=== PATIENT | female | born 1970 | race Caucasian/White ===

== ENCOUNTER → 2016-11-10 | Day surgery (SDC) | payer BC ==
[2016-10-22 11:10] VITALS: BMI 58.0
[~2016-11-10] VITALS: Ht 147.3 cm; Wt 127.0 kg
[~2016-11-10] MED LIST: ACET-1256 PO; ALBU18002 INH; ATEN100T PO; CALC500C50 PO; HYDR-5688 PO; LIDOCAINE HCL 2% 2 ML VIAL (20MG/ML) ONE; LISI20TA3 PO; MELO15TA3 PO; MIDAZOLAM HCL 1 MG/ML 2ML VIAL ONE; MRPSR15 PO; ONDA8TAB6 PO; ONDANSETRON INJ 2 MG/ML 2 ML VIAL ONE; POTA1080 PO; PROPOFOL IV EMULSION 10 MG/ML 20 ML VIAL IV ONE; SODIUM CHLORIDE 0.9% 500ML 500 ML IV ONE; TRAM-10 PO; XRL10 PO
--- NOTE | 2016-11-10 08:38 | Endo History and Physical ---
History & Physical Date of Service: Nov 10, 2016. Chief Complaint: Diarrhea and abdominal pain Referring Physician: Dr. Villasenor History of Present Illness 45 yo CF who presents for colonoscopy secondary to diarrhea and abdominal pain. Past Medical History Arthritis, Asthma, Reflux, Hypertension Past Surgical History Hx Cardiac Surgery: No Hx Internal Defibrillator: No Hx Pacemaker: No Hx Abdominal Surgery: Yes ( X2, TUBAL LIGATION,PARTIAL HYSTERECTOMY, UMBILICAL HERNIA REPAIR) Hx Post-Op Nausea and Vomiting: No Hx Cancer Surgery: No Hx Thoracic Surgery: No Hx Orthopedic: Yes (L KNEE SCOPE,R KNEE SCOPE,LT TKA) Hx Urinary Tract Surgery: Yes (CYSTO STENT) Family History Colon CA Social History Smoking Status: Never Smoker Hx Substance Use: No Hx Alcohol Use: No Allergies Coded Allergies: Oxycodone (Unverified Allergy, Unknown, ANXIETY, INSOMNIA, NAUSEA, ) Current Medications Reported Home Medications Medications Dose Route/Sig Max Daily Dose Days Date Category Potassium Citrate ER (Potassium Citrate (Alkalinizer) 1,080 Mg Tab 1 Tab PO HS 90 11/02/16 Reported Proair Respiclick (Albuterol Sulfate) 108 Mcg/Act Aer 2 Puffs INH Q4-6H PRN 11/02/16 Reported Ultram (Tramadol HCl) 50 Mg Tab 50 Mg PO PRN 11/02/16 Reported Tylenol (Acetaminophen) 500 Mg Tab 1,000 Mg PO BID PRN 11/02/16 Reported Tums (Calcium Carbonate (Antacid)) 500 Mg Chw 1 Tab PO DIRECTED PRN 10/22/16 Reported Tenormin (Atenolol) 100 Mg Tab 100 Mg PO HS 12/31/15 Reported Prinivil (Lisinopril) 20 Mg Tab 20 Mg PO HS 12/18/15 Reported Mobic (Meloxicam) 15 Mg Tab 15 Mg PO HS 11/03/13 Reported Vital Signs Weight (Kilograms): 127 Height (Feet): 4 Height (Inches): 10 Physical Exam General Appearance: WD/WN, no apparent distress Respiratory/Chest: Auscultation: breath sounds normal Cardiovascular: Heart Auscultation: RRR Abdomen: Bowel Sounds: normal Inspection & Palpation: soft, non-distended, no tenderness, guarding & rebound Assessment and Plan Assessment: 45 yo CF who presents for colonoscopy secondary to diarrhea and abdominal pain. Plan: Proceed with colonoscopy.
[2016-11-10 08:42] VITALS: Ht 147.3 cm; Wt 127.0 kg
--- NOTE | 2016-11-10 09:24 | GI REPORT ---
Procedure Date: 11/10/2016 8:57 AM Procedure: Colonoscopy Indications: Generalized abdominal pain, Chronic diarrhea Medicines: Monitored Anesthesia Care Complications: No immediate complications. Estimated Blood Loss: Estimated blood loss: none. Procedure: Pre-Anesthesia Assessment: - Prior to the procedure, a History and Physical was performed, and patient medications and allergies were reviewed. The patient's tolerance of previous anesthesia was also reviewed. The risks and benefits of the procedure and the sedation options and risks were discussed with the patient. All questions were answered, and informed consent was obtained. Prior Anticoagulants: The patient has taken no previous anticoagulant or antiplatelet agents. ASA Grade Assessment: III - A patient with severe systemic disease. After reviewing the risks and benefits, the patient was deemed in satisfactory condition to undergo the procedure. After I obtained informed consent, the scope was passed under direct vision. Throughout the procedure, the patient's blood pressure, pulse, and oxygen saturations were monitored continuously. The Scope was introduced through the anus and advanced to the terminal ileum. The colonoscopy was performed without difficulty. The patient tolerated the procedure well. The quality of the bowel preparation was good. The terminal ileum, ileocecal valve, appendiceal orifice, and rectum were photographed. Findings: Multiple small-mouthed diverticula were found in the sigmoid colon. Several random biopsies were obtained with cold forceps for histology in the entire colon. Fluid aspiration for cytology was performed in the entire colon. Impression: - Diverticulosis in the sigmoid colon. - Several random biopsies were obtained in the entire colon. - Fluid aspiration was performed. Recommendation: - Resume previous diet. - Continue present medications. - Repeat colonoscopy for surveillance based on pathology results. - Return to GI office as previously scheduled. Aman Sorensen, 11/10/2016 9:23:47 AM This report has been signed electronically. Note Initiated On: 11/10/2016 8:57 AM
--- NOTE | 2016-11-10 09:25 | Discharge Instructions ---
Endoscopy Patient Instructions Date / Procedure(s) Performed Nov 10, 2016. Colonoscopy Allergy Information Coded Allergies: Oxycodone (Unverified Allergy, Unknown, ANXIETY, INSOMNIA, NAUSEA, 11/10/16) Discharge Date / Findings Nov 10, 2016. Diverticulosis Random colon biopsies Stool studies collected Medication Instructions OK to resume all medications today as prescribed Reported Home Medications Medications Dose Route/Sig Max Daily Dose Days Date Category Potassium Citrate ER (Potassium Citrate (Alkalinizer) 1,080 Mg Tab 1 Tab PO HS 90 11/02/16 Reported Proair Respiclick (Albuterol Sulfate) 108 Mcg/Act Aer 2 Puffs INH Q4-6H PRN 11/02/16 Reported Ultram (Tramadol HCl) 50 Mg Tab 50 Mg PO PRN 11/02/16 Reported Tylenol (Acetaminophen) 500 Mg Tab 1,000 Mg PO BID PRN 11/02/16 Reported Tums (Calcium Carbonate (Antacid)) 500 Mg Chw 1 Tab PO DIRECTED PRN 10/22/16 Reported Tenormin (Atenolol) 100 Mg Tab 100 Mg PO HS 12/31/15 Reported Prinivil (Lisinopril) 20 Mg Tab 20 Mg PO HS 12/18/15 Reported Mobic (Meloxicam) 15 Mg Tab 15 Mg PO HS 11/03/13 Reported Provider Instructions Activity Restrictions - No exercising or heavy lifting for 24 hours. - Do not drink alcohol the day of the procedure. - Do not drive a car or operate machinery until the day after the procedure. - Do not make any important decisions or sign important papers in 24 hours after the procedure. Following Day: - Return to full activity which may include returning to work/school. Diet Start your diet with liquids and light foods (jello, soup, juice, toast). Then eat your usual diet if not nauseated. Treatment For Common After Affects For mild abdominal pain, bloating, or excessive gas: - Rest - Eat lightly - Lie on right side Follow-Up Information Follow-up with Dr. Villasenor as scheduled Anesthesia Information What You Should Know You have had a procedure that required some medicine to reduce anxiety and discomfort. This treatment is called moderate sedation. After receiving the treatment, you may be sleepy, but you will be able to breathe on your own. The effects of the treatment may last for several hours. Follow these instructions along with Activity/Diet recommendations noted above: * Do NOT do anything where dizziness or clumsiness would be dangerous. * Rest quietly at home today, then you can be up and about tomorrow. * Have a responsible person stay with you the rest of today. * You may have had an I.V. today. If so, you may take the dressing off later today. Recommendations Call your doctor if: * Trouble breathing * Continuous vomiting for more than 24 hours * Temperature above 101 degrees * Severe abdominal pain or bloating * Pain not relieved by pain medicine ordered * There is increased drainage or redness from any incision * A large amount of rectal bleeding greater than 2-3 tablespoons. (If you had a polyp/s removed or have hemorrhoids, a small amount of blood - from the rectum is to be expected.) * You have any unanswered questions or concerns. IN THE EVENT OF A SERIOUS EMERGENCY, GO TO THE NEAREST EMERGENCY ROOM Your discharge instructions were prepared by provider Aman Sorensen. Patient Instructions Signature Page Carol Wharton Patient (or Guardian) Signature/Date: I have read and understand the instructions given to me by my caregivers. Caregiver/RN/Doctor Signature/Date: The above-named patient and/or guardian has received patient instructions on this date. + Original Patient Signature Page (only) stays with chart. Please make copy for patient.
[2016-11-10 10:00] VITALS: BP 121/87; PULSE 50; O2SAT 100
--- NOTE | 2016-11-10 10:59 | Anesthesiology Progress Note ---
Anesthesia Post Op Note Date & Time Nov 10, 2016 at 10:59 Vital Signs Pain Intensity: 0 Vital Signs Past 12 Hours Date Time Temp Pulse Resp B/P Pulse Ox O2 Delivery O2 Flow Rate FiO2 11/10/16 10:00 50 20 121/87 100 Room Air 11/10/16 09:51 53 20 125/60 100 Room Air 11/10/16 09:36 62 20 140/72 100 Room Air 11/10/16 09:21 62 20 127/64 100 Room Air 11/10/16 08:48 36.6 54 20 142/65 96 Room Air Notes Mental Status: alert / awake / arousable Nausea / Vomiting: adequately controlled Pain: adequately controlled Airway Patency, RR, SpO2: stable & adequate BP & HR: stable & adequate Hydration State: stable & adequate Anesthetic Complications: no major complications apparent
== END | disposition home or self-care (01) ==
LOC: C.GI 08:15
PROVIDERS: ATTEND Internal Medicine
DX: R19.7 Diarrhea, unspecified (principal); K57.30 Diverticulosis of large intestine without perforation or abscess without bleeding; Z80.0 Family history of malignant neoplasm of digestive organs; K21.9 Gastro-esophageal reflux disease without esophagitis; M19.90 Unspecified osteoarthritis, unspecified site; J45.909 Unspecified asthma, uncomplicated; I10 Essential (primary) hypertension; Z90.710 Acquired absence of both cervix and uterus; Z98.51 Tubal ligation status; Z96.652 Presence of left artificial knee joint; Z98.890 Other specified postprocedural states; Z88.8 Allergy status to other drugs, medicaments and biological substances

== ENCOUNTER → 2016-11-15 | Outpatient (CLI) | payer BC ==
[~2016-11-15] MED LIST changes: -LIDOCAINE HCL 2% 2 ML VIAL (20MG/ML) ONE; -MIDAZOLAM HCL 1 MG/ML 2ML VIAL ONE; -ONDANSETRON INJ 2 MG/ML 2 ML VIAL ONE; +OPTIRAY 320 IV PRN; -PROPOFOL IV EMULSION 10 MG/ML 20 ML VIAL IV ONE; -SODIUM CHLORIDE 0.9% 500ML 500 ML IV ONE
--- NOTE | 2016-11-15 10:12 | DIAGNOSTIC IMAGING REPORT ---
CT SCAN OF THE NECK WITH IV CONTRAST CLINICAL HISTORY: Lymphadenopathy. COMPARISON STUDY: CT scan of the neck dated 06/06/2014. TECHNIQUE: Following the IV administration of 93 cc of Optiray 320, CT scan of the soft tissues of the neck was performed from the skull base to the upper chest. Images are reviewed in the axial, sagittal, and coronal planes. IV contrast was administered without complication. CT DOSE: 430.10 mGycm FINDINGS: Pharynx: The nasopharynx, oropharynx, and laryngeal pharynx are normal in appearance. The pharyngeal airway is widely patent. There is no evidence of mass lesion. The vocal cords are symmetric. The parapharyngeal fat is well maintained. The prevertebral/retropharyngeal soft tissues are within normal limits. Lymphadenopathy: No cervical lymphadenopathy is seen Thyroid: Normal in size and attenuation. Salivary glands: The parotid and submandibular glands are within normal limits. Brain parenchyma: The visualized brain parenchyma at the skull base is normal in appearance. Vascular structures: The carotid arteries and jugular veins are widely patent. Skeletal structures: Imaged portions of the calvarium at the skull base are within normal limits. The cervical spine appears intact. Benign-appearing low-density lucencies are identified at the petrous apex bilaterally, left larger than right. These are unchanged from 2014 and may represent small cholesterol granulomas. Sinuses and mastoids: The visualized paranasal sinuses are clear. The mastoid air cells are well pneumatized. Lung apices: Visualized apical lung parenchyma is clear. IMPRESSION: There is no acute abnormality identified in the neck. No cervical lymphadenopathy is seen as clinically queried. Electronically signed by: Jean Barboza M.D. 11/15/2016 10:10 AM Dictated Date/Time: 11/15/2016 9:47 AM
== END | disposition home or self-care (01) ==
LOC: C.CTS 09:16
PROVIDERS: ATTEND Internal Medicine
DX: R59.1 Generalized enlarged lymph nodes (principal)

== ENCOUNTER 2016-11-17 07:11 | Inpatient (IN) | payer BC ==
[2016-11-02 11:35] VITALS: BMI 59.0
--- NOTE | 2016-11-02 12:34 | PAT Medication Instructions ---
Service Date Nov 02, 2016. Current Home Medication List Acetaminophen (Tylenol), 1,000 MG PO BID PRN for prn Albuterol Sulfate (Proair Respiclick), 2 PUFFS INH Q4-6H PRN for prn Atenolol (Tenormin), 100 MG PO HS Calcium Carbonate (Antacid) (Tums), 1 TAB PO DIRECTED PRN for Indigestion Lisinopril (Prinivil), 20 MG PO HS Meloxicam (Mobic), 15 MG PO HS Potassium Citrate (Alkalinizer (Potassium Citrate ER), 1 TAB PO HS Tramadol (Ultram), 50 MG PO PRN Medication Instructions For Your Scheduled Surgery - Hold the following medications 7 days prior to surgery per surgeon instructions: Meloxicam (Mobic), 15 MG PO HS - Hold the following medications evening prior to surgery: Lisinopril (Prinivil), 20 MG PO HS - Hold the following medications the morning of surgery: Calcium Carbonate (Antacid) (Tums), 1 TAB PO DIRECTED PRN for Indigestion - Take the following medications the morning of surgery with a sip of water: Tramadol (Ultram), 50 MG PO PRN (can take up to hours prior to surgery if needed) Acetaminophen (Tylenol), 1,000 MG PO BID PRN for prn (if needed) Albuterol Sulfate (Proair Respiclick), 2 PUFFS INH Q4-6H PRN (bring with you to hospital on day of surgery) - Take the following medications as scheduled the night before surgery: Tramadol (Ultram), 50 MG PO PRN Potassium Citrate (Alkalinizer (Potassium Citrate ER), 1 TAB PO HS Calcium Carbonate (Antacid) (Tums), 1 TAB PO DIRECTED PRN for Indigestion Atenolol (Tenormin), 100 MG PO HS Acetaminophen (Tylenol), 1,000 MG PO BID PRN for prn Albuterol Sulfate (Proair Respiclick), 2 PUFFS INH Q4-6H PRN for prn If you have any questions please call us at [phone] or [phone] ( [place]) or [phone]
[2016-11-02 13:24] LABS: BASO % 0.5 %; BASO ABS # 0.04 K/uL (0-0.2); COMPLETE YES; EOS % 3.5 %; HEMATOCRIT 36.1 % (37-47); IG% 0.4 %; LYMPH % 28.2 %; LYMPH ABS # 2.15 K/uL (1.2-3.4); MEAN CELL VOLUME 88.7 fL (80-100); MEAN CORPUSCULAR HGB CONC 32.7 g/dl (32-36); MONO % 7.7 %; NEUT % 59.7 %; PLATELET COUNT 263 K/uL (130-400); RED BLOOD COUNT 4.07 M/uL (4.2-5.4); WHITE BLOOD COUNT 7.62 K/uL (4.8-10.8)
[2016-11-02 13:26] LABS: URINE APPEARANCE CLEAR (CLEAR); URINE BILIRUBIN NEG (NEG); URINE COLOR YELLOW; URINE NITRITE NEG (NEG); URINE SPECIFIC GRAVITY 1.015 (1.000-1.030); UROBILINOGEN NEG (NEG); ZZUR CULT IF INDIC CLEAN CATCH NO
--- NOTE | 2016-11-02 13:26 | DIAGNOSTIC IMAGING REPORT ---
CHEST 2 VIEWS ROUTINE CLINICAL HISTORY: Preoperative evaluation. COMPARISON STUDY: Chest radiograph March 21, 2016. FINDINGS: Lung volumes are at the lower limits of normal. There is no pneumothorax or pleural effusion. There is no evidence of pulmonary edema. Mild to moderate cardiomegaly is unchanged. IMPRESSION: 1. No acute cardiopulmonary findings. 2. Mild to moderate cardiomegaly. Electronically signed by: Eriberto Romano M.D. 11/02/2016 1:25 PM
[2016-11-02 13:29] LABS: MANUAL MICROSCOPIC REQUIRED? NO; REVIEW REQ? NO
[2016-11-02 13:30] LABS: PROTHROMBIN TIME (PATIENT) 10.6 SECONDS (9.0-12.0)
[2016-11-02 13:56] LABS: BUN/CREATININE RATIO 30.8 (10-20); CALCIUM 9.2 mg/dl (8.5-10.1); CREATININE 0.59 mg/dl (0.60-1.20)
[2016-11-02 14:11] LABS: ESTIMATED AVERAGE GLUCOSE 117 mg/dl; HA1C FLAG Normal (Normal)
--- NOTE | 2016-11-16 18:40 | HISTORY & PHYSICAL EXAMINATION ---
DATE OF ADMISSION: 11/17/2016 CHIEF COMPLAINT: Chronic right knee pain. HISTORY OF PRESENT ILLNESS: This is a 45-year-old female patient of Dr. Prince'robinson complaining of chronic right knee pain, longstanding, now progressively getting worse. The patient has failed conservative treatment including Tylenol, anti-inflammatories, intra-articular injections. The patient has been diagnosed with end-stage osteoarthritis per clinical and radiographic exams. The patient has increased pain with weightbearing activities and her activities of daily living. PAST MEDICAL HISTORY: Mitral valve prolapse, asthma, postop anemia, osteoarthritis, acid reflux, obesity. SOCIAL HISTORY: Nonsmoker, nondrinker. PAST SURGICAL HISTORY: Tonsillectomy, section, deviated septum, hernia repair, left knee replacement and hysterectomy. FAMILY HISTORY: Noncontributory. REVIEW OF SYSTEMS: The patient complains of chronic right knee pain, otherwise denies any shortness of breath, chest pain, nausea, vomiting or any other joint complaints. MEDICATIONS: 1. Meloxicam 15 mg daily. 2. lisinopril 20 mg daily. 3. atenolol 100 mg daily. 4. ProAir inhalation as needed. 5. Tylenol 500 mg as needed. 6. tramadol 50 mg as needed. 7. potassium as needed. ALLERGIES: No known drug allergies. PHYSICAL EXAMINATION: GENERAL: Well-developed, well-nourished 45-year-old female in no acute distress. She is alert and oriented x3 and pleasant. HEENT: Normocephalic, atraumatic. Extraocular motions are intact. Pupils are equal and reactive to light. HEART: Regular rate and rhythm, no murmurs appreciated. LUNGS: Clear. ABDOMEN: Soft and nontender, bowel sounds are present. EXTREMITIES: Right knee reveals crepitation with passive range of motion. She has a mild effusion with limited range of motion of 0-95 degrees. She is morbidly obese. Her ligaments are stable. She has 4/5 strength. Neurologically and neurovascularly, she is intact in her right lower extremity. DIAGNOSES: Right knee end-stage osteoarthritis. She has a history of mitral valve prolapse, asthma, postop anemia, osteoarthritis, acid reflux, obesity. PLAN: The patient was advised of her diagnosis. Indications, risks, benefits, and postop course have all been reviewed. The patient wishes to proceed with a right total knee arthroplasty. Necessary consent forms, preoperative testing and clearances will be obtained.
[2016-11-17] VITALS (11 sets, daily range): BP systolic 94–130; BP diastolic 56–74; PULSE 53–69; TEMP 36.4–36.8; O2SAT 94–98; Ht 147.3 cm; Wt 127.4 kg
[~2016-11-17] VITALS: Ht 147.3 cm; Wt 127.4 kg
[2016-11-17] MEDS: TRANEXAMIC ACID INJ 1,000 MG in SODIUM CHLORIDE 0.9% 100ML 100 ML IV SCH ×2 (06:30→09:26)
[~2016-11-17 07:11] MED LIST changes: +ACETAMINOPHEN 500 MG TAB PO SCH; +BUPIVACAINE 0.25% 30 ML VIAL ONE; +BUPIVACAINE 0.5 % 5 MG/1 ML PF 10ML VIAL ONE; +CEFAZOLIN 3000 MG/65 ML D5W 65 ML IV SCH; +CeleBREX 200 MG CAP PO SCH; +DEXAMETHASONE 4 MG TAB PO SCH; +FAMOTIDINE 20 MG TAB PO SCH; +GABAPENTIN 300 MG CAP PO SCH; -HYDR-5688 PO; +LACTATED RINGER'S 1000ML IV SCH; +LACTATED RINGER'S 500 ML IV SCH; +METOCLOPRAMIDE HCL 10 MG TAB PO SCH; -MRPSR15 PO; -ONDA8TAB6 PO; -OPTIRAY 320 IV PRN; +ORTHO JOINT ANESTHETIC ONE; +ROPIVACAINE 5MG/ML 30 ML 150 MG, BUPIVACAINE/EPINEPHR 0.5% MPF 30 ML, KETOROLAC TROMETH... INFIL SCH; -XRL10 PO
[2016-11-17] MEDS ORDERED: FENTANYL CITRATE INJ 50 MCG/1 ML 2 ML VIAL ONE ×2 (07:19→11:56)
[2016-11-17] MEDS ORDERED: MIDAZOLAM HCL 1 MG/ML 2ML VIAL ONE ×3 (07:19→14:48)
--- NOTE | 2016-11-17 07:30 | History & Physical Bridge Note ---
H&P Re-Evaluation Bridge Note: I have examined the patient, reviewed the History & Physical and in the interval since the performance of the History & Physical I have noted the following changes of clinical significance: No changes noted
[2016-11-17] MEDS ORDERED: PHENYLEPHRINE 100MCG/ML 5ML SYR IV PRN (09:00)
[2016-11-17] MEDS ORDERED: ONDANSETRON INJ 2 MG/ML 2 ML VIAL IV PRN ×2 (09:00→12:45)
[2016-11-17] MEDS ORDERED: ATROPINE SULFATE 0.1 MG/ML 5ML SYR IV PRN (09:00)
[2016-11-17] MEDS ORDERED: HYDROmorphone INJ 2 MG/ML SYR/VIAL IV PRN (09:00)
[2016-11-17] MEDS ORDERED: EpHEDrine SULFATE INJ 50 MG/ML AMP IV PRN (09:00)
[2016-11-17] MEDS ORDERED: PROPOFOL IV EMULSION 10 MG/ML 20 ML VIAL IV ONE ×2 (10:07→11:57)
[2016-11-17] MEDS ORDERED: POVIDONE-IODINE OP SOLN 30 ML BTL TOP ONE ×2 (10:50→10:51)
[2016-11-17] MEDS ORDERED: BACITRACIN 50000 UNIT VIAL IR ONE (10:50)
--- NOTE | 2016-11-17 12:06 | [facility] Operative Report ---
Operative Report Operative Date Nov 17, 2016. Pre-Operative Diagnosis Right Knee Degnerative Joint Disease,morbid obesity bmi 58.7 Post-Operative Diagnosis same Procedure(s) Performed right total knee replacement,increased difficulty bmi 58.[address] Mikie Prince Hand Deicer Element Winder Surgeon(s) Alvaro Luis PA-C & Gonzalo Jacobs PA-C Estimated Blood Loss 15 ML Findings severe djd tricompartmental varus Specimens A. Right Knee Bone and Tissue Indications end stage djd oa I attest to the content of the Intraoperative Record and any orders documented therein. Any exceptions are noted below.
[2016-11-17] MEDS ORDERED: EpHEDrine SULFATE 50MG/5ML SYR ONE (12:34)
[2016-11-17] MEDS ORDERED: MoRPHine SULFATE 2 MG/ML CARP IV PRN (12:45)
[2016-11-17] MEDS ORDERED: ALBUTEROL HFA 8 GM INHALER INH PRN (12:45)
[2016-11-17] MEDS ORDERED: ZOLPIDEM TARTRATE 5 MG TAB PO PRN (12:45)
[2016-11-17] MEDS ORDERED: BISACODYL 10 MG SUPP PR PRN (12:45)
[2016-11-17] MEDS ORDERED: MAGNESIUM HYDROXIDE SUSP 30 ML UDC PO PRN (12:45)
[2016-11-17] MEDS ORDERED: DiphenhydrAMINE HCL 50 MG/ML VIAL IV PRN (12:45)
[2016-11-17] MEDS ORDERED: TRAMADOL HCL 50 MG TAB PO PRN (12:45)
--- NOTE | 2016-11-17 13:12 | DIAGNOSTIC IMAGING REPORT ---
RIGHT KNEE 1 OR 2 VIEWS ROUTINE CLINICAL HISTORY: Right knee arthroplasty. COMPARISON: None FINDINGS: Alignment of the right knee arthroplasty is anatomic. There is no fracture or unexpected radiopaque foreign body. Skin alpesh are present. IMPRESSION: Expected findings following total right knee arthroplasty. Electronically signed by: Eriberto Romano M.D. 11/17/2016 1:10 PM Dictated Date/Time: 11/17/2016 1:08 PM
--- NOTE | 2016-11-17 13:46 | Anesthesiology Progress Note ---
Anesthesia Post Op Note Date & Time Nov 17, 2016 at 13:46 Vital Signs Pain Intensity: 0 Vital Signs Past 12 Hours Date Time Temp Pulse Resp B/P Pulse Ox O2 Delivery O2 Flow Rate FiO2 11/17/16 13:45 59 22 120/52 95 Nasal Cannula 3 11/17/16 13:30 59 22 118/57 96 Nasal Cannula 3 11/17/16 13:20 36.4 58 18 113/53 96 Nasal Cannula 3 11/17/16 13:10 59 18 120/53 97 Nasal Cannula 3 11/17/16 13:00 60 18 123/54 97 Nasal Cannula 3 11/17/16 12:50 65 18 115/57 97 Nasal Cannula 3 11/17/16 12:40 36.4 68 24 127/50 99 Nasal Cannula 3 11/17/16 07:57 96 Room Air 11/17/16 07:48 36.8 53 20 130/64 Notes Mental Status: alert / awake / arousable, participated in evaluation Pt Amnestic to Procedure: Yes Nausea / Vomiting: adequately controlled Pain: adequately controlled Airway Patency, RR, SpO2: stable & adequate BP & HR: stable & adequate Hydration State: stable & adequate Anesthetic Complications: no major complications apparent
[2016-11-17] MEDS: HYDROCODONE/ACETAMOPHEN 5/325MG TAB PO PRN (15:04)
[2016-11-17] MEDS ORDERED: HydrALAZINE HCL 20 MG/ML VIAL IV. PRN (15:30)
[2016-11-17] MEDS ORDERED: MoRPHine SULFATE 4 MG/ML 1 ML CARP\\VIAL IV PRN (15:30)
[2016-11-17] MEDS ORDERED: MoRPHine SULFATE 10 MG/ML CARP/VIAL IV PRN (15:30)
--- NOTE | 2016-11-17 15:40 | Medical Consult ---
Consultation Date of Consultation: Nov 17, 2016. Attending Physician: Mikie Prince M.D. Reason for Consultation: Medical management History of Present Illness This is a 45 y/o female with a history of HTN, asthma, nephrolithiasis, and GERD who presents s/p right TKA with Dr. Prince on 11/17 for medical management. The patient reports some pain in her right knee as well as tingling in her right toes. She is otherwise doing well post operatively with no other complaints. The patient is urinating in the bed bhakta without difficulty. She has not eaten, passed gas, or had a bowel movement yet. The patient denies fevers, chills, sweats, chest pain, palpitations, claudication, cough, wheezing, shortness of breath, nausea, vomiting, abdominal pain, dysuria , hematuria, urinary retention, paralysis, and weakness. Past Medical/Surgical History Medical Problems: HTN Asthma Nephrolithiasis--chronic GERD Family History Colon cancer Coronary artery disease Diabetes mellitus Hypertension Kidney disease Kidney stones Lung disease Myocardial infarction Social History Smoking Status: Never Smoker Smokeless Tobacco Use: No Alcohol Use: none Drug Use: none Marital Status: Housing Status: lives with family ( and son) Occupation Status: employed Allergies Coded Allergies: Oxycodone (Verified Adverse Reaction, Unknown, ANXIETY, INSOMNIA, NAUSEA, 11/17/16) Current Inpatient Medications Current Inpatient Medications Medications (Trade) Dose Ordered Sig/Danielle Route Start Time Stop Time Status Last Admin Dose Admin Cefazolin Sodium (Ancef 3000 Mg/ 65 ml D5W) 65 ml @ 100 mls/hr PREOP IV 11/17/16 06:00 11/17/16 18:00 11/17/16 09:55 100 MLS/HR Acetaminophen (Tylenol Tab) 1,000 mg PREOP PO 11/17/16 06:00 11/17/16 18:00 11/17/16 08:20 1,000 MG Celecoxib (CeleBREX CAP) 200 mg PREOP PO 11/17/16 06:00 11/17/16 18:00 11/17/16 08:18 200 MG Dexamethasone (Decadron Tab) 8 mg PREOP PO 11/17/16 06:00 11/17/16 18:00 11/17/16 08:20 8 MG Famotidine (Pepcid Tab) 20 mg PREOP PO 11/17/16 06:00 11/17/16 18:00 11/17/16 08:18 20 MG Gabapentin (Neurontin Cap) 900 mg PREOP PO 11/17/16 06:00 11/17/16 18:00 11/17/16 08:21 900 MG Metoclopramide HCl 10 mg 10 mg PREOP PO 11/17/16 06:00 11/17/16 18:00 11/17/16 08:19 10 MG Tranexamic Acid/ Sodium Chloride (Cyklokapron Inj/ Nss 100ml) 110 ml @ 660 mls/hr TODAY@06,0630 IV 11/17/16 06:00 11/17/16 18:00 11/17/16 09:26 660 MLS/HR Lisinopril (Zestril Tab) 20 mg HS PO 11/17/16 21:00 12/17/16 20:59 Albuterol (Ventolin Hfa Inhaler) 2 puffs Q4 PRN INH 11/17/16 12:45 12/17/16 12:44 Morphine Sulfate 2 mg 2 mg Q4HWA PRN IV 11/17/16 12:45 12/01/16 12:44 Potassium Chloride/Dextrose/ Sod Cl 1,000 ml @ 100 mls/hr Q10H IV 11/17/16 16:00 11/18/16 12:38 Cefazolin Sodium/ Dextrose (Ancef Iv/D5 50ml) 60 ml @ 100 mls/hr Q8H IV 11/17/16 18:00 11/18/16 02:35 Ketorolac Tromethamine (Toradol Inj) 30 mg Q6H IV. 11/17/16 16:00 11/18/16 12:44 Acetaminophen/ Hydrocodone Bitart ([place] 5/325 Tab) 1 TABLET FOR PAIN RATING... Q4H PRN PO 11/17/16 12:45 12/01/16 12:44 11/17/16 15:04 1 TAB Magnesium Hydroxide (Milk Of Magnesia Susp) 30 ml Q6H PRN PO 11/17/16 12:45 12/17/16 12:44 Bisacodyl (Dulcolax Supp) 10 mg DAILY PRN NV 11/17/16 12:45 12/17/16 12:44 Senna (Senokot Tab) 17.2 mg HS PO 11/17/16 21:00 12/17/16 20:59 Docusate Sodium (coLACE CAP) 100 mg BID PO 11/17/16 21:00 12/17/16 20:59 Diphenhydramine HCl (Benadryl Inj) 25 mg Q8H PRN IV 11/17/16 12:45 12/17/16 12:44 Al Hydrox/Mg Hydrox/Simethicone (Maalox Max Susp) 15 ml Q4H PRN PO 11/17/16 12:45 12/17/16 12:44 Zolpidem Tartrate (Ambien Tab) 5 mg HSZ PRN PO 11/17/16 12:45 12/17/16 12:44 Multivitamins (Multivitamin Tab) 1 tab QAM PO 11/18/16 09:00 12/18/16 08:59 Ondansetron HCl (Zofran Inj) 4 mg Q6H PRN IV 11/17/16 12:45 12/17/16 12:44 Ferrous Gluconate (Ferrous Gluconate Tab) 324 mg TIDM PO 11/17/16 17:45 12/17/16 17:44 Pantoprazole Sodium (Protonix Tab) 40 mg QAM PO 11/18/16 09:00 12/18/16 08:59 Tramadol HCl (Ultram Tab) 1 tablet for pain rating... Q4H PRN PO 11/17/16 12:45 12/17/16 12:44 Aspirin (Ecotrin Tab) 81 mg BID PO 11/17/16 21:00 12/17/16 20:59 Morphine Sulfate (Oramorph Sr Tab) 15 mg Q12 PO 11/17/16 21:00 12/01/16 20:59 Morphine Sulfate (MoRPHine SULFATE INJ) 4 mg Q4HWA PRN IV 11/17/16 15:30 12/01/16 15:29 Morphine Sulfate (MoRPHine SULFATE INJ) 6 mg Q4HWA PRN IV 11/17/16 15:30 12/01/16 15:29 Review of Systems Constitutional: No chills, No fever, No sweats Eyes: No diplopia, No eye pain, No worsening of vision ENT: No hearing loss, No sore throat, No tinnitus Respiratory: No cough, No shortness of breath, No wheezing Cardiovascular: No chest pain, No claudication, No palpitations Abdomen: No nausea, No pain, No vomiting Musculoskeletal: + joint pain (R knee s/p TKA), No calf pain, No muscle pain Genitourinary - Female: No dysuria, No hematuria, No urinary retention Neurologic: + numbness/tingling (tingling in R toes), No paralysis, No weakness Integumentary: No color change, No itch, No rash Physical Exam Date Time Temp Pulse Resp B/P Pulse Ox O2 Delivery O2 Flow Rate FiO2 11/17/16 14:40 36.7 55 20 118/68 97 Nasal Cannula 2.0 11/17/16 14:10 Nasal Cannula 2.0 11/17/16 14:10 36.8 63 20 121/68 94 Nasal Cannula 2.0 11/17/16 14:00 64 22 122/55 96 Nasal Cannula 3 11/17/16 13:45 59 22 120/52 95 Nasal Cannula 3 11/17/16 13:30 59 22 118/57 96 Nasal Cannula 3 11/17/16 13:20 36.4 58 18 113/53 96 Nasal Cannula 3 11/17/16 13:10 59 18 120/53 97 Nasal Cannula 3 11/17/16 13:00 60 18 123/54 97 Nasal Cannula 3 11/17/16 12:50 65 18 115/57 97 Nasal Cannula 3 11/17/16 12:40 36.4 68 24 127/50 99 Nasal Cannula 3 11/17/16 07:57 96 Room Air 11/17/16 07:48 36.8 53 20 130/64 General Appearance: WD/WN, no apparent distress, + obese (morbidly obese) Head: normocephalic, atraumatic Eyes: normal inspection, PERRL, EOMI ENT: normal ENT inspection, hearing grossly normal, pharynx normal Neck: supple, no JVD, trachea midline Respiratory/Chest: lungs clear, normal breath sounds, no respiratory distress Cardiovascular: regular rate, rhythm, no gallop, + systolic murmur (11/12) Abdomen/GI: normal bowel sounds, non tender, soft Extremities/Musculoskelatal: normal inspection, no calf tenderness, no pedal edema Neurologic/Psych: alert, normal mood/affect, oriented x 3 Skin: normal color, warm/dry, no rash Laboratory Results Last 24 Hours Test 11/17/16 15:17 Assessment & Plan 45 y/o female with a history of HTN, asthma, nephrolithiasis, and GERD who presents s/p right TKA with Dr. Prince on 11/17 for medical management. -Pain management, DVT prophylaxis, and PT/OT as per primary team HTN--stable -Hold atenolol 100 mg PO tonight as has been bradycardic post-op -Hold lisinopril 20 mg PO qhs until renal function checked and stable -Cover with hydralazine 10 mg IV q6h prn SBP >180 Asthma -Continue ProAir 2 puffs q4-6h prn Nephrolithiasis--pt states she currently has several stones in the kidney, not actively passing, no pain GERD -Agree with pantoprazole 40 mg PO qam Code Status -Level I, FULL RESUSCITATION STATUS Thank you for this consultation. We will continue to follow. I agree with PA assessment and plan Pt SP TKA HTN controlled but running duncan, if worsening HTN can restart lisinopril Hold atenolol at night Will monitor for acute blood loss anemia WIill obtain CBC, BMP DVT ppx per primary team
[2016-11-17] MEDS: D5W AND 1/2NSS + 20MEQ KCL 1,000 ML IV SCH (15:55)
[2016-11-17] MEDS: KETOROLAC TROMETHAMINE 30 MG/ML VIAL IV. SCH ×2 (15:57→21:35)
[2016-11-17 16:11] LABS: BASO % 0.1 %; BASO ABS # 0.02 K/uL (0-0.2); COMPLETE YES; HEMATOCRIT 37.3 % (37-47); IG% 0.5 %; LYMPH % 7.7 %; MEAN CELL VOLUME 87.1 fL (80-100); MEAN CORPUSCULAR HGB CONC 33.2 g/dl (32-36); MONO % 0.8 %; NEUT % 90.9 %; PLATELET COUNT 299 K/uL (130-400); RED BLOOD COUNT 4.28 M/uL (4.2-5.4); WHITE BLOOD COUNT 14.36 K/uL (4.8-10.8)
[2016-11-17 16:25] LABS: BUN/CREATININE RATIO 22.6 (10-20); CALCIUM 9.3 mg/dl (8.5-10.1); CREATININE 0.66 mg/dl (0.60-1.20); POTASSIUM 4.2 mmol/L (3.5-5.1)
[2016-11-17] MEDS ORDERED: INFLUENZA VIRUS QUAD VACCINE 0.5 ML SYR IM. ONE (16:30)
[2016-11-17] MEDS ORDERED: INFLUENZA ADMINISTRATION CHARGE ONE (16:30)
--- NOTE | 2016-11-17 16:32 | OPERATIVE REPORT ---
DATE OF OPERATION: 11/17/2016 INDICATION FOR PROCEDURE: The patient is a 45-year-old female who presents with severe osteoarthritis in her right knee. She has had extensive conservative management. She had osteoarthritis in her opposite knee which was severe and underwent a total knee replacement by myself. She did well with that. At this point, she has failed all conservative management with regard to her right knee and wants to proceed with knee replacement surgery at this time. It is noted that she is morbidly obese but still an active individual and did satisfactorily with the surgery on her opposite knee. PREOPERATIVE DIAGNOSIS: End-stage osteoarthritis, right knee with morbid obesity, BMI 58.7. POSTOPERATIVE DIAGNOSIS: Same. PROCEDURE: Right total knee arthroplasty, increased difficulty due to morbid obesity, BMI 58.7. SURGEON: Dr. Prince. NITROGLYCERIN SEPARATOR OPERATOR: Alvaro Luis PA-C and Gonzalo Jacobs PA-C. ANESTHESIA: Spinal IV sedation, local block. OPERATION AND FINDINGS: OPERATIVE PROCEDURE: The patient was taken to the operating room, anesthetized under anesthesia as dictated. Pneumatic tourniquet was placed about her obese upper right thigh. Knee exam demonstrates she had full extension but flexion only to 90 degrees where her calf met her thigh essentially. Her knee had no pseudolaxity. She had no instability. The right lower extremity was then prepped and draped with ChloraPrep after pneumatic tourniquet was placed high about her right upper thigh. Her leg was elevated, exsanguinated with Esmarch bandage and pneumatic tourniquet was raised to 350 mmHg. I used the Brown \T\ Nephew Journey 2.0 knee replacement system with standard intramedullary guides. After the leg was elevated, exsanguinated with Esmarch bandage. Pneumatic tourniquet was raised to 350. An anterior incision made across the knee. Skin was incised sharply and the subcutaneous flaps which were fairly deep were divided down to the fascia. Subcutaneous flaps were elevated. Bleeders were cauterized. The incision was made through the medial retinaculum and extended up in the mid third of the quadriceps tendon and extending down to the medial tibial tubercle. Intraarticular findings demonstrated first she did have significant patellofemoral arthritis and patella baja making it a bit difficult. She had a short patellar tendon and some scarring in the patellar tendon. She also had tricompartmental DJD. She had anterior medial grade 4 [id number] medial compartment and a fairly large medial osteophyte. Cruciate ligaments were still intact. To expose the knee, I excised the scarred infrapatellar fat pad. I did release around the proximal medial tibial plateau and some posteromedial tibial plateau to help balance the ligaments. I did minimal releases laterally. The cruciate ligaments were resected. Lateral synovial bands were resected. The fat over the anterior femur for placement of the component in that area was resected. The attention had to be taken first to the patellar because of the patella baja and difficult exposure, also difficult exposure to her obesity. A subperiosteal peel lateral release was performed around the patella. Patella width was measured and width was reproduced using a freehand cut technique and a 32 patellar component. Drill holes were made for the patellar component. The excess lateral facet was beveled off to prevent any impingement. Then attention was taken to expose the femur. Retractors were placed exposing the femur. Intramedullary drill hole was made into the femoral canal. Distal femoral cutting guide was adjusted to make a standard distal femoral cut at a 5 degree valgus cut. After this was made, the sizing guide was placed and a size 3 femur was chosen. The 5-1 cutting block was then placed. The anterior, posterior and chamfer cuts were made. Then the tibia was subluxed. The external tibial cutting guide was used to make a perpendicular cut to the long axis of the tibia just below the most deficient medial side. We tried to match some of her posterior slope putting a slight posterior slope on the prosthetic. The oscillating saw was used to make the cut. Lamina marker maker was used to assure ligamentous balance in flexion and extension. With the tibia exposed we measured the tibia initially for a size 1 tibial implant, but it came to our attention that there was no 1 implants available at [facility] so we had to upside this to a 2 which had about just a millimeter anterior step-off of the prosthetic, but had good ML fit and we felt this was acceptable. The punch for the stem was used. The 3 femoral trial was inserted and centered and the notch cutting devices were used. A collet was placed. A 10 poly insert gave balanced ligaments through full range of motion, patella tracked centrally with slight liftoff on the patella, I felt because of her patella baja she would benefit from a lateral release. We did a formal lateral release keeping the synovium intact which improved the patella alignment. She had full extension, the knee flexed only to where her calf met her thigh which was about 90-95 degrees range of motion in flexion. She had balanced stability of the knee through motion assessed. The trials were removed. The knee was copiously irrigated with pulsatile lavage antibiotic solution with bacitracin. Final components were cemented with Simplex G cement. Final components were the 3 right femur Oxinium Brown \T\ Nephew Journey 2.0 posterior stabilized femoral component and the size 2 tibial baseplate and the 10 mm posterior stabilized poly insert and the 32 mm patella button. While the cement cured, we did a Betadine soak per protocol. Then after irrigation with antibiotic solution and bacitracin 2 drains were brought out laterally. Then the quadriceps tendon and medial retinaculum were closed with interrupted [id number] #1 Vicryl sutures. The knee was taken through range of motion and appeared secure. Patella tracked satisfactorily. The subcutaneous tissues were closed in layers with interrupted 2-0 Vicryl and the skin was closed with alpesh and a superficial wound VAC was placed. There was increased difficulty of this procedure due to her obesity with BMI of 58.7. Alvaro Luis PA-C, and Gonzalo Jacobs PA-C both assisted me in this case. They assisted in soft tissue retraction, leg positioning, instrument management and assisted in the final closure and placement of wound VAC. I attest to the content of the Intraoperative Record and any orders documented therein. Any exceptio ns are noted below.
[2016-11-17] MEDS: FERROUS GLUCONATE 324 MG TAB PO SCH (17:39)
[2016-11-17] MEDS: CEFAZOLIN IV 2,000 MG in DEXTROSE 5% 50ML 50 ML IV SCH (17:39)
[2016-11-17] MEDS: ASPIRIN 81 MG ECTAB PO SCH (20:29)
[2016-11-17] MEDS: SENNA 8.6 MG TAB PO SCH (20:29)
[2016-11-17] MEDS: MoRPHine SULFATE CR 15 MG TAB (MS CONTIN) PO SCH (20:30)
[2016-11-17] MEDS: DOCUSATE SODIUM 100 MG CAP PO SCH (20:30)
[2016-11-17] MEDS ORDERED: LISINOPRIL 20 MG TAB PO SCH (21:00)
[2016-11-18] MEDS: HYDROCODONE/ACETAMOPHEN 5/325MG TAB PO PRN ×4 (00:48→19:38)
[2016-11-18] MEDS: D5W AND 1/2NSS + 20MEQ KCL 1,000 ML IV SCH ×2 (00:48→12:00)
[2016-11-18] MEDS: CEFAZOLIN IV 2,000 MG in DEXTROSE 5% 50ML 50 ML IV SCH (00:49)
[2016-11-18 03:51] VITALS: BP 134/65; PULSE 60; TEMP 36.5; O2SAT 96
[2016-11-18] MEDS: KETOROLAC TROMETHAMINE 30 MG/ML VIAL IV. SCH ×2 (03:53→09:58)
[2016-11-18 05:47] LABS: HEMATOCRIT 32.7 % (37-47); MEAN CELL VOLUME 87.2 fL (80-100); MEAN CORPUSCULAR HEMOGLOBIN 28.8 pg (25-34); MEAN PLATELET VOLUME 11.3 fL (7.4-10.4); PLATELET COUNT 262 K/uL (130-400); RED BLOOD COUNT 3.75 M/uL (4.2-5.4); WHITE BLOOD COUNT 14.66 K/uL (4.8-10.8)
[2016-11-18 06:15] LABS: BUN/CREATININE RATIO 24.5 (10-20); CALCIUM 8.4 mg/dl (8.5-10.1); CREATININE 0.73 mg/dl (0.60-1.20); POTASSIUM 4.4 mmol/L (3.5-5.1)
[2016-11-18 07:25] VITALS: BP 128/68; PULSE 56; TEMP 36.7; O2SAT 97
--- NOTE | 2016-11-18 07:45 | Anesthesiology Progress Note ---
Anesthesia Post Op Note Date & Time Nov 18, 2016 at 07:44 Vital Signs Pain Intensity: 4.0 Vital Signs Past 12 Hours Date Time Temp Pulse Resp B/P Pulse Ox O2 Delivery O2 Flow Rate FiO2 11/18/16 07:25 36.7 56 17 128/68 97 Room Air 11/18/16 03:51 36.5 60 18 134/65 96 Room Air 11/17/16 23:40 Room Air 11/17/16 23:11 36.7 59 16 122/64 95 Room Air 11/17/16 21:38 62 126/74 Notes Mental Status: alert / awake / arousable, participated in evaluation Pt Amnestic to Procedure: Yes Nausea / Vomiting: adequately controlled Pain: adequately controlled Airway Patency, RR, SpO2: stable & adequate BP & HR: stable & adequate Hydration State: stable & adequate Neuraxial Anesthesia: sensory block resolved Anesthetic Complications: no major complications apparent
[2016-11-18] MEDS: FERROUS GLUCONATE 324 MG TAB PO SCH ×3 (08:06→17:24)
[2016-11-18] MEDS: ASPIRIN 81 MG ECTAB PO SCH ×2 (09:57→21:14)
[2016-11-18] MEDS: DOCUSATE SODIUM 100 MG CAP PO SCH ×2 (09:57→21:14)
[2016-11-18] MEDS: MULTIVITAMIN TAB PO SCH (09:58)
[2016-11-18] MEDS: MoRPHine SULFATE CR 15 MG TAB (MS CONTIN) PO SCH ×2 (10:01→21:18)
[2016-11-18] MEDS: PANTOprazole SOD 40 MG TAB PO SCH (10:01)
[2016-11-18 11:36] VITALS: BP 122/72; PULSE 54; TEMP 36.4; O2SAT 96
--- NOTE | 2016-11-18 14:39 | Orthopedic Progress Note ---
Orthopedic Progress Note Date of Service Nov 18, 2016. Subjective Post OP Day: 1 Reports: feeling well, Denies: SOB, calf pain, chest pain, light headedness, nausea / vomiting Additional Notes: Pain controlled currently... Objective calves soft nontender, N/V intact, dressing C/D/I, A&O x3, toes mobile Date Time Temp Pulse Resp B/P Pulse Ox O2 Delivery O2 Flow Rate FiO2 11/18/16 11:36 36.4 54 16 122/72 96 Room Air 11/18/16 07:50 Room Air 11/18/16 07:25 36.7 56 17 128/68 97 Room Air 11/18/16 03:51 36.5 60 18 134/65 96 Room Air 11/17/16 23:40 Room Air 11/17/16 23:11 36.7 59 16 122/64 95 Room Air 11/17/16 21:38 62 126/74 11/17/16 19:13 36.5 69 18 99/56 96 Room Air 11/17/16 17:38 97 Room Air 11/17/16 17:18 36.7 64 18 94/62 96 Nasal Cannula 2.0 11/17/16 16:22 36.7 63 16 123/68 96 Nasal Cannula 2.0 11/17/16 15:15 Nasal Cannula 2.0 11/17/16 15:10 36.4 56 16 107/64 98 Nasal Cannula 2.0 11/17/16 14:40 36.7 55 20 118/68 97 Nasal Cannula 2.0 Laboratory Results 24 Hours: Test 11/17/16 15:45 11/18/16 05:05 White Blood Count 14.36 K/uL Red Blood Count 4.28 M/uL Hemoglobin 12.4 g/dL 10.8 g/dL Hematocrit 37.3 % 32.7 % Mean Corpuscular Volume 87.1 fL Mean Corpuscular Hemoglobin 29.0 pg Mean Corpuscular Hemoglobin Concent 33.2 g/dl Platelet Count 299 K/uL Mean Platelet Volume 11.0 fL Neutrophils (%) (Auto) 90.9 % Lymphocytes (%) (Auto) 7.7 % Monocytes (%) (Auto) 0.8 % Eosinophils (%) (Auto) 0.0 % Basophils (%) (Auto) 0.1 % Neutrophils # (Auto) 13.05 K/uL Lymphocytes # (Auto) 1.10 K/uL Monocytes # (Auto) 0.12 K/uL Eosinophils # (Auto) 0.00 K/uL Basophils # (Auto) 0.02 K/uL Assessment & Plan Assessment: POD 1 s/p Right TKA Plan: PT/OT Planning for dc to home with OPPT tomorrow. Inhouse Planning Pain Management: Ultram, [place], Morphine DVT Prophylaxis: TEDs, SCDs, ASA Discharge Planning Discharge Planning: home with oppt Pain Management: [place], Morphine (MS Contin 15mg) DVT Prophylaxis: TEDs, ASA Therapy: Physical Therapy
--- NOTE | 2016-11-18 14:43 | Progress Note ---
Subjective Date of Service: Nov 18, 2016. Problem List Medical Problems: (1) Cardiac dysfunction Status: Acute (2) Pulmonary hypertension Status: Acute (3) Right lower lobe pneumonia Status: Acute Objective Vital Signs Date Time Temp Pulse Resp B/P Pulse Ox O2 Delivery O2 Flow Rate FiO2 11/18/16 11:36 36.4 54 16 122/72 96 Room Air 11/18/16 07:50 Room Air 11/18/16 07:25 36.7 56 17 128/68 97 Room Air 11/18/16 03:51 36.5 60 18 134/65 96 Room Air 11/17/16 23:40 Room Air 11/17/16 23:11 36.7 59 16 122/64 95 Room Air 11/17/16 21:38 62 126/74 11/17/16 19:13 36.5 69 18 99/56 96 Room Air 11/17/16 17:38 97 Room Air 11/17/16 17:18 36.7 64 18 94/62 96 Nasal Cannula 2.0 11/17/16 16:22 36.7 63 16 123/68 96 Nasal Cannula 2.0 11/17/16 15:15 Nasal Cannula 2.0 11/17/16 15:10 36.4 56 16 107/64 98 Nasal Cannula 2.0 Laboratory Results Last 24 Hours Test 11/17/16 15:45 11/18/16 05:05 White Blood Count 14.36 K/uL 14.66 K/uL Red Blood Count 4.28 M/uL 3.75 M/uL Hemoglobin 12.4 g/dL 10.8 g/dL Hematocrit 37.3 % 32.7 % Mean Corpuscular Volume 87.1 fL 87.2 fL Mean Corpuscular Hemoglobin 29.0 pg 28.8 pg Mean Corpuscular Hemoglobin Concent 33.2 g/dl 33.0 g/dl Platelet Count 299 K/uL 262 K/uL Mean Platelet Volume 11.0 fL 11.3 fL Neutrophils (%) (Auto) 90.9 % Lymphocytes (%) (Auto) 7.7 % Monocytes (%) (Auto) 0.8 % Eosinophils (%) (Auto) 0.0 % Basophils (%) (Auto) 0.1 % Neutrophils # (Auto) 13.05 K/uL Lymphocytes # (Auto) 1.10 K/uL Monocytes # (Auto) 0.12 K/uL Eosinophils # (Auto) 0.00 K/uL Basophils # (Auto) 0.02 K/uL RDW Standard Deviation 43.2 fL 43.3 fL RDW Coefficient of Variation 13.4 % 13.5 % Immature Granulocyte % (Auto) 0.5 % Immature Granulocyte # (Auto) 0.07 K/uL Sodium Level 139 mmol/L 138 mmol/L Potassium Level 4.2 mmol/L 4.4 mmol/L Chloride Level 104 mmol/L 105 mmol/L Carbon Dioxide Level 25 mmol/L 24 mmol/L Anion Gap 10.0 mmol/L 9.0 mmol/L Blood Urea Nitrogen 15 mg/dl 18 mg/dl Creatinine 0.66 mg/dl 0.73 mg/dl Est Creatinine Clear Calc Drug Dose 128.3 ml/min 116.0 ml/min Estimated GFR () 123.6 115.3 Estimated GFR (Non- 106.7 99.5 BUN/Creatinine Ratio 22.6 24.5 Random Glucose 151 mg/dl 141 mg/dl Calcium Level 9.3 mg/dl 8.4 mg/dl Assessment and Plan 45 F with tka, has prevous one on left, asthma and htn are stable. givens patients age and stable status will sign off but be available for questions acute blood loss anemia is stable and expected
[2016-11-18 15:05] VITALS: BP 169/78; PULSE 63; TEMP 36.5; O2SAT 98
[2016-11-18] MEDS: ALUMINUM/MAGNESIUM/SIMETH (MAALOX MAX) 30 ML UDC PO PRN ×2 (17:26→22:19)
[2016-11-18] MEDS: SENNA 8.6 MG TAB PO SCH (22:20)
[2016-11-18 23:34] VITALS: BP 144/75; PULSE 70; TEMP 36.6; O2SAT 97
[2016-11-19] MEDS: HYDROCODONE/ACETAMOPHEN 5/325MG TAB PO PRN ×3 (00:05→08:17)
[2016-11-19 07:16] VITALS: BP 143/75; PULSE 62; TEMP 36.6; O2SAT 99
--- NOTE | 2016-11-19 09:04 | Orthopedic Progress Note ---
Orthopedic Progress Note Date of Service Nov 19, 2016. Subjective Post OP Day: 2 Reports: feeling well, pain controlled w PO medications, Denies: SOB, calf pain , chest pain, complaints, light headedness, nausea / vomiting Objective calves soft nontender, N/V intact, capillary refill less than 2 sec., dressing C /D/I, A&O x3, toes mobile Pro[place] wound vac in tact. Date Time Temp Pulse Resp B/P Pulse Ox O2 Delivery O2 Flow Rate FiO2 11/19/16 07:16 36.6 62 19 143/75 99 Room Air 11/19/16 07:10 Room Air 11/19/16 00:00 Room Air 11/18/16 23:34 36.6 70 16 144/75 97 Room Air 11/18/16 16:00 Room Air 11/18/16 15:05 36.5 63 20 169/78 98 Room Air 11/18/16 11:36 36.4 54 16 122/72 96 Room Air Assessment & Plan Assessment: POD 2 s/p Right TKA Plan: PT/OT Planning for dc to home with OPPT today. DVT proph- Xarelto Medicine signed off appreciate input. Inhouse Planning Pain Management: Ultram, [place], Morphine DVT Prophylaxis: TEDs, SCDs, ASA Discharge Planning Discharge Planning: home with oppt Pain Management: [place], Morphine, PO Tylenol DVT Prophylaxis: TEDs, Xarelto Therapy: Physical Therapy, Occupational Therapy
[2016-11-19] MEDS: PANTOprazole SOD 40 MG TAB PO SCH (09:07)
[2016-11-19] MEDS ORDERED: XRL10 PO (09:07)
[2016-11-19] MEDS: MULTIVITAMIN TAB PO SCH (09:07)
[2016-11-19] MEDS ORDERED: HYDR-5688 PO (09:07)
[2016-11-19] MEDS ORDERED: ONDA8TAB6 PO (09:07)
[2016-11-19] MEDS ORDERED: MRPSR15 PO (09:07)
[2016-11-19] MEDS: FERROUS GLUCONATE 324 MG TAB PO SCH (09:07)
[2016-11-19] MEDS: MoRPHine SULFATE CR 15 MG TAB (MS CONTIN) PO SCH (09:07)
--- NOTE | 2016-11-19 09:09 | Discharge Instructions ---
Discharge Instructions Admission Reason for Admission: Right Knee Degenerative Joint Disease Discharge Discharge Diagnosis / Problem: Right TKA Discharge Goals Goal(s): Improve function Activity Recommendations Activity Limitations: as noted below . Instructions / Follow-Up Instructions / Follow-Up ACTIVITY RECOMMENDATIONS: SELF CARE INSTRUCTIONS AFTER TOTAL KNEE REPLACEMENT A. You may need to continue a physical therapy program after discharge from the hospital. There are several options available to you. Your doctor will assist you in selecting the best one for you. 1. An out-patient facility 2 to 3 times a week for therapy or home therapy. 2. Continue working on all exercises taught to you in the hospital. Your goals should be to increase bending of your knee to 90 degrees and beyond and to fully straighten your knee. B. You may progress at your own pace from walking with a walker or crutches to a cane; then to no assistive devices. C. Make walking a part of your daily routine. Be up as much as comfortable with rest periods throughout the day. Rest with leg elevation is very important. Use the ice wrap frequently for the first 3-4 weeks. D. There are no restrictions on activities. You may ride in a car, shop, participate in certified physical therapist assistant and all social activities. E. Wear the long elastic stockings (JACQUELINE hose) 20 hours a day for 2 weeks after surgery. They can be removed several times a day for laundering and for a bath. F. You may shower, no tub baths until cleared by your doctor. SPECIAL CARE INSTRUCTIONS: VERY IMPORTANT TO READ AND REVIEW A. There are a few signs you need to watch for after you are home. Call [facility] if you notice any of the followin. Increased severe knee pain. Some pain is expected especially when you exercise. 2. Increased swelling in your leg or knee; pain or swelling of the calf muscle in either lower leg. 3. Any fluid drainage from the incision. 4. Shortness of breath or chest pain. B. Please call [facility] at if you have any concerns or questions about your operation or recovery. The doctor or his nurse will return your call promptly. C. You must take antibiotics before dental work, bladder, bowel or other surgery. Your doctor will provide you with a permanent care to carry describing this precaution. IMPORTANT: * REMEMBER TO TAKE ASPIRIN, 81 MG, TWICE DAILY FOR 4 WEEKS UNLESS OTHERWISE DIRECTED. THIS IS YOUR BLOOD THINNER. * HIGH RISK PATIENTS MAY BE PRESCRIBED A STRONGER BLOOD THINNER. THIS WILL BE PROVIDED AT DISCHARGE. * CALL IF INCREASED PAIN, REDNESS, DRAINAGE OR FEVER GREATER THAT 101. * WEAR JACQUELINE HOSE 20 HOURS PER DAY FOR 2 WEEKS. * YOU MAY HAVE A LARGE BAND-AID LIKE DRESSING (SILVERON). THIS WILL REMAIN ON YOUR INCISION FOR 7 DAYS, THEN CAN BE REMOVED. IF INCISION IS LEAKING THROUGH DRESSING, CALL THE OFFICE . FOLLOW UP VISIT: If appointment is not already scheduled: Please call [facility] to make a follow-up appointment for 2 weeks after your surgery at . You have a wound vac in place over your incision, remove and discard all parts 1 week post op and cover with daily dry dressings until follow up. Current Hospital Diet Patient's current hospital diet: Regular Diet Discharge Diet Recommended Diet: Regular Diet Procedures Procedures Performed: Right Total Knee Arthroplasty Cemented Pending Studies Studies pending at discharge: no Laboratory Results Hemoglobin A1c Test 11/02/16 12:45 Range/Units Estimated Average Glucose 117 mg/dl Hemoglobin A1c 5.7 H 4.5-5.6 % Medical Emergencies . Who to Call and When: Medical Emergencies: If at any time you feel your situation is an emergency, please call 911 immediately. . Non-Emergent Contact Non-Emergency issues call your: Primary Care Provider . "Provider Documentation" section prepared by Manny Fischer. VTE Core Measure Inpt VTE Proph given/why not?: Other Anticoagulation (asa), T.E.D. Stockings, SCD's
[2016-11-19] MEDS: ASPIRIN 81 MG ECTAB PO SCH (09:47)
[2016-11-19] MEDS: DOCUSATE SODIUM 100 MG CAP PO SCH (09:47)
[2016-11-19 10:13] VITALS: BP 143/75; PULSE 62; TEMP 36.6; O2SAT 99
--- NOTE | 2016-11-22 12:28 | DISCHARGE SUMMARY ---
DISCHARGE DIAGNOSIS: Degenerative joint disease, right knee. SECONDARY DIAGNOSES: Mitral valve prolapse, asthma, postoperative anemia in the past, osteoarthritis, gastroesophageal reflux disease, and obesity. CONSULTS: Kat Bianchi PA-C/Anastacio Potter DO COMPLICATIONS: None. PROCEDURES: Right total knee arthroplasty performed by Dr. Prince on 11/17/2016. BRIEF HISTORY OF PRESENT ILLNESS: As dictated in history and physical. HOSPITAL SUMMARY: The patient was admitted on the above-noted date and had the above-noted surgery performed which she tolerated well. On her first postoperative day, she was feeling well and had no complaints. Pain was controlled. Calves were soft and nontender, neurovascularly intact. Dressings were clean, dry and intact. Toes were mobile. Vital signs were stable. She was afebrile. Hemoglobin was 10.8 and she was started on physical therapy protocol and continued on DVT prophylaxis and pain management. By her second postoperative day, she was remaining stable and feeling well. Pain was controlled. Calves were soft and nontender, neurovascularly intact. Dressings were clean, dry and intact. Toes were mobile. Prevena wound VAC was intact and functioning. Vital signs were stable. She was afebrile. Progressing well with her physical therapy and was felt to be medically stable per medicine service and it was felt that she could be discharged to home with plans for outpatient PT. For further review, please see chart. LABORATORY AND X-RAY DATA: As per chart. DISCHARGE INSTRUCTIONS: The patient was discharged to home in satisfactory condition on 11/19/2016. DIET: Regular. ACTIVITY INSTRUCTIONS: Weightbearing as tolerated as on the right lower extremity. Follow TK instruction sheets and special care instructions as noted and follow up with Dr. Prince in 2 weeks. The patient to call for appointment if one has not been made for you. DISCHARGE MEDICATIONS: Hydrocodone/acetaminophen 5/325 one-two tabs p.o. q. 4 hours p.r.n., morphine sulfate 15 mg p.o. q. 12 hours, Zofran 8 mg p.o. q. 8 hours p.r.n., Xarelto 1 tab p.o. daily for 10 days. Resume taking your acetaminophen 1000 mg p.o. b.i.d. p.r.n., albuterol 2 puffs inhaled q. 4-6 hours p.r.n., atenolol 100 mg p.o. at bedtime, Tums 1 tab p.o. as directed p.r.n., Lisinopril 20 mg p.o. at bedtime, potassium citrate 1080 mg tablet 1 tab p.o. at bedtime. Stop taking Meloxicam and tramadol.
== END 2016-11-19 12:10 | disposition home or self-care (01) | DRG 470 ==
LOC: ENRESERVTM → ENRESERVDT → C.ACU 07:11 → C.3E 07:25
PROVIDERS: ADMIT Orthopaedic Surgery Sports Medicine; ATTEND Orthopaedic Surgery Sports Medicine
PROC: 0SRC0J9 Replacement of Right Knee Joint with Synthetic Substitute, Cemented, Open Approach (ICD-10-PCS; principal; 2016-11-17 09:30)
DX: M17.11 Unilateral primary osteoarthritis, right knee (principal); D62 Acute posthemorrhagic anemia; Z68.43 Body mass index [BMI] 50.0-59.9, adult; E66.01 Morbid (severe) obesity due to excess calories; K21.9 Gastro-esophageal reflux disease without esophagitis; I34.1 Nonrheumatic mitral (valve) prolapse; J45.909 Unspecified asthma, uncomplicated; I10 Essential (primary) hypertension; R00.1 Bradycardia, unspecified; N20.0 Calculus of kidney; Z96.652 Presence of left artificial knee joint; Z23 Encounter for immunization; Z79.1 Long term (current) use of non-steroidal anti-inflammatories (NSAID); Z79.891 Long term (current) use of opiate analgesic; Z79.899 Other long term (current) drug therapy

== ENCOUNTER 2016-12-01 08:32 | Emergency (ER) | payer BC ==
[~2016-12-01] VITALS: Ht 144.8 cm; Wt 125.0 kg
[~2016-12-01 08:32] MED LIST changes: -ACETAMINOPHEN 500 MG TAB PO SCH; -BUPIVACAINE 0.25% 30 ML VIAL ONE; -BUPIVACAINE 0.5 % 5 MG/1 ML PF 10ML VIAL ONE; -CEFAZOLIN 3000 MG/65 ML D5W 65 ML IV SCH; -CeleBREX 200 MG CAP PO SCH; -DEXAMETHASONE 4 MG TAB PO SCH; -FAMOTIDINE 20 MG TAB PO SCH; -GABAPENTIN 300 MG CAP PO SCH; +HYDR-5688 PO; -LACTATED RINGER'S 1000ML IV SCH; -LACTATED RINGER'S 500 ML IV SCH; -MELO15TA3 PO; -METOCLOPRAMIDE HCL 10 MG TAB PO SCH; +MRPSR15 PO; +ONDA8TAB6 PO; -ORTHO JOINT ANESTHETIC ONE; -ROPIVACAINE 5MG/ML 30 ML 150 MG, BUPIVACAINE/EPINEPHR 0.5% MPF 30 ML, KETOROLAC TROMETH... INFIL SCH; -TRAM-10 PO
[2016-12-01 08:35] VITALS: Ht 144.8 cm; Wt 125.0 kg
[2016-12-01] MEDS ORDERED: SODIUM CHLORIDE 0.9% 500ML 500 ML IV STA (09:33)
[2016-12-01] MEDS ORDERED: MoRPHine SULFATE 4 MG/ML 1 ML CARP\\VIAL IV STA ×2 (09:33→12:11)
[2016-12-01] MEDS ORDERED: ONDANSETRON INJ 2 MG/ML 2 ML VIAL IV STA (09:33)
[2016-12-01 09:49] VITALS: O2SAT 97
[2016-12-01 09:57] LABS: BUN/CREATININE RATIO 17.7 (10-20); CALCIUM 9.1 mg/dl (8.5-10.1); CREATININE 0.64 mg/dl (0.60-1.20); MAGNESIUM 2.1 mg/dl (1.8-2.4); POTASSIUM 4.5 mmol/L (3.5-5.1)
[2016-12-01 10:06] LABS: INR 1.1 (0.9-1.1); PROTHROMBIN TIME (PATIENT) 11.4 SECONDS (9.0-12.0)
[2016-12-01 10:09] LABS: ALB/GLOB RATIO 0.7 (0.9-2); CKMB/CK RATIO 0.7 (0-3.0); THYROID STIMULATING HORMONE 0.854 uIu/ml (0.300-4.500)
[2016-12-01 10:18] LABS: BASO % 0.4 %; BASO ABS # 0.03 K/uL (0-0.2); COMPLETE YES; EOS % 1.8 %; HEMATOCRIT 33.4 % (37-47); IG% 0.5 %; LYMPH % 18.5 %; LYMPH ABS # 1.56 K/uL (1.2-3.4); MEAN CELL VOLUME 87.9 fL (80-100); MEAN CORPUSCULAR HEMOGLOBIN 28.4 pg (25-34); MEAN CORPUSCULAR HGB CONC 32.3 g/dl (32-36); MEAN PLATELET VOLUME 10.4 fL (7.4-10.4); MONO % 5.8 %; PLATELET COUNT 360 K/uL (130-400); WHITE BLOOD COUNT 8.42 K/uL (4.8-10.8)
--- NOTE | 2016-12-01 10:22 | DIAGNOSTIC IMAGING REPORT ---
CHEST ONE VIEW PORTABLE CLINICAL HISTORY: Weakness. COMPARISON STUDY: Chest radiograph November 02, 2016. FINDINGS: Lung volumes are normal. No consolidation is identified. Moderate cardiomegaly is unchanged. There is no evidence of pulmonary edema. There is no pneumothorax or pleural effusion. IMPRESSION: 1. No acute cardiopulmonary findings. 2. Stable moderate cardiomegaly. Electronically signed by: Eriberto Romano M.D. 12/01/2016 10:20 AM Dictated Date/Time: 12/01/2016 10:20 AM
--- NOTE | 2016-12-01 10:37 | DIAGNOSTIC IMAGING REPORT ---
CT OF THE HEAD WITHOUT CONTRAST CLINICAL HISTORY: Weakness. Near syncope. COMPARISON STUDY: Head CT February 16, 2010. CT DOSE: 537.48 mGy.cm TECHNIQUE: Helical axial images of the head were obtained without IV contrast. Automated exposure control was utilized for the study. FINDINGS: No acute intracranial hemorrhage, midline shift or mass effect is present. Brain volume is normal. Ventricular system is normal. The basilar cisterns are patent. There are no extra-axial collections. There are no findings to suggest acute dural sinus thrombosis or acute territorial infarct. There is minimal mucosal thickening of the ethmoid sinuses. IMPRESSION: No acute intracranial findings. Electronically signed by: Eriberto Romano M.D. 12/01/2016 10:35 AM Dictated Date/Time: 12/01/2016 10:33 AM
[2016-12-01 10:53] VITALS: TEMP 36.9
[2016-12-01 10:56] LABS: URINE APPEARANCE CLEAR (CLEAR); URINE BILIRUBIN NEG (NEG); URINE COLOR YELLOW; URINE NITRITE NEG (NEG); URINE SPECIFIC GRAVITY 1.006 (1.000-1.030); UROBILINOGEN NEG (NEG); ZZUR CULT IF INDIC CLEAN CATCH NO
[2016-12-01 11:04] LABS: MANUAL MICROSCOPIC REQUIRED? NO; REVIEW REQ? NO
[2016-12-01 12:48] VITALS: BP 138/58; PULSE 54; O2SAT 97
--- NOTE | 2016-12-01 12:58 | EMERGENCY ROOM VISIT NOTE ---
History First contact with patient: 09:06 Chief Complaint: TIA Stated Complaint: CHILLS, MOUTH/TONGUE ARE NUMB, N, NEAR SYNCOPE Nursing Triage Summary: pt states she awoke this am with facial numbness and tongue feeling numb. had tka nov [address] lunsford. pt reports she feels weak all over.legs feel weak and shakey when standing. denies any difficulty with clinical resource nurse. History of Present Illness The patient is a 45 year old female who presents to the Emergency Department for evaluation of her lightheadedness, presyncope, and numbness to her mouth and hands bilaterally. The patient reports having a total knee arthroscopy performed by Dr. Mckeon recently. She is currently taking oral morphine and Percocet for breakthrough symptoms. She woke today at approximately a.m. feeling lightheaded and faint. She reports feeling generally weak. She denies any focal areas of weakness or numbness. She reports numbness to the mouth and hands bilaterally. She is tried nothing for sepsis point. She rates her current discomfort as a 0/10. She denies any headaches, blurry vision, double vision, slurred speech, facial droop, unilateral weakness/numbness, nausea, vomiting, chest pain, palpitations, shortness of breath. Review of Systems A complete 10-point Review of Systems was discussed with the patient, with pertinent positives and negatives listed in the History of Present Illness. All remaining Review of Systems questions can be considered negative unless otherwise specified. Past Medical/Surgical History Medical Problems: (1) Asthma, Unspecified (2) CALCULUS OF KIDNEY (3) Calculus Of Ureter (4) chest pain (5) chest pain (6) chest pain (7) Chronic Kidney Disease, Unspecified (8) CYSTIC KIDNEY DISEASE, UNSPECIFIED (9) Cystic Kidney Disease, Unspecified (10) DISC DEGENERATION NOS (11) DIVERTICULOSIS COLON (W/O MENT OF HEMORRHAGE) (12) Diverticulosis Colon (W/O Ment Of Hemorrhage) (13) Endometriosis (14) Esophageal reflux (15) HYPERTENSION NOS (16) Hypertension Nos (17) IRRITABLE BOWEL SYNDROME (18) Irritable Bowel Syndrome (19) Lumbosacral Neuritis Nos (20) MITRAL VALVE DISORDER (21) Mitral Valve Disorder (22) Morbid Obesity (23) PERSONAL HISTORY OF URINARY CALCULI (24) PERSONAL HISTORY, URINARY (TRACT) INFECTION (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 (26) UMBILICAL HERNIA Family History Colon cancer Coronary artery disease Diabetes mellitus Hypertension Kidney disease Kidney stones Lung disease Myocardial infarction Social History Smoking Status: Never Smoker Alcohol Use: none Drug Use: none Marital Status: Housing Status: lives with family Occupation Status: employed Current/Historical Medications Scheduled Atenolol (Tenormin), 100 MG PO HS Lisinopril (Prinivil), 20 MG PO HS Morphine Sulfate (Morphine Sulfate ER), 15 MG PO Q12 Potassium Citrate (Alkalinizer (Potassium Citrate ER), 1 TAB PO HS Scheduled PRN Acetaminophen (Tylenol), 1,000 MG PO BID PRN for prn Albuterol Sulfate (Proair Respiclick), 2 PUFFS INH Q4-6H PRN for prn Calcium Carbonate (Antacid) (Tums), 1 TAB PO DIRECTED PRN for Indigestion Hydrocodone/Acetaminophen 5MG/325MG ([place] 5MG/325MG), 1-2 TAB PO Q4H PRN for Pain Ondansetron Hcl (Zofran), 8 MG PO Q8H PRN for Nausea Allergies Coded Allergies: Oxycodone (Verified Adverse Reaction, Unknown, ANXIETY, INSOMNIA, NAUSEA, 12/01/16) Physical Exam Vital Signs Date Time Temp Pulse Resp B/P Pulse Ox O2 Delivery O2 Flow Rate FiO2 12/01/16 12:48 54 12 138/58 97 12/01/16 12:39 48 12/01/16 10:53 36.9 50 26 121/59 96 Room Air 12/01/16 09:56 55 16 132/48 12/01/16 09:49 97 Room Air 12/01/16 09:16 53 12/01/16 08:35 36.6 54 18 155/81 100 Room Air Pain Rating (0-10): 0 Physical Exam VITAL SIGNS - Vital signs and nursing notes were reviewed. GENERAL - 45-year-old female appearing her stated age who is in no acute distress. Communicates well with provider and answers questions appropriately. HEAD - Normocephalic, Atraumatic. No Wilkerson's Sign or Raccoon's Eyes. No depressed skull fractures palpable. EYES - PERRL with EOMI bilaterally. Sclera anicteric. Palpebral conjunctiva pink and moist with no injection noted. EARS - No deformities of external structures noted on gross examination bilaterally. No pain elicited with palpation of the tragus bilaterally. External auditory canals without discharge or otorrhea. Tympanic membranes pearly kurtz without retraction or bulging. NOSE - Midline and without cyanosis. No epistaxis or purulent drainage noted. Septum midline without deviation or septal hematoma noted. MOUTH/OROPHARYNX - Without perioral cyanosis. Buccal mucosa pink and moist and without leukoplakia. Tongue midline with equal elevation of palate bilaterally. No tonsillar hypertrophy, erythema, or exudates noted. NECK - Neck with FROM. Supple to palpation. No lymphadenopathy noted. No nuchal rigidity. LUNGS - Chest wall symmetric without accessory muscle use, intercostals retractions, or central cyanosis. Normal vesicular breath sounds CTA B/L. No wheezes, rales, or rhonchi appreciated. CARDIAC - RRR with S1/S2. No murmur, rubs, or gallops appreciated. ABDOMEN - Abdominal contour obese and without pulsations or visible masses. BS normoactive all four quadrants. No tenderness, palpable masses, hepatosplenomegaly, or ascites noted. EXTREMITIES - No pretibial edema present. +3/5 radial and dorsalis pedis pulses palpated throughout. +5/5 strength noted in UE/LE bilaterally. NEUROLOGIC - Cranial nerves II through XII grossly intact. Sensory intact to light touch throughout. Patient able to perform rapid alternating movements appropriately. Negative Pronator Drift. PSYCH - A&Ox3 and cooperates fully with examiner. Pt is very pleasant and interacts well with examiner. Medical Decision & Procedures ER Provider Diagnostic Interpretation: Radiological imaging and reports were reviewed by myself. Radiologist's Interpretation as follows: CHEST ONE VIEW PORTABLE CLINICAL HISTORY: Weakness. COMPARISON STUDY: Chest radiograph November 02, 2016. FINDINGS: Lung volumes are normal. No consolidation is identified. Moderate cardiomegaly is unchanged. There is no evidence of pulmonary edema. There is no pneumothorax or pleural effusion. IMPRESSION: 1. No acute cardiopulmonary findings. 2. Stable moderate cardiomegaly. CT OF THE HEAD WITHOUT CONTRAST CLINICAL HISTORY: Weakness. Near syncope. COMPARISON STUDY: Head CT February 16, 2010. CT DOSE: 537.48 mGy.cm TECHNIQUE: Helical axial images of the head were obtained without IV contrast. Automated exposure control was utilized for the study. FINDINGS: No acute intracranial hemorrhage, midline shift or mass effect is present. Brain volume is normal. Ventricular system is normal. The basilar cisterns are patent. There are no extra-axial collections. There are no findings to suggest acute dural sinus thrombosis or acute territorial infarct. There is minimal mucosal thickening of the ethmoid sinuses. IMPRESSION: No acute intracranial findings. Laboratory Results 12/01/16 10:00 Red Blood Count 3.80, Mean Corpuscular Volume 87.9, Mean Corpuscular Hemoglobin 28.4, Mean Corpuscular Hemoglobin Concent 32.3, Mean Platelet Volume 10.4, Neutrophils (%) (Auto) 73.0, Lymphocytes (%) (Auto) 18.5, Monocytes (%) (Auto) 5.8, Eosinophils (%) (Auto) 1.8, Basophils (%) (Auto) 0.4, Neutrophils # (Auto) 6.15, Lymphocytes # (Auto) 1.56, Monocytes # (Auto) 0.49, Eosinophils # (Auto) 0.15, Basophils # (Auto) 0.03 12/01/16 09:25 Test 12/01/16 09:25 12/01/16 10:00 12/01/16 10:20 Prothrombin Time 11.4 SECONDS (9.0-12.0) Prothromb Time International Ratio 1.1 (0.9-1.1) Activated Partial Thromboplast Time 26.5 SECONDS (21.0-31.0) Partial Thromboplastin Ratio 1.0 Anion Gap 8.0 mmol/L (3-11) Est Creatinine Clear Calc Drug Dose 128.2 ml/min Estimated GFR () 124.9 Estimated GFR (Non- 107.8 BUN/Creatinine Ratio 17.7 (10-20) Calcium Level 9.1 mg/dl (8.5-10.1) Magnesium Level 2.1 mg/dl (1.8-2.4) Total Bilirubin 0.3 mg/dl (0.2-1) Aspartate Amino Transf (AST/SGOT) 18 U/L (15-37) Alanine Aminotransferase (ALT/SGPT) 26 U/L (12-78) Alkaline Phosphatase 70 U/L (45-117) Total Creatine Kinase 114 U/L (26-192) Creatine Kinase MB 0.8 ng/ml (0.5-3.6) Creatine Kinase MB Ratio 0.7 (0-3.0) Troponin I < 0.015 ng/ml (0-0.045) Total Protein 7.5 gm/dl (6.4-8.2) Albumin 3.0 gm/dl (3.4-5.0) Globulin 4.5 gm/dl (2.5-4.0) Albumin/Globulin Ratio 0.7 (0.9-2) Lipase 106 U/L (73-393) Thyroid Stimulating Hormone (TSH) 0.854 uIu/ml (0.300-4.500) White Blood Count 8.42 K/uL (4.8-10.8) Red Blood Count 3.80 M/uL (4.2-5.4) Hemoglobin 10.8 g/dL (12.0-16.0) Hematocrit 33.4 % (37-47) Mean Corpuscular Volume 87.9 fL (80-100) Mean Corpuscular Hemoglobin 28.4 pg (25-34) Mean Corpuscular Hemoglobin Concent 32.3 g/dl (32-36) Platelet Count 360 K/uL (130-400) Mean Platelet Volume 10.4 fL (7.4-10.4) Neutrophils (%) (Auto) 73.0 % Lymphocytes (%) (Auto) 18.5 % Monocytes (%) (Auto) 5.8 % Eosinophils (%) (Auto) 1.8 % Basophils (%) (Auto) 0.4 % Neutrophils # (Auto) 6.15 K/uL (1.4-6.5) Lymphocytes # (Auto) 1.56 K/uL (1.2-3.4) Monocytes # (Auto) 0.49 K/uL (0.11-0.59) Eosinophils # (Auto) 0.15 K/uL (0-0.5) Basophils # (Auto) 0.03 K/uL (0-0.2) RDW Standard Deviation 43.1 fL (36.4-46.3) RDW Coefficient of Variation 13.5 % (11.5-14.5) Immature Granulocyte % (Auto) 0.5 % Immature Granulocyte # (Auto) 0.04 K/uL (0.00-0.02) Urine Color YELLOW Urine Appearance CLEAR (CLEAR) Urine pH 8.0 (4.5-7.5) Urine Specific [place] 1.006 (1.000-1.030) Urine Protein NEG (NEG) Urine Glucose (UA) NEG (NEG) Urine Ketones NEG (NEG) Urine Occult Blood NEG (NEG) Urine Nitrite NEG (NEG) Urine Bilirubin NEG (NEG) Urine Urobilinogen NEG (NEG) Urine Leukocyte Esterase NEG (NEG) Medications Administered Medications (Trade) Dose Ordered Sig/Danielle Route Start Time Stop Time Status Last Admin Dose Admin Sodium Chloride (Nss 500ml) 500 ml @ 999 mls/hr Q31M STAT IV 12/01/16 09:33 12/01/16 10:03 DC 12/01/16 10:12 999 MLS/HR Morphine Sulfate (MoRPHine SULFATE INJ) 4 mg NOW STAT IV 12/01/16 09:33 12/01/16 09:36 DC 12/01/16 10:13 4 MG Ondansetron HCl (Zofran Inj) 4 mg NOW STAT IV 12/01/16 09:33 12/01/16 09:36 DC 12/01/16 10:12 4 MG Morphine Sulfate (MoRPHine SULFATE INJ) 4 mg NOW STAT IV 12/01/16 12:11 12/01/16 12:12 DC 12/01/16 12:44 4 MG Procedure Patient was placed on the services delivery driver and monitored throughout the entire extent of their stay. In addition, the patient's pulse oximetry was monitored throughout the entire stay. Any abnormalities or aberrancies were addressed appropriately. ECG Indication: weakness Rate (beats per minute): 55 Rhythm: sinus bradycardia Findings: T-wave inversion (Inferior), no acute ischemic change, no ectopy Change: no significant change (from 11/02/2016.) ED Course Patient was seen and evaluated by myself. Labs were drawn, saline lock in place. Patient was hydrated with a 500 mL normal saline bolus. She received 4 mg morphine and formerly grams Zofran for complaint of RIGHT knee pain. CT of the head and x-ray the chest were obtained. EKG and chest x-rays as above. CT the head is unremarkable. On review the patient, she reports having complete resolve of symptoms after IV morphine. Laboratory results demonstrate no acute leukocytosis, significant anemia, or bandemia. The patient has no significant electrolyte abnormalities. Imaging studies above. Case was discussed with my attending physician who agrees with the diagnostic approach and treatment plan. Patient was treated with an additional formerly grams morphine for pain in the RIGHT knee. She was encouraged to follow-up with her surgeon or primary care provider from today's visit. She was educated on worrisome symptoms for return visit to the emergency department. Patient discharged home in good condition. Medical Decision Given the patient's presentation and stated complaints, I did elect to perform the above-mentioned workup. The patient presents today with generalized weakness and complains of numbness to the mouth and hands bilaterally. The patient has no focal neurological deficits. Her exam is otherwise unremarkable. Her symptoms are not lateralized. She did have a recent surgery. She is currently taking heavy pain medications. Her symptoms as been ongoing for the last several hours. She has no history of CVA or other illness. Her symptoms completely resolved with IV morphine. This makes likelihood of acute neurological finding much less unlikely. I questioned the patient is expansive an acute anxiety reaction given her recent surgery and ongoing treatment with narcotic pain medication. CT the head demonstrates no acute insults. Cardiac evaluation is otherwise unremarkable. Patient feels much better at this time. She was able to emulate to and from the restroom without issue. The patient follow-up with her surgeon from today's visit or return to the emergency department in the setting of any changing or worsening symptoms. Patient discharged home in good condition. In the evaluation and treatment of this patient, the following differential diagnoses were considered: Migraine Headache, Intracranial Hemorrhage, Subdural Hematoma, Subarachnoid Hemorrhage, Cerebral Aneurysm, Temporal/Giant Cell Arteritis, Tension Headache, Meningitis, Encephalitis, or Hydrocephalus. Impression Primary Impression: Weakness Additional Impression: Paresthesias with subjective weakness Departure Information Dispostion Home / Self-Care Condition GOOD Referrals Saul Villasenor M.D. (PCP) Patient Instructions My [facility] Additional Instructions You have been seen in the Emergency Department for your weakness. Return for any changing or worsening symptoms. Problem Qualifiers
== END 2016-12-01 13:16 | disposition home or self-care (01) ==
LOC: C.EDB 08:34 → C.EDC 13:16
DX: R20.0 Anesthesia of skin (principal); R53.1 Weakness; K21.9 Gastro-esophageal reflux disease without esophagitis; Z96.652 Presence of left artificial knee joint; J45.909 Unspecified asthma, uncomplicated; I12.9 Hypertensive chronic kidney disease with stage 1 through stage 4 chronic kidney disease, or unspecified chronic kidney disease; Z68.43 Body mass index [BMI] 50.0-59.9, adult; E66.01 Morbid (severe) obesity due to excess calories

== ENCOUNTER 2016-12-08 00:05 | Emergency (ER) | payer BC ==
[~2016-12-08] VITALS: Ht 147.3 cm; Wt 122.6 kg
[2016-12-08 00:10] VITALS: TEMP 36.6; Ht 147.3 cm; Wt 122.6 kg
[2016-12-08 00:56] VITALS: O2SAT 96
[2016-12-08 01:04] LABS: BASO % 0.4 %; BASO ABS # 0.03 K/uL (0-0.2); COMPLETE YES; EOS % 2.7 %; HEMATOCRIT 35.8 % (37-47); IG% 0.4 %; LYMPH % 31.2 %; LYMPH ABS # 2.58 K/uL (1.2-3.4); MEAN CELL VOLUME 87.7 fL (80-100); MEAN CORPUSCULAR HEMOGLOBIN 28.4 pg (25-34); MEAN CORPUSCULAR HGB CONC 32.4 g/dl (32-36); MEAN PLATELET VOLUME 10.1 fL (7.4-10.4); MONO % 7.7 %; NEUT % 57.6 %; PLATELET COUNT 432 K/uL (130-400); RED BLOOD COUNT 4.08 M/uL (4.2-5.4); WHITE BLOOD COUNT 8.27 K/uL (4.8-10.8)
[2016-12-08 01:05] LABS: URINE APPEARANCE CLEAR (CLEAR); URINE BILIRUBIN NEG (NEG); URINE COLOR YELLOW; URINE EPITHELIAL CELL AUTO >30 /lpf (0-5); URINE NITRITE NEG (NEG); URINE PH 5.5 (4.5-7.5); URINE SPECIFIC GRAVITY 1.014 (1.000-1.030); UROBILINOGEN NEG (NEG)
[2016-12-08] MEDS ORDERED: HYDR-5688 PO (01:06)
[2016-12-08 01:09] LABS: MANUAL MICROSCOPIC REQUIRED? NO; REVIEW REQ? NO
[2016-12-08 01:25] LABS: ALT/SGPT 24 U/L (12-78); AST/SGOT 11 U/L (15-37); BLOOD UREA NITROGEN 15 mg/dl (7-18); BUN/CREATININE RATIO 22.4 (10-20); CALCIUM 8.9 mg/dl (8.5-10.1); CARBON DIOXIDE 29 mmol/L (21-32); CHLORIDE 107 mmol/L (98-107); CREATININE 0.67 mg/dl (0.60-1.20); GLUCOSE 93 mg/dl (70-99); MAGNESIUM 2.3 mg/dl (1.8-2.4); POTASSIUM 4.3 mmol/L (3.5-5.1); SODIUM 144 mmol/L (136-145)
[2016-12-08 01:36] LABS: ALKALINE PHOSPHATASE 94 U/L (45-117); CKMB/CK RATIO 1.5 (0-3.0)
--- NOTE | 2016-12-08 02:19 | EMERGENCY ROOM VISIT NOTE ---
History First contact with patient: 00:15 Chief Complaint: OTHER COMPLAINT Stated Complaint: NUMBNESS IN RT LEG/SIDE/BACK,TINGLING,FOOT SWOLLEN History of Present Illness The patient is a 45 year old female who presents to the Emergency Room with complaints of tingling to her entire body with swelling to her right foot for the past few hours. Patient had right knee replacement November [address] Prince. Patient states she noticed her foot was swollen and then felt tingling all throughout her body. Initially the tingling was in her right leg and throughout the rest of her body. Patient denies chest pain, dyspnea, abdominal pain, numbness, weakness, localized weakness, localized tingling, fever, chills, vomiting, diarrhea. Patient did just cut back on her narcotics. She was on morphine and now is on [place]. No prior history of DVT or PE. Review of Systems See HPI for pertinent positives & negatives. A total of 10 systems reviewed and were otherwise negative. Past Medical/Surgical History Medical Problems: (1) Asthma, Unspecified (2) CALCULUS OF KIDNEY (3) Calculus Of Ureter (4) chest pain (5) chest pain (6) chest pain (7) Chronic Kidney Disease, Unspecified (8) CYSTIC KIDNEY DISEASE, UNSPECIFIED (9) Cystic Kidney Disease, Unspecified (10) DISC DEGENERATION NOS (11) DIVERTICULOSIS COLON (W/O MENT OF HEMORRHAGE) (12) Diverticulosis Colon (W/O Ment Of Hemorrhage) (13) Endometriosis (14) Esophageal reflux (15) HYPERTENSION NOS (16) Hypertension Nos (17) IRRITABLE BOWEL SYNDROME (18) Irritable Bowel Syndrome (19) Lumbosacral Neuritis Nos (20) MITRAL VALVE DISORDER (21) Mitral Valve Disorder (22) Morbid Obesity (23) PERSONAL HISTORY OF URINARY CALCULI (24) PERSONAL HISTORY, URINARY (TRACT) INFECTION (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 (26) UMBILICAL HERNIA Right knee replacement Family History Colon cancer Coronary artery disease Diabetes mellitus Hypertension Kidney disease Kidney stones Lung disease Myocardial infarction Social History Smoking Status: Never Smoker Alcohol Use: none Drug Use: none Marital Status: Housing Status: lives with family Occupation Status: employed Current/Historical Medications Scheduled Atenolol (Tenormin), 100 MG PO HS Lisinopril (Prinivil), 20 MG PO HS Potassium Citrate (Alkalinizer (Potassium Citrate ER), 1 TAB PO HS Scheduled PRN Acetaminophen (Tylenol), 1,000 MG PO BID PRN for prn Albuterol Sulfate (Proair Respiclick), 2 PUFFS INH Q4-6H PRN for prn Hydrocodone/Acetaminophen 5MG/325MG ([place] 5MG/325MG), 1-2 TAB PO Q4H PRN for Pain Hydrocodone/Acetaminophen 5MG/325MG ([place] 5MG/325MG), 1-2 TABS PO Q4H PRN for Pain Allergies Coded Allergies: Oxycodone (Verified Adverse Reaction, Unknown, ANXIETY, INSOMNIA, NAUSEA, 12/08/16) Physical Exam Vital Signs Date Time Temp Pulse Resp B/P Pulse Ox O2 Delivery O2 Flow Rate FiO2 12/08/16 01:51 53 18 146/61 97 Room Air 12/08/16 00:59 54 12/08/16 00:56 96 Room Air 12/08/16 00:56 96 Room Air 12/08/16 00:10 36.6 56 20 157/78 97 Room Air Physical Exam VITALS: Vitals are noted on the nurse's note and reviewed by myself. Vital signs stable. GENERAL: Pleasant female anxious-appearing, in no acute distress, nondiaphoretic , well-developed well-nourished. SKIN: The skin was without rashes, erythema, edema, or bruising. There is no tenting of the skin. Capillary reflex less than 2 seconds. HEAD: Normocephalic atraumatic. EARS: External auditory canals clear, tympanic membranes pearly kurtz without erythema or effusion bilaterally. EYES: Pupils equal round and reactive to light and accommodation. Conjunctivae without injection, sclerae without icterus. Extraocular movements intact. NOSE: Patent, turbinates without inflammation or discharge. No sinus tenderness. MOUTH: Mucous membranes moist. Tonsils are not enlarged. Pharynx without erythema or exudate. Uvula midline. Airway patent. Tongue does not deviate. NECK: Supple without nuchal rigidity. No lymphadenopathy. No thyromegaly. Cervical spine is nontender. No JVD. HEART: Regular rate and rhythm without murmurs gallops or rubs. LUNGS: Clear to auscultation bilaterally without wheezes, rales or rhonchi. No dullness to percussion. No retractions or accessory muscle use. ABDOMEN: Positive bowel sounds x 4. Normal tympanic percussion. Soft, protuberant, obese, nontender, without masses or organomegaly. Duncan sign negative. No guarding or rebound tenderness. MUSCULOSKELETAL: No muscle atrophy, erythema, noted. Minimal trace pedal edema bilaterally Right knee suture line intact. No signs of infection. Pedal pulses +2 equal present bilaterally. No calf tenderness bilaterally. NEURO: Patient was alert and oriented to person place and time. Normal sensation to light and sharp touch. No focal neurological deficits. Medical Decision & Procedures Laboratory Results 12/08/16 00:50 Red Blood Count 4.08, Mean Corpuscular Volume 87.7, Mean Corpuscular Hemoglobin 28.4, Mean Corpuscular Hemoglobin Concent 32.4, Mean Platelet Volume 10.1, Neutrophils (%) (Auto) 57.6, Lymphocytes (%) (Auto) 31.2, Monocytes (%) (Auto) 7.7, Eosinophils (%) (Auto) 2.7, Basophils (%) (Auto) 0.4, Neutrophils # (Auto) 4.77, Lymphocytes # (Auto) 2.58, Monocytes # (Auto) 0.64, Eosinophils # (Auto) 0.22, Basophils # (Auto) 0.03 12/08/16 00:50 Test 12/08/16 00:50 White Blood Count 8.27 K/uL (4.8-10.8) Red Blood Count 4.08 M/uL (4.2-5.4) Hemoglobin 11.6 g/dL (12.0-16.0) Hematocrit 35.8 % (37-47) Mean Corpuscular Volume 87.7 fL (80-100) Mean Corpuscular Hemoglobin 28.4 pg (25-34) Mean Corpuscular Hemoglobin Concent 32.4 g/dl (32-36) Platelet Count 432 K/uL (130-400) Mean Platelet Volume 10.1 fL (7.4-10.4) Neutrophils (%) (Auto) 57.6 % Lymphocytes (%) (Auto) 31.2 % Monocytes (%) (Auto) 7.7 % Eosinophils (%) (Auto) 2.7 % Basophils (%) (Auto) 0.4 % Neutrophils # (Auto) 4.77 K/uL (1.4-6.5) Lymphocytes # (Auto) 2.58 K/uL (1.2-3.4) Monocytes # (Auto) 0.64 K/uL (0.11-0.59) Eosinophils # (Auto) 0.22 K/uL (0-0.5) Basophils # (Auto) 0.03 K/uL (0-0.2) RDW Standard Deviation 43.7 fL (36.4-46.3) RDW Coefficient of Variation 13.6 % (11.5-14.5) Immature Granulocyte % (Auto) 0.4 % Immature Granulocyte # (Auto) 0.03 K/uL (0.00-0.02) Urine Color YELLOW Urine Appearance CLEAR (CLEAR) Urine pH 5.5 (4.5-7.5) Urine Specific [place] 1.014 (1.000-1.030) Urine Protein NEG (NEG) Urine Glucose (UA) NEG (NEG) Urine Ketones NEG (NEG) Urine Occult Blood TRACE (NEG) Urine Nitrite NEG (NEG) Urine Bilirubin NEG (NEG) Urine Urobilinogen NEG (NEG) Urine Leukocyte Esterase NEG (NEG) Urine WBC (Auto) 1-5 /hpf (0-5) Urine RBC (Auto) 5-10 /hpf (0-4) Urine Hyaline Casts (Auto) 1-5 /lpf (0-5) Urine Epithelial Cells (Auto) >30 /lpf (0-5) Urine Bacteria (Auto) NEG (NEG) Anion Gap 8.0 mmol/L (3-11) Est Creatinine Clear Calc Drug Dose 123.1 ml/min Estimated GFR () 123.0 Estimated GFR (Non- 106.2 BUN/Creatinine Ratio 22.4 (10-20) Calcium Level 8.9 mg/dl (8.5-10.1) Magnesium Level 2.3 mg/dl (1.8-2.4) Total Bilirubin 0.2 mg/dl (0.2-1) Direct Bilirubin < 0.1 mg/dl (0-0.2) Aspartate Amino Transf (AST/SGOT) 11 U/L (15-37) Alanine Aminotransferase (ALT/SGPT) 24 U/L (12-78) Alkaline Phosphatase 94 U/L (45-117) Total Creatine Kinase 55 U/L (26-192) Creatine Kinase MB 0.8 ng/ml (0.5-3.6) Creatine Kinase MB Ratio 1.5 (0-3.0) Troponin I < 0.015 ng/ml (0-0.045) Total Protein 7.8 gm/dl (6.4-8.2) Albumin 3.4 gm/dl (3.4-5.0) Thyroid Stimulating Hormone (TSH) 1.260 uIu/ml (0.300-4.500) ED Course Prior records reviewed and summarized above. Triage Nursing notes reviewed. Additional history obtained from the family. The patient's history was concerning for swelling and pain in the leg with tingling throughout. Differential diagnosis: Etiologies such as DVT, left slight abnormality, musculoskeletal, infection, joint effusion, trauma, lymphedema, idiopathic, CHF, as well as others were entertained.. Physical examination: The physical examination revealed no signs of infection. Neurovascularly intact. ER treatment provided: Patient was observed On reassessment the patient felt better. Diagnostics interpreted by me: The labs revealed no leukocytosis. Mild anemia Imaging studies: Patient was negative for DVT per radiology This appears to be consistent with tingling with unclear etiology. This could be related to patient's reduction and narcotics. Patient was neurovascularly and neurologically intact. No deficits on exam. No DVT. No electrolyte abnormality. She is advised to follow-up with family care in a few days or here in the ER sooner for severe pain, numbness, tingling, weakness, worsening signs or symptoms or as needed. By the evaluation outlined above emergent etiologies such as DVT, septic joint, trauma, infection, CHF, as well as others were deemed relatively unlikely. The pt informed about the findings as listed above. All questions were answered and pleased with the treatment. Return instructions were outlined and the patient was discharged in stable condition. Referral: The patient was referred back to their primary care physician for follow-up in 2 to 3 days for a recheck of the current condition. Case reviewed with my attending Medical Decision As above Impression Primary Impression: Tingling sensation Departure Information Dispostion Home / Self-Care Condition GOOD Referrals Saul Villasenor M.D. (PCP) Patient Instructions My [facility] Additional Instructions Rest and drink plenty of fluids as tolerated. Continue current medications. Avoid strenuous activities and anything that worsens your pain. Resume normal activities once your symptoms resolve. Return to the ER immediately for worsening or persistent leg problems, localized weakness, localized numbness, abdominal pain, vomiting, fevers, chest pains, difficulty breathing, worsening of your condition, or as needed. Follow up with your primary physician in 2-3 days for a recheck of your current condition.
[2016-12-08 02:45] VITALS: BP 149/64; PULSE 76; O2SAT 97
--- NOTE | 2016-12-08 06:40 | DIAGNOSTIC IMAGING REPORT ---
Venous Doppler right leg RIGHT VENOUS DOPP LOWER EXT UNILAT CLINICAL HISTORY: right leg pain/swelling, recent OR Right pain. Edema. TECHNIQUE: Doppler COMPARISON STUDY: None FINDINGS: Normal study IMPRESSION: Normal study Electronically signed by: Manny Bass M.D. 12/08/2016 6:39 AM Dictated Date/Time: 12/08/2016 6:38 AM
== END 2016-12-08 02:47 | disposition home or self-care (01) ==
LOC: C.EDB 00:06
DX: R20.0 Anesthesia of skin (principal); J45.909 Unspecified asthma, uncomplicated; N18.9 Chronic kidney disease, unspecified; K21.9 Gastro-esophageal reflux disease without esophagitis; I12.9 Hypertensive chronic kidney disease with stage 1 through stage 4 chronic kidney disease, or unspecified chronic kidney disease; K58.9 Irritable bowel syndrome, unspecified; I05.9 Rheumatic mitral valve disease, unspecified; Z87.442 Personal history of urinary calculi; Z87.440 Personal history of urinary (tract) infections

== ENCOUNTER → 2017-01-06 | Outpatient (CLI) | payer BC ==
[~2017-01-06] MED LIST changes: -CALC500C50 PO; -MRPSR15 PO; -ONDA8TAB6 PO
[2017-01-06 17:49] LABS: URINE APPEARANCE CLEAR (CLEAR); URINE BILIRUBIN NEG (NEG); URINE COLOR YELLOW; URINE NITRITE NEG (NEG); URINE SPECIFIC GRAVITY 1.013 (1.000-1.030); UROBILINOGEN NEG (NEG)
[2017-01-06 17:58] LABS: MANUAL MICROSCOPIC REQUIRED? NO; REVIEW REQ? NO
== END | disposition home or self-care (01) ==
LOC: C.LABBFT 11:55
PROVIDERS: ATTEND Internal Medicine
DX: R39.9 Unspecified symptoms and signs involving the genitourinary system (principal)

== ENCOUNTER → 2017-05-04 | Outpatient (CLI) | payer BC ==
[2017-05-04 17:43] LABS: BASO % 0.4 %; BASO ABS # 0.04 K/uL (0-0.2); COMPLETE YES; EOS % 3.7 %; HEMATOCRIT 40.2 % (37-47); IG% 0.3 %; LYMPH % 22.9 %; LYMPH ABS # 2.16 K/uL (1.2-3.4); MEAN CELL VOLUME 86.1 fL (80-100); MEAN CORPUSCULAR HEMOGLOBIN 26.6 pg (25-34); MEAN CORPUSCULAR HGB CONC 30.8 g/dl (32-36); MEAN PLATELET VOLUME 11.4 fL (7.4-10.4); MONO % 5.9 %; NEUT % 66.8 %; PLATELET COUNT 340 K/uL (130-400); RED BLOOD COUNT 4.67 M/uL (4.2-5.4); WHITE BLOOD COUNT 9.44 K/uL (4.8-10.8)
[2017-05-04 18:29] LABS: BLOOD UREA NITROGEN 17 mg/dl (7-18); BUN/CREATININE RATIO 17.3 (10-20); CALCIUM 9.3 mg/dl (8.5-10.1); CARBON DIOXIDE 29 mmol/L (21-32); CHLORIDE 107 mmol/L (98-107); CREATININE 0.97 mg/dl (0.60-1.20); GLUCOSE 89 mg/dl (70-99); POTASSIUM 4.4 mmol/L (3.5-5.1); SODIUM 140 mmol/L (136-145)
[2017-05-04 18:57] LABS: THYROID STIMULATING HORMONE 0.792 uIu/ml (0.300-4.500)
--- NOTE | 2017-05-16 13:30 | CODING QUERY MEDICAL NECESSITY ---
SUPPORTING DIAGNOSIS NEEDED Dr. Barbosa, A supporting diagnosis is required for the test/procedure performed on this patient in order for us to be reimbursed by the patient's insurance. Please provide a supporting diagnosis for the following test/procedure listed below next to the test name along with your signature. *If there is no additional diagnosis for this patient that would support the following test/procedure please document that below next to the test/procedure. Test(s)/Procedure(s) that require a supporting diagnosis: * ([id number]) VITAMIN D ASSAY DIAGNOSIS: * ([id number]) B12 VITAMIN LEVEL DIAGNOSIS: DATE OF SERVICE: 05/04/17 Provider Signature: Date: Thank you Nick Lobato [facility] Information Management Once completed, please kindly fax back to [phone] For questions please call [phone]
== END | disposition home or self-care (01) ==
LOC: C.LABBFT 10:49
PROVIDERS: ATTEND Nurse Practitioner
DX: R53.83 Other fatigue (principal); J45.909 Unspecified asthma, uncomplicated; E55.9 Vitamin D deficiency, unspecified; K14.4 Atrophy of tongue papillae

== ENCOUNTER → 2017-07-25 | Outpatient (CLI) | payer BC | END | disposition home or self-care (01) | LOC: C.LABBFT 15:33 | PROVIDERS: ATTEND Nurse Practitioner | DX: E55.9 Vitamin D deficiency, unspecified (principal) ==

== ENCOUNTER → 2017-08-30 | Outpatient (CLI) | payer BC ==
--- NOTE | 2017-08-30 10:18 | DIAGNOSTIC IMAGING REPORT ---
ABDOMEN FOR HERNIA CLINICAL HISTORY: R10.33 Acute periumbilical pain Please evaluate left periumbilical TECHNIQUE: Ultrasound COMPARISON STUDY: None FINDINGS: In the left periumbilical region is a nonreducible pelvic bowel containing hernia. Osteolysis is confirmed. This has a maximum transverse diameter approximately 3 cm. It appears to be incomplete and involves the deeper aspect of the subcutaneous region. IMPRESSION: Left periumbilical hernia containing bowel. This is nonreducible. The above report was generated using voice recognition software. It may contain grammatical, syntax or spelling errors. Electronically signed by: Manny Bass M.D. 08/30/2017 10:16 AM Dictated Date/Time: 08/30/2017 10:14 AM
== END | disposition home or self-care (01) ==
LOC: C.ULTR 08:40
PROVIDERS: ATTEND Nurse Practitioner
DX: K42.9 Umbilical hernia without obstruction or gangrene (principal)

== ENCOUNTER 2017-11-29 09:33 | Emergency (ER) | payer BC ==
[~2017-11-29] VITALS: Ht 144.8 cm; Wt 118.4 kg
[2017-11-29 09:43] VITALS: TEMP 37.1
[2017-11-29] MEDS ORDERED: SODIUM CHLORIDE 0.9% 1000ML 1,000 ML IV STA (10:02)
[2017-11-29 10:30] VITALS: O2SAT 97; Ht 144.8 cm; Wt 118.4 kg
[2017-11-29 10:37] LABS: BASO % 0.6 %; BASO ABS # 0.06 K/uL (0-0.2); EOS ABS # 0.44 K/uL (0-0.5); HEMATOCRIT 36.7 % (37-47); IG# 0.06 K/uL (0.00-0.02); LYMPH % 18.5 %; LYMPH ABS # 2.02 K/uL (1.2-3.4); MEAN CELL VOLUME 87.8 fL (80-100); MEAN CORPUSCULAR HEMOGLOBIN 28.7 pg (25-34); MEAN CORPUSCULAR HGB CONC 32.7 g/dl (32-36); MEAN PLATELET VOLUME 10.9 fL (7.4-10.4); MONO % 7.2 %; MONO ABS # 0.78 K/uL (0.11-0.59); NEUT % 69.1 %; NEUT ABS # 7.53 K/uL (1.4-6.5); PLATELET COUNT 357 K/uL (130-400); PTT PATIENT 24.5 SECONDS (21.0-31.0); RED CELL DISTRIBUTION WIDTH CV 14.5 % (11.5-14.5); RED CELL DISTRIBUTION WIDTH SD 46.6 fL (36.4-46.3); WHITE BLOOD COUNT 10.89 K/uL (4.8-10.8)
--- NOTE | 2017-11-29 10:43 | DIAGNOSTIC IMAGING REPORT ---
CHEST ONE VIEW PORTABLE HISTORY: 46 years-old Female SOB acute shortness of breath with right-sided flank and back pain COMPARISON: Chest radiograph 12/01/2016 TECHNIQUE: Portable AP view of the chest FINDINGS: Cardiac silhouette is moderately enlarged, unchanged. There is no pneumothorax, pleural effusion, focal airspace consolidation or overt pulmonary edema. Bones of the chest appear grossly intact. Degenerative changes are seen within the shoulders and spine. IMPRESSION: Cardiomegaly without acute process. The above report was generated using voice recognition software. It may contain grammatical, syntax or spelling errors. Electronically signed by: Herminio Hernandez M.D. 11/29/2017 10:42 AM Dictated Date/Time: 11/29/2017 10:41 AM
[2017-11-29 10:51] LABS: ALBUMIN 2.9 gm/dl (3.4-5.0); ALT/SGPT 27 U/L (12-78); AST/SGOT 14 U/L (15-37); BLOOD UREA NITROGEN 22 mg/dl (7-18); CALCIUM 8.7 mg/dl (8.5-10.1); CARBON DIOXIDE 30 mmol/L (21-32); CREATININE 0.63 mg/dl (0.60-1.20); GLUCOSE 97 mg/dl (70-99); POTASSIUM 3.5 mmol/L (3.5-5.1); SODIUM 138 mmol/L (136-145)
--- NOTE | 2017-11-29 10:58 | EMERGENCY ROOM VISIT NOTE ---
History Report prepared by Elan: Efrain Scott Under the Supervision of: Dr. Jon Guevara M.D. First contact with patient: 10:01 Chief Complaint: SHORTNESS OF BREATH Stated Complaint: DIFFICULTY BREATHING, R SIDE AND BACK PAIN Nursing Triage Summary: Pt s/p hernia surgery last , d/c last night. Pt reports sob and pain in right side/back. Dizzy. Sx began at 0400. Denies pain in legs. States pain when taking a deep breath. History of Present Illness The patient is a 46 year old female who presents to the Emergency Room with complaints of shortness of breath and persistent back pain that began at 0400 this morning, 6.5 hours prior to arrival. The patient states that her pain is like a "band" around her back at the level of her chest. The pain radiated from her upper back into her chest. The pain is worsened by deep inspiration which is causing her to feel short of breath. The patient also notes having a mild cough lately. She added that she had hernia surgery last , 5 days ago, and was discharged last night. She denies any associated LOC, headache, fevers, chills, diaphoresis, visual changes, neck pain, nausea, vomiting, abdominal pain , melena, hematochezia, urinary symptoms, numbness, weakness, lymphadenopathy, rash, or other complaints. 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 A total of ten systems were reviewed and were otherwise negative. Past Medical & Surgical Medical Problems: (1) Asthma, Unspecified (2) CALCULUS OF KIDNEY (3) Calculus Of Ureter (4) chest pain (5) chest pain (6) chest pain (7) Chronic Kidney Disease, Unspecified (8) CYSTIC KIDNEY DISEASE, UNSPECIFIED (9) Cystic Kidney Disease, Unspecified (10) DISC DEGENERATION NOS (11) DIVERTICULOSIS COLON (W/O MENT OF HEMORRHAGE) (12) Diverticulosis Colon (W/O Ment Of Hemorrhage) (13) Endometriosis (14) Esophageal reflux (15) HYPERTENSION NOS (16) Hypertension Nos (17) IRRITABLE BOWEL SYNDROME (18) Irritable Bowel Syndrome (19) Lumbosacral Neuritis Nos (20) MITRAL VALVE DISORDER (21) Mitral Valve Disorder (22) Morbid Obesity (23) PERSONAL HISTORY OF URINARY CALCULI (24) PERSONAL HISTORY, URINARY (TRACT) INFECTION (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 (26) UMBILICAL HERNIA Family History Colon cancer Coronary artery disease Diabetes mellitus Hypertension Kidney disease Kidney stones Lung disease Myocardial infarction Social History Smoking Status: Never Smoker Alcohol Use: none Drug Use: none Marital Status: Housing Status: lives with family Occupation Status: employed Current/Historical Medications Scheduled Atenolol (Tenormin), 100 MG PO HS Azithromycin (Zithromax), 250 MG PO DAILY Lisinopril (Prinivil), 20 MG PO HS Scheduled PRN Acetaminophen (Tylenol), 1,000 MG PO BID PRN for prn Allergies Coded Allergies: Oxycodone (Verified Adverse Reaction, Unknown, ANXIETY, INSOMNIA, NAUSEA, 11/29/17) Physical Exam Vital Signs Date Time Temp Pulse Resp B/P (MAP) Pulse Ox O2 Delivery O2 Flow Rate FiO2 11/29/17 13:40 58 11/29/17 13:30 55 20 157/82 97 Room Air 11/29/17 12:40 56 22 147/70 96 Room Air 11/29/17 11:57 56 22 145/71 100 Nebulizer 11/29/17 10:50 53 11/29/17 10:30 97 Room Air 11/29/17 10:30 56 22 124/62 97 Room Air 11/29/17 10:30 97 Room Air 11/29/17 09:43 37.1 57 20 172/82 97 Room Air Physical Exam GENERAL: Awake, alert, well-appearing, in no distress HENT: Normocephalic, atraumatic. Oropharynx unremarkable. EYES: Normal conjunctiva. Sclera non-icteric. NECK: Supple. No nuchal rigidity. FROM. No JVD. RESPIRATORY: Clear to auscultation. CARDIAC: bradycardic rate, normal rhythm. Extremities warm and well perfused. Pulses equal. ABDOMEN: Soft, non-distended. No tenderness to palpation. No rebound or guarding. No masses. RECTAL: Deferred. MUSCULOSKELETAL: Chest examination reveals no tenderness. The back is symmetrical on inspection without obvious abnormality. There is no CVA tenderness to palpation. No joint edema. LOWER EXTREMITIES: Calves are equal size bilaterally and non-tender. No edema. No discoloration. NEURO: Normal sensorium. No sensory or motor deficits noted. SKIN: No rash or jaundice noted. Medical Decision & Procedures ER Provider Diagnostic Interpretation: Radiology results as stated below per my review and radiologist interpretation: VENOUS DOPPLER LWR EXT BILA HISTORY: Pain. Edema. eval for dvt COMPARISON STUDY: 12/18/2015 FINDINGS: There is normal compressibility, flow, and augmentation within the bilateral lower extremity deep venous systems. IMPRESSION: No DVT within the right or left lower extremity. The above report was generated using voice recognition software. It may contain grammatical, syntax or spelling errors. Electronically signed by: Manny Bass M.D. 11/29/2017 1:32 PM Dictated Date/Time: 11/29/2017 1:[address] ANGIOGRAM OF THE CHEST CLINICAL HISTORY: Dyspnea. COMPARISON STUDY: Chest x-ray dated 11/29/2017. Chest CT scans dated 12/18/2015 and 06/07/2014. TECHNIQUE: Following the IV administration of 115 cc of Optiray 320, CT angiogram of the chest was performed from the upper abdomen to the thoracic inlet utilizing the pulmonary embolus protocol. Images are reviewed in the axial, sagittal, and coronal planes. 3-D MIPS images are created and assessed. IV contrast was administered without complication. A dose lowering protocol was utilized according to the principles of ALARA. The examination is degraded by large body habitus, and by streak artifact from the body wall abutting the CT gantry. Examination is also compromised by motion artifact. CT DOSE: 531.44 mGycm FINDINGS: Thyroid: Imaged portions of the thyroid gland are normal in size and attenuation. Thoracic aorta: The thoracic aorta is normal in caliber and demonstrates bovine variant arch anatomy. No aneurysm or dissection is seen. Pulmonary vasculature: The pulmonary trunk is dilated measuring 3.5 cm in diameter. This is greater in caliber than the adjacent thoracic aorta and indicates pulmonary artery hypertension. There are no filling defects identified in main, lobar, or proximal segmental pulmonary branches to suggest pulmonary embolus. Heart: The heart is enlarged and without pericardial effusion. Lungs and pleural spaces: Evaluation of the lung parenchyma is modestly degraded by motion artifact. Linear atelectasis versus scarring is present at the left lung base. No airspace consolidation or pleural effusion is identified. The trachea and central airways are patent. Evaluation of the peripheral vessels is degraded by streak and motion artifact. Mediastinum: There is no mediastinal lymphadenopathy. Snehal: Clear. Axillae: There is no axillary lymphadenopathy. Upper abdomen: The liver is enlarged and steatotic. Diverticula are noted in the partially imaged left colon. A small hiatal hernia is identified. Bilateral adrenal adenomas are identified. Skeletal structures: No lytic or blastic bony lesions are seen. Mild degenerative changes are seen throughout the thoracic spine. IMPRESSION: 1. There is no evidence of pulmonary embolus in the main, lobar, or proximal segmental pulmonary arteries. 2. There is no airspace consolidation or pleural effusion. 3. Cardiomegaly with evidence of pulmonary artery hypertension. 4. Hepatomegaly and hepatic steatosis. 5. Additional changes as detailed above. Electronically signed by: Jean Barboza M.D. 11/29/2017 11:53 AM Dictated Date/Time: 11/29/2017 11:49 AM CHEST ONE VIEW PORTABLE HISTORY: 46 years-old Female SOB acute shortness of breath with right-sided flank and back pain COMPARISON: Chest radiograph 12/01/2016 TECHNIQUE: Portable AP view of the chest FINDINGS: Cardiac silhouette is moderately enlarged, unchanged. There is no pneumothorax, pleural effusion, focal airspace consolidation or overt pulmonary edema. Bones of the chest appear grossly intact. Degenerative changes are seen within the shoulders and spine. IMPRESSION: Cardiomegaly without acute process. The above report was generated using voice recognition software. It may contain grammatical, syntax or spelling errors. Electronically signed by: Herminio Hernandez M.D. 11/29/2017 10:42 AM Dictated Date/Time: 11/29/2017 10:41 AM Laboratory Results 11/29/17 10:15 Red Blood Count 4.18, Mean Corpuscular Volume 87.8, Mean Corpuscular Hemoglobin 28.7, Mean Corpuscular Hemoglobin Concent 32.7, Mean Platelet Volume 10.9, Neutrophils (%) (Auto) 69.1, Lymphocytes (%) (Auto) 18.5, Monocytes (%) (Auto) 7.2, Eosinophils (%) (Auto) 4.0, Basophils (%) (Auto) 0.6, Neutrophils # (Auto) 7.53, Lymphocytes # (Auto) 2.02, Monocytes # (Auto) 0.78, Eosinophils # (Auto) 0.44, Basophils # (Auto) 0.06 11/29/17 10:15 Test 11/29/17 10:15 11/29/17 11:00 White Blood Count 10.89 K/uL (4.8-10.8) Red Blood Count 4.18 M/uL (4.2-5.4) Hemoglobin 12.0 g/dL (12.0-16.0) Hematocrit 36.7 % (37-47) Mean Corpuscular Volume 87.8 fL (80-100) Mean Corpuscular Hemoglobin 28.7 pg (25-34) Mean Corpuscular Hemoglobin Concent 32.7 g/dl (32-36) Platelet Count 357 K/uL (130-400) Mean Platelet Volume 10.9 fL (7.4-10.4) Neutrophils (%) (Auto) 69.1 % Lymphocytes (%) (Auto) 18.5 % Monocytes (%) (Auto) 7.2 % Eosinophils (%) (Auto) 4.0 % Basophils (%) (Auto) 0.6 % Neutrophils # (Auto) 7.53 K/uL (1.4-6.5) Lymphocytes # (Auto) 2.02 K/uL (1.2-3.4) Monocytes # (Auto) 0.78 K/uL (0.11-0.59) Eosinophils # (Auto) 0.44 K/uL (0-0.5) Basophils # (Auto) 0.06 K/uL (0-0.2) RDW Standard Deviation 46.6 fL (36.4-46.3) RDW Coefficient of Variation 14.5 % (11.5-14.5) Immature Granulocyte % (Auto) 0.6 % Immature Granulocyte # (Auto) 0.06 K/uL (0.00-0.02) Prothrombin Time 10.1 SECONDS (9.0-12.0) Prothromb Time International Ratio 1.0 (0.9-1.1) Activated Partial Thromboplast Time 24.5 SECONDS (21.0-31.0) Partial Thromboplastin Ratio 0.9 Anion Gap 5.0 mmol/L (3-11) Est Creatinine Clear Calc Drug Dose 131.5 ml/min Estimated GFR () 124.7 Estimated GFR (Non- 107.6 BUN/Creatinine Ratio 33.9 (10-20) Calcium Level 8.7 mg/dl (8.5-10.1) Magnesium Level 2.3 mg/dl (1.8-2.4) Total Bilirubin 0.4 mg/dl (0.2-1) Direct Bilirubin < 0.1 mg/dl (0-0.2) Aspartate Amino Transf (AST/SGOT) 14 U/L (15-37) Alanine Aminotransferase (ALT/SGPT) 27 U/L (12-78) Alkaline Phosphatase 73 U/L (45-117) Total Creatine Kinase 123 U/L (26-192) Creatine Kinase MB 0.9 ng/ml (0.5-3.6) Creatine Kinase MB Ratio 0.7 (0-3.0) Troponin I < 0.015 ng/ml (0-0.045) Total Protein 7.6 gm/dl (6.4-8.2) Albumin 2.9 gm/dl (3.4-5.0) Thyroid Stimulating Hormone (TSH) 0.806 uIu/ml (0.300-4.500) Influenza Type A Antigen Neg for Influ A (NEG) Influenza Type B Antigen Neg for Influ B (NEG) Laboratory results reviewed by me Medications Administered Medications (Trade) Dose Ordered Sig/Danielle Route Start Time Stop Time Status Last Admin Dose Admin Sodium Chloride 1,000 ml @ 125 mls/hr Q8H STAT IV 11/29/17 10:02 11/29/17 15:23 DC 11/29/17 10:02 125 MLS/HR Albuterol/ Ipratropium (Duoneb) 3 ml NOW STAT INH 11/29/17 11:02 11/29/17 11:03 DC 11/29/17 11:41 3 ML Acetaminophen (Tylenol Tab) 1,000 mg NOW STAT PO 11/29/17 13:19 11/29/17 13:21 DC 11/29/17 13:37 1,000 MG Azithromycin (Zithromax Tab) 500 mg NOW STAT PO 11/29/17 14:20 11/29/17 14:21 DC 11/29/17 14:52 500 MG ECG Indication: SOB/dyspnea Rate (beats per minute): 56 Rhythm: normal sinus Findings: no acute ischemic change, no ectopy Change: Patient's electrocardiogram interpreted by me. ED Course 1002: Ordered Sodium Chloride 1000 mL @ 125 mL/hr IV. 1037: The patient was evaluated in room A9. A complete history and physical exam was performed. 1102: Ordered Duoneb 3 mL INH. 1319: Ordered Acetaminophen 1000 mg PO. 1420: Ordered Azithromycin 500 mg PO. 1420: I reevaluated the patient. Discussed results and discharge instructions: she verbalized understanding and agreement. The patient is ready for discharge. Medical Decision Prior records/ancillary studies reviewed. Triage Nursing notes reviewed and agree them. The patient's history was concerning for recent surgery, back pain, and shortness of breath. Differential diagnosis: Etiologies such as pneumonia, pulmonary embolism, reactive airway disease, CHF , cardiac ischemia, pneumothorax, musculoskeletal, infections, gastrointestinal , as well as others were entertained. Physical examination: As above. ER treatment provided: Normal saline hydration and oral Tylenol On reassessment the patient felt better. Zithromax Diagnostic interpretation by me: The electrocardiogram was negative for pathologic change. The labs revealed an unremarkable CBC except for mild leukocytosis. Chemistry panel unremarkable. Cardiac markers unremarkable. Urine dip negative. LFTs negative. Imaging studies: Chest x-ray, CT scan and ultrasound as above. The patient has a history of reactive airways. She has a mildly productive cough. CT imaging revealed some mild congestion most notably in the left base. She was treated with Zithromax. She'll continue her inhalers. She has no evidence of PE or DVT. She will follow-up with her PCP and continue with recommendations as noted by surgery. By the evaluation outlined above emergent etiologies such as CHF, cardiac ischemia, pulmonary embolism, reactive airway disease, pneumonia, pneumothorax , musculoskeletal, infections, as well as others were deemed relatively unlikely. The patient was informed about the findings as listed above. All questions were answered and she was pleased with the treatment. Return instructions were outlined and the patient was discharged in stable condition. Outpatient prescription management: Zithromax Referral: The patient was referred back to her primary care physician for follow-up in 2 to 3 days for a recheck of the current condition. Impression Primary Impression: Shortness of breath Additional Impressions: Cough Back pain Scribe Attestation The scribe's documentation has been prepared under my direction and personally reviewed by me in its entirety. I confirm that the note above accurately reflects all work, treatment, procedures, and medical decision making performed by me. Departure Information Dispostion Home / Self-Care Prescriptions Azithromycin (Zithromax) 250 Mg Tab 250 MG PO DAILY, #4 TAB Prov: Jon Guevara MD 11/29/17 Referrals Saul Villasenor M.D. (PCP) Forms HOME CARE DOCUMENTATION FORM, IMPORTANT VISIT INFORMATION Patient Instructions My [facility] Additional Instructions Azithromycin(Zithromax): Take one a day for 4 additional days. All antibiotics can cause diarrhea. If this occurs and you feel worse or it does not resolve in 1-2 days follow up with your doctor or return to the Emergency Department as this could be signs of serious underlying problems. Any medication can cause an allergic reaction, stop the pills immediately and return to the ER for rash, hives, breathing difficulties, or swelling. Acetaminophen(Tylenol) may be used for fever or pain. Use 1000mg every six hours as needed. Avoid using more than 4000mg in a 24 hour period. (AND/OR) Ibuprofen(Motrin, Advil) may be used for fever or pain. Use 600mg every six hours as needed. Take with food. Avoid using more than 2400mg in a 24 hour period. Do not use 2400mg per day for more than three consecutive days without physician direction. Prolonged inappropriate use can lead to stomach upset or ulcers. Continue your inhaler. Follow-up all instructions given to by surgery. Rest and drink plenty of fluids. Controlling your fever with Tylenol and Ibuprofen as above will make you feel better. Return to the ER for severe headache, neck stiffness, chest pain, abdominal pain , worsening back pain, difficulty breathing, fevers, vomiting, worsening of your condition, or as needed. Follow up with your primary physician this week for a recheck of your current condition. Problem Qualifiers
[2017-11-29] MEDS ORDERED: OPTIRAY 320 IV PRN (11:00)
[2017-11-29 11:02] LABS: ALKALINE PHOSPHATASE 73 U/L (45-117); CKMB 0.9 ng/ml (0.5-3.6); TOTAL PROTEIN 7.6 gm/dl (6.4-8.2)
[2017-11-29] MEDS ORDERED: ALBUT/IPRATROP 3MG/0.5MG NEB 3 ML VIAL INH STA (11:02)
[2017-11-29 11:44] LABS: INFLUENZA B ANTIGEN Neg for Influ B (NEG)
--- NOTE | 2017-11-29 11:55 | DIAGNOSTIC IMAGING REPORT ---
CT ANGIOGRAM OF THE CHEST CLINICAL HISTORY: Dyspnea. COMPARISON STUDY: Chest x-ray dated 11/29/2017. Chest CT scans dated 12/18/2015 and 06/07/2014. TECHNIQUE: Following the IV administration of 115 cc of Optiray 320, CT angiogram of the chest was performed from the upper abdomen to the thoracic inlet utilizing the pulmonary embolus protocol. Images are reviewed in the axial, sagittal, and coronal planes. 3-D MIPS images are created and assessed. IV contrast was administered without complication. A dose lowering protocol was utilized according to the principles of ALARA. The examination is degraded by large body habitus, and by streak artifact from the body wall abutting the CT gantry. Examination is also compromised by motion artifact. CT DOSE: 531.44 mGycm FINDINGS: Thyroid: Imaged portions of the thyroid gland are normal in size and attenuation. Thoracic aorta: The thoracic aorta is normal in caliber and demonstrates bovine variant arch anatomy. No aneurysm or dissection is seen. Pulmonary vasculature: The pulmonary trunk is dilated measuring 3.5 cm in diameter. This is greater in caliber than the adjacent thoracic aorta and indicates pulmonary artery hypertension. There are no filling defects identified in main, lobar, or proximal segmental pulmonary branches to suggest pulmonary embolus. Heart: The heart is enlarged and without pericardial effusion. Lungs and pleural spaces: Evaluation of the lung parenchyma is modestly degraded by motion artifact. Linear atelectasis versus scarring is present at the left lung base. No airspace consolidation or pleural effusion is identified. The trachea and central airways are patent. Evaluation of the peripheral vessels is degraded by streak and motion artifact. Mediastinum: There is no mediastinal lymphadenopathy. Snehal: Clear. Axillae: There is no axillary lymphadenopathy. Upper abdomen: The liver is enlarged and steatotic. Diverticula are noted in the partially imaged left colon. A small hiatal hernia is identified. Bilateral adrenal adenomas are identified. Skeletal structures: No lytic or blastic bony lesions are seen. Mild degenerative changes are seen throughout the thoracic spine. IMPRESSION: 1. There is no evidence of pulmonary embolus in the main, lobar, or proximal segmental pulmonary arteries. 2. There is no airspace consolidation or pleural effusion. 3. Cardiomegaly with evidence of pulmonary artery hypertension. 4. Hepatomegaly and hepatic steatosis. 5. Additional changes as detailed above. Electronically signed by: Jean Barboza M.D. 11/29/2017 11:53 AM Dictated Date/Time: 11/29/2017 11:49 AM
[2017-11-29] MEDS ORDERED: ACETAMINOPHEN 500 MG TAB PO STA (13:19)
[2017-11-29 13:30] VITALS: BP 157/82; O2SAT 97
--- NOTE | 2017-11-29 13:33 | DIAGNOSTIC IMAGING REPORT ---
VENOUS DOPPLER LWR EXT BILA HISTORY: Pain. Edema. eval for dvt COMPARISON STUDY: 12/18/2015 FINDINGS: There is normal compressibility, flow, and augmentation within the bilateral lower extremity deep venous systems. IMPRESSION: No DVT within the right or left lower extremity. The above report was generated using voice recognition software. It may contain grammatical, syntax or spelling errors. Electronically signed by: Manny Bass M.D. 11/29/2017 1:32 PM Dictated Date/Time: 11/29/2017 1:30 PM
[2017-11-29 13:40] VITALS: PULSE 58
[2017-11-29] MEDS ORDERED: AZITHROMYCIN 250 MG TAB PO STA (14:20)
[2017-11-29] MEDS ORDERED: AZIT250T PO (14:59)
== END 2017-11-29 15:10 | disposition home or self-care (01) ==
LOC: C.EDB 09:36 → C.EDA 15:10
DX: R06.02 Shortness of breath (principal); R05 Cough; M54.9 Dorsalgia, unspecified; I51.7 Cardiomegaly; R16.0 Hepatomegaly, not elsewhere classified; K76.0 Fatty (change of) liver, not elsewhere classified; J45.909 Unspecified asthma, uncomplicated; N18.9 Chronic kidney disease, unspecified; Q61.9 Cystic kidney disease, unspecified; K57.30 Diverticulosis of large intestine without perforation or abscess without bleeding; N80.9 Endometriosis, unspecified; K21.9 Gastro-esophageal reflux disease without esophagitis; I12.9 Hypertensive chronic kidney disease with stage 1 through stage 4 chronic kidney disease, or unspecified chronic kidney disease; K58.9 Irritable bowel syndrome, unspecified; I05.9 Rheumatic mitral valve disease, unspecified; E66.01 Morbid (severe) obesity due to excess calories; Z87.442 Personal history of urinary calculi; Z87.440 Personal history of urinary (tract) infections; M17.11 Unilateral primary osteoarthritis, right knee; Z80.0 Family history of malignant neoplasm of digestive organs; Z83.3 Family history of diabetes mellitus; Z82.49 Family history of ischemic heart disease and other diseases of the circulatory system; Z84.1 Family history of disorders of kidney and ureter

== ENCOUNTER 2017-12-04 11:33 | Emergency (ER) | payer BC ==
[~2017-12-04] VITALS: Ht 144.8 cm; Wt 129.5 kg
[~2017-12-04 11:33] MED LIST changes: -ALBU18002 INH; +AZIT250T PO; -HYDR-5688 PO; -POTA1080 PO
[2017-12-04 11:39] VITALS: TEMP 36.5; Ht 144.8 cm; Wt 129.5 kg
[2017-12-04] MEDS ORDERED: SODIUM CHLORIDE 0.9% 1000ML 1,000 ML IV STA (12:05)
[2017-12-04] MEDS ORDERED: ONDANSETRON INJ 2 MG/ML 2 ML VIAL IV STA (12:05)
[2017-12-04] MEDS ORDERED: MoRPHine SULFATE 10 MG/ML CARP/VIAL IV STA (12:05)
[2017-12-04] MEDS ORDERED: OPTIRAY 320 IV PRN (12:15)
[2017-12-04] MEDS ORDERED: TNR50 PO (12:19)
[2017-12-04] MEDS ORDERED: MELO15TA4 PO (12:19)
[2017-12-04] MEDS ORDERED: ULT50 PO (12:19)
[2017-12-04 13:32] LABS: BASO % 0.4 %; BASO ABS # 0.04 K/uL (0-0.2); EOS ABS # 0.37 K/uL (0-0.5); HEMATOCRIT 36.5 % (37-47); HEMOGLOBIN 11.7 g/dL (12.0-16.0); IG# 0.06 K/uL (0.00-0.02); LYMPH % 22.2 %; LYMPH ABS # 2.07 K/uL (1.2-3.4); MEAN CELL VOLUME 87.3 fL (80-100); MEAN CORPUSCULAR HGB CONC 32.1 g/dl (32-36); MEAN PLATELET VOLUME 10.6 fL (7.4-10.4); MONO % 5.8 %; MONO ABS # 0.54 K/uL (0.11-0.59); NEUT ABS # 6.24 K/uL (1.4-6.5); PLATELET COUNT 359 K/uL (130-400); RED CELL DISTRIBUTION WIDTH CV 13.8 % (11.5-14.5); RED CELL DISTRIBUTION WIDTH SD 43.9 fL (36.4-46.3); WHITE BLOOD COUNT 9.32 K/uL (4.8-10.8)
[2017-12-04 13:45] LABS: ALBUMIN 2.7 gm/dl (3.4-5.0); ALT/SGPT 30 U/L (12-78); AST/SGOT 21 U/L (15-37); BLOOD UREA NITROGEN 13 mg/dl (7-18); CALCIUM 9.3 mg/dl (8.5-10.1); CARBON DIOXIDE 26 mmol/L (21-32); CREATININE 0.63 mg/dl (0.60-1.20); GLUCOSE 90 mg/dl (70-99); LIPASE 293 U/L (73-393); SODIUM 141 mmol/L (136-145)
[2017-12-04 13:47] LABS: ALKALINE PHOSPHATASE 72 U/L (45-117); TOTAL PROTEIN 7.5 gm/dl (6.4-8.2)
--- NOTE | 2017-12-04 15:24 | DIAGNOSTIC IMAGING REPORT ---
ABDOMEN AND PELVIS CT WITH IV AND ORAL CONTRAST CT DOSE: 2036.87 mGy.cm HISTORY: Generalized abdominal pain. TECHNIQUE: Multiaxial CT images of the abdomen and pelvis were performed following the use of intravenous and oral contrast. A dose lowering technique was utilized adhering to the principles of ALARA. COMPARISON STUDY: Abdomen and pelvis CT 08/12/2016. FINDINGS: Linear densities the left lung base consistent with subsegmental atelectasis. No fractures within the visualized osseous structures. The spleen, left adrenal gland, pancreas, and gallbladder are unremarkable. Stable 8 mm hypodense lesion within the left hepatic lobe. No retroperitoneal lymphadenopathy. Stable 2 cm hypodense lesion within or adjacent to the right adrenal gland. Multiple bilateral renal calculi. Stable 9 mm hypodense lesion within the right kidney. This is too small to characterize. Stable 8 mm hypodensity within the left kidney. The bladder is unremarkable. The uterus is surgically absent. Colonic diverticulosis. No bowel wall thickening or obstruction. No ureteral stones. No hydronephrosis. Normal appendix. There is evidence for interval midline incision. Trace fluid within the midline incision and a few punctate foci of gas within the anterior abdominal wall likely due to the recent postoperative change. No definite pneumoperitoneum. No pneumatosis. Mild subcutaneous and omental fat stranding at the anterior abdomen. This also likely due to the recent is postoperative change. IMPRESSION: 1. No bowel wall thickening or obstruction. 2. Normal appendix. 3. Bilateral nephrolithiasis. No ureteral stones. No hydronephrosis. 4. There is evidence for interval midline incision. This is likely recent given the trace fluid at the incision and a few punctate foci of gas within the abdominal wall. Clinical correlation recommended. Electronically signed by: Shayan Pineda M.D. 12/04/2017 3:22 PM Dictated Date/Time: 12/04/2017 3:09 PM
[2017-12-04] MEDS ORDERED: HYDR-5688 PO (16:10)
[2017-12-04 16:29] VITALS: BP 187/96; PULSE 67; O2SAT 97
--- NOTE | 2017-12-04 20:02 | EMERGENCY ROOM VISIT NOTE ---
ED Visit Note First contact with patient: 11:44 Chief Complaint: Right sided abdominal pain. History of Present Illness: Ms. Wharton is a 46-year-old white female who ambulates into the ED accompanied by her complaining of right flank and right sided abdominal pain. Historically patient reports she is 10 days status post ventral hernia repair. She has history of kidney stones, cystic kidney disease, gastric reflux, irritable bowel syndrome, diverticulosis, endometriosis, unspecified knee replacement, hysterectomy, tubal ligation. Today patient was referred from the urgent care clinic at the [facility] for further evaluation of right sided abdominal pain. Patient reports since her surgery she has been having an ongoing low-grade fever of approximately 99.5-99.9F. She reports her pain has been well- controlled. Patient reports she started having some right flank pain and right sided abdominal pain last evening approximately 11 hours ago. Initially it was mild and she was able to go to sleep but then her pain became severe approximately 3 hours later and woke her from sleep. Since that time her pain has been constant but has slightly waxed and waned in intensity. Currently she describes her pain as a combination of sharp. She rates her discomfort 7/10. She places the Star area of her pain in the right flank with radiation down the lateral aspect of the abdomen to just above the appendix area. Her pain worsens with palpation of the abdomen in the area of pain. She has not identified any alleviating factors related to the pain. She has not taken any medication for pain prior to arrival at the hospital. Associated with her pain she has noted some increased urinary frequency but denies urge and urinary burning. She denies current fever, chills, sweats, skin eruptions, skin color changes, upper respiratory tract symptoms, chest pain, shortness of breath, nausea, vomiting, diarrhea, constipation, rectal bleeding, black/tarry stools, urinary symptoms, hematuria, vaginal bleeding, vaginal discharge, leg weakness/numbness/ tingling, genital paresthesias, bowel and bladder dysfunction. Review of Systems: As noted above in history of present illness. All body systems were reviewed and found to be negative as noted above. Past Medical History: Asthma, arthritis, bronchitis, pneumonia, emphysema, hypertension, mitral valve disorder, morbid obesity, lumbosacral neuritis. Current Medications: Medications Dose Route/Sig Max Daily Dose Days Date Category Dose Instructions Meloxicam 15 Mg Tab 15 Mg PO DAILY 12/04/17 Reported Atenolol 50 Mg Tab 50 Mg PO QAM 12/04/17 Reported Tramadol HCl 50 Mg Tab 50 Mg PO DAILY PRN 12/04/17 Reported Tylenol (Acetaminophen) 500 Mg Tab 1,000 Mg PO BID PRN 11/02/16 Reported Prinivil (Lisinopril) 20 Mg Tab 20 Mg PO QAM 12/18/15 Reported Allergies to Medications: Oxycodone. Social History: Patient is currently employed; she feels safe in her home environment; she denies tobacco and alcohol use. Physical Examination: Vital Signs: Date Time Temp Pulse Resp B/P (MAP) Pulse Ox O2 Delivery O2 Flow Rate FiO2 12/04/17 16:29 67 16 187/96 97 12/04/17 15:44 56 27 133/113 97 Room Air 12/04/17 13:20 63 12/04/17 13:15 62 18 173/70 98 Room Air 12/04/17 11:39 36.5 63 22 223/91 97 Room Air GENERAL: 46-year-old female in mild to moderate distress due to pain, nontoxic- appearing, afebrile and hemodynamically stable. NEUROLOGICAL: Awake, alert and oriented to person, place and time. Answering questions appropriately and following commands. Normal gait. Good hand eye coordination. No focal motor sensory deficits. SKIN: Warm, dry and pink. No soft tissue eruptions or trauma noted. HEENT: Atraumatic and normocephalic. PERRLA. Sclera white and conjunctiva pink. No drainage from naris. Oral cavity moist and pink. Pharynx is nonerythematous or edematous. Speech normal. No lymphadenopathy. Trachea midline. No jugular venous distention. BACK: No tenderness over the bony spine. No CVA tenderness. THORAX: Lungs sounds are clear to auscultation and equal bilaterally with symmetrical chest wall. No wheezing, rales or rhonchi. No crepitus, tenderness , subcutaneous air or deformities noted. HEART: Regular rate and rhythm. No gallops, rubs or murmurs are appreciated. ABDOMEN: Obese and soft with moderate tenderness over the lateral aspect of the upper portion of the right lower quadrant. Her ventral hernia surgery incision is clean dry and intact. There is minimal incisional tenderness. Decreased bowel sounds in all quadrants. No guarding, rigidity or organomegaly. EXTREMITIES: Moves all extremities well on command and with purpose. All distal neurovascular statuses are intact and equal bilaterally. ED Course: Patient is assessed as noted above. Patient's medication list was reviewed. Laboratory testing: Test 12/04/17 12:45 12/04/17 12:55 12/04/17 13:15 Range/Units Sodium Level 141 136-145 mmol/L Potassium Level 4.0 3.5-5.1 mmol/L Chloride Level 107 98-107 mmol/L Carbon Dioxide Level 26 21-32 mmol/L Anion Gap 9.0 3-11 mmol/L Blood Urea Nitrogen 13 7-18 mg/dl Creatinine 0.63 0.60-1.20 mg/dl Est Creatinine Clear Calc Drug Dose 132.1 ml/min Estimated GFR () 124.7 Estimated GFR (Non- 107.6 BUN/Creatinine Ratio 20.8 10-20 Random Glucose 90 70-99 mg/dl Calcium Level 9.3 8.5-10.1 mg/dl Total Bilirubin 0.2 0.2-1 mg/dl Direct Bilirubin < 0.1 0-0.2 mg/dl Aspartate Amino Transf (AST/SGOT) 21 15-37 U/L Alanine Aminotransferase (ALT/SGPT) 30 12-78 U/L Alkaline Phosphatase 72 45-117 U/L Total Protein 7.5 6.4-8.2 gm/dl Albumin 2.7 3.4-5.0 gm/dl Lipase 293 73-393 U/L Urine Color YELLOW Urine Appearance CLEAR CLEAR Urine pH 5.5 4.5-7.5 Urine Specific [place] 1.014 1.000-1.030 Urine Protein NEG NEG Urine Glucose (UA) NEG NEG Urine Ketones NEG NEG Urine Occult Blood TRACE NEG Urine Nitrite NEG NEG Urine Bilirubin NEG NEG Urine Urobilinogen NEG NEG Urine Leukocyte Esterase NEG NEG Urine WBC (Auto) 1-5 0-5 /hpf Urine RBC (Auto) 0-4 0-4 /hpf Urine Hyaline Casts (Auto) 1-5 0-5 /lpf Urine Epithelial Cells (Auto) >30 0-5 /lpf Urine Bacteria (Auto) 1+ NEG Urine Crystals CALCIUM OXALATE NONE PRSENT White Blood Count 9.32 4.8-10.8 K/uL Red Blood Count 4.18 4.2-5.4 M/uL Hemoglobin 11.7 12.0-16.0 g/dL Hematocrit 36.5 37-47 % Mean Corpuscular Volume 87.3 80-100 fL Mean Corpuscular Hemoglobin 28.0 25-34 pg Mean Corpuscular Hemoglobin Concent 32.1 32-36 g/dl Platelet Count 359 130-400 K/uL Mean Platelet Volume 10.6 7.4-10.4 fL Neutrophils (%) (Auto) 67.0 % Lymphocytes (%) (Auto) 22.2 % Monocytes (%) (Auto) 5.8 % Eosinophils (%) (Auto) 4.0 % Basophils (%) (Auto) 0.4 % Neutrophils # (Auto) 6.24 1.4-6.5 K/uL Lymphocytes # (Auto) 2.07 1.2-3.4 K/uL Monocytes # (Auto) 0.54 0.11-0.59 K/uL Eosinophils # (Auto) 0.37 0-0.5 K/uL Basophils # (Auto) 0.04 0-0.2 K/uL RDW Standard Deviation 43.9 36.4-46.3 fL RDW Coefficient of Variation 13.8 11.5-14.5 % Immature Granulocyte % (Auto) 0.6 % Immature Granulocyte # (Auto) 0.06 0.00-0.02 K/uL Contrast Abdominal/Pelvic CT: Was reviewed by myself and read by the radiologist showing no bowel wall thickening or obstruction, normal-appearing appendix, bilateral nephrolithiasis without signs of hydronephrosis or ureter calculus, trace fluid at her incisional area with a few punctate focus of gas within the abdominal wall. Patient was hydrated with normal saline and she received 6 mg of morphine IV for pain and 4 mg of Zofran. Patient was reassessed multiple times during her stay in the emergency department. Patient's case was reviewed with Dr. Campbell; we agreed on diagnostic approach , treatment, disposition and plan. Patient was educated about today's findings and instructed on her treatment plan ; she verbalized understanding and agreement with this plan. Clinical Impression: Right-sided abdominal pain. Hematuria and calcium oxalate in her urine. Decision-Making: Initially my differential diagnosis I considered bowel obstruction, pyelonephritis, ureter calculus, constipation, appendicitis, postoperative infection and other causes. Disposition: Patient discharged home in stable condition accompanied by her ; prior to departure she was reassessed and subjectively reported she was feeling much better and rated her discomfort 3/10. Plan: Patient was encouraged to continue current medications as prescribed; she was encouraged not to use her tramadol when she is using her [place] for pain as they were both narcotic; her name was checked in the state database and no red flags were noted and she was given appropriate narcotic precautions. Patient was encouraged to rate her pain every 6 hours and was placed on a sliding pain medication scale of acetaminophen and [place]. Patient is encouraged to use her stool softeners as we discussed as well as increased clear fluids. Patient was encouraged to follow-up with primary care provider and her surgeon for recheck. Patient was encouraged return ED for worsening/uncontrolled pain, worsening fevers, uncontrolled vomiting, bloody stools, urinary symptoms or any new/ concerning symptoms.
== END 2017-12-04 16:31 | disposition home or self-care (01) ==
LOC: C.EDB 11:35 → C.EDC 16:31
DX: R10.31 Right lower quadrant pain (principal); R31.9 Hematuria, unspecified; Z87.442 Personal history of urinary calculi; Q61.9 Cystic kidney disease, unspecified; K21.9 Gastro-esophageal reflux disease without esophagitis; K58.9 Irritable bowel syndrome, unspecified; Z96.652 Presence of left artificial knee joint; Z90.710 Acquired absence of both cervix and uterus; Z98.51 Tubal ligation status; J45.909 Unspecified asthma, uncomplicated; Z87.01 Personal history of pneumonia (recurrent); I10 Essential (primary) hypertension; E66.01 Morbid (severe) obesity due to excess calories; Z68.44 Body mass index [BMI] 60.0-69.9, adult; Z79.899 Other long term (current) drug therapy

== ENCOUNTER → 2018-01-13 | Outpatient (CLI) | payer BC ==
[~2018-01-13] MED LIST changes: -ATEN100T PO; -AZIT250T PO; +HYDR-5688 PO; +MELO-83 PO; +TNR50 PO; +ULT50 PO
== END | disposition home or self-care (01) ==
LOC: C.LAB 18:55
PROVIDERS: ATTEND Physician Assistant Medical
DX: R39.9 Unspecified symptoms and signs involving the genitourinary system (principal)

== ENCOUNTER → 2018-02-02 | Outpatient (CLI) | payer BC | END | disposition home or self-care (01) | LOC: C.LABSPEC 17:09 | PROVIDERS: ATTEND Physician Assistant | DX: L29.8 Other pruritus (principal); R39.9 Unspecified symptoms and signs involving the genitourinary system ==

== ENCOUNTER 2018-02-20 14:45 | Emergency (ER) | payer BC ==
[~2018-02-20] VITALS: Ht 144.8 cm; Wt 132.0 kg
[~2018-02-20 14:45] MED LIST changes: -LSN20 PO; -MELO-84 PO; -OMEP40CA41 PO; -POTA1080 PO
[2018-02-20 14:56] VITALS: TEMP 36.7; Ht 144.8 cm; Wt 132.0 kg
[2018-02-20 15:05] VITALS: O2SAT 97
[2018-02-20] MEDS ORDERED: ALBUT/IPRATROP 3MG/0.5MG NEB 3 ML VIAL INH ONE (15:30)
[2018-02-20] MEDS ORDERED: SODIUM CHLORIDE 0.9% 1000ML 1,000 ML IV ONE (15:30)
[2018-02-20] MEDS ORDERED: POTA1080 PO (15:40)
[2018-02-20] MEDS ORDERED: OMEP40CA41 PO (15:40)
[2018-02-20] MEDS ORDERED: LSN20 PO (15:40)
[2018-02-20] MEDS ORDERED: MELO-84 PO (15:40)
[2018-02-20 15:43] LABS: PTT PATIENT 22.5 SECONDS (21.0-31.0)
--- NOTE | 2018-02-20 15:51 | DIAGNOSTIC IMAGING REPORT ---
CHEST ONE VIEW PORTABLE CLINICAL HISTORY: SOB COMPARISON STUDY: 11/29/2017 FINDINGS: The heart is mildly enlarged. There is mild central vascular prominence, likely accentuated due to the patient's body habitus. There is no evidence of overt failure. There are no pleural effusions. There is no focal pulmonary consolidation.[ IMPRESSION: Mild cardiomegaly. No evidence of focal pulmonary consolidation. Electronically signed by: Clifford Padilla M.D. 02/20/2018 3:50 PM Dictated Date/Time: 02/20/2018 3:49 PM
[2018-02-20 15:56] LABS: ALBUMIN 3.4 gm/dl (3.4-5.0); CALCIUM 8.9 mg/dl (8.5-10.1); CREATININE 0.76 mg/dl (0.60-1.20); POTASSIUM 3.6 mmol/L (3.5-5.1)
[2018-02-20 15:59] LABS: TOTAL PROTEIN 7.6 gm/dl (6.4-8.2)
[2018-02-20 16:01] LABS: BASO % 0.5 %; BASO ABS # 0.04 K/uL (0-0.2); EOS % 2.9 %; EOS ABS # 0.24 K/uL (0-0.5); HEMATOCRIT 37.5 % (37-47); HEMOGLOBIN 12.2 g/dL (12.0-16.0); IG# 0.03 K/uL (0.00-0.02); LYMPH % 26.6 %; LYMPH ABS # 2.19 K/uL (1.2-3.4); MEAN CORPUSCULAR HGB CONC 32.5 g/dl (32-36); MONO % 6.9 %; MONO ABS # 0.57 K/uL (0.11-0.59); NEUT % 62.7 %; NEUT ABS # 5.16 K/uL (1.4-6.5); PLATELET COUNT 304 K/uL (130-400); WHITE BLOOD COUNT 8.23 K/uL (4.8-10.8)
--- NOTE | 2018-02-20 17:26 | DIAGNOSTIC IMAGING REPORT ---
BILATERAL LOWER EXTREMITY VENOUS DOPPLER HISTORY: Acute bilateral lower extremity pain and swelling Recent flight. Lower leg swelling b/l. Cramp in left leg posteri COMPARISON STUDY: Duplex venous Doppler study 11/29/2017. FINDINGS: There is normal compressibility, flow, and augmentation within the bilateral lower extremity deep venous systems. Study is limited secondary to patient body habitus. IMPRESSION: No sonographic evidence of deep venous stenosis within the right or left lower extremity. Electronically signed by: Herminio Hernandez M.D. 02/20/2018 5:24 PM Dictated Date/Time: 02/20/2018 5:24 PM
[2018-02-20 18:04] VITALS: BP 187/86; PULSE 75; O2SAT 97
--- NOTE | 2018-02-20 19:58 | EMERGENCY ROOM VISIT NOTE ---
History First contact with patient: 15:13 Chief Complaint: SHORTNESS OF BREATH Stated Complaint: LOWER LEG PAIN, BLUE LEGS,SOB Nursing Triage Summary: Pt presents with c/o lightheaded, b/l LE edema which is new, occassional cough, sob, left leg pain. Pt states she just returned from [place] yesterday, flight was 9 hrs. Denies cp or back pain. Pt denies hx of blood clots. History of Present Illness The patient is a 47 year old female who presents to the Emergency Room with complaints of swelling in her bilateral legs which is new over the past 2-3 days. The patient states that she flew home from [place] yesterday on a 9 hour international flight. She had flown out last week, went on a cruise, and now returned. The patient states that she has had an intermittent cough and does report cramping worse in her left leg. She does not report distinct chest or back pain. She is not on control or with family history of blood clots. The patient contacted her family doctor who referred her to the ER for further care. The patient is able to ambulate and does not identify aggravating or alleviating factors. She is primarily concerned for DVT. She has not taken anything [id number] for her discomfort which she rates a 4/10. Review of Systems More than 10 systems were reviewed and otherwise negative with the exception of history of present illness. Past Medical/Surgical History Medical Problems: (1) Asthma, Unspecified (2) CALCULUS OF KIDNEY (3) Calculus Of Ureter (4) chest pain (5) chest pain (6) chest pain (7) Chronic Kidney Disease, Unspecified (8) CYSTIC KIDNEY DISEASE, UNSPECIFIED (9) Cystic Kidney Disease, Unspecified (10) DISC DEGENERATION NOS (11) DIVERTICULOSIS COLON (W/O MENT OF HEMORRHAGE) (12) Diverticulosis Colon (W/O Ment Of Hemorrhage) (13) Endometriosis (14) Esophageal reflux (15) HYPERTENSION NOS (16) Hypertension Nos (17) IRRITABLE BOWEL SYNDROME (18) Irritable Bowel Syndrome (19) Lumbosacral Neuritis Nos (20) MITRAL VALVE DISORDER (21) Mitral Valve Disorder (22) Morbid Obesity (23) PERSONAL HISTORY OF URINARY CALCULI (24) PERSONAL HISTORY, URINARY (TRACT) INFECTION (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 (26) UMBILICAL HERNIA Family History Colon cancer Coronary artery disease Diabetes mellitus Hypertension Kidney disease Kidney stones Lung disease Myocardial infarction Social History Smoking Status: Never Smoker Alcohol Use: none Drug Use: none Marital Status: Housing Status: lives with family Occupation Status: employed Current/Historical Medications Scheduled Atenolol (Atenolol), 50 MG PO QAM Lisinopril (Lisinopril), 20 MG PO QAM Meloxicam (Mobic), 15 MG PO QAM Potassium Citrate (Alkalinizer (Potassium Citrate ER), 1,080 MG PO QAM Scheduled PRN Acetaminophen (Tylenol), 1,000 MG PO Q6H PRN for Pain Omeprazole (Prilosec), 40 MG PO DAILY PRN for Acid Reflux Physical Exam Vital Signs Date Time Temp Pulse Resp B/P (MAP) Pulse Ox O2 Delivery O2 Flow Rate FiO2 02/20/18 18:04 75 32 187/86 97 02/20/18 16:15 75 32 97 02/20/18 15:45 59 20 100 02/20/18 15:25 97 Room Air 02/20/18 15:16 69 02/20/18 15:15 70 29 02/20/18 15:05 97 Room Air 02/20/18 14:56 36.7 72 18 187/86 97 Room Air Physical Exam VITALS: Vitals are noted on the nurse's note and reviewed by myself. Vital signs stable. GENERAL: Well-developed, well-nourished, white female, who is in no acute distress and resting comfortably. Patient is cooperative with the examination. HEART: Regular rate and rhythm without murmurs gallops or rubs. LUNGS: Clear to auscultation bilaterally without wheezes, rales or rhonchi. No retractions or accessory muscle use. ABDOMEN: Positive normal bowel sounds x 4. Soft, nontender, without masses or organomegaly. No guarding or rebound tenderness. MUSCULOSKELETAL: 3+ nonpitting edema appreciated in the bilateral lower legs without signs of venous stasis. No palpable cords or erythema. Neurovascular status is intact distally. NEURO: Patient was alert and oriented to person place and time. CN II through XII grossly intact. No focal neurological deficits. Medical Decision & Procedures ER Provider Diagnostic Interpretation: CHEST ONE VIEW PORTABLE CLINICAL HISTORY: SOB COMPARISON STUDY: 11/29/2017 FINDINGS: The heart is mildly enlarged. There is mild central vascular prominence, likely accentuated due to the patient's body habitus. There is no evidence of overt failure. There are no pleural effusions. There is no focal pulmonary consolidation.[ IMPRESSION: Mild cardiomegaly. No evidence of focal pulmonary consolidation. BILATERAL LOWER EXTREMITY VENOUS DOPPLER HISTORY: Acute bilateral lower extremity pain and swelling Recent flight. Lower leg swelling b/l. Cramp in left leg posteri COMPARISON STUDY: Duplex venous Doppler study 11/29/2017. FINDINGS: There is normal compressibility, flow, and augmentation within the bilateral lower extremity deep venous systems. Study is limited secondary to patient body habitus. IMPRESSION: No sonographic evidence of deep venous stenosis within the right or left lower extremity. Laboratory Results 02/20/18 15:10 Red Blood Count 4.36, Mean Corpuscular Volume 86.0, Mean Corpuscular Hemoglobin 28.0, Mean Corpuscular Hemoglobin Concent 32.5, Neutrophils (%) (Auto) 62.7, Lymphocytes (%) (Auto) 26.6, Monocytes (%) (Auto) 6.9, Eosinophils (%) (Auto) 2.9, Basophils (%) (Auto) 0.5, Neutrophils # (Auto) 5.16, Lymphocytes # (Auto) 2.19, Monocytes # (Auto) 0.57, Eosinophils # (Auto) 0.24, Basophils # (Auto) 0.04 02/20/18 15:10 Test 02/20/18 15:10 White Blood Count 8.23 K/uL (4.8-10.8) Red Blood Count 4.36 M/uL (4.2-5.4) Hemoglobin 12.2 g/dL (12.0-16.0) Hematocrit 37.5 % (37-47) Mean Corpuscular Volume 86.0 fL (80-100) Mean Corpuscular Hemoglobin 28.0 pg (25-34) Mean Corpuscular Hemoglobin Concent 32.5 g/dl (32-36) Platelet Count 304 K/uL (130-400) Neutrophils (%) (Auto) 62.7 % Lymphocytes (%) (Auto) 26.6 % Monocytes (%) (Auto) 6.9 % Eosinophils (%) (Auto) 2.9 % Basophils (%) (Auto) 0.5 % Neutrophils # (Auto) 5.16 K/uL (1.4-6.5) Lymphocytes # (Auto) 2.19 K/uL (1.2-3.4) Monocytes # (Auto) 0.57 K/uL (0.11-0.59) Eosinophils # (Auto) 0.24 K/uL (0-0.5) Basophils # (Auto) 0.04 K/uL (0-0.2) Immature Granulocyte % (Auto) 0.4 % Immature Granulocyte # (Auto) 0.03 K/uL (0.00-0.02) Prothrombin Time 10.2 SECONDS (9.0-12.0) Prothromb Time International Ratio 1.0 (0.9-1.1) Activated Partial Thromboplast Time 22.5 SECONDS (21.0-31.0) Partial Thromboplastin Ratio 0.9 Anion Gap 5.0 mmol/L (3-11) Est Creatinine Clear Calc Drug Dose 109.7 ml/min Estimated GFR () 108.3 Estimated GFR (Non- 93.4 BUN/Creatinine Ratio 22.1 (10-20) Calcium Level 8.9 mg/dl (8.5-10.1) Total Bilirubin 0.3 mg/dl (0.2-1) Aspartate Amino Transf (AST/SGOT) 22 U/L (15-37) Alanine Aminotransferase (ALT/SGPT) 53 U/L (12-78) Alkaline Phosphatase 89 U/L (45-117) Total Protein 7.6 gm/dl (6.4-8.2) Albumin 3.4 gm/dl (3.4-5.0) Globulin 4.2 gm/dl (2.5-4.0) Albumin/Globulin Ratio 0.8 (0.9-2) Medications Administered Medications (Trade) Dose Ordered Sig/Danielle Route Start Time Stop Time Status Last Admin Dose Admin Albuterol/ Ipratropium (Duoneb) 3 ml NOW ONCE INH 02/20/18 15:30 18 15:31 DC 02/20/18 15:40 3 ML Sodium Chloride 1,000 ml @ 999 mls/hr Q1H1M ONCE IV 02/20/18 15:30 18 16:30 DC 02/20/18 15:34 999 MLS/HR ED Course Physical exam and history were performed. Nursing notes, EMR, and Medication List were personally reviewed. Patient appears to have reports of swelling into her legs worsening over the past few days. She just came home yesterday after a cruise around [place] that also involved a 9 hour flight home. The patient does report some shortness of breath, but evidently also has a history of asthma. She does not have atypical breath sounds on exam. IV access was established and labs were obtained. The patient was given a DuoNeb here in the department. Chest x-ray and ultrasound of the legs were performed. Patient was placed on a night monitor. EKG was performed and was normal sinus rhythm at [address] elevation per my interpretation. The patient was hydrated with normal saline. The patient's blood work is as above and was reviewed. She does not have a significantly, bandemia, or significant electrolyte imbalance. Lipase and transaminases are not diagnostic. Troponin and d-dimer are both negative. Chest x-ray was reviewed by myself and radiology as showing no obvious acute findings. Ultrasound of the lower legs did not reveal evidence of acute DVT. The patient was able to breathe a little better after DuoNeb. Overall the patient appears well for discharge home. I suspect that much of her swelling is dependent edema from body habitus and increased eating while on a cruise this past week. I discussed elevation and rest. The patient may also wish to follow with her PCP for further care management. She was otherwise invited back to the ER with any new, worsening, or concerning symptoms. The chart was completed utilizing [employer] Speech Voice Recognition Software. Grammatical errors, random word insertions, pronoun errors, and incomplete sentences are an occasional consequence of this system due to software limitations, ambient noise, and hardware issues. Any formal questions or concerns about the content, text, or information contained within the body of this dictation should be directly addressed to the provider for clarification. . Medical Decision Differential diagnosis: Etiologies such as DVT, musculoskeletal, infection, joint effusion, trauma, lymphedema, idiopathic, CHF, as well as others were entertained.. Impression Primary Impression: Leg swelling Departure Information Dispostion Home / Self-Care Condition GOOD Forms HOME CARE DOCUMENTATION FORM, IMPORTANT VISIT INFORMATION Patient Instructions My [facility] Additional Instructions You were seen and evaluated today on an emergency basis only. This is not a substitute for, or an effort to provide, complete comprehensive medical care. It is not possible to recognize and treat all injuries or illnesses in a single emergency department visit. For this reason it is recommended that you followup with your primary care physician this week for recheck of your condition. You are welcome to return to the emergency department anytime with new, worsening, or concerning symptoms.
== END 2018-02-20 18:04 | disposition home or self-care (01) ==
LOC: C.EDB 14:47 → C.EDA 18:04
DX: R60.0 Localized edema (principal); J45.909 Unspecified asthma, uncomplicated; N18.9 Chronic kidney disease, unspecified; Q61.9 Cystic kidney disease, unspecified; K57.30 Diverticulosis of large intestine without perforation or abscess without bleeding; N80.9 Endometriosis, unspecified; K21.9 Gastro-esophageal reflux disease without esophagitis; I12.9 Hypertensive chronic kidney disease with stage 1 through stage 4 chronic kidney disease, or unspecified chronic kidney disease; K58.9 Irritable bowel syndrome, unspecified; M54.17 Radiculopathy, lumbosacral region; I05.9 Rheumatic mitral valve disease, unspecified; M17.11 Unilateral primary osteoarthritis, right knee; K42.9 Umbilical hernia without obstruction or gangrene; Z87.442 Personal history of urinary calculi; Z87.440 Personal history of urinary (tract) infections; Z82.49 Family history of ischemic heart disease and other diseases of the circulatory system; Z84.1 Family history of disorders of kidney and ureter; Z79.899 Other long term (current) drug therapy

== ENCOUNTER → 2018-02-20 | Outpatient (CLI) | payer BC ==
[~2018-02-20] MED LIST changes: +LSN20 PO; +MELO-84 PO; +OMEP40CA41 PO; +POTA1080 PO
[2018-02-20 17:07] LABS: BLOOD UREA NITROGEN 16 mg/dl (7-18); CALCIUM 8.9 mg/dl (8.5-10.1); CARBON DIOXIDE 28 mmol/L (21-32); CREATININE 0.79 mg/dl (0.60-1.20); GLUCOSE 160 mg/dl (70-99); POTASSIUM 3.8 mmol/L (3.5-5.1); SODIUM 141 mmol/L (136-145)
== END | disposition home or self-care (01) ==
LOC: C.LABBFT 13:35
PROVIDERS: ATTEND Nurse Practitioner Adult Health
DX: N20.0 Calculus of kidney (principal)

== ENCOUNTER → 2018-02-23 | Outpatient (CLI) | payer BC ==
[~2018-02-23] MED LIST changes: -HYDR-5688 PO; -LISI20TA3 PO; +LSN20 PO; -MELO-83 PO; +MELO-84 PO; +OMEP40CA41 PO; +POTA1080 PO; -ULT50 PO
--- NOTE | 2018-02-23 15:17 | DIAGNOSTIC IMAGING REPORT ---
KUB CLINICAL HISTORY: N20.0 NephrolithiasisRAD nephrocalcinosis COMPARISON STUDY: 05/13/2015 FINDINGS: Bilateral nephrocalcinosis. Given differences in body habitus in the interval between the 2 images images are similar. No significant vertebral calcifications. Several pelvic surgical clips. IMPRESSION: Stable bilateral nephrocalcinosis. The above report was generated using voice recognition software. It may contain grammatical, syntax or spelling errors. Electronically signed by: Manny Bass M.D. 02/23/2018 3:16 PM Dictated Date/Time: 02/23/2018 3:15 PM
== END | disposition home or self-care (01) ==
LOC: C.RAD 14:57
PROVIDERS: ATTEND Nurse Practitioner Adult Health
DX: E83.59 Other disorders of calcium metabolism (principal); N29 Other disorders of kidney and ureter in diseases classified elsewhere

== ENCOUNTER 2019-02-04 20:18 | Inpatient (IN) ==
[2019-02-04] MEDS ORDERED: SODIUM CHLORIDE 0.9% 500 ML IV SCH (20:45)
[2019-02-04 21:04] LABS: Appearance Urine Clear (Clear); Bilirubin Urine Negative (Negative); Blood Urine Trace (Negative); Color Urine Yellow; Glucose Urine UA Negative (Negative); Ketones Urine Negative (Negative); Leukocyte Esterase Urine Negative (Negative); Nitrite Urine Negative (Negative); Protein Urine Negative (Negative); Specific Gravity Urine <= 1.005 (1.000-1.030); Urobilinogen Urine Negative (Negative); pH Urine 6.5 (4.5-7.5)
[2019-02-04 21:07] LABS: Basophils # (auto) 0.04 K/uL (0-0.2); Basophils % (auto) 0.4 %; Eosinophils # (auto) 0.32 K/uL (0-0.5); Eosinophils % (auto) 3.2 %; Hematocrit (blood only) 38.3 % (37-47); Hemoglobin 12.5 g/dL (12.0-16.0); Immature Granulocytes # (auto) 0.05 K/uL (0.00-0.02); Immature Granulocytes % (auto) 0.5 %; Lymphocytes # (auto) 2.55 K/uL (1.2-3.4); Lymphocytes % (auto) 25.4 %; Mean Corpuscular Hgb Conc 32.6 g/dL (32-36); Mean Corpuscular Volume 89.9 fL (80-100); Mean Platelet Volume 10.6 fL (7.4-10.4); Monocytes # (auto) 0.62 K/uL (0.11-0.59); Monocytes % (auto) 6.2 %; Neutrophils # (auto) 6.46 K/uL (1.4-6.5); Neutrophils % (auto) 64.3 %; Platelet Count 292 K/uL (130-400); RDW Coefficient of Variation 14.3 % (11.5-14.5); RDW Standard Deviation 47.2 fL (36.4-46.3); Red Blood Count 4.26 M/uL (4.2-5.4); White Blood Count 10.04 K/uL (4.8-10.8)
[2019-02-04 21:25] LABS: Epithelial Cell Urine >30 /lpf (0-5); RBC Urine 0-4 /hpf (0-4)
[2019-02-04 21:26] LABS: Bacteria Urine Negative (Negative)
--- NOTE | 2019-02-04 21:29 | XRay Report ---
XR chest 1V portable CLINICAL HISTORY: Chest Pain COMPARISON STUDY: Chest radiograph October 05, 2018. FINDINGS: There is no pneumothorax or pleural effusion. There is no consolidation or evidence for pul monary edema. Moderate cardiomegaly is unchanged. The appearance of the chest is unchanged. IMPRESSION: 1. No acute cardiopulmonary findings. 2. Stable moderate cardiomegaly. Electronically signed by: Eriberto Romano M.D. 02/04/2019 9:28 PM
[2019-02-04 21:39] LABS: D Dimer 950 ug/L FEU (0-500)
[2019-02-04 21:43] LABS: Albumin Level 3.4 gm/dl (3.4-5.0); Calcium 8.9 mg/dl (8.5-10.1); Creatinine Clr Calc Pharmacy 96.8 ml/min; Est GFR (African American) 92.6; Est GFR (Non-African American) 79.9; Potassium 4.1 mmol/L (3.5-5.1)
[2019-02-04 21:46] LABS: Albumin Globulin Ratio 0.9 (0.9-2); Bilirubin,Total 0.2 mg/dl (0.2-1); Creatine Kinase MB 1.5 ng/ml (0.5-3.6); Total Protein 7.4 gm/dl (6.4-8.2); Troponin I 0.024 ng/ml (0-0.045)
--- NOTE | 2019-02-04 22:32 | Emergency Department Note ---
Entered by Dano Nunez acting as a scribe for Satya Duff MD History of Present Illness General Chief complaint: Shortness of Breath/Dyspnea Stated complaint: SHORTNESS OF ISABELLA, MUSCLE PAIN, FATIQUE AND CHILLS Time Seen by Provider: 02/04/19 20:25 Source: patient History of Present Illness Onset (ago): day(s) 1 Location: chest (lungs) Pain Consistency: + intermittent Quality: + other (shortness of breath) Exacerbated By: + other (started while cleaning) Associated symptoms: + other (mid-back pain, fatigue, subjective fevers) The patient is a 48 year old female who presents to the Emergency Room with complaints of intermittent shortness of breath beginning yesterday. The patient reports that her symptoms started while cleaning as part of her usual routine, and she had to sit down at the time. She also reports fatigue, subjective fevers, and muscle aches primarily in the mid-back between her shoulder blades. She notes some abdominal pain but states she had an abdominal hernia last year. The patient reports a history of asthma but notes that her current symptoms feel different, and she does not feel like she needs to use an inhaler. She states that two months ago she was evaluated by Dr. [facility] for intermittent back pain, reporting that she had a stress test that showed a possible heart blockage. She reports that she was prescribed Isosorbide which seemed to improve her back pain after a few days, but she did not have a cardiac catheterization. She notes that she has not received a flu shot. She denies sick contact, history of blood clots, or history of diabetes. She states that her PCP is Dr. Villasenor. Home Medications Home Medications Medication Instructions Recorded Confirmed Type acetaminophen [Tylenol Extra 1,000 mg PO Q6H PRN 02/04/19 02/04/19 History Strength] aspirin [Aspir-81] 81 mg PO DAILY 02/04/19 02/04/19 History atenolol [Tenormin] 50 mg PO DAILY 02/04/19 02/04/19 History atorvastatin [Lipitor] 40 mg PO DAILY 02/04/19 02/04/19 History cholecalciferol (vitamin D3) 2,000 unit PO DAILY 02/04/19 02/04/19 History [Vitamin D3] fluticasone propion-salmeterol 1 puff INHALATION BID 02/04/19 02/04/19 History [Advair Diskus] furosemide [Lasix] 20 mg PO Q OTHER DAY 02/04/19 02/04/19 History isosorbide mononitrate 30 mg PO DAILY 02/04/19 02/04/19 History lisinopril 20 mg PO DAILY 02/04/19 02/04/19 History omeprazole 40 mg PO DAILY 02/04/19 02/04/19 History potassium citrate 10 meq PO QAM 02/04/19 02/04/19 History Allergies Allergy/AdvReac Type Severity Reaction Status Date / Time oxycodone AdvReac Unknown ANXIETY, Verified 02/04/19 21:36 INSOMNIA, NAUSEA Past Med/Surg History Medical History Esophageal reflux (Chronic 04/23/13) Kidney stone (Acute) Asthma (Chronic) Surgical History History of knee replacement Family History Other Cancer Diabetes Heart disease Hypertension Social History Preferred Language: Burundian Feels Safe at Home: Yes Smoking Status: Never smoker Review of Systems See HPI for pertinent positives & negatives. and A total of 10 systems reviewed and were otherwise negative Physical Exam Vital Signs Vital Signs - 24 hr 02/04/19 20:21 02/04/19 20:59 02/04/19 22:47 Temperature 36.7 C Temperature Source Oral Sepsis Recent Fever Within 48 Hours No Sepsis New/Unexplained Change in Mental Status No Sepsis Action Taken by Nursing No Action Required Pulse Rate 77 Pulse Rate [Apical] 67 Pulse Rhythm Regular Pulse Rhythm [Apical] Pulse Strength Normal Pulse Strength [Apical] Respiratory Rate 20 20 Respiratory Effort / Characteristics Non-Labored Spontaneous Non-Labored Respiratory Depth Normal Normal Respiratory Pattern Regular Blood Pressure 187/83 H Blood Pressure [Right Arm] 129/60 Blood Pressure Mean 117 Blood Pressure Mean [Right Arm] 83 Blood Pressure Position Sitting Blood Pressure Position [Right Arm] Pulse Oximetry 95 95 96 Oxygen Delivery Method Room Air Room Air Room Air 02/04/19 23:38 Temperature Temperature Source Sepsis Recent Fever Within 48 Hours Sepsis New/Unexplained Change in Mental Status Sepsis Action Taken by Nursing Pulse Rate Pulse Rate [Apical] 74 Pulse Rhythm Pulse Rhythm [Apical] Regular Pulse Strength Pulse Strength [Apical] Normal Respiratory Rate 18 Respiratory Effort / Characteristics Non-Labored Respiratory Depth Normal Respiratory Pattern Blood Pressure Blood Pressure [Right Arm] 150/71 H Blood Pressure Mean Blood Pressure Mean [Right Arm] 97 Blood Pressure Position Blood Pressure Position [Right Arm] Lying Pulse Oximetry 95 Oxygen Delivery Method Room Air General: Non-ill appearing middle age female in no acute distress. HEENT: Normal cephalic atraumatic. Pupils are equal round and reactive to light. Extraocular movements are intact. Oropharynx is pink with moist mucous membranes. No swelling of the mouth lips or tongue. Neck: Supple with a midline trachea. No meningeal signs or stiffness, no JVD or bruits. No stridor. Chest: Clear to auscultation bilaterally. No wheezes or rhonchi. No increased work of breathing. Heart: regular rate and rhythm. Abdomen: Soft nontender, nondistended without rebound guarding or rigidity. Extremities: No cyanosis clubbing or edema. No calf tenderness or assymetry. Spine/Back: Non-tender to palpation. No CVA tenderness. Skin: Good turgor without rashes. Neurologic exam: Cranial nerves two through 12 are intact. Motor and sensation are intact and symmetrical throughout. Course 2025: Past medical records reviewed. The patient was evaluated in room C10, and a complete history and physical examination were performed. 2104: The patient is resting comfortably. 2211: The patient is still resting comfortably. CT was ordered. 0: I consulted Dr. Ty [facility] Hospitalist. The patient will be reevaluated for hospitalization. Consultations Consultation #1: I consulted Dr. Ty [facility] Hospitalist. The patient will be reevaluated for hospitalization. Time: 23:50 Administered Medications Ioversol (Optiray 320 125ml) 116 ml IV ONCE PRN PRN Reason: Interaction Checking Stop: 02/08/19 22:36 Last Admin: 02/04/19 22:38 Dose: 116 ml Documented by: [id number] Discontinued Medications Sodium Chloride (Nss) 500 mls @ 999 mls/hr IV .Q31M PRABHA Stop: 02/04/19 21:15 Last Infusion: 02/04/19 21:50 Dose: 0 mls/hr Documented by: [id number] Admin: 02/04/19 21:10 Dose: 999 mls/hr Documented by: [id number] Medical Decision Making Differential Diagnosis Differential diagnosis: influenza, acute coronary syndrome, PE, arrhythmia, electrolyte or metabolic abnormalities Medical Records Attestation: I reviewed the patient's medical records. Home Medications Current Medication List: was personally reviewed by me Laboratory Data Attestation: I reviewed the patient's lab results. Result diagrams: 02/04/19 20:57 02/04/19 20:57 Lab Results 02/04/19 02/04/19 02/04/19 Range/Units 20:41 20:57 20:57 WBC 10.04 (4.8-10.8) K/uL RBC 4.26 (4.2-5.4) M/uL Hgb 12.5 (12.0-16.0) g/dL Hct 38.3 (37-47) % MCV 89.9 (80-100) fL MCH 29.3 (25-34) pg MCHC 32.6 (32-36) g/dL RDW Std Deviation 47.2 H (36.4-46.3) fL RDW Coeff of Shay 14.3 (11.5-14.5) % Plt Count 292 (130-400) K/uL MPV 10.6 H (7.4-10.4) fL Immature Gran % (Auto) 0.5 % Neut % (Auto) 64.3 % Lymph % (Auto) 25.4 % [place] % (Auto) 6.2 % Eos % (Auto) 3.2 % Baso % (Auto) 0.4 % Immature Gran # (Auto) 0.05 H (0.00-0.02) K/uL Neut # (Auto) 6.46 (1.4-6.5) K/uL Lymph # (Auto) 2.55 (1.2-3.4) K/uL [place] # (Auto) 0.62 H (0.11-0.59) K/uL Eos # (Auto) 0.32 (0-0.5) K/uL Baso # (Auto) 0.04 (0-0.2) K/uL D-Dimer (0-500) ug/L FEU Sodium 142 (136-145) mmol/L Potassium 4.1 (3.5-5.1) mmol/L Chloride 107 (98-107) mmol/L Carbon Dioxide 28 (21-32) mmol/L Anion Gap 7.0 (3-11) BUN 20 H (7-18) mg/dl Creatinine 0.86 (0.6-1.2) mg/dl Est Cr Clr Drug Dosing 96.8 ml/min Est GFR ( Amer) 92.6 Est GFR (Non-Af Amer) 79.9 BUN/Creatinine Ratio 23.0 H (10-20) Glucose 168 H (70-99) mg/dl Calcium 8.9 (8.5-10.1) mg/dl Total Bilirubin 0.2 (0.2-1) mg/dl AST 20 (15-37) U/L ALT 33 (12-78) U/L Alkaline Phosphatase 108 (45-117) U/L Total Creatine Kinase 152 (26-192) U/L CK-MB (CK-2) 1.5 (0.5-3.6) ng/ml CK/CKMB % Calc 1.0 (0-3.0) Troponin I 0.024 (0-0.045) ng/ml Total Protein 7.4 (6.4-8.2) gm/dl Albumin 3.4 (3.4-5.0) gm/dl Globulin 4.0 (2.5-4.0) gm/dl Albumin/Globulin Ratio 0.9 (0.9-2) Lipase 142 (73-393) U/L Urine Color Yellow Urine Appearance Clear (Clear) Urine pH 6.5 (4.5-7.5) Ur Specific [place] <= 1.005 (1.000-1.030) Urine Protein Negative (Negative) Urine Glucose (UA) Negative (Negative) Urine Ketones Negative (Negative) Urine Blood Trace H (Negative) Urine Nitrite Negative (Negative) Urine Bilirubin Negative (Negative) Urine Urobilinogen Negative (Negative) Ur Leukocyte Esterase Negative (Negative) Urine RBC 0-4 (0-4) /hpf Urine WBC 5-10 H (0-5) /hpf Ur Epithelial Cells >30 H (0-5) /lpf Urine Bacteria Negative (Negative) Influenza Type A Ag (Neg) Influenza Type B Ag (Neg) 02/04/19 02/04/19 Range/Units 20:57 21:17 WBC (4.8-10.8) K/uL RBC (4.2-5.4) M/uL Hgb (12.0-16.0) g/dL Hct (37-47) % MCV (80-100) fL MCH (25-34) pg MCHC (32-36) g/dL RDW Std Deviation (36.4-46.3) fL RDW Coeff of Shay (11.5-14.5) % Plt Count (130-400) K/uL MPV (7.4-10.4) fL Immature Gran % (Auto) % Neut % (Auto) % Lymph % (Auto) % [place] % (Auto) % Eos % (Auto) % Baso % (Auto) % Immature Gran # (Auto) (0.00-0.02) K/uL Neut # (Auto) (1.4-6.5) K/uL Lymph # (Auto) (1.2-3.4) K/uL [place] # (Auto) (0.11-0.59) K/uL Eos # (Auto) (0-0.5) K/uL Baso # (Auto) (0-0.2) K/uL D-Dimer 950 H* (0-500) ug/L FEU Sodium (136-145) mmol/L Potassium (3.5-5.1) mmol/L Chloride (98-107) mmol/L Carbon Dioxide (21-32) mmol/L Anion Gap (3-11) BUN (7-18) mg/dl Creatinine (0.6-1.2) mg/dl Est Cr Clr Drug Dosing ml/min Est GFR ( Amer) Est GFR (Non-Af Amer) BUN/Creatinine Ratio (10-20) Glucose (70-99) mg/dl Calcium (8.5-10.1) mg/dl Total Bilirubin (0.2-1) mg/dl AST (15-37) U/L ALT (12-78) U/L Alkaline Phosphatase (45-117) U/L Total Creatine Kinase (26-192) U/L CK-MB (CK-2) (0.5-3.6) ng/ml CK/CKMB % Calc (0-3.0) Troponin I (0-0.045) ng/ml Total Protein (6.4-8.2) gm/dl Albumin (3.4-5.0) gm/dl Globulin (2.5-4.0) gm/dl Albumin/Globulin Ratio (0.9-2) Lipase (73-393) U/L Urine Color Urine Appearance (Clear) Urine pH (4.5-7.5) Ur Specific [place] (1.000-1.030) Urine Protein (Negative) Urine Glucose (UA) (Negative) Urine Ketones (Negative) Urine Blood (Negative) Urine Nitrite (Negative) Urine Bilirubin (Negative) Urine Urobilinogen (Negative) Ur Leukocyte Esterase (Negative) Urine RBC (0-4) /hpf Urine WBC (0-5) /hpf Ur Epithelial Cells (0-5) /lpf Urine Bacteria (Negative) Influenza Type A Ag Neg for Influ A (Neg) Influenza Type B Ag Neg for Influ B (Neg) Imaging Data Radiologist's Impression: Radiology results as stated below per my review and the radiologist's interpretation: XR chest 1V portable CLINICAL HISTORY: Chest Pain COMPARISON STUDY: Chest radiograph October 05, 2018. FINDINGS: There is no pneumothorax or pleural effusion. There is no consolidation or evidence for pulmonary edema. Moderate cardiomegaly is unchanged. The appearance of the chest is unchanged. IMPRESSION: 1. No acute cardiopulmonary findings. 2. Stable moderate cardiomegaly. Electronically signed by: Eriberto Romano M.D. 02/04/2019 9:[address] ANGIOGRAPHY OF THE CHEST, PULMONARY EMBOLUS PROTOCOL CLINICAL HISTORY: Shortness of breath. Evaluate for pulmonary embolus. COMPARISON STUDY: Chest CT November 29, 2017. Chest radiograph performed earlier today. TECHNIQUE: Following IV administration of 116 mL of Optiray-320, helical axial images of the chest were obtained utilizing the pulmonary embolus protocol. Maximal intensity projections and sagittal and coronal reformats were viewed on an independent 3D workstation. IV contrast was administered without complication. Automated exposure control was utilized for the study. A dose lowering technique was utilized adhering to the principles of ALARA. CT DOSE: 617.51 mGy.cm FINDINGS: There are probable small segmental pulmonary emboli within the segmental branch to the anterior segment of the right upper lobe shown on axial image 144 146 of 236. No additional pulmonary emboli are noted. Moderate cardiomegaly is noted. There is mild dilatation of the central pulmonary arteries. There is no pulmonary infarct. No consolidation is present. Central airways are patent. Fatty infiltration of the liver is noted. No suspicious osseous lesions are noted. There is no thoracic lymphadenopathy. IMPRESSION: 1. Two probable small segmental pulmonary emboli within the right upper lobe. One of these may be adherent to the wall and may reflect a chronic pulmonary embolus. Consideration might be given to further evaluation with bilateral lower extremity venous Doppler ultrasound. 2. Mild dilatation of the central pulmonary arteries which raises the possibility of pulmonary arterial hypertension. 3. Moderate cardiomegaly. Electronically signed by: Eriberto Romano M.D. 02/04/2019 11:12 PM ECG Data Attestation: I personally reviewed and interpreted this ECG as follows: Indication: SOB/dyspnea Rate (beats per minute): 66 Rhythm: normal sinus Findings: no PAC, no PVC, no ST depression and no ST elevation Comparison ECG Date: from (02/20/18) Change: no significant change Blood Pressure Blood Pressure Findings: Elevated blood pressure Blood Pressure Disposition: further management by hospitalist [facility] Narrative This patient comes in as described above she complains that she has had some shortness of breath and just feels tired. She has mild pain in her back. She did have a stress test within the last year which showed some basal inferior wall hypokinesis and has follow-up with cardiology they did start on some Imdur apparently at that time she was have a lot more discomfort. Chest x-ray was unremarkable. EKG here does not show any acute ischemic changes her troponin is not elevated. She has no acute electrolyte or metabolic abnormalities. I did do a d-dimer and it was elevated in light of this, I did order a chest CT to rule out PE. Her CT does show what appears to be 2 pulmonary emboli in the right upper lobe. I do think she needs to be admitted/observed for anticoagulation. I am also concerned that her symptoms could be cardiac related as well as she has an abnormal stress test recently and she may ultimately need. I have consulted the [facility] hospitalist to see her in the ER for these measures. Impression & Plan Pulmonary embolism, SOB (shortness of breath) Discharge Plan Visit Data Chief Complaint: Shortness of Breath/Dyspnea Stated Complaint: SHORTNESS OF ISABELLA, MUSCLE PAIN, FATIQUE AND CHILLS ED Provider: Sherin,Satya D Discharge Problem: Pulmonary embolism, SOB (shortness of breath) Patient Disposition: Being Evaluated by Hospitalist Forms Stand Alone Forms: My [facility] Prescriptions Prescriptions: No Action atorvastatin [Lipitor] 40 mg tablet 40 mg PO DAILY RF: 0 atenolol [Tenormin] 100 mg tablet 50 mg PO DAILY RF: 0 lisinopril 20 mg tablet 20 mg PO DAILY RF: 0 isosorbide mononitrate 30 mg tablet extended release 24 hr 30 mg PO DAILY RF: 0 omeprazole 40 mg capsule,delayed release(DR/EC) 40 mg PO DAILY RF: 0 furosemide [Lasix] 20 mg tablet 20 mg PO Q OTHER DAY RF: 0 fluticasone propion-salmeterol [Advair Diskus] 250-50 mcg/dose blister with device 1 puff Inhalation BID RF: 0 aspirin [Aspir-81] 81 mg Tablet,Delayed Release (Dr/Ec) 81 mg PO DAILY RF: 0 acetaminophen [Tylenol Extra Strength] 500 mg Tablet 1,000 mg PO Q6H PRN (Reason: Pain) RF: 0 potassium citrate 10 mEq (1,080 mg) Tablet Extended Release 10 meq PO QAM RF: 0 cholecalciferol (vitamin D3) [Vitamin D3] 2,000 unit Tablet 2,000 unit PO DAILY RF: 0 Referrals Referrals: Saul Villasenor III, MD [Primary Care Provider] - The scribe's documentation has been prepared under my direction and personally reviewed by me in its entirety. I confirm that the note above accurately reflects all work, treatment, procedures, and medical decision making performed by me.
[2019-02-04] MEDS ORDERED: OPTIRAY 320 125ml IV PRN (22:37)
--- NOTE | 2019-02-04 23:15 | CT Scan Report ---
CT ANGIOGRAPHY OF THE CHEST, PULMONARY EMBOLUS PROTOCOL CLINICAL HISTORY: Shortness of breath. Evaluate for pulmonary embolus. COMPARISON STUDY: Chest CT November 29, 2017. Chest radiograph performed earlier today. TECHNIQUE: Following IV administration of 116 mL of Optiray-320, helical axial images of the chest we re obtained utilizing the pulmonary embolus protocol. Maximal intensity projections and sagittal and coronal reformats were viewed on an independent 3D workstation. IV contrast was administered withou t complication. Automated exposure control was utilized for the study. A dose lowering technique wa s utilized adhering to the principles of ALARA. CT DOSE: 617.51 mGy.cm FINDINGS: There are probable small segmental pulmonary emboli within the segmental branch to the ant erior segment of the right upper lobe shown on axial image 144 146 of 236. No additional pulmonary em boli are noted. Moderate cardiomegaly is noted. There is mild dilatation of the central pulmonary art eries. There is no pulmonary infarct. No consolidation is present. Central airways are patent. Fatty infiltration of the liver is noted. No suspicious osseous lesions are noted. There is no thoracic lym phadenopathy. IMPRESSION: 1. Two probable small segmental pulmonary emboli within the right upper lobe. One of these may be adh erent to the wall and may reflect a chronic pulmonary embolus. Consideration might be given to furthe r evaluation with bilateral lower extremity venous Doppler ultrasound. 2. Mild dilatation of the central pulmonary arteries which raises the possibility of pulmonary arteri al hypertension. 3. Moderate cardiomegaly. Electronically signed by: Eriberto Romano M.D. 02/04/2019 11:12 PM
--- NOTE | 2019-02-05 00:44 | History & Physical Report ---
Date of Service February 05, 2019 Assessment & Plan (1) Pulmonary embolism: 48yoF with hx of suspected CAD per abnormal stress test in 10/2018, HTN, SHAKEEL, pulm artery HTN, asthma, GERD, and nephrolithiasis presents with sob since yesterday. Found to have 2 small segmental pulmonary emboli in RUL region. Concern for possible WI given midscapular back pain, heart burn like chest pain, abnormal stress test in 10/2018 and trop of 0.024. No EKG changes noted. PE: -Elevated d-dimer 950 -CTA chest: 2 small segmental emboli in RUL region -Started on heparin drip with bolus -Per pharmacy given elevated BMI of 61.9 pt may be a better candidate for warfarin vs. NOAC as effectiveness easier to measure -Ordered venous doppler b/l LE -Monitor on telemetry Possible WI: -midscapular back pain, "heart burn like" chest pain, abnormal stress test in 10/2018 and trop of 0.024. No EKG changes noted -troponin 0.024 -EKG [address] changes, unchanged since 02/20/18 -Stress echo 10/2018: basal inferior wall hypokinesis following exercise at 80% of MPHR, EF 60-65%, moderate L atrial dilation -CTA chest: moderate cardiomegaly, mild dilated central pulm artery -trend troponin Q8Hx 3 -cardiology consult placed - [facility] -monitor on telemetry HTN/CAD -BP mildly elevated at 142/27 on admission -Continue home atenolol, imdur, lisinopril, lasix Q2d, aspirin and lipitor Asthma -Continue home advair -Albuterol PRN GERD -Continue home PPI Diet: NPO for possible procedure DVT prop: on heparin drip for PE Code: Full Dispo: PCU with telemetry (2) Esophageal reflux: (3) Kidney stone: (4) Back pain: (5) HTN (hypertension): (6) CAD (coronary artery disease): (7) SHAKEEL (obstructive sleep apnea): (8) Pulmonary hypertension: History of Present Illness Primary Care Provider: Saul Villasenor MD 48yoF with hx of suspected CAD per abnormal stress test in 10/2018, HTN, SHAKEEL, pulm artery HTN, asthma, GERD, and nephrolithiasis presents with sob since yesterday. Per patient, developed fatigue 4 days ago. Yesterday while cleaning house felt excessively tired and sob. Today while shopping she felt tired and sob again and presented to the ED. She also reports recurrence of her back pain (between shoulder blades) with sob episodes. Per pt, she had similar back pain which improved after she was started on imdur. A/w bilateral leg pain (thigh down to legs) x 1 week, dizziness, "acid reflux like" chest pain, chills/shivers, rhinorrhea/cough (developed last week), diarrhea (developed today). Pt also has chronic on and off abdominal pain s/p abdominal hernia repair with mesh placement last year Denies diaphoresis, fever, headache, nausea, vomiting, dysuria, hematuria, hematochezia, melena. 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 Allergies Allergy/AdvReac Type Severity Reaction Status Date / Time oxycodone AdvReac Unknown ANXIETY, Verified 02/04/19 21:36 INSOMNIA, NAUSEA Home Medications Home Medications Medication Instructions Recorded Confirmed Type acetaminophen [Tylenol Extra 1,000 mg PO Q6H PRN 02/04/19 02/04/19 History Strength] aspirin [Aspir-81] 81 mg PO DAILY 02/04/19 02/04/19 History atenolol [Tenormin] 50 mg PO DAILY 02/04/19 02/04/19 History atorvastatin [Lipitor] 40 mg PO DAILY 02/04/19 02/04/19 History cholecalciferol (vitamin D3) 2,000 unit PO DAILY 02/04/19 02/04/19 History [Vitamin D3] fluticasone propion-salmeterol 1 puff INHALATION BID 02/04/19 02/04/19 History [Advair Diskus] furosemide [Lasix] 20 mg PO Q OTHER DAY 02/04/19 02/04/19 History isosorbide mononitrate 30 mg PO DAILY 02/04/19 02/04/19 History lisinopril 20 mg PO DAILY 02/04/19 02/04/19 History omeprazole 40 mg PO DAILY 02/04/19 02/04/19 History potassium citrate 10 meq PO QAM 02/04/19 02/04/19 History Past Med/Surg History Medical History Esophageal reflux (Chronic 04/23/13) Kidney stone (Acute) Asthma (Chronic) Surgical History History of knee replacement Family History Other Cancer Diabetes Heart disease Hypertension Social History Preferred Language: Liberian Communication Ability: Effective Installer Technician Required: No Beliefs That Will Affect Care: None Current Living Situation: Spouse Other Information That Helps Us Care for You: No Feels Safe at Home: Yes Safety Concerns: Feels Safe At This Time Smoking Status: Never smoker Hx Alcohol Use: Yes Hx Substance Use: No Review of Systems As per HPI Physical Exam Vital Signs (Past 24 Hours): Last Vital Signs Temp 36.7 C 02/04/19 20:21 Pulse 74 02/04/19 23:38 Resp 18 02/04/19 23:38 BP 150/71 H 02/04/19 23:38 Pulse Ox 95 02/04/19 23:38 Physical Exam: General: In NAD Neuro: A&O x 4 CV: RRR, no m/r/g Pulm: CTAB, coarse but equal breath sounds bilaterally, on RA GI: +BS, non-distended, NTTP in all quadrants extremities: L leg tenderness to light palpation, no LE edema, negative luis enrique's sign Results & Data Laboratory Results Abnormal lab results 02/04/19 02/04/19 02/04/19 Range/Units 20:41 20:57 20:57 RDW Std Deviation 47.2 H (36.4-46.3) fL MPV 10.6 H (7.4-10.4) fL Immature Gran # (Auto) 0.05 H (0.00-0.02) K/uL Norton # (Auto) 0.62 H (0.11-0.59) K/uL D-Dimer (0-500) ug/L FEU BUN 20 H (7-18) mg/dl BUN/Creatinine Ratio 23.0 H (10-20) Glucose 168 H (70-99) mg/dl Urine Blood Trace H (Negative) Urine WBC 5-10 H (0-5) /hpf Ur Epithelial Cells >30 H (0-5) /lpf 02/04/19 Range/Units 21:17 RDW Std Deviation (36.4-46.3) fL MPV (7.4-10.4) fL Immature Gran # (Auto) (0.00-0.02) K/uL Norton # (Auto) (0.11-0.59) K/uL D-Dimer 950 H* (0-500) ug/L FEU BUN (7-18) mg/dl BUN/Creatinine Ratio (10-20) Glucose (70-99) mg/dl Urine Blood (Negative) Urine WBC (0-5) /hpf Ur Epithelial Cells (0-5) /lpf Diagnostic Findings CT ANGIOGRAPHY OF THE CHEST, PULMONARY EMBOLUS PROTOCOL CLINICAL HISTORY: Shortness of breath. Evaluate for pulmonary embolus. COMPARISON STUDY: Chest CT November 29, 2017. Chest radiograph performed earlier today. TECHNIQUE: Following IV administration of 116 mL of Optiray-320, helical axial images of the chest were obtained utilizing the pulmonary embolus protocol. Maximal intensity projections and sagittal and coronal reformats were viewed on an independent 3D workstation. IV contrast was administered without complication. Automated exposure control was utilized for the study. A dose lowering technique was utilized adhering to the principles of ALARA. CT DOSE: 617.51 mGy.cm FINDINGS: There are probable small segmental pulmonary emboli within the segmental branch to the anterior segment of the right upper lobe shown on axial image 144 146 of 236. No additional pulmonary emboli are noted. Moderate cardiomegaly is noted. There is mild dilatation of the central pulmonary arteries. There is no pulmonary infarct. No consolidation is present. Central airways are patent. Fatty infiltration of the liver is noted. No suspicious osseous lesions are noted. There is no thoracic lymphadenopathy. IMPRESSION: 1. Two probable small segmental pulmonary emboli within the right upper lobe. One of these may be adherent to the wall and may reflect a chronic pulmonary embolus. Consideration might be given to further evaluation with bilateral lower extremity venous Doppler ultrasound. 2. Mild dilatation of the central pulmonary arteries which raises the possibility of pulmonary arterial hypertension. 3. Moderate cardiomegaly. XR chest 1V portable CLINICAL HISTORY: Chest Pain COMPARISON STUDY: Chest radiograph October 05, 2018. FINDINGS: There is no pneumothorax or pleural effusion. There is no consolidation or evidence for pulmonary edema. Moderate cardiomegaly is unchanged. The appearance of the chest is unchanged. IMPRESSION: 1. No acute cardiopulmonary findings. 2. Stable moderate cardiomegaly. Code Status & VTE Plan Code Status Full VTE Prophylaxis Plan VTE Prophylaxis will be ordered: Yes Supervising Physician Co-Signing Physician Notes Pt seen/examined in conjunction with resident MD Adalberto Echavarria. Orders and plan of admission formulated with resident. 48 y/o F Hx recent abnormal stress test - suspected CAD, HTN, SHAKEEL, pulm artery HTN, asthma, GERD, nephrolithiasis, morbid obesity - BMI > 60. Presents with SOB. A CTA demonstrated pulmonary emboli within the right upper lobe. As these PEs are peripheral, we could not definitively rule out cardiac etiology as the cause of her SOB however. OE AAO x 3 S1,2 R CTAB NT, ND No CCE P: Placed on IV Heparin. BMI may exclude eventual treatment with a newer anticoagulant so that we would likely transition to COumadin. Reg her potential CAD - we have consulted cardiology as we were noit clear on why she did not undergo a cath previously. If we have ruled out cardiac etiology, she could likely be DCd when she is effectively anticaogulated. The PEs are spontaneous and she may therefore require lifelong treatment. We have continued her ASA, b lc and Imdur/ Resident Activity Tracking Resident Involvement: Resident Care Provided Care Provided: Adult [facility] (1) Pulmonary embolism Acute cor pulmonale presence: without acute cor pulmonale Chronicity: acute Pulmonary embolism type: unspecified Qualified Code(s): I26.99 - Other pulmonary embolism without acute cor pulmonale
[2019-02-05] MEDS ORDERED: HEPARIN SOD (PORCINE) 1000 UNIT/ML 10 ML VIAL ONE (00:55)
[2019-02-05] MEDS ORDERED: HEPARIN 25000 UNIT/500 ML D5W IV ONE (00:55)
[2019-02-05] MEDS ORDERED: NITROGLYCERIN SL 0.4 MG/TAB TAB SL PRN (01:17)
[2019-02-05] MEDS ORDERED: POLYETHYLENE (MIRALAX) 17 GM PACK PO PRN (01:17)
[2019-02-05] MEDS ORDERED: ACETAMINOPHEN 500 MG TAB PO PRN (01:17)
[2019-02-05] MEDS ORDERED: ONDANSETRON INJ 2 MG/ML 2 ML VIAL IV PRN (01:17)
[2019-02-05] MEDS ORDERED: ALBUTEROL HFA 8 GM INHALER INH PRN (01:27)
[2019-02-05 01:32] LABS: Partial Thromboplastin Ratio 0.8; Partial Thromboplastin Time 22.4 Seconds (21.0-31.0); Prothrombin Time 10.2 Seconds (9.0-12.0)
[2019-02-05] MEDS: Heparin Adult STANDARD Wt-Based Dextrose 5% 25,000 units/500 mL IV SCH ×2 (01:43→16:45)
[2019-02-05] MEDS: FLUTICASONE/SALMETEROL 250/50 (ADVAIR) 14 PUFF/1 INHALER INH SCH ×3 (03:42→20:28)
[2019-02-05] MEDS ORDERED: INFLUENZA VIRUS QUAD VACCINE 0.5 ML SYR IM ONE (05:15)
[2019-02-05] MEDS ORDERED: INFLUENZA ADMINISTRATION CHARGE ONE (05:15)
[2019-02-05 05:51] LABS: Basophils # (auto) 0.02 K/uL (0-0.2); Basophils % (auto) 0.2 %; Eosinophils % (auto) 3.7 %; Hematocrit (blood only) 36.1 % (37-47); Hemoglobin 11.6 g/dL (12.0-16.0); Immature Granulocytes # (auto) 0.02 K/uL (0.00-0.02); Immature Granulocytes % (auto) 0.2 %; Lymphocytes # (auto) 2.58 K/uL (1.2-3.4); Lymphocytes % (auto) 31.8 %; Mean Corpuscular Hgb Conc 32.1 g/dL (32-36); Mean Corpuscular Volume 89.4 fL (80-100); Mean Platelet Volume 10.5 fL (7.4-10.4); Monocytes # (auto) 0.59 K/uL (0.11-0.59); Monocytes % (auto) 7.3 %; Neutrophils % (auto) 56.8 %; Platelet Count 255 K/uL (130-400); RDW Coefficient of Variation 14.4 % (11.5-14.5); Red Blood Count 4.04 M/uL (4.2-5.4); White Blood Count 8.11 K/uL (4.8-10.8)
[2019-02-05 06:22] LABS: BUN Creatinine Ratio 30.5 (10-20); Calcium 8.6 mg/dl (8.5-10.1); Creatinine Clr Calc Pharmacy 133.2 ml/min; Est GFR (African American) 123.6; Est GFR (Non-African American) 106.6; Troponin I 0.028 ng/ml (0-0.045)
--- NOTE | 2019-02-05 07:08 | Ultrasound Report ---
BILATERAL LOWER EXTREMITY VENOUS DOPPLER HISTORY: Bilateral leg pain, PE COMPARISON STUDY: None. FINDINGS: There is normal compressibility, flow, and augmentation within the bilateral lower extremit y deep venous systems. IMPRESSION: No DVT within the right or left lower extremity. Electronically signed by: Shayan Pineda M.D. 02/05/2019 7:07 AM
[2019-02-05 08:06] LABS: Partial Thromboplastin Ratio 1.6; Partial Thromboplastin Time 44.4 Seconds (21.0-31.0)
[2019-02-05] MEDS: CHOLECALCIFEROL 1,000 UNITS TAB PO SCH (08:32)
[2019-02-05] MEDS: ATENOLOL 50 MG TABLET PO SCH (08:33)
[2019-02-05] MEDS: POTASSIUM CITRATE 10 MEQ TAB PO SCH (08:33)
[2019-02-05] MEDS: ASPIRIN 81 MG ECTAB PO SCH (08:34)
[2019-02-05] MEDS: LISINOPRIL 20 MG TAB PO SCH (08:34)
[2019-02-05] MEDS: ATORVASTATIN 40 MG TAB PO SCH (08:34)
[2019-02-05] MEDS: PANTOprazole 40 MG TAB PO SCH (08:36)
[2019-02-05] MEDS ORDERED: HEPARIN IV BOLUS 3,000 UNITS in SYRINGE 0 ML IV ONE (08:45)
[2019-02-05] MEDS ORDERED: ISOSORBIDE MONO EXTENDED REL 30 MG TABCR PO SCH ×2 (09:00→10:15)
[2019-02-05] MEDS ORDERED: FUROSEMIDE 20 MG TAB PO SCH (09:00)
--- NOTE | 2019-02-05 09:01 | Cardiology Consultation ---
Date of Consultation February 05, 2019 Assessment & Plan (1) Abnormal stress echo: She had a low risk stress echo however she did have poor exercise tolerance in October of 2018. Her symptoms currently could be attributed to her pulmonary embolus. The exertional chest discomfort that she had felt prior to her cardiology consultation as an outpatient has not returned as it responded well to low-dose nitrate therapy. Given her diagnosis of PE, will titrate nitrate therapy to see if that offers any improvement. Would hold off on cardiac catheterization for now and allow for her therapeutic anticoagulation therapy. If she has further objective findings suggesting ongoing ischemic heart disease, would then further consider coronary angiography. Continue aspirin 81 mg daily. Continue high-intensity statin therapy, beta-lc, and titrate nitrate therapy. (2) SOB (shortness of breath): She appears euvolemic but volume assessment is difficult given body habitus. Shortness of breath likely secondary to PE. Will titrate cardiac meds as above. (3) HTN (hypertension): Blood pressure adequately controlled. Titrating nitrate therapy. (4) Pulmonary embolism: Treatment as per primary service. Limited echo ordered. (5) Back pain: Atypical symptom. Could be secondary to her PE. Titrating cardiac meds as above. (6) Chest pain at rest: Her exertional chest discomfort has not returned but she did have an episode at rest last evening, but described differently than symptoms described in November. Titrating nitrate therapy as above. If she is found to have a new wall motion abnormality at rest, would consider cardiac catheterization during this hospitalization but otherwise, would recommend treatment for her PE. It is not likely that she presented both with acute PE and acute coronary syndrome. Disposition: She should follow up in the outpatient cardiology office after discharge to reassess symptoms. I will be away from the hospital tomorrow but if there are any questions or concerns, please contact Dr. Fiore, who will be covering. Thank you for allowing me to participate in the care of your patient. Please call for any other questions or concerns. Sincerely, Brooks Chau M.D. History of Present Illness Reason for Consultation: Abnormal stress test. Mid scapular back pain. Requesting Physician: Dr. Ty Attending Physician: Praveen Ty MD History of Present Illness Mrs. Wharton is a very pleasant 48-year-old female history significant for hypertension and abnormal stress echo. She presented to [facility] with dyspnea with exertion and midscapular back pain. CTA demonstrated pulmonary emboli. She was first seen in the cardiology office on 11/09/2018 for exertional chest discomfort and dyspnea. She had abnormal stress echo suggesting inferior wall segment ischemia but also poor exercise tolerance. She was started on aspirin 81 mg daily, isosorbide mononitrate 30 mg daily, and high-intensity statin therapy. Her symptoms improved when she was seen on follow-up appointment. Two days ago, while cleaning her home, she developed intrascapular back pain felt tired, had dyspnea, dizziness, and ended up having to take a nap later in the day. Symptoms would last up to 5 minutes in duration before resolving. She had recurrent symptoms yesterday as well. While hospitalized, she has had intermittentIntrascapular pain, even at rest. She has not had any shortness of breath at rest. She denies orthopnea or PND. She had 1 episode of epigastric discomfort that radiated up into her chest last night. She felt as though she had gas. She has not had any exertional chest discomfort, which was present prior to her presentation in November. She felt as though her legs were swollen 3 days ago and she had bilateral leg pain at that time left, greater than right. She also had left leg cramping last week. She was placed on heparin drip as per primary hospitalist service. She is tolerating well. She denies syncope, palpitations, melena, hematochezia, hematuria, or other bleeding. She has had some diarrhea but denies fevers, nausea, or vomiting. He has had kidney stones before and has developed some right flank pain which she feels as though is similar to prior kidney stone pain. Review of systems: As above. Review of systems otherwise negative/unremarkable. Family history: Father from [place] at 56. Maternal grandfather from [place] at 60. Mother of lung disease at 60 but also had [place] at 60. Sister with CHF. Social history: She denies smoking but had significant secondhand exposure. Rare alcohol. No drugs. She is lives at home with her . She has adult daughter and son. Grandchildren. 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 She is alone in her hospital room. Allergies Allergy/AdvReac Type Severity Reaction Status Date / Time oxycodone AdvReac Unknown ANXIETY, Verified 03/31/19 21:36 INSOMNIA, NAUSEA Home Medications Home Medications Medication Instructions Recorded Confirmed Type acetaminophen [Tylenol Extra 1,000 mg PO Q6H PRN 02/04/19 02/04/19 History Strength] aspirin [Aspir-81] 81 mg PO DAILY 02/04/19 02/04/19 History atenolol [Tenormin] 50 mg PO DAILY 02/04/19 02/04/19 History atorvastatin [Lipitor] 40 mg PO DAILY 02/04/19 02/04/19 History cholecalciferol (vitamin D3) 2,000 unit PO DAILY 02/04/19 02/04/19 History [Vitamin D3] fluticasone propion-salmeterol 1 puff INHALATION BID 02/04/19 02/04/19 History [Advair Diskus] furosemide [Lasix] 20 mg PO Q OTHER DAY 02/04/19 02/04/19 History isosorbide mononitrate 30 mg PO DAILY 02/04/19 02/04/19 History lisinopril 20 mg PO DAILY 02/04/19 02/04/19 History omeprazole 40 mg PO DAILY 02/04/19 02/04/19 History potassium citrate 10 meq PO QAM 02/04/19 02/04/19 History Patient History Medical History Esophageal reflux (Chronic 04/23/13) Kidney stone (Acute) Asthma (Chronic) Abnormal stress echo Hypertension Surgical History History of knee replacement Family History Other Cancer Diabetes Heart disease Hypertension Social History Preferred Language: Qatari Communication Ability: Effective Drosophere Operator Required: No Beliefs That Will Affect Care: None Current Living Situation: Spouse Other Information That Helps Us Care for You: No Feels Safe at Home: Yes Safety Concerns: Feels Safe At This Time Smoking Status: Never smoker Hx Alcohol Use: Yes Hx Substance Use: No Physical Exam Vital Signs (Past 24 Hours): Last Vital Signs Temp 36.7 C 02/05/19 06:29 Pulse 64 02/05/19 06:29 Resp 22 02/05/19 06:29 BP 118/68 02/05/19 06:29 Pulse Ox 94 02/05/19 06:29 Physical Exam: Gen.: No acute distress. Alert and oriented. HEENT: Anicteric sclera. Neck: Thick neck, cannot assess for JVD. No bruits. Normal carotid upstrokes bilaterally. Cardiac: PMI was nonpalpable. No ventricular heave. Regular. Normal S1-S2. No murmurs, rubs, or gallops. Pulmonary: Clear to auscultation bilaterally without wheezes, rales, or rhonchi. Abdomen: Obese. Soft, nontender, nondistended, with normoactive bowel sounds. No bruits noted. Extremities: 2+ radial pulses bilaterally. 2+ posterior tibialis pulses bilaterally. No pitting edema or cyanosis. No palpable cords. Psychiatric: Affect appears appropriate. Chest: Nontender to palpation. Back: Nontender intrascapular area. Tender right lower back. Results & Data Laboratory Results Laboratory Results - last 24 hr 02/04/19 02/04/19 02/04/19 20:41 20:57 20:57 WBC 10.04 RBC 4.26 Hgb 12.5 Hct 38.3 MCV 89.9 MCH 29.3 MCHC 32.6 RDW Std Deviation 47.2 H RDW Coeff of Shay 14.3 Plt Count 292 MPV 10.6 H Immature Gran % (Auto) 0.5 Neut % (Auto) 64.3 Lymph % (Auto) 25.4 Snyder % (Auto) 6.2 Eos % (Auto) 3.2 Baso % (Auto) 0.4 Immature Gran # (Auto) 0.05 H Neut # (Auto) 6.46 Lymph # (Auto) 2.55 Snyder # (Auto) 0.62 H Eos # (Auto) 0.32 Baso # (Auto) 0.04 PT INR APTT PTT Ratio D-Dimer Sodium 142 Potassium 4.1 Chloride 107 Carbon Dioxide 28 Anion Gap 7.0 BUN 20 H Creatinine 0.86 Est Cr Clr Drug Dosing 96.8 Est GFR ( Amer) 92.6 Est GFR (Non-Af Amer) 79.9 BUN/Creatinine Ratio 23.0 H Glucose 168 H Calcium 8.9 Total Bilirubin 0.2 AST 20 ALT 33 Alkaline Phosphatase 108 Total Creatine Kinase 152 CK-MB (CK-2) 1.5 CK/CKMB % Calc 1.0 Troponin I 0.024 Total Protein 7.4 Albumin 3.4 Globulin 4.0 Albumin/Globulin Ratio 0.9 Lipase 142 Urine Color Yellow Urine Appearance Clear Urine pH 6.5 Ur Specific [place] <= 1.005 Urine Protein Negative Urine Glucose (UA) Negative Urine Ketones Negative Urine Blood Trace H Urine Nitrite Negative Urine Bilirubin Negative Urine Urobilinogen Negative Ur Leukocyte Esterase Negative Urine RBC 0-4 Urine WBC 5-10 H Ur Epithelial Cells >30 H Urine Bacteria Negative Influenza Type A Ag Influenza Type B Ag 02/04/19 02/04/19 02/04/19 20:57 21:17 21:17 WBC RBC Hgb Hct MCV MCH MCHC RDW Std Deviation RDW Coeff of Shay Plt Count MPV Immature Gran % (Auto) Neut % (Auto) Lymph % (Auto) Snyder % (Auto) Eos % (Auto) Baso % (Auto) Immature Gran # (Auto) Neut # (Auto) Lymph # (Auto) Snyder # (Auto) Eos # (Auto) Baso # (Auto) PT 10.2 INR 1.0 APTT 22.4 PTT Ratio 0.8 D-Dimer 950 H* Sodium Potassium Chloride Carbon Dioxide Anion Gap BUN Creatinine Est Cr Clr Drug Dosing Est GFR ( Amer) Est GFR (Non-Af Amer) BUN/Creatinine Ratio Glucose Calcium Total Bilirubin AST ALT Alkaline Phosphatase Total Creatine Kinase CK-MB (CK-2) CK/CKMB % Calc Troponin I Total Protein Albumin Globulin Albumin/Globulin Ratio Lipase Urine Color Urine Appearance Urine pH Ur Specific [place] Urine Protein Urine Glucose (UA) Urine Ketones Urine Blood Urine Nitrite Urine Bilirubin Urine Urobilinogen Ur Leukocyte Esterase Urine RBC Urine WBC Ur Epithelial Cells Urine Bacteria Influenza Type A Ag Neg for Influ A Influenza Type B Ag Neg for Influ B 02/05/19 02/05/19 02/05/19 05:38 05:38 07:38 WBC 8.11 RBC 4.04 L Hgb 11.6 L Hct 36.1 L MCV 89.4 MCH 28.7 MCHC 32.1 RDW Std Deviation 47.0 H RDW Coeff of Shay 14.4 Plt Count 255 MPV 10.5 H Immature Gran % (Auto) 0.2 Neut % (Auto) 56.8 Lymph % (Auto) 31.8 Snyder % (Auto) 7.3 Eos % (Auto) 3.7 Baso % (Auto) 0.2 Immature Gran # (Auto) 0.02 Neut # (Auto) 4.60 Lymph # (Auto) 2.58 Snyder # (Auto) 0.59 Eos # (Auto) 0.30 Baso # (Auto) 0.02 PT INR APTT 44.4 H PTT Ratio 1.6 D-Dimer Sodium 144 Potassium Chloride 111 H Carbon Dioxide 27 Anion Gap 6.0 BUN 19 H Creatinine 0.62 Est Cr Clr Drug Dosing 133.2 Est GFR ( Amer) 123.6 Est GFR (Non-Af Amer) 106.6 BUN/Creatinine Ratio 30.5 H Glucose 98 Calcium 8.6 Total Bilirubin AST ALT Alkaline Phosphatase Total Creatine Kinase CK-MB (CK-2) CK/CKMB % Calc Troponin I 0.028 Total Protein Albumin Globulin Albumin/Globulin Ratio Lipase Urine Color Urine Appearance Urine pH Ur Specific [place] Urine Protein Urine Glucose (UA) Urine Ketones Urine Blood Urine Nitrite Urine Bilirubin Urine Urobilinogen Ur Leukocyte Esterase Urine RBC Urine WBC Ur Epithelial Cells Urine Bacteria Influenza Type A Ag Influenza Type B Ag 02/05/19 07:38 WBC RBC Hgb Hct MCV MCH MCHC RDW Std Deviation RDW Coeff of Shay Plt Count MPV Immature Gran % (Auto) Neut % (Auto) Lymph % (Auto) Snyder % (Auto) Eos % (Auto) Baso % (Auto) Immature Gran # (Auto) Neut # (Auto) Lymph # (Auto) Snyder # (Auto) Eos # (Auto) Baso # (Auto) PT INR APTT PTT Ratio D-Dimer Sodium Potassium 4.1 Chloride Carbon Dioxide Anion Gap BUN Creatinine Est Cr Clr Drug Dosing Est GFR ( Amer) Est GFR (Non-Af Amer) BUN/Creatinine Ratio Glucose Calcium Total Bilirubin AST ALT Alkaline Phosphatase Total Creatine Kinase CK-MB (CK-2) CK/CKMB % Calc Troponin I Total Protein Albumin Globulin Albumin/Globulin Ratio Lipase Urine Color Urine Appearance Urine pH Ur Specific [place] Urine Protein Urine Glucose (UA) Urine Ketones Urine Blood Urine Nitrite Urine Bilirubin Urine Urobilinogen Ur Leukocyte Esterase Urine RBC Urine WBC Ur Epithelial Cells Urine Bacteria Influenza Type A Ag Influenza Type B Ag Diagnostic Findings Telemetry personally reviewed: SinusRhythm. ECG personally reviewed: ECG 02/04/2019: Sinus rhythm 66 bpm. CTA 09945:2 probable small segmental pulmonary emboli within the right upper lobe. Mild dilation of central pulmonary arteries, suggesting possible pulmonary artery hypertension. Medications Administered Current Inpatient Medications Acetaminophen (Tylenol) 1,000 mg PO Q6H PRN PRN Reason: Pain Stop: 03/07/19 01:16 Albuterol (Ventolin Hfa) 2 puffs INH Q4H PRN PRN Reason: Wheezing Stop: 03/07/19 01:26 Aspirin (Ecotrin Ectab) 81 mg PO DAILY [facility] Stop: 03/07/19 08:59 Last Admin: 02/05/19 08:34 Dose: 81 mg Documented by: Atenolol (Tenormin) 50 mg PO DAILY [facility] Stop: 03/07/19 08:59 Last Admin: 02/05/19 08:33 Dose: 50 mg Documented by: Atorvastatin Calcium (Lipitor) 40 mg PO DAILY [facility] Stop: 03/07/19 08:59 Last Admin: 02/05/19 08:34 Dose: 40 mg Documented by: Furosemide (Lasix) 20 mg PO Q48H [facility] Stop: 03/07/19 08:59 Last Admin: 02/05/19 08:32 Dose: 20 mg Documented by: Heparin Sodium/Dextrose (Heparin Sodium/Dextrose) 25,000 units in 500 mls @ 32 mls/hr IV .[id number] [facility]; Protocol Stop: 03/07/19 01:29 Last Titration: 02/05/19 08:20 Dose: 1,600 units/hr, 32 mls/hr Documented by: Ioversol (Optiray 320 125ml) 116 ml IV ONCE PRN PRN Reason: Interaction Checking Stop: 02/08/19 22:36 Last Admin: 02/04/19 22:38 Dose: 116 ml Documented by: Isosorbide Mononitrate (Imdur Extended Rel) 30 mg PO DAILY [facility] Stop: 03/07/19 08:59 Last Admin: 02/05/19 08:33 Dose: 30 mg Documented by: Lisinopril (Zestril) 20 mg PO DAILY [facility] Stop: 03/07/19 08:59 Last Admin: 02/05/19 08:34 Dose: 20 mg Documented by: Nitroglycerin (Nitrostat) 0.4 mg SL UD PRN PRN Reason: Chest Pain Stop: 05/01/19 01:16 Ondansetron HCl (Zofran) 4 mg IV Q6H PRN PRN Reason: Nausea Stop: 03/07/19 01:16 Pantoprazole Sodium (Protonix) 40 mg PO DAILY [facility] Stop: 03/07/19 08:59 Last Admin: 02/05/19 08:36 Dose: 40 mg Documented by: Polyethylene Glycol (Miralax Powder Packet) 17 gm PO DAILY PRN PRN Reason: Constipation Stop: 03/07/19 01:16 Potassium Citrate (Urocit-K) 10 meq PO QAM [facility] Stop: 03/07/19 08:59 Last Admin: 02/05/19 08:33 Dose: 10 meq Documented by: Fluticasone/Salmeterol (Advair Diskus 250/50) 1 puffs INH BID [facility] Stop: 03/07/19 01:16 Last Admin: 02/05/19 08:36 Dose: 1 puffs Documented by: Vitamin D (Vitamin D3) 2,000 units PO DAILY [facility] Stop: 03/07/19 08:59 Last Admin: 02/05/19 08:32 Dose: 2,000 units Documented by: (1) Pulmonary embolism Acute cor pulmonale presence: without acute cor pulmonale Chronicity: acute Pulmonary embolism type: unspecified Qualified Code(s): I26.99 - Other pulmonary embolism without acute cor pulmonale
--- NOTE | 2019-02-05 14:30 | Hospitalist Progress Note ---
Date of Service February 05, 2019 Assessment & Plan (1) Pulmonary embolism: -Elevated d-dimer 950 -CTA chest: 2 small segmental emboli in RUL region -continue on heparin drip -Per pharmacy given elevated BMI of 61.9 pt may be a better candidate for warfarin vs. NOAC as effectiveness easier to measure - will start warfarin tonight -venous doppler lower extremities negative (2) Chest pain: -midscapular back pain, "heart burn like" chest pain, abnormal stress test in 10/2018 and trop of 0.024. No EKG changes noted. Midscapular pain with RUQ tenderness - will get gallbladder US -troponin 0.028, 0.016 -Stress echo 10/2018: basal inferior wall hypokinesis following exercise at 80% of MPHR, EF 60-65%, moderate L atrial dilation - Repeat stress without WMA, EF 65% -CTA chest: moderate cardiomegaly, mild dilated central pulm artery - cardiology consulted - increased nitrate, no indication for cath at this time. (3) Esophageal reflux: continue home ppi (4) HTN (hypertension): (5) CAD (coronary artery disease): -Continue home atenolol, lisinopril, lasix Q2d, aspirin and lipitor, increased imdur as above (6) SHAKEEL (obstructive sleep apnea): (7) Pulmonary hypertension: continue home lasix (8) DVT prophylaxis: Heparin gtt, coumadin Supervising Physician Co-Signing Physician Notes Attending Attestation: Chart reviewed in detail, care plan d/w SABRINA Brittany Graham. I agree w/ the mcmahon components of her documentation. Agree w/ coumadin for anticoagulation for her PEs. Cont heparin drip in meantime. Appreciate cardiology consultation. Echo findings noted. Morbid obesity - BMI 60. Kirby Morfin MD Subjective Ms. Wharton does have some lightheadedness and abdominal discomfort. She has pain between her shoulder blades at times Physical Exam Vital Signs (Past 24 Hours): Last Vital Signs Temp 36.7 C 02/05/19 06:29 Pulse 64 02/05/19 06:29 Resp 22 02/05/19 06:29 BP 118/68 02/05/19 06:29 Pulse Ox 94 02/05/19 06:29 Physical Exam: General: no distress Eyes: normal inspection, PERLL Respiratory: chest non tender, clear to auscultation, normal breath sounds, no respiratory distress, no accessory muscle use Cardiac: regular rate and rhythm, no rub or gallop, no murmur, no edema, no jvd GI/: active bowel sounds, RUQ tenderness, soft, non distended Extremities: normal range of motion, normal strength, non tender Neuro/Psych: alert and oriented x 3, normal mood and affect Skin: normal color, dry Results & Data Laboratory Results Abnormal lab results 02/04/19 02/04/19 02/04/19 Range/Units 20:41 20:57 20:57 RBC (4.2-5.4) M/uL Hgb (12.0-16.0) g/dL Hct (37-47) % RDW Std Deviation 47.2 H (36.4-46.3) fL MPV 10.6 H (7.4-10.4) fL Immature Gran # (Auto) 0.05 H (0.00-0.02) K/uL Isabella # (Auto) 0.62 H (0.11-0.59) K/uL APTT (21.0-31.0) Seconds D-Dimer (0-500) ug/L FEU Chloride (98-107) mmol/L BUN 20 H (7-18) mg/dl BUN/Creatinine Ratio 23.0 H (10-20) Glucose 168 H (70-99) mg/dl Urine Blood Trace H (Negative) Urine WBC 5-10 H (0-5) /hpf Ur Epithelial Cells >30 H (0-5) /lpf 02/04/19 02/05/19 02/05/19 Range/Units 21:17 05:38 05:38 RBC 4.04 L (4.2-5.4) M/uL Hgb 11.6 L (12.0-16.0) g/dL Hct 36.1 L (37-47) % RDW Std Deviation 47.0 H (36.4-46.3) fL MPV 10.5 H (7.4-10.4) fL Immature Gran # (Auto) (0.00-0.02) K/uL Isabella # (Auto) (0.11-0.59) K/uL APTT (21.0-31.0) Seconds D-Dimer 950 H* (0-500) ug/L FEU Chloride 111 H (98-107) mmol/L BUN 19 H (7-18) mg/dl BUN/Creatinine Ratio 30.5 H (10-20) Glucose (70-99) mg/dl Urine Blood (Negative) Urine WBC (0-5) /hpf Ur Epithelial Cells (0-5) /lpf 02/05/19 Range/Units 07:38 RBC (4.2-5.4) M/uL Hgb (12.0-16.0) g/dL Hct (37-47) % RDW Std Deviation (36.4-46.3) fL MPV (7.4-10.4) fL Immature Gran # (Auto) (0.00-0.02) K/uL Isabella # (Auto) (0.11-0.59) K/uL APTT 44.4 H (21.0-31.0) Seconds D-Dimer (0-500) ug/L FEU Chloride (98-107) mmol/L BUN (7-18) mg/dl BUN/Creatinine Ratio (10-20) Glucose (70-99) mg/dl Urine Blood (Negative) Urine WBC (0-5) /hpf Ur Epithelial Cells (0-5) /lpf (1) Pulmonary embolism Acute cor pulmonale presence: without acute cor pulmonale Chronicity: acute Pulmonary embolism type: unspecified Qualified Code(s): I26.99 - Other pulmonary embolism without acute cor pulmonale
[2019-02-05 15:07] LABS: Partial Thromboplastin Ratio 2.1
[2019-02-05] MEDS ORDERED: WARFARIN SOD 10 MG TAB PO SCH (16:00)
[2019-02-05 16:19] LABS: Partial Thromboplastin Time 57.8 Seconds (21.0-31.0)
--- NOTE | 2019-02-05 16:52 | Ultrasound Report ---
ULTRASOUND RIGHT UPPER QUADRANT ABDOMEN CLINICAL HISTORY: Right upper quadrant abdominal pain. COMPARISON STUDY: Abdominal CT dated 12/04/2017. TECHNIQUE: Real-time, grayscale, and color flow sonography of the right upper quadrant of the abdomen was performed. Images are reviewed in the transverse and longitudinal planes. The examination is deg raded by large body habitus. FINDINGS: Liver: The liver is enlarged and demonstrates heterogeneously increased echotexture indicating hepati c steatosis. There is no intrahepatic biliary ductal dilatation. A 12 mm cyst is noted in the left lo be. The main portal vein is patent. Gallbladder: The gallbladder is normal in appearance. No gallstones are identified. There is no gallb ladder wall thickening or pericholecystic fluid. A sonographic Duncan's sign is reportedly absent. Th e common bile duct measures up to 0.4 cm in diameter. Pancreas: Visualized portions of the pancreatic head are normal in appearance. The majority of the pa ncreas was not well visualized. The splenic vein is patent. Right kidney: Survey images of the right kidney demonstrate normal size and echotexture. There is no hydronephrosis. Ascites: None. IMPRESSION: 1. No acute sonographic abnormality is identified in the right upper quadrant. 2. No gallstones are seen. 3. Hepatomegaly and hepatic steatosis. Electronically signed by: Jean Barboza M.D. 02/05/2019 4:50 PM
[2019-02-06 06:37] LABS: Hematocrit (blood only) 37.1 % (37-47); Hemoglobin 11.9 g/dL (12.0-16.0); Mean Corpuscular Hgb Conc 32.1 g/dL (32-36); Mean Platelet Volume 10.4 fL (7.4-10.4); Platelet Count 263 K/uL (130-400); RDW Coefficient of Variation 14.5 % (11.5-14.5); Red Blood Count 4.17 M/uL (4.2-5.4); White Blood Count 9.34 K/uL (4.8-10.8)
[2019-02-06 06:58] LABS: INR 1.1 (0.9-1.1)
[2019-02-06 07:13] LABS: BUN Creatinine Ratio 22.4 (10-20); Est GFR (African American) 121.7; Potassium 4.2 mmol/L (3.5-5.1)
[2019-02-06 07:45] LABS: Partial Thromboplastin Ratio 1.9
[2019-02-06] MEDS: POTASSIUM CITRATE 10 MEQ TAB PO SCH (07:48)
[2019-02-06] MEDS: ATENOLOL 50 MG TABLET PO SCH (07:48)
[2019-02-06] MEDS: ASPIRIN 81 MG ECTAB PO SCH (07:48)
[2019-02-06] MEDS: LISINOPRIL 20 MG TAB PO SCH (07:48)
[2019-02-06] MEDS: FLUTICASONE/SALMETEROL 250/50 (ADVAIR) 14 PUFF/1 INHALER INH SCH (07:48)
[2019-02-06] MEDS: CHOLECALCIFEROL 1,000 UNITS TAB PO SCH (07:52)
[2019-02-06] MEDS: PANTOprazole 40 MG TAB PO SCH (07:52)
[2019-02-06] MEDS: ATORVASTATIN 40 MG TAB PO SCH (07:53)
[2019-02-06 08:07] LABS: Partial Thromboplastin Time 52.7 Seconds (21.0-31.0)
[2019-02-06] MEDS: Heparin Adult STANDARD Wt-Based Dextrose 5% 25,000 units/500 mL IV SCH (08:11)
[2019-02-06] MEDS ORDERED: ISOSORBIDE MONO EXTENDED REL 60 MG TABCR PO SCH (09:00)
--- NOTE | 2019-02-06 09:20 | Cardiology Progress Note ---
Date of Service February 06, 2019 Assessment & Plan (1) Abnormal stress echo: She had a low risk stress echo however she did have poor exercise tolerance in October of 2018. Her exertional chest discomfort responded well to low dose nitrate therapy. Yesterday her isosorbide mononitrate was increased to 60 mg daily. She has not had any recurrent chest pain. Her echo demonstrates normal LV function and wall motion. Cardiac enzymes are not elevated and EKG has no acute changes. Symptoms likely secondary to PE, not ACS. No indication for cardiac catheterization. Continue aspirin 81 mg daily. Continue high-intensity statin therapy, beta-lc, and nitrate therapy. (2) SOB (shortness of breath): She appears euvolemic but volume assessment is difficult given body habitus. Symptoms likely secondary to PE. (3) HTN (hypertension): Blood pressure adequately controlled. (4) Pulmonary embolism: Started on anticoagulation with warfarin. Disposition: Followup in outpatient cardiology clinic after discharge to reassess symptoms. Subjective Patient reports feeling better today, no acute complaints. No further episodes of chest pain since yesterday morning. No shortness of breath, orthopnea or PND. She has been started on warfarin. Physical Exam Vital Signs (Past 24 Hours): Last Vital Signs Temp 36.7 C 02/06/19 07:43 Pulse 66 02/06/19 07:43 Resp 16 02/06/19 07:43 BP 121/75 02/06/19 07:43 Pulse Ox 91 02/06/19 07:43 Physical Exam: General: No acute distress, comfortable. HEENT: Head is normal. PERRLA. EOMI. Sclerae anicteric. Ears, nose and throat unremarkable. Mucous membranes moist. Neck: Normal carotid upstrokes, no bruits. No appreciable JVD. Lungs: Clear to auscultation bilaterally without rales, rhonchi or wheezes. Cardiac: Regular rate and rhythm. S1-S2 normal. No appreciable murmur, gallop or rub. Abdomen: Soft and nontender. Bowel sounds normal. No mass or organomegaly. No abdominal bruit. Extremities/vascular: Well perfused. No peripheral edema. Radial, DP and PT pulses 2+ bilaterally Skin: No rash or abnormal lesions. Normal turgor. Neurologic: Nonfocal Psychiatric: Affect appropriate. Alert and oriented. Results & Data Laboratory Results Laboratory Results - last 24 hr 04/11/2502/05/19 02/05/19 13:20 14:24 20:49 WBC RBC Hgb Hct MCV MCH MCHC RDW Std Deviation RDW Coeff of Shay Plt Count MPV PT INR APTT 57.8 H* PTT Ratio 2.1 Sodium Potassium Chloride Carbon Dioxide Anion Gap BUN Creatinine Est Cr Clr Drug Dosing Est GFR ( Amer) Est GFR (Non-Af Amer) BUN/Creatinine Ratio Glucose Calcium Troponin I 0.016 < 0.015 02/06/19 02/06/19 02/06/19 06:04 06:04 06:04 WBC 9.34 RBC 4.17 L Hgb 11.9 L Hct 37.1 MCV 89.0 MCH 28.5 MCHC 32.1 RDW Std Deviation 47.0 H RDW Coeff of Shay 14.5 Plt Count 263 MPV 10.4 PT 11.0 INR 1.1 APTT PTT Ratio Sodium 143 Potassium 4.2 Chloride 109 H Carbon Dioxide 29 Anion Gap 6.0 BUN 15 Creatinine 0.65 Est Cr Clr Drug Dosing 126.0 Est GFR ( Amer) 121.7 Est GFR (Non-Af Amer) 105.0 BUN/Creatinine Ratio 22.4 H Glucose 93 Calcium 9.0 Troponin I 02/06/19 06:04 WBC RBC Hgb Hct MCV MCH MCHC RDW Std Deviation RDW Coeff of Shay Plt Count MPV PT INR APTT 52.7 H* PTT Ratio 1.9 Sodium Potassium Chloride Carbon Dioxide Anion Gap BUN Creatinine Est Cr Clr Drug Dosing Est GFR ( Amer) Est GFR (Non-Af Amer) BUN/Creatinine Ratio Glucose Calcium Troponin I Diagnostic Findings Echo 02/05/19: normal LV size and function. EF 65-70%. No regional wall motion abnormalities. ECG Additional Comments: Telemetry reviewed-- no events (1) Pulmonary embolism Acute cor pulmonale presence: without acute cor pulmonale Chronicity: acute Pulmonary embolism type: unspecified Qualified Code(s): I26.99 - Other pulmonary embolism without acute cor pulmonale
[2019-02-06] MEDS ORDERED: ENOXAPARIN INJ 120 MG/0.8 ML SYR SQ SCH (10:45)
[2019-02-06] MEDS ORDERED: LOVENOX TEACHING KIT ONE (11:22)
--- NOTE | 2019-02-06 14:01 | Discharge Summary ---
Date of Service February 06, 2019 Admission HPI Per Admitting Provider 48yoF with hx of suspected CAD per abnormal stress test in 10/2018, HTN, SHAKEEL, pulm artery HTN, asthma, GERD, and nephrolithiasis presents with sob since yesterday. Per patient, developed fatigue 4 days ago. Yesterday while cleaning house felt excessively tired and sob. Today while shopping she felt tired and sob again and presented to the ED. She also reports recurrence of her back pain (between shoulder blades) with sob episodes. Per pt, she had similar back pain which improved after she was started on imdur. A/w bilateral leg pain (thigh down to legs) x 1 week, dizziness, "acid reflux like" chest pain, chills/shivers, rhinorrhea/cough (developed last week), diarrhea (developed today). Pt also has chronic on and off abdominal pain s/p abdominal hernia repair with mesh placement last year Denies diaphoresis, fever, headache, nausea, vomiting, dysuria, hematuria, hematochezia, melena. 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 Principal Diagnosis Pulmonary Embolism Discharge Exam General: no distress Eyes: normal inspection, PERLL Respiratory: chest non tender, clear to auscultation, normal breath sounds, no respiratory distress, no accessory muscle use Cardiac: regular rate and rhythm, no rub or gallop, no murmur, no edema, no jvd GI/: active bowel sounds, RUQ tenderness, soft, non distended Extremities: normal range of motion, normal strength, non tender Neuro/Psych: alert and oriented x 3, normal mood and affect Skin: normal color, dry Discharge Data Allergies Allergy/AdvReac Type Severity Reaction Status Date / Time oxycodone AdvReac Unknown ANXIETY, Verified 02/04/19 21:36 INSOMNIA, NAUSEA Consultations 02/04/19 23:41 ED Decision to Admit Stat 02/05/19 01:17 Consult Cardiology Routine Ordered Studies 02/04/19 22:02 CT angio chest PE protocol Stat 02/05/19 01:17 US venous doppler LE BI Urgent 02/05/19 10:23 US gallbladder Routine Hospital Course (1) Pulmonary embolism: -Elevated d-dimer 950 -CTA chest: 2 small segmental emboli in RUL region -changed from heparin drip to Lovenox -Per pharmacy given elevated BMI of 60 pt may be a better candidate for warfarin vs. NOAC as effectiveness easier to measure - warfarin started 02/06 - will have recheck on 02/08 at the Coumadin clinic -venous doppler lower extremities negative (2) Chest pain: -midscapular back pain, "heart burn like" chest pain, abnormal stress test in 10/2018 and trop of 0.024. No EKG changes noted. Midscapular pain with RUQ tenderness - will get gallbladder US -troponin 0.028, 0.016 -Stress echo 10/2018: basal inferior wall hypokinesis following exercise at 80% of MPHR, EF 60-65%, moderate L atrial dilation - Repeat echo without WMA, EF 65% -CTA chest: moderate cardiomegaly, mild dilated central pulm artery - cardiology consulted - increased nitrate, no indication for cath at this time, continue ASA, statin, atenolol (3) Esophageal reflux: continue home ppi (4) HTN (hypertension): (5) CAD (coronary artery disease): -Continue home atenolol, lisinopril, lasix Q2d, aspirin and lipitor, increased imdur as above (6) SHAKEEL (obstructive sleep apnea): (7) Pulmonary hypertension: continue home lasix (8) Hepatic steatosis: with hepatomegally, as seen on ultrasound. Nutritional counseling provided. Welder/Fitter consulted. Follow with outpatient provider. (9) DVT prophylaxis: Heparin gtt, coumadin Total Time Total Time Spent Total Time Spent (In Minutes): greater than 30 minutes Discharge Plan Discharge Items Patient Disposition: Home - Self-Care Reason For Visit: PE Discharge Diagnosis: PE Discharge Goals: Improve disease control Activity: Resume your previous activity Activity Comment: gradually as tolerated Non-emergency contact: Primary Care Provider Call non-emergency contact if: you have any medication questions and your symptoms worsen Follow-up/Referrals: [facility] [Provider Group] - 02/08/19 11:00 am (Please, follow up at [facility] on February 08 at 11:00 am. *This clinic is located at the rear of this advanced [facility]. You will park behind the hospital in [address] and enter via [facility]. If you have any questions, call the clinic at [phone].) Saul Villasenor III, MD [Primary Care Provider] - 02/15/19 1:50 pm (Please, follow up with Dr. Villaseonr on February 15 at 1:50 pm. *If you need to change this appointment, call the office at [phone].) Diet: Heart Healthy Addtl Provider Instructions: Please have your INR checked at the coumadin clinic on 02/08. Your primary care appointment is above. Please also see your the cardiology office within the next week or two. You will be sent home with an anticoagulant called Coumadin. You should call your doctor right away if you fall or hit your head, if you see blood in your stool or black tarry stools, if you develop little red spots on your skin (petechiae), or if you develop excessive bruising. You may bleed more easily. Be careful and avoid injury. Use a soft toothbrush and an electric razor. Do not to take any [id number] pain medicine except Tylenol (including aspirin, ibuprofen, Motrin, Aleve, Advil, naproxen, diclofenac sodium, oral Voltaren, also not allowed to take fish oil as all these medications increase your incidence of bleeding) You can take Tylenol as needed for pain but not more than 3000 mg per day as a total dose (that is the maximum of 6 tablet, 500 mg each, divided throughout the day) , if you take more than the total of 3000 mg of Tylenol throughout the day you may damage your liver. Prescriptions: New enoxaparin [Lovenox] 120 mg/0.8 mL Syringe 120 mg subcut BID 4 Days Qty: 6.4 RF: 1 warfarin 5 mg tablet 5 mg PO DAILY Qty: 30 RF: 0 albuterol sulfate [Ventolin HFA] 90 mcg/actuation Hfa Aerosol Inhaler 2 puff Inhalation Q4H PRN (Reason: shortness of breath) Qty: 1 RF: 0 Continued atorvastatin [Lipitor] 40 mg tablet 40 mg PO DAILY RF: 0 atenolol [Tenormin] 100 mg tablet 50 mg PO DAILY RF: 0 lisinopril 20 mg tablet 20 mg PO DAILY RF: 0 omeprazole 40 mg capsule,delayed release(DR/EC) 40 mg PO DAILY RF: 0 furosemide [Lasix] 20 mg tablet 20 mg PO Q OTHER DAY RF: 0 fluticasone propion-salmeterol [Advair Diskus] 250-50 mcg/dose blister with device 1 puff Inhalation BID RF: 0 aspirin [Aspir-81] 81 mg Tablet,Delayed Release (Dr/Ec) 81 mg PO DAILY RF: 0 acetaminophen [Tylenol Extra Strength] 500 mg Tablet 1,000 mg PO Q6H PRN (Reason: Pain) RF: 0 potassium citrate 10 mEq (1,080 mg) Tablet Extended Release 10 meq PO QAM RF: 0 cholecalciferol (vitamin D3) [Vitamin D3] 2,000 unit Tablet 2,000 unit PO DAILY RF: 0 Changed isosorbide mononitrate 30 mg tablet extended release 24 hr 60 mg PO DAILY Qty: 0 RF: 0 Stand-Alone Forms: [facility]/Other Patient Handouts: Warfarin Sodium Oral tablet Discharge Orders: Discharge Order (Routine); Ordered 02/06/19 Ordered By: Brittany Stevenson Admission Data Admit Date/Time: 02/05/19 00:43 Attending Provider: Eddie Mancuso Admit Provider: Praveen Ty Primary Care Provider: Saul Villasenor III Other Providers: Praveen Ty ; Reynold Fiore Service: Telemetry
[2019-02-06] MEDS ORDERED: WARFARIN SOD 5 MG TAB PO SCH (16:00)
== END 2019-02-06 15:24 | disposition home or self-care (01) | DRG 176 ==
LOC: ED 20:18 → SUATTDRO 02-05 00:43 → 2S 02-05 00:43

== ENCOUNTER 2020-01-07 12:50 | Inpatient (IN) ==
[2020-01-07] MEDS ORDERED: ACETAMINOPHEN 1,000 MG/100 ML VIAL IV STA (13:26)
[2020-01-07] MEDS ORDERED: MoRPHine SULFATE 10 MG/ML CARP/VIAL IV STA (13:26)
[2020-01-07] MEDS ORDERED: SODIUM CHLORIDE 0.9% 1000ML 1,000 ML IV ONE (13:26)
[2020-01-07 13:41] LABS: Basophils # (auto) 0.03 K/uL (0-0.2); Basophils % (auto) 0.2 %; Eosinophils # (auto) 0.17 K/uL (0-0.5); Eosinophils % (auto) 1.3 %; Hematocrit (blood only) 38.2 % (37-47); Hemoglobin 11.7 g/dL (12.0-16.0); Immature Granulocytes # (auto) 0.04 K/uL (0.00-0.02); Immature Granulocytes % (auto) 0.3 %; Lymphocytes # (auto) 1.74 K/uL (1.2-3.4); Lymphocytes % (auto) 13.4 %; Mean Corpuscular Hemoglobin 27.6 pg (25-34); Mean Corpuscular Hgb Conc 30.6 g/dL (32-36); Mean Corpuscular Volume 90.1 fL (80-100); Mean Platelet Volume 10.6 fL (7.4-10.4); Monocytes # (auto) 0.73 K/uL (0.11-0.59); Monocytes % (auto) 5.6 %; Neutrophils % (auto) 79.2 %; Platelet Count 320 K/uL (130-400); RDW Coefficient of Variation 15.5 % (11.5-14.5); RDW Standard Deviation 50.5 fL (36.4-46.3); Red Blood Count 4.24 M/uL (4.2-5.4); White Blood Count 13.01 K/uL (4.8-10.8)
[2020-01-07] MEDS ORDERED: ONDANSETRON INJ 2 MG/ML 2 ML VIAL ONE (13:46)
[2020-01-07 13:52] LABS: Albumin Level 3.3 gm/dl (3.4-5.0); BUN Creatinine Ratio 18.9 (10-20); Calcium 9.2 mg/dl (8.5-10.1); Creatinine Clr Calc Pharmacy 92.8 ml/min; Est GFR (African American) 90.7; Est GFR (Non-African American) 78.2; Potassium 4.1 mmol/L (3.5-5.1)
[2020-01-07 13:55] LABS: Albumin Globulin Ratio 0.8 (0.9-2); Bilirubin,Total 0.5 mg/dl (0.2-1); Globulin 4.3 gm/dl (2.5-4.0); Total Protein 7.6 gm/dl (6.4-8.2)
[2020-01-07 14:04] LABS: Appearance Urine Cloudy (Clear); Bacteria Urine Automated Negative (Negative); Blood Urine 3+ (Negative); Color Urine Dark Yellow; Epithelial Cell Urine Auto >30 /lpf (0-5); Glucose Urine UA Negative (Negative); Ketones Urine Negative (Negative); Leukocyte Esterase Urine 1+ (Negative); Nitrite Urine Positive (Negative); Protein Urine 2+ (Negative); RBC Urine Automated >30 /hpf (0-4); Specific Gravity Urine 1.022 (1.000-1.030); Urobilinogen Urine Negative (Negative)
[2020-01-07] MEDS ORDERED: IOVERSOL 100ml IV PRN (14:15)
[2020-01-07 14:16] LABS: Bilirubin Urine Negative (Negative); Ictotest Urine Negative (Negative)
--- NOTE | 2020-01-07 14:35 | CT Scan Report ---
CT SCAN OF THE ABDOMEN AND PELVIS WITH IV CONTRAST CLINICAL HISTORY: Right flank pain status post ureteral stent removal. COMPARISON STUDY: Abdominal CT dated 12/13/2019. TECHNIQUE: Following the IV administration of 93 cc of Optiray 320, CT scan of the abdomen and pelvi s is performed from the lung bases to the proximal femora. Images are reviewed in the axial, sagittal , and coronal planes. IV contrast was administered without complication. A dose lowering technique wa s utilized adhering to the principles of ALARA. CT DOSE: 1867.71 mGy.cm FINDINGS: Lung bases: The heart is normal in size and without pericardial effusion. The lung bases are clear. T here is a small hiatal hernia. Liver: The contrast-enhanced liver is enlarged, measuring 18.6 cm in length. The liver demonstrates d iminished attenuation consistent with hepatic steatosis. There is no intrahepatic biliary ductal dila tation. The hepatic veins and portal veins are patent. A 12 mm cyst is noted in the left lobe. Gallbladder: Unremarkable. Spleen: Normal in size and attenuation. Pancreas: Unremarkable. Adrenal glands: Unremarkable. Kidneys: The contrast enhanced kidneys are normal in size. There is moderate right hydronephrosis. Ur othelial thickening is identified within the right renal pelvis and the right ureter, with associated right-sided perinephric and periureteric inflammation. There are numerous (at least 7) small nonobst ructing right renal calculi which measure up to 4 mm. No right ureteral stone is seen. There are nume tony (at least 8) nonobstructing left or a calculi which measure up to 11 mm. The right kidney enhanc es heterogeneously. Scattered subcentimeter cortical hypodensities likely represent cysts but are too small for definitive characterization. Abdominal vasculature: The abdominal aorta is normal in course and caliber noting scattered foci of a therosclerotic calcification. Bowel: There is mild to moderate colonic diverticulosis without CT evidence of acute diverticulitis. Mild fecal retention is noted in the colon. No bowel obstruction is seen. The appendix is well-visua lized and normal. Peritoneum: There is no intraperitoneal free air or abdominal ascites. Lymphadenopathy: None. Pelvic viscera: Intraluminal gas within the bladder is likely related to recent instrumentation. The bladder is otherwise normal in appearance. The uterus is surgically absent. No adnexal lesion is seen . Skeletal structures: There is mild lumbosacral spondylosis. No lytic or blastic lesions are seen. Scl erotic change is noted in the sacroiliac joints. IMPRESSION: 1. There is moderate right-sided hydronephrosis, possibly related to edema from recent instrumentatio n. No obstructing calculus is seen. 2. There is significant urothelial thickening seen in the right renal pelvis and the right ureter wit h associated perinephric and periureteric stranding. There is also heterogeneous enhancement of the r ight kidney. Again, this may be related to recent instrumentation/obstruction. Correlate clinically a nd with urinalysis for evidence of superimposed urinary tract infection. 3. There are numerous bilateral nonobstructing renal calculi. 4. Hepatomegaly and hepatic steatosis. 5. Mild to moderate colonic diverticulosis without CT evidence of acute diverticulitis. 6. Additional findings as above. ACT 112: Negative or not required by law. Electronically signed by: Jean Barboza M.D. 01/07/2020 2:34 PM
[2020-01-07] MEDS ORDERED: KETOROLAC TROMETHAMINE 15 MG/ML VIAL IV STA (17:13)
[2020-01-07] MEDS ORDERED: lamoTRIgine 100 MG TAB PO STA (18:26)
[2020-01-07] MEDS ORDERED: TOPIRAMATE 100 MG TAB PO STA (18:26)
[2020-01-07] MEDS ORDERED: levETIRAcetam 500 MG TAB PO STA (18:28)
[2020-01-07] MEDS ORDERED: INFLUENZA ADMINISTRATION CHARGE ONE (19:04)
[2020-01-07] MEDS ORDERED: INFLUENZA VIRUS QUAD VACCINE 0.5 ML SYR IM ONE (19:04)
--- NOTE | 2020-01-07 19:19 | History & Physical Report ---
Date of Service January 07, 2020 Assessment & Plan (1) Hydronephrosis: Admit to PCU on telemetry, CT abdomen and pelvis significant for moderate right-sided hydronephrosis, possibly related to edema from the recent instrumentation. No obstructing calculus is seen. There is significant urothelial thickening seen in the right renal pelvis and right ureter with associated perinephritic periureteric stranding. There is also heterogeneous enhancement of the right kidney. Again this may be related to recent instrumentation/obstruction. Correlate clinically and with urine analysis for evidence of superimposed urinary tract infection. There are numerous bilateral nonobstructing renal calculi. Hepatomegaly and hepatic steatosis. Mild to moderate colonic diverticulosis without CT evidence of acute diverticulitis. Vital signs every 4 hours, Pain management with Percocet and Toradol, Started empirically ceftriaxone 2 g IV for urinary tract infection and based on the previous cultures, Urine culture pending, Continue monitoring, Consider consulting urology if no improvement in the morning. DVT prophylaxis SCDs and teds since patient has blood in urine, Full code Present on Admission?: Yes (2) History of removal of ureteral stent: As discussed above Present on Admission?: Yes (3) Intractable abdominal pain: Pain management and as discussed above. Present on Admission?: Yes (4) Nephrolithiasis: Pain management and as discussed above. Continue potassium citrate 10 meq p.o. every morning, ascorbic acid 1 g p.o. daily. Consider consulting urology if no improvement in a.m. Present on Admission?: Yes (5) Hepatic steatosis: Patient advised to do lifestyle modification diet and exercises. Weight loss of 10 to 20 pounds would help to decrease hepatic steatosis and overall her health. Present on Admission?: Yes (6) HTN (hypertension): Stable. Continue home medicine. Aspirin 81 mg p.o. every morning, furosemide 20mg p.o. q. other day, isosorbide mononitrate 60 mg p.o. every morning, lisinopril 20 mg p.o. every morning, nitroglycerin 0.4 mg every 5 minutes as needed,Atenolol 50 mg p.o. every morning. Present on Admission?: Yes (7) SHAKEEL (obstructive sleep apnea): May use her own CPAP. Present on Admission?: Yes (8) Pulmonary hypertension: Stable at this time patient is not on medicine for pulmonary hypertension. Present on Admission?: Yes (9) Asthma: Stable, continue home medicine albuterol sulfate HFA 2 puffs every 4 hours as needed. Present on Admission?: Yes (10) Morbid obesity: As discussed above. Present on Admission?: Yes History of Present Illness Chief Complaint: Right-sided flank pain Primary Care Provider: SABRINA Young The patient is a 49 years old female with past medical history of asthma, pulmonary hypertension, obstructive sleep apnea, a ureteral stent removal today, morbid obesity, hepatic steatosis, nephrolithiasis, who presents to the emergency room for evaluation of constant severe right-sided abdominal pain that began 4 days ago. The patient states that she had a stent placed on 24 December which was removed at 10 AM today. Patient states that that the pain began 4 da ys ago and the pain continued throughout the removal procedure. Patient reports that pain is now worse. The patient notes after the removal the pain was so bad that she vomited on the way home from the procedure and once at home she took pain medication which did not help so she came back to the emergency room. The patient states that since the removal she is urinating blood with clots. Bridgette jasso reports a history of kidney stones with 4 prior stent placements and surgery to remove stones. The patient denies fever, chills, chest pain, shortness of breath, abdominal pain, frequency or urgency. The labs are reviewed: WBC is 13.01, hemoglobin 11.7, hematocrit 38.2, platelets 320, sodium 139, potassium 4.1, chloride 106, carbon dioxide 29, anion gap 4, BUN 17, creatinine 0.87, GFR 78.2, glucose 106, A1c pending, lactate 1,Calcium 9.2, AST 17, ALT 44, alkaline phosphatase 86, BNP 164, total protein 7.6, Albumin 3.3, globulin 4.3, lipase 108, procalcitonin 0.05, TSH 0.73. The urine appears cloudy, 2+ protein, 3+ blood, 1+ leukocyte esterase, positive urine nitrate, 10-30 WBCs, over 30 RBCs, over 30 epithelial cells, negative for urine bacteria. The decision was made to admit patient to PCU on telemetry for for observation for urinary tract infection, intractable pain, and bradycardia. EKG pending. Allergies Allergy/AdvReac Type Severity Reaction Status Date / Time oxycodone AdvReac Unknown ANXIETY, Verified 01/07/20 15:43 INSOMNIA, NAUSEA Home Medications Home Medications Medication Instructions Recorded Confirmed Type aspirin [Aspir-81] 81 mg PO QAM 02/04/19 01/07/20 History atorvastatin [Lipitor] 40 mg PO HS 02/04/19 01/07/20 History albuterol sulfate [Ventolin HFA] 2 puff INHALATION Q4H PRN #1 btl 02/06/19 01/07/20 Rx omeprazole 40 mg capsule,delayed 40 mg PO DAILY PRN 03/06/19 01/07/20 History release furosemide 20 mg tablet 20 mg PO Q OTHER DAY 04/05/19 01/07/20 History potassium citrate 10 mEq (1,080 10 meq PO QAM tab 06/28/19 01/07/20 History mg) tablet,extended release nitroglycerin 0.4 mg sublingual 0.4 mg SL Q5M PRN #25 tab 07/19/19 01/07/20 History tablet duloxetine 30 mg PO QAM 10/30/19 01/07/20 History cyanocobalamin (vitamin B-12) 3,000 mcg PO DAILY 11/05/19 01/07/20 History ascorbic acid (vitamin C) 1,000 mg 1 gm PO DAILY tab 12/14/19 01/07/20 History tablet atenolol 50 mg tablet 50 mg PO QAM 12/14/19 01/07/20 History cholecalciferol (vitamin D3) 125 125 mcg PO DAILY 12/14/19 01/07/20 History mcg (5,000 unit) capsule lisinopril 20 mg PO QAM 12/18/19 01/07/20 History oxybutynin chloride 5 mg tablet 5 mg PO BID PRN #60 tab 12/30/19 01/07/20 Rx fluticasone 250 mcg-salmeterol 50 1 puffs INHALATION BID #60 ea 01/02/20 01/07/20 Rx mcg/dose blistr powdr for inhalation ciprofloxacin HCl 500 mg PO BID #14 tab 01/04/20 01/07/20 Rx hydrocodone-acetaminophen 1 tab PO UD PRN 01/07/20 01/07/20 History ibuprofen [Motrin IB] 600 mg PO Q6H PRN 01/07/20 01/07/20 History isosorbide mononitrate 60 mg PO QAM 01/07/20 01/07/20 History ondansetron 4 mg PO Q8H PRN 01/07/20 01/07/20 History Past Med/Surg History Medical History Asthma (Chronic) Mild to moderate restriction per PFTs 2016. Following with Dr. Hankins for this and SHAKEEL, most recent office visit 07/2019. CAD (coronary artery disease) Presumed based on abnormal stress echo 10/23/18 showing basal inferior wall HK. Being medically managed by cardiology. Esophageal reflux (Chronic 04/23/13) Extreme obesity BMI 61.8 Hepatic steatosis (Chronic) Hypertension Kidney stone (Acute) Osteoarthritis Pulmonary embolism 02/05/2019, treated at [facility]. Completed coumadin therapy 08/2019. Etiology of PE unknown. Sleep apnea CPAP Surgical History Family history of reaction to anesthesia BROTHER - "SLOW TO WAKE UP" History of 2 sections History of adenoidectomy History of bilateral tubal ligation History of colonoscopy History of cystoscopy History of esophagogastroduodenoscopy (EGD) History of herniorrhaphy ABDOMINAL X 2 History of knee replacement RIGHT AND LEFT History of lithotripsy History of nasal septoplasty History of tonsillectomy S/P laparoscopic assisted vaginal hysterectomy (LAVH) HX OF Family History Grandmother Family hx of colon cancer Other Diabetes Heart disease Hypertension Social History Preferred Language: Kazakh Communication Ability: Effective Sample Coordinator Required: No Beliefs That Will Affect Care: None Current Living Situation: Spouse Other Information That Helps Us Care for You: No Feels Safe at Home: Yes Safety Concerns: Feels Safe At This Time Smoking Status: Never smoker Second Hand Exposure: Yes (as a child) ; Hx Alcohol Use: No Hx Substance Use: No Review of Systems Review of Systems: All systems reviewed & are unremarkable except as noted in HPI & below Physical Exam Constitutional: WD/WN, vitals as above well developed and + morbidly obese Eyes: PERRL, conjunctivae normal, anicteric sclerae ENMT: external ear and nose normal, oropharynx normal Neck: trachea midline, no thyromegaly Respiratory: normal respiratory effort, lungs clear to auscultation Cardiovascular: Rate/Rhythm: + bradycardic Heart Sounds: normal S1 and normal S2 Vessels: dorsalis pedis pulses present Gastrointestinal (Abdomen): normal bowel sounds, soft, nontender, no hepatosplenomegaly Musculoskeletal: no cyanosis or clubbing, extremities motor strength 5/5 Skin: no rashes, warm and dry Neurologic: patellar DTR's 2+ bilat, sensation intact Psychiatric: A+Ox3, euthymic affect Lymphatic: no cervical or axillary lymphadenopathy Results & Data Vital Signs (Past 12 Hours) Vital Signs Temp Pulse Pulse Resp BP BP Pulse Ox 01/07/20 18:00 56 L 18 121/74 97 01/07/20 16:00 80 18 118/79 97 01/07/20 14:37 82 19 108/50 L 97 01/07/20 13:27 97 01/07/20 12:55 36.8 C 55 L 18 161/62 H 96 Code Status & VTE Plan Code Status Full code VTE Prophylaxis Plan VTE Prophylaxis will be ordered: Yes PG Care Time/CCT Total # of Minutes Spent Total Time Spent with Patient: Total time spent is greater than 50% in coordination of care (as documented) at patient's floor/unit and/or counseling patient: Coding Level of Care Code 85897 Initial Inpt Care Lvl 3 Diagnoses Hydronephrosis N13.30 Hydronephrosis type: unspecified History of removal of ureteral stent Z98.890 Intractable abdominal pain R10.9 Nephrolithiasis N20.0 Hepatic steatosis K76.0 HTN (hypertension) I10 SHAKEEL (obstructive sleep apnea) G47.33 Pulmonary hypertension I27.20 Asthma J45.909 Morbid obesity E66.01 (1) Hydronephrosis Hydronephrosis type: unspecified Qualified Code(s): N13.30 - Unspecified hydronephrosis
[2020-01-07] MEDS ORDERED: SODIUM CHLORIDE 0.9% 1000ML 1,000 ML IV SCH (19:57)
[2020-01-07] MEDS ORDERED: MAGNESIUM HYDROXIDE SUSP 30 ML UDC PO PRN (19:57)
[2020-01-07] MEDS ORDERED: POLYETHYLENE (MIRALAX) 17 GM PACK PO PRN (19:57)
[2020-01-07] MEDS ORDERED: ALUMINUM/MAGNESIUM SUSP 30 ML UDC PO PRN (19:57)
[2020-01-07] MEDS ORDERED: NITROGLYCERIN SL 0.4 MG/TAB TAB SL PRN (19:57)
[2020-01-07] MEDS ORDERED: ACETAMINOPHEN 325 MG TAB PO PRN (19:57)
[2020-01-07] MEDS ORDERED: KETOROLAC 30 MG/ML VIAL IV PRN (19:57)
[2020-01-07] MEDS ORDERED: IBUPROFEN 600 MG TAB PO PRN (19:57)
[2020-01-07] MEDS ORDERED: ONDANSETRON INJ 2 MG/ML 2 ML VIAL IV PRN (19:57)
[2020-01-07] MEDS ORDERED: OXYBUTYNIN CHLORIDE 5 MG TAB PO PRN (19:57)
[2020-01-07] MEDS ORDERED: ONDANSETRON 4 MG OD TAB PO PRN (20:36)
[2020-01-07] MEDS ORDERED: ALBUTEROL HFA 8 GM INHALER INH PRN (20:37)
[2020-01-07] MEDS ORDERED: PANTOprazole 40 MG TAB PO PRN (20:38)
[2020-01-07] MEDS ORDERED: HYDROCODONE/ACETAMOPHEN 5/325MG TAB PO PRN (20:43)
[2020-01-07] MEDS ORDERED: ATORVASTATIN 40 MG TAB PO SCH (21:00)
[2020-01-07] MEDS ORDERED: cefTRIAXone SODIUM 2,000 MG in DEXTROSE 5% 50 ML IV SCH (21:00)
[2020-01-07 21:34] LABS: Thyroid Stimulating Hormone 0.73 uIu/ml (0.300-4.500)
--- NOTE | 2020-01-07 21:35 | Emergency Department Note ---
Entered by Octaviano Shirley acting as a scribe for Jorge Cornejo MD History of Present Illness General Chief complaint: Abdominal Pain Time Seen by Provider: 01/07/20 13:19 Source: patient History of Present Illness Provider complaint: abdominal pain Onset (ago): day(s) 4 Location: abdomen Radiation: non-radiation Severity: severe Pain Consistency: + constant Maximum Pain Intensity: 10 Relieved By: + none Exacerbated By: + other (kidney stent) Associated symptoms: + denies other symptoms The patient is a 49 y/o female who presents to the emergency department for evaluation of constant severe right sided abdominal pain that began 4 days ago. The patient states that she had a stent placed the 24 of December which was removed at 10 am today. She states that the pain began 4 days ago and the pain continued through the removal procedure but now the pain is getting worse. The patient notes after the removal the pain was so bad that she vomited on the way home from the procedure and once home she took pain medication which did not help so she was referred to the ED. The patient states that since the removal she is urinating blood with clots. She reports a history of kidney stones with 4 prior stent placements and surgery to remove stones. The patient denies vomiting and any other symptoms Home Medications Home Medications Medication Instructions Recorded Confirmed Type aspirin [Aspir-81] 81 mg PO QAM 02/04/19 01/07/20 History atorvastatin [Lipitor] 40 mg PO HS 02/04/19 01/07/20 History albuterol sulfate [Ventolin HFA] 2 puff INHALATION Q4H PRN #1 btl 02/06/19 01/07/20 Rx omeprazole 40 mg capsule,delayed 40 mg PO DAILY PRN 03/06/19 01/07/20 History release furosemide 20 mg tablet 20 mg PO Q OTHER DAY 04/05/19 01/07/20 History potassium citrate 10 mEq (1,080 10 meq PO QAM tab 06/28/19 01/07/20 History mg) tablet,extended release nitroglycerin 0.4 mg sublingual 0.4 mg SL Q5M PRN #25 tab 07/19/19 01/07/20 History tablet duloxetine 30 mg PO QAM 10/30/19 01/07/20 History cyanocobalamin (vitamin B-12) 3,000 mcg PO DAILY 11/05/19 01/07/20 History ascorbic acid (vitamin C) 1,000 mg 1 gm PO DAILY tab 12/14/19 01/07/20 History tablet atenolol 50 mg tablet 50 mg PO QAM 12/14/19 01/07/20 History cholecalciferol (vitamin D3) 125 125 mcg PO DAILY 12/14/19 01/07/20 History mcg (5,000 unit) capsule lisinopril 20 mg PO QAM 12/18/19 01/07/20 History oxybutynin chloride 5 mg tablet 5 mg PO BID PRN #60 tab 12/30/19 01/07/20 Rx fluticasone 250 mcg-salmeterol 50 1 puffs INHALATION BID #60 ea 01/02/20 01/07/20 Rx mcg/dose blistr powdr for inhalation ciprofloxacin HCl 500 mg PO BID #14 tab 01/04/20 01/07/20 Rx hydrocodone-acetaminophen 1 tab PO UD PRN 01/07/20 01/07/20 History ibuprofen [Motrin IB] 600 mg PO Q6H PRN 01/07/20 01/07/20 History isosorbide mononitrate 60 mg PO QAM 01/07/20 01/07/20 History ondansetron 4 mg PO Q8H PRN 01/07/20 01/07/20 History Allergies Allergy/AdvReac Type Severity Reaction Status Date / Time oxycodone AdvReac Unknown ANXIETY, Verified 01/07/20 15:43 INSOMNIA, NAUSEA Past Med/Surg History Medical History Asthma (Chronic) Mild to moderate restriction per PFTs 2016. Following with Dr. Hankins for this and SHAKEEL, most recent office visit 07/2019. CAD (coronary artery disease) Presumed based on abnormal stress echo 10/23/18 showing basal inferior wall HK. Being medically managed by cardiology. Esophageal reflux (Chronic 04/23/13) Extreme obesity BMI 61.8 Hepatic steatosis (Chronic) Hypertension Kidney stone (Acute) Osteoarthritis Pulmonary embolism 02/05/2019, treated at [facility]. Completed coumadin therapy 08/2019. Etiology of PE unknown. Sleep apnea CPAP Surgical History Family history of reaction to anesthesia BROTHER - "SLOW TO WAKE UP" History of 2 sections History of adenoidectomy History of bilateral tubal ligation History of colonoscopy History of cystoscopy History of esophagogastroduodenoscopy (EGD) History of herniorrhaphy ABDOMINAL X 2 History of knee replacement RIGHT AND LEFT History of lithotripsy History of nasal septoplasty History of tonsillectomy S/P laparoscopic assisted vaginal hysterectomy (LAVH) HX OF Family History Grandmother Family hx of colon cancer Other Diabetes Heart disease Hypertension Social History Preferred Language: Kosovan Communication Ability: Effective Renal Dialysis Rn Required: No Beliefs That Will Affect Care: None Current Living Situation: Spouse Other Information That Helps Us Care for You: No Feels Safe at Home: Yes Safety Concerns: Feels Safe At This Time Smoking Status: Never smoker Second Hand Exposure: Yes (as a child) ; Hx Alcohol Use: No Hx Substance Use: No Review of Systems See HPI for pertinent positives & negatives. and A total of 10 systems reviewed and were otherwise negative Physical Exam Vital Signs Vital Signs - 24 hr 01/07/20 12:55 01/07/20 13:27 01/07/20 14:37 Temperature 36.8 C Temperature Source Oral Pulse Rate 55 L Pulse Rate [Apical] 82 Pulse Rhythm [Apical] Respiratory Rate 18 19 Blood Pressure 161/62 H Blood Pressure [Left Arm] 108/50 L Blood Pressure Mean 95 Blood Pressure Mean [Left Arm] 69 Pulse Oximetry 96 97 97 Oxygen Delivery Method Room Air Room Air Room Air Sepsis Recent Fever Within 48 Hours No Sepsis New/Unexplained Change in Mental Status No Sepsis Action Taken by Nursing No Action Required 01/07/20 16:00 01/07/20 18:00 Temperature Temperature Source Pulse Rate Pulse Rate [Apical] 80 56 L Pulse Rhythm [Apical] Regular Respiratory Rate 18 18 Blood Pressure Blood Pressure [Left Arm] 118/79 121/74 Blood Pressure Mean Blood Pressure Mean [Left Arm] 92 89 Pulse Oximetry 97 97 Oxygen Delivery Method Room Air Room Air Sepsis Recent Fever Within 48 Hours Sepsis New/Unexplained Change in Mental Status Sepsis Action Taken by Nursing GENERAL: Uncomfortable appearing, BMI: 62. Awake, alert, in mild distress HENT: Normocephalic, atraumatic. Oropharynx with dry mucous membranes and otherwise unremarkable. EYES: Normal conjunctiva. Sclera non-icteric. NECK: Supple. No nuchal rigidity. FROM. No JVD. RESPIRATORY: Clear to auscultation bilaterally CARDIAC: Regular rate, normal rhythm. Extremities warm and well perfused. Pulses equal. ABDOMEN: Soft, non-distended. Mild right flank and lower right quadrant discomfort without discrete tenderness to palpation. No rebound or guarding. No masses. RECTAL: Deferred. MUSCULOSKELETAL: Chest examination reveals no tenderness. The back is symmetrical on inspection without obvious abnormality. There is no CVA tenderness to palpation. No joint edema. LOWER EXTREMITIES: Calves are equal size bilaterally and non-tender. No edema. No discoloration. NEURO: Normal sensorium. No sensory or motor deficits noted. SKIN: No rash or jaundice noted. Course Course 1320: Past medical records reviewed. The patient was evaluated in room C02A. A complete history and physical exam was performed. 1705: I checked on the patient and her pain is still not controlled. She is agreeable to admission. 1734: I spoke with [facility] Hospitalist. She will evaluate for further management Administered Medications Atorvastatin Calcium (Lipitor) 40 mg PO HS [facility] Stop: 02/06/20 20:59 Last Admin: 01/07/20 21:52 Dose: 40 mg Documented by: [id number] Duloxetine HCl (Cymbalta) 30 mg PO QAM [facility] Stop: 02/06/20 20:44 Last Admin: 01/07/20 21:53 Dose: Not Given Documented by: [id number] Furosemide (Lasix) 20 mg PO Q2D@0900 [facility] Stop: 02/06/20 21:59 Last Admin: 01/07/20 21:53 Dose: 20 mg Documented by: [id number] Ceftriaxone Sodium 2,000 mg/ (Dextrose) 70 mls @ 140 mls/hr IV Q24H PRABHA; P rotocol Stop: 01/17/20 20:59 Last Infusion: 01/07/20 21:36 Dose: 0 mls/hr Documented by: [id number] Admin: 01/07/20 21:06 Dose: 140 mls/hr Documented by: [id number] Sodium Chloride (Nss 1000ml) 1,000 mls @ 80 mls/hr IV .[id number] [facility] Stop: 02/06/20 19:56 Last Admin: 01/07/20 21:07 Dose: 80 mls/hr Documented by: [id number] Pantoprazole Sodium (Protonix) 40 mg PO DAILY PRN PRN Reason: DYSPEPSIA Stop: 02/06/20 20:37 Last Admin: 01/07/20 21:54 Dose: 40 mg Documented by: [id number] Discontinued Medications Sodium Chloride (Nss 1000ml) 1,000 mls @ 999 mls/hr IV .Q1H1M ONE Stop: 01/07/20 14:26 Last Infusion: 01/07/20 14:54 Dose: 0 mls/hr Documented by: [id number] Admin: 01/07/20 13:41 Dose: 999 mls/hr Documented by: [id number] Acetaminophen (Ofirmev) 1,000 mg in 100 mls @ 400 mls/hr IV NOW STA Stop: 01/07/20 13:40 Last Infusion: 01/07/20 14:07 Dose: 0 mls/hr Documented by: [id number] Admin: 01/07/20 13:37 Dose: 400 mls/hr Documented by: [id number] Ioversol (Optiray 320 100ml) 93 ml IV ONCE PRN PRN Reason: Interaction Checking Stop: 01/11/20 14:14 Last Admin: 01/07/20 14:15 Dose: 93 ml Documented by: [id number] Ketorolac Tromethamine (Toradol) 15 mg IV NOW STA Stop: 01/07/20 17:14 Last Admin: 01/07/20 18:13 Dose: 15 mg Documented by: [id number] Lamotrigine (Lamictal) 150 mg PO NOW STA Stop: 01/07/20 18:27 Last Admin: 01/07/20 18:58 Dose: Not Given Documented by: [id number] Levetiracetam (Keppra) 1,250 mg PO NOW STA Stop: 01/07/20 18:29 Last Admin: 01/07/20 18:58 Dose: Not Given Documented by: [id number] Morphine Sulfate (Morphine Sulfate) 8 mg IV NOW STA Stop: 01/07/20 13:27 Last Admin: 01/07/20 13:37 Dose: 8 mg Documented by: [id number] Ondansetron HCl (Zofran) Confirm Administered Dose 4 mg .ROUTE .STK-MED ONE Stop: 01/07/20 13:47 Last Admin: 01/07/20 14:40 Dose: 4 mg Documented by: [id number] Topiramate (Topamax) 200 mg PO NOW STA Stop: 01/07/20 18:27 Last Admin: 01/07/20 18:58 Dose: Not Given Documented by: [id number] Medical Decision Making Differential Diagnosis Differential diagnosis: Etiologies such as shingles, pyelonephritis/UTI, renal colic, appendicitis, diverticulitis, mesenteric ischemia, torsion, aortic pathology, infections, inflammatory bowel disease, bowel obstruction, PUD, biliary pathology, as well as others were entertained. Medical Records Attestation: I reviewed the patient's medical records. Home Medications Current Medication List: was personally reviewed by me Laboratory Data Attestation: I reviewed the patient's lab results. Result diagrams: 01/07/20 13:20 01/07/20 13:20 Lab Results 01/07/20 01/07/20 01/07/20 Range/Units 13:20 13:20 13:20 WBC 13.01 H (4.8-10.8) K/uL RBC 4.24 (4.2-5.4) M/uL Hgb 11.7 L (12.0-16.0) g/dL Hct 38.2 (37-47) % MCV 90.1 (80-100) fL MCH 27.6 (25-34) pg MCHC 30.6 L (32-36) g/dL RDW Std Deviation 50.5 H (36.4-46.3) fL RDW Coeff of Shay 15.5 H (11.5-14.5) % Plt Count 320 (130-400) K/uL MPV 10.6 H (7.4-10.4) fL Immature Gran % (Auto) 0.3 % Neut % (Auto) 79.2 % Lymph % (Auto) 13.4 % [place] % (Auto) 5.6 % Eos % (Auto) 1.3 % Baso % (Auto) 0.2 % Immature Gran # (Auto) 0.04 H (0.00-0.02) K/uL Neut # (Auto) 10.30 H (1.4-6.5) K/uL Lymph # (Auto) 1.74 (1.2-3.4) K/uL [place] # (Auto) 0.73 H (0.11-0.59) K/uL Eos # (Auto) 0.17 (0-0.5) K/uL Baso # (Auto) 0.03 (0-0.2) K/uL Sodium 139 (136-145) mmol/L Potassium 4.1 (3.5-5.1) mmol/L Chloride 106 (98-107) mmol/L Carbon Dioxide 29 (21-32) mmol/L Anion Gap 4.0 (3-11) BUN 17 (7-18) mg/dl Creatinine 0.87 (0.6-1.2) mg/dl Est Cr Clr Drug Dosing 92.8 ml/min Est GFR ( Amer) 90.7 Est GFR (Non-Af Amer) 78.2 BUN/Creatinine Ratio 18.9 (10-20) Glucose 106 H (70-99) mg/dl Lactate (0.4-2.0) mmol/L Calcium 9.2 (8.5-10.1) mg/dl Total Bilirubin 0.5 (0.2-1) mg/dl AST 17 (15-37) U/L ALT 44 (12-78) U/L Alkaline Phosphatase 86 (45-117) U/L NT-Pro-B Natriuret Pep (0-450) pg/ml Total Protein 7.6 (6.4-8.2) gm/dl Albumin 3.3 L (3.4-5.0) gm/dl Globulin 4.3 H (2.5-4.0) gm/dl Albumin/Globulin Ratio 0.8 L (0.9-2) Lipase 108 (73-393) U/L Procalcitonin (0-0.5) ng/ml TSH (0.300-4.500) uIu/ml Urine Color Dark Yellow Urine Appearance Cloudy A (Clear) Urine pH 6.0 (4.5-7.5) Ur Specific [place] 1.022 (1.000-1.030) Urine Protein 2+ H (Negative) Urine Glucose (UA) Negative (Negative) Urine Ketones Negative (Negative) Urine Blood 3+ H (Negative) Urine Nitrite Positive A (Negative) Urine Bilirubin Negative (Negative) Urine Urobilinogen Negative (Negative) Ur Leukocyte Esterase 1+ H (Negative) Urine WBC (Auto) 10-30 H (0-5) /hpf Urine RBC (Auto) >30 H (0-4) /hpf U Hyaline Cast (Auto) 1-5 (0-5) /lpf U Epithel Cells (Auto) >30 H (0-5) /lpf Urine Bacteria (Auto) Negative (Negative) 01/07/20 01/07/20 01/07/20 Range/Units 13:20 13:38 17:55 WBC (4.8-10.8) K/uL RBC (4.2-5.4) M/uL Hgb (12.0-16.0) g/dL Hct (37-47) % MCV (80-100) fL MCH (25-34) pg MCHC (32-36) g/dL RDW Std Deviation (36.4-46.3) fL RDW Coeff of Shay (11.5-14.5) % Plt Count (130-400) K/uL MPV (7.4-10.4) fL Immature Gran % (Auto) % Neut % (Auto) % Lymph % (Auto) % [place] % (Auto) % Eos % (Auto) % Baso % (Auto) % Immature Gran # (Auto) (0.00-0.02) K/uL Neut # (Auto) (1.4-6.5) K/uL Lymph # (Auto) (1.2-3.4) K/uL [place] # (Auto) (0.11-0.59) K/uL Eos # (Auto) (0-0.5) K/uL Baso # (Auto) (0-0.2) K/uL Sodium (136-145) mmol/L Potassium (3.5-5.1) mmol/L Chloride (98-107) mmol/L Carbon Dioxide (21-32) mmol/L Anion Gap (3-11) BUN (7-18) mg/dl Creatinine (0.6-1.2) mg/dl Est Cr Clr Drug Dosing ml/min Est GFR ( Amer) Est GFR (Non-Af Amer) BUN/Creatinine Ratio (10-20) Glucose (70-99) mg/dl Lactate 1.0 (0.4-2.0) mmol/L Calcium (8.5-10.1) mg/dl Total Bilirubin (0.2-1) mg/dl AST (15-37) U/L ALT (12-78) U/L Alkaline Phosphatase (45-117) U/L NT-Pro-B Natriuret Pep 164 (0-450) pg/ml Total Protein (6.4-8.2) gm/dl Albumin (3.4-5.0) gm/dl Globulin (2.5-4.0) gm/dl Albumin/Globulin Ratio (0.9-2) Lipase (73-393) U/L Procalcitonin < 0.05 (0-0.5) ng/ml TSH 0.730 (0.300-4.500) uIu/ml Urine Color Urine Appearance (Clear) Urine pH (4.5-7.5) Ur Specific [place] (1.000-1.030) Urine Protein (Negative) Urine Glucose (UA) (Negative) Urine Ketones (Negative) Urine Blood (Negative) Urine Nitrite (Negative) Urine Bilirubin (Negative) Urine Urobilinogen (Negative) Ur Leukocyte Esterase (Negative) Urine WBC (Auto) (0-5) /hpf Urine RBC (Auto) (0-4) /hpf U Hyaline Cast (Auto) (0-5) /lpf U Epithel Cells (Auto) (0-5) /lpf Urine Bacteria (Auto) (Negative) Imaging Data Radiologist's Impression: Radiology results as stated below per my review and the radiologist's interpretation: CT SCAN OF THE ABDOMEN AND PELVIS WITH IV CONTRAST CLINICAL HISTORY: Right flank pain status post ureteral stent removal. COMPARISON STUDY: Abdominal CT dated 12/13/2019. TECHNIQUE: Following the IV administration of 93 cc of Optiray 320, CT scan of the abdomen and pelvis is performed from the lung bases to the proximal femora. Images are reviewed in the axial, sagittal, and coronal planes. IV contrast was administered without complication. A dose lowering technique was utilized adhering to the principles of ALARA. CT DOSE: 1867.71 mGy.cm FINDINGS: Lung bases: The heart is normal in size and without pericardial effusion. The lung bases are clear. There is a small hiatal hernia. Liver: The contrast-enhanced liver is enlarged, measuring 18.6 cm in length. The liver demonstrates diminished attenuation consistent with hepatic steatosis. There is no intrahepatic biliary ductal dilatation. The hepatic veins and portal veins are patent. A 12 mm cyst is noted in the left lobe. Gallbladder: Unremarkable. Spleen: Normal in size and attenuation. Pancreas: Unremarkable. Adrenal glands: Unremarkable. Kidneys: The contrast enhanced kidneys are normal in size. There is moderate right hydronephrosis. Urothelial thickening is identified within the right renal pelvis and the right ureter, with associated right-sided perinephric and periureteric inflammation. There are numerous (at least 7) small nonobstructing right renal calculi which measure up to 4 mm. No right ureteral stone is seen. T here are numerous (at least 8) nonobstructing left or a calculi which measure up to 11 mm. The right kidney enhances heterogeneously. Scattered subcentimeter cortical hypodensities likely represent cysts but are too small for definitive characterization. Abdominal vasculature: The abdominal aorta is normal in course and caliber noting scattered foci of atherosclerotic calcification. Bowel: There is mild to moderate colonic diverticulosis without CT evidence of acute diverticulitis. Mild fecal retention is noted in the colon. No bowel obstruction is seen. The appendix is well-visualized and normal. Peritoneum: There is no intraperitoneal free air or abdominal ascites. Lymphadenopathy: None. Pelvic viscera: Intraluminal gas within the bladder is likely related to recent instrumentation. The bladder is otherwise normal in appearance. The uterus is surgically absent. No adnexal lesion is seen. Skeletal structures: There is mild lumbosacral spondylosis. No lytic or blastic lesions are seen. Sclerotic change is noted in the sacroiliac joints. IMPRESSION: 1. There is moderate right-sided hydronephrosis, possibly related to edema from recent instrumentation. No obstructing calculus is seen. 2. There is significant urothelial thickening seen in the right renal pelvis and the right ureter with associated perinephric and periureteric stranding. There is also heterogeneous enhancement of the right kidney. Again, this may be related to recent instrumentation/obstruction. Correlate clinically and with urinalysis for evidence of superimposed urinary tract infection. 3. There are numerous bilateral nonobstructing renal calculi. 4. Hepatomegaly and hepatic steatosis. 5. Mild to moderate colonic diverticulosis without CT evidence of acute diverticulitis. 6. Additional findings as above. ACT 112: Negative or not required by law. Electronically signed by: Jean Barboza M.D. 01/07/2020 2:34 PM Blood Pressure Blood Pressure Findings: Normal blood pressure MDM Narrative The patient is a pleasant 49-year-old woman with a past medical history of recurrent renal stones who presents emergency department with right flank pain in setting of having ureteral stent removed today which was placed last week for obstructing ureteral stone per HPI. Patient reports she is on ciprofloxacin after her procedure. She reports her pain has been ongoing even while the stent was in place and then worsened as she got home today per HPI. On arrival the patient is no acute distress, afebrile stable vital signs. On exam patient has mild right flank and right lower quadrant abdominal discomfort without discrete tenderness. WBC 13, nonspecific. H/H 11.7/30.2 approximate 2 prior range of values. Platelets within normal limits. Chemistry without acidosis. Electrolytes and LFTs unremarkable. Lactate 1.0 within normal limits. UA with positive nitrites, leukoesterase, WBCs and RBCs albeit with epithelial cells. Patient is already on ciprofloxacin status post stent removal. CT abdomen pelvis was performed and demonstrates inflammatory changes in mild hydronephrosis that are likely related to the patient's recent stent placement and removal today. UA does have WBCs and bacteria albeit with epithelial cells. Patient was reevaluated after IV fluid hydration, APAP and morphine. She was improved appearing however she reports her pain still persisted and was confid ent that she would not be able to continue to have her pain controlled at home as her oral medications have not been helpful over the past week. Thus, we agreed to proceed with admission for pain control. While the patient's CT findings certainly could be related to her recent stent for her obstructing stone and less likely to represent an acute urinary infection given that she has been on Cipro, blood cultures were drawn. Will defer additional antibiotics to admitting team. Case was discussed with Dr. Soto, [facility] hospitalist, who evaluate the patient for admission. Impression & Plan Hydronephrosis, History of removal of ureteral stent, Intractable abdominal pain, Leukocytosis Discharge Plan Visit Data *Final* Discharge Date/Time: 01/07/20 19:20 Chief Complaint: Abdominal Pain ED Provider: Jorge Cornejo Discharge Problem: Hydronephrosis, History of removal of ureteral stent, Intractable abdominal pain, Leukocytosis Patient Disposition: Admitted As Inpatient Discharge Instructions Interventions: ED Discharge Assessment Last Done: 01/07/20 19:20 Discharge Problem: Hydronephrosis Qualifiers: Hydronephrosis type: unspecified Qualified Code(s): N13.30 - Unspecified hydronephrosis The scribe's documentation has been prepared under my direction and personally reviewed by me in its entirety. I confirm that the note above accurately reflects all work, treatment, procedures, and medical decision making performed by me.
[2020-01-07] MEDS: DULOXETINE HCL 30 MG CAP PO SCH (21:53)
[2020-01-07] MEDS ORDERED: FUROSEMIDE 20 MG TAB PO SCH (22:00)
[2020-01-08 06:50] LABS: Estimated Average Glucose 137 mg/dl; Hemoglobin A1C 6.4 % (4.5-5.6)
[2020-01-08 07:04] LABS: Basophils # (auto) 0.02 K/uL (0-0.2); Basophils % (auto) 0.3 %; Eosinophils # (auto) 0.23 K/uL (0-0.5); Eosinophils % (auto) 3.2 %; Hematocrit (blood only) 34.7 % (37-47); Hemoglobin 10.5 g/dL (12.0-16.0); Immature Granulocytes # (auto) 0.04 K/uL (0.00-0.02); Immature Granulocytes % (auto) 0.6 %; Lymphocytes # (auto) 1.77 K/uL (1.2-3.4); Lymphocytes % (auto) 24.7 %; Mean Corpuscular Hemoglobin 27.3 pg (25-34); Mean Corpuscular Hgb Conc 30.3 g/dL (32-36); Mean Corpuscular Volume 90.1 fL (80-100); Mean Platelet Volume 10.5 fL (7.4-10.4); Monocytes # (auto) 0.61 K/uL (0.11-0.59); Monocytes % (auto) 8.5 %; Neutrophils % (auto) 62.7 %; Platelet Count 252 K/uL (130-400); RDW Coefficient of Variation 15.9 % (11.5-14.5); RDW Standard Deviation 52.4 fL (36.4-46.3); Red Blood Count 3.85 M/uL (4.2-5.4); White Blood Count 7.17 K/uL (4.8-10.8)
[2020-01-08] MEDS ORDERED: PERFLUTREN LIPID MICROSPHERE (DEFINITY) IV ONE (07:23)
[2020-01-08 07:42] LABS: Albumin Level 2.8 gm/dl (3.4-5.0); BUN Creatinine Ratio 20.8 (10-20); Calcium 8.2 mg/dl (8.5-10.1); Creatinine Clr Calc Pharmacy 118.1 ml/min; Est GFR (Non-African American) 102.7; Potassium 3.8 mmol/L (3.5-5.1)
[2020-01-08 07:51] LABS: Albumin Globulin Ratio 0.8 (0.9-2); Bilirubin,Total 0.6 mg/dl (0.2-1); Globulin 3.4 gm/dl (2.5-4.0); Total Protein 6.2 gm/dl (6.4-8.2)
[2020-01-08] MEDS: DULOXETINE HCL 30 MG CAP PO SCH (08:43)
[2020-01-08] MEDS ORDERED: ATENOLOL 50 MG TABLET PO SCH (09:00)
[2020-01-08] MEDS ORDERED: CHOLECALCIFEROL 1,000 UNITS 25 MCG TAB PO SCH (09:00)
[2020-01-08] MEDS ORDERED: lisinopriL 20 MG TAB PO SCH (09:00)
[2020-01-08] MEDS ORDERED: CYANOCOBALAMIN 500 MCG TABLET (VITAMIN B-12) PO SCH (09:00)
[2020-01-08] MEDS ORDERED: FLUTICASONE/VILANTEROL 200/25MCG 14 PUFFS/INHALER INH SCH (09:00)
[2020-01-08] MEDS ORDERED: POTASSIUM CITRATE 10 MEQ TAB PO SCH (09:00)
[2020-01-08] MEDS ORDERED: levETIRAcetam 500 MG TAB PO SCH (09:00)
[2020-01-08] MEDS ORDERED: ASCORBIC ACID 500 MG TAB PO SCH (09:00)
[2020-01-08] MEDS ORDERED: ASPIRIN 81 MG ECTAB PO SCH (09:00)
[2020-01-08] MEDS ORDERED: FUROSEMIDE 20 MG TAB PO SCH (09:00)
[2020-01-08] MEDS ORDERED: OXYBUTYNIN CHLORIDE 5 MG TAB PO SCH (09:00)
[2020-01-08] MEDS ORDERED: ISOSORBIDE MONO EXTENDED REL 60 MG TABCR PO SCH (09:00)
--- NOTE | 2020-01-08 10:33 | Cardiology Consultation ---
Date of Consultation January 08, 2020 Assessment & Plan (1) CAD (coronary artery disease): Presumed based on her abnormal stress test performed 2018. However, she has been effectively treated with long-acting nitrates. No current symptoms suggestive of angina or coronary insufficiency. No indication for repeat testing or additional intervention. She can continue aggressive secondary prevention with aspirin and atorvastatin. (2) Bradycardia: Patient does have an element of bradycardia. This appears to be sinus bradycardia. Of she is on atenolol both for its antihypertensive effect and antianginal effect. She did not appear to be symptomatic with respect to heart rates. She did not report symptoms of exercise intolerance or dizziness. She does have obstructive sleep apnea and this may contribute to some lower heartbeats, however, we did not see the typical ectopy or arrhythmias associated with obstructive sleep apnea. Review of her sleep study performed in March of 2019 also did not reveal any evidence of arrhythmia. I do not believe her relatively low heart rates are a clinical issue. Do not believe she requires any alteration in her medical therapy. She may have had some transiently lower heart rates in association with her abdominal discomfort and retching yesterday. This is purely related to higher vagal tone at that time. This would be situational and not indicative of underlying disease. No additional evaluation in the absence of recurrent or more severe symptoms. History of Present Illness Reason for Consultation: Bradycardia Requesting Physician: Janna Attending Physician: Kirby Saldivar MD History of Present Illness The patient is a 49-year-old woman with a history of pulmonary embolus an abnormal stress test to recently underwent removal of a ureteral stent. Subsequent to the procedure the patient had significant abdominal discomfort and presented to the emergency room for evaluation. She was noted to be somewhat bradycardic and was admitted to the telemetry floor for observation. Patient states that during her initial evaluation prior to admission she was experiencing some nausea and retching. He stated during 1 episode of retching she did feel presyncopal. Otherwise, she has not had symptoms of dizziness or lightheadedness. She cannot recall ever suffering an episode of syncope. In the past she has had some exertional angina did undergo outpatient stress testing which was abnormal. Patient was started on medical therapy at that time with resolution of her symptoms. She continues to take long-acting nitrates without recurrent symptoms of chest discomfort. Prior to her recent medical events she maintained a reasonable level of activity. 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 She has not report limiting dyspnea or symptoms of chest pain with activity. She generally is not aware of palpitations. As noted above she has not had significant dizziness or syncope. She is currently feeling much better. It seems that her pain issues have been addressed. She had some mild nausea earlier this morning was able to tolerate breakfast is currently feeling well. Allergies Allergy/AdvReac Type Severity Reaction Status Date / Time oxycodone AdvReac Unknown ANXIETY, Verified 01/07/20 15:43 INSOMNIA, NAUSEA Home Medications Home Medications Medication Instructions Recorded Confirmed Type aspirin [Aspir-81] 81 mg PO QAM 02/04/19 01/07/20 History atorvastatin [Lipitor] 40 mg PO HS 02/04/19 01/07/20 History albuterol sulfate [Ventolin HFA] 2 puff INHALATION Q4H PRN #1 btl 02/06/19 01/07/20 Rx omeprazole 40 mg capsule,delayed 40 mg PO DAILY PRN 03/06/19 01/07/20 History release furosemide 20 mg tablet 20 mg PO Q OTHER DAY 04/05/19 01/07/20 History potassium citrate 10 mEq (1,080 10 meq PO QAM tab 06/28/19 01/07/20 History mg) tablet,extended release nitroglycerin 0.4 mg sublingual 0.4 mg SL Q5M PRN #25 tab 07/19/19 01/07/20 History tablet duloxetine 30 mg PO QAM 10/30/19 01/07/20 History cyanocobalamin (vitamin B-12) 3,000 mcg PO DAILY 11/05/19 01/07/20 History ascorbic acid (vitamin C) 1,000 mg 1 gm PO DAILY tab 12/14/19 01/07/20 History tablet atenolol 50 mg tablet 50 mg PO QAM 12/14/19 01/07/20 History cholecalciferol (vitamin D3) 125 125 mcg PO DAILY 12/14/19 01/07/20 History mcg (5,000 unit) capsule lisinopril 20 mg PO QAM 12/18/19 01/07/20 History oxybutynin chloride 5 mg tablet 5 mg PO BID PRN #60 tab 12/30/19 01/07/20 Rx fluticasone 250 mcg-salmeterol 50 1 puffs INHALATION BID #60 ea 01/02/20 01/07/20 Rx mcg/dose blistr powdr for inhalation ciprofloxacin HCl 500 mg PO BID #14 tab 01/04/20 01/07/20 Rx hydrocodone-acetaminophen 1 tab PO UD PRN 01/07/20 01/07/20 History ibuprofen [Motrin IB] 600 mg PO Q6H PRN 01/07/20 01/07/20 History isosorbide mononitrate 60 mg PO QAM 01/07/20 01/07/20 History ondansetron 4 mg PO Q8H PRN 01/07/20 01/07/20 History Patient History Medical History Asthma (Chronic) Mild to moderate restriction per PFTs 2016. Following with Dr. Hankins for this and SHAKEEL, most recent office visit 07/2019. CAD (coronary artery disease) Presumed based on abnormal stress echo 10/23/18 showing basal inferior wall HK. Being medically managed by cardiology. Esophageal reflux (Chronic 04/23/13) Extreme obesity BMI 61.8 Hepatic steatosis (Chronic) Hypertension Kidney stone (Acute) Osteoarthritis Pulmonary embolism 02/05/2019, treated at [facility]. Completed coumadin therapy 08/2019. Etiology of PE unknown. Sleep apnea CPAP Surgical History Family history of reaction to anesthesia BROTHER - "SLOW TO WAKE UP" History of 2 sections History of adenoidectomy History of bilateral tubal ligation History of colonoscopy History of cystoscopy History of esophagogastroduodenoscopy (EGD) History of herniorrhaphy ABDOMINAL X 2 History of knee replacement RIGHT AND LEFT History of lithotripsy History of nasal septoplasty History of tonsillectomy S/P laparoscopic assisted vaginal hysterectomy (LAVH) HX OF Family History Grandmother Family hx of colon cancer Other Diabetes Heart disease Hypertension Social History Preferred Language: [place] Communication Ability: 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 Mood affect appear normal. She answered all questions appropriately. Obese HEENT: Sclerae are anicteric. Pupils are equal and reactive to light and accommodation. Extraocular movements were intact. Neuro: Cranial nerves intact Neck: Examination of the submandibular region did not reveal any significant lymphadenopathy. Carotids are palpable bilaterally and free of bruits on auscultation. There was no evidence of jugular venous distention. The thyroid was not enlarged. Lungs: Lungs are clear to auscultation bilaterally. There are no rales wheezes or rhonchi. She has normal respiratory effort without use of accessory muscles. There is normal pulmonary excursion. Cardiac: The rhythm was regular. S1 and S2 were normal. There are no murmurs on examination. The PMI was not markedly displaced on palpation. Abdomen: The abdomen was soft and nontender. Extremities: Patient has bilateral radial pulses that are equal in intensity. There is no evidence cyanosis or clubbing. There was no evidence of significant peripheral edema bilaterally. Skin: There are no rashes noted on examination today. Results & Data ([facility]) Vital Signs (Past 12 Hours) Vital Signs Temp Pulse Pulse Resp BP Pulse Ox 01/08/20 07:55 36.5 C 54 L 18 151/77 H 95 01/08/20 04:00 36.7 C 43 L 19 125/65 91 01/08/20 00:30 81 16 96 01/08/20 00:00 52 L 01/07/20 23:37 36.6 C 51 L 18 112/48 L 91 Laboratory Results Abnormal Lab Results 01/07/20 01/07/20 01/07/20 13:20 13:20 13:20 WBC 13.01 H RBC 4.24 Hgb 11.7 L Hct 38.2 MCV 90.1 MCH 27.6 MCHC 30.6 L RDW Std Deviation 50.5 H RDW Coeff of Shay 15.5 H Plt Count 320 MPV 10.6 H Immature Gran % (Auto) 0.3 Neut % (Auto) 79.2 Lymph % (Auto) 13.4 [place] % (Auto) 5.6 Eos % (Auto) 1.3 Baso % (Auto) 0.2 Immature Gran # (Auto) 0.04 H Neut # (Auto) 10.30 H Lymph # (Auto) 1.74 [place] # (Auto) 0.73 H Eos # (Auto) 0.17 Baso # (Auto) 0.03 Sodium 139 Potassium 4.1 Chloride 106 Carbon Dioxide 29 Anion Gap 4.0 BUN 17 Creatinine 0.87 Est Cr Clr Drug Dosing 92.8 Est GFR ( Amer) 90.7 Est GFR (Non-Af Amer) 78.2 BUN/Creatinine Ratio 18.9 Glucose 106 H Estimat Average Glucose Hemoglobin A1c Lactate Calcium 9.2 Total Bilirubin 0.5 AST 17 ALT 44 Alkaline Phosphatase 86 NT-Pro-B Natriuret Pep Total Protein 7.6 Albumin 3.3 L Globulin 4.3 H Albumin/Globulin Ratio 0.8 L Triglycerides Cholesterol LDL Cholesterol, Calc VLDL Cholesterol, Calc HDL Cholesterol Cholesterol/HDL Ratio Lipase 108 Procalcitonin TSH Urine Color Dark Yellow Urine Appearance Cloudy A Urine pH 6.0 Ur Specific [place] 1.022 Urine Protein 2+ H Urine Glucose (UA) Negative Urine Ketones Negative Urine Blood 3+ H Urine Nitrite Positive A Urine Bilirubin Negative Urine Urobilinogen Negative Ur Leukocyte Esterase 1+ H Urine WBC (Auto) 10-30 H Urine RBC (Auto) >30 H U Hyaline Cast (Auto) 1-5 U Epithel Cells (Auto) >30 H Urine Bacteria (Auto) Negative 01/07/20 01/07/20 01/07/20 13:20 13:20 13:38 WBC RBC Hgb Hct MCV MCH MCHC RDW Std Deviation RDW Coeff of [place]ay Plt Count MPV Immature Gran % (Auto) Neut % (Auto) Lymph % (Auto) [place] % (Auto) Eos % (Auto) Baso % (Auto) Immature Gran # (Auto) Neut # (Auto) Lymph # (Auto) [place] # (Auto) Eos # (Auto) Baso # (Auto) Sodium Potassium Chloride Carbon Dioxide Anion Gap BUN Creatinine Est Cr Clr Drug Dosing Est GFR ( Amer) Est GFR (Non-Af Amer) BUN/Creatinine Ratio Glucose Estimat Average Glucose 137 Hemoglobin A1c 6.4 H Lactate Calcium Total Bilirubin AST ALT Alkaline Phosphatase NT-Pro-B Natriuret Pep 164 Total Protein Albumin Globulin Albumin/Globulin Ratio Triglycerides Cholesterol LDL Cholesterol, Calc VLDL Cholesterol, Calc HDL Cholesterol Cholesterol/HDL Ratio Lipase Procalcitonin < 0.05 TSH 0.730 Urine Color Urine Appearance Urine pH Ur Specific [place] Urine Protein Urine Glucose (UA) Urine Ketones Urine Blood Urine Nitrite Urine Bilirubin Urine Urobilinogen Ur Leukocyte Esterase Urine WBC (Auto) Urine RBC (Auto) U Hyaline Cast (Auto) U Epithel Cells (Auto) Urine Bacteria (Auto) 01/07/20 01/08/20 01/08/20 17:55 06:38 06:38 WBC 7.17 RBC 3.85 L Hgb 10.5 L Hct 34.7 L MCV 90.1 MCH 27.3 MCHC 30.3 L RDW Std Deviation 52.4 H RDW Coeff of Shay 15.9 H Plt Count 252 MPV 10.5 H Immature Gran % (Auto) 0.6 Neut % (Auto) 62.7 Lymph % (Auto) 24.7 [place] % (Auto) 8.5 Eos % (Auto) 3.2 Baso % (Auto) 0.3 Immature Gran # (Auto) 0.04 H Neut # (Auto) 4.50 Lymph # (Auto) 1.77 [place] # (Auto) 0.61 H Eos # (Auto) 0.23 Baso # (Auto) 0.02 Sodium 142 Potassium 3.8 Chloride 111 H Carbon Dioxide 28 Anion Gap 3.0 BUN 14 Creatinine 0.68 Est Cr Clr Drug Dosing 118.1 Est GFR ( Amer) 119.0 Est GFR (Non-Af Amer) 102.7 BUN/Creatinine Ratio 20.8 H Glucose 97 Estimat Average Glucose Hemoglobin A1c Lactate 1.0 Calcium 8.2 L Total Bilirubin 0.6 AST 14 L ALT 36 Alkaline Phosphatase 72 NT-Pro-B Natriuret Pep Total Protein 6.2 L Albumin 2.8 L Globulin 3.4 Albumin/Globulin Ratio 0.8 L Triglycerides 63 Cholesterol 112 LDL Cholesterol, Calc 43 VLDL Cholesterol, Calc 13 HDL Cholesterol 56 Cholesterol/HDL Ratio 2 Lipase Procalcitonin TSH Urine Color Urine Appearance Urine pH Ur Specific [place] Urine Protein Urine Glucose (UA) Urine Ketones Urine Blood Urine Nitrite Urine Bilirubin Urine Urobilinogen Ur Leukocyte Esterase Urine WBC (Auto) Urine RBC (Auto) U Hyaline Cast (Auto) U Epithel Cells (Auto) Urine Bacteria (Auto) Diagnostic Findings Stress echocardiogram performed 10/23/2018: Inducible inferior wall hypokinesis. Normal LV systolic function. No significant valvular abnormalities. Echocardiogram performed 02/05/2019: Normal PG Care Time/CCT Total # of Minutes Spent Total Time Spent with Patient: Total time spent is greater than 50% in co ordination of care (as documented) at patient's floor/unit and/or counseling patient: Coding Level of Care Code 53960 Office/OBS Consult Lvl 4 Diagnoses CAD (coronary artery disease) I25.10 Bradycardia R00.1
[2020-01-08] MEDS ORDERED: KETOROLAC TROMETHAMINE 10 MG TABLET PO PRN (15:20)
--- NOTE | 2020-01-08 15:25 | XCELERA ---
[id number] \\[id number]
[2020-01-08] MEDS ORDERED: cefTRIAXone SODIUM 2,000 MG in DEXTROSE 5% 50 ML IV SCH (18:00)
--- NOTE | 2020-01-08 18:07 | Discharge Summary ---
Date of Service January 08, 2020 Admission HPI Per Admitting Provider The patient is a 49 years old female with past medical history of asthma, pulmonary hypertension, obstructive sleep apnea, a ureteral stent removal today, morbid obesity, hepatic steatosis, nephrolithiasis, who presents to the emergency room for evaluation of constant severe right-sided abdominal pain that began 4 days ago. The patient states that she had a stent placed on 24 December which was removed at 10 AM today. Patient states that that the pain began 4 days ago and the pain continued throughout the removal procedure. Patient reports that pain is now worse. The patient notes after the removal the pain w as so bad that she vomited on the way home from the procedure and once at home she took pain medication which did not help so she came back to the emergency room. The patient states that since the removal she is urinating blood with clots. Patient reports a history of kidney stones with 4 prior stent placements and surgery to remove stones. The patient denies fever, chills, chest pain, shortness of breath, abdominal pain, frequency or urgency. The labs are reviewed: WBC is 13.01, hemoglobin 11.7, hematocrit 38.2, platelets 320, sodium 139, potassium 4.1, chloride 106, carbon dioxide 29, anion gap 4, BUN 17, creatinine 0.87, GFR 78.2, glucose 106, A1c pending, lactate 1,Calcium 9.2, AST 17, ALT 44, alkaline phosphatase 86, BNP 164, total protein 7.6, Albumin 3.3, globulin 4.3, lipase 108, procalcitonin 0.05, TSH 0.73. The urine appears cloudy, 2+ protein, 3+ blood, 1+ leukocyte esterase, positive urine nitrate, 10- 30 WBCs, over 30 RBCs, over 30 epithelial cells, negative for urine bacteria. The decision was made to admit patient to PCU on telemetry for for observation for urinary tract infection, intractable pain, and bradycardia. EKG pending. Discharge Data Allergies Allergy/AdvReac Type Severity Reaction Status Date / Time oxycodone AdvReac Unknown ANXIETY, Verified 01/07/20 15:43 INSOMNIA, NAUSEA Consultations 01/07/20 17:13 ED Decision to Admit Stat 01/07/20 19:57 Consult Cardiology Routine Ordered Studies 01/07/20 13:26 CT abd pelvis IV con only Stat Hospital Course (1) Hydronephrosis: Admit to PCU on telemetry, CT abdomen and pelvis significant for moderate right-sided hydronephrosis, possibly related to edema from the recent instrumentation. No obstructing calculus is seen. There is significant urothelial thickening seen in the right renal pelvis and right ureter with associated perinephritic periureteric stranding. There is also heterogeneous enhancement of the right kidney. Again this may be related to recent instrumentation/obstruction. Correlate clinically and with urine analysis for evidence of superimposed urinary tract infection. There are numerous bilateral nonobstructing renal calculi. Hepatomegaly and hepatic steatosis. Mild to moderate colonic diverticulosis without CT evidence of acute diverticulitis. Vital signs every 4 hours, Pain management with Percocet and Toradol, Started empirically ceftriaxone 2 g IV for urinary tract infection and based on the previous cultures, Urine culture pending, Continue monitoring, Consider consulting urology if no improvement in the morning. DVT prophylaxis SCDs and teds since patient has blood in urine, Full code (2) History of removal of ureteral stent: As discussed above (3) Intractable abdominal pain: Pain management and as discussed above. (4) Nephrolithiasis: Pain management and as discussed above. Continue potassium citrate 10 meq p.o. every morning, ascorbic acid 1 g p.o. daily. Consider consulting urology if no improvement in a.m. (5) Hepatic steatosis: Patient advised to do lifestyle modification diet and exercises. Weight loss of 10 to 20 pounds would help to decrease hepatic steatosis and overall her health. (6) HTN (hypertension): Stable. Continue home medicine. Aspirin 81 mg p.o. every morning, furosemide 20mg p.o. q. other day, isosorbide mononitrate 60 mg p.o. every morning, lisinopril 20 mg p.o. every morning, nitroglycerin 0.4 mg every 5 minutes as needed,Atenolol 50 mg p.o. every morning. (7) SHAKEEL (obstructive sleep apnea): May use her own CPAP. (8) Pulmonary hypertension: Stable at this time patient is not on medicine for pulmonary hypertension. (9) Asthma: Stable, continue home medicine albuterol sulfate HFA 2 puffs every 4 hours as needed. (10) Morbid obesity: As discussed above. Discharge Plan Discharge Items Patient Disposition: Home - Self-Care Reason For Visit: UTI, INTRACTIBLE PAIN, BRADYCARDIA Discharge Diagnosis: Urine tract infection - complicated Activity: Resume your previous activity Non-emergency contact: Urologist Call non-emergency contact if: you have any medication questions, your symptoms worsen and your temperature is above 101 Follow-up/Referrals: Tita Barbosa CRNP [Primary Care Provider] - Diet: Heart Healthy Addtl Attending Provider Instructions: You were admitted overnight from January 06 to 2019 due to right flank pain. Given elevated white blood count, improvement overnight with antibiotics and previous positive urine culture from January 04 suspect your symptoms are in part due to a urine tract infection. In light of recent stent placement and right sided flank pain will treat this as pyelonephritis (kidney infection) although it is difficult to truly ascertain whether imaging changes and your pain is from the stent irritation or infection. Recommend continuing antibiotics (ciprofloxacin) as previously prescribed for a total course of 14 days. For pain you are prescribed Toradol (ketorolac) to take as needed. DO NOT TAKE THIS MEDICATION WITH IBUPROFEN OR OTHER OVER THE COUNTER PAIN MEDICATION OTHER THAN ACETAMINOPHEN (TYLENOL). Please take your omeprazole daily while on this medication or other non-steroidal anti-inflammatories such as ibuprofen to reduce the risk of a gastric ulcer. You can continue on ibuprofen as needed after the ketorolac. You can continue to take [place] in addition to Ketorolac or ibuprofen. Take ondansetron as previously prescribed as needed for nausea. Take oxybutynin as previously prescribed as needed for spasms (recommend taking regularly for the next 2 days). Follow up with urology as previously planned. Your bradycardia (slow heart rate) was reviewed by cardiology and recommended continuing on the same dose of atenolol since you were not having any symptoms related to this. Your echocardiogram was normal. If you notice lightheadedness or fatigue this may be related to your slow heart rate and recommend discussing possible reduction in atenolol with your primary care physician. Pending Studies at Discharge: Yes (urine culture) Stand-Alone Forms: [facility] VSS Monitoring, Work/School Release (Inpt), Smoking Cessation Medications and DC Order Prescriptions: New ketorolac 10 mg tablet 10 mg PO Q6H PRN (Reason: pain) Qty: 10 RF: 0 Continued furosemide [Lasix] 20 mg tablet 20 mg PO Q OTHER DAY RF: 0 oxybutynin chloride 5 mg tablet 5 mg PO BID PRN (Reason: bladder spasms) Qty: 60 RF: 0 nitroglycerin 0.4 mg tablet, sublingual 0.4 mg SL Q5M PRN (Reason: Chest Pain) Qty: 25 RF: 0 atenolol [Tenormin] 50 mg tablet 50 mg PO QAM RF: 0 cholecalciferol (vitamin D3) 125 mcg (5,000 unit) capsule 125 mcg PO DAILY RF: 0 ascorbic acid (vitamin C) 1,000 mg tablet 1 gm PO DAILY RF: 0 fluticasone propion-salmeterol [Advair Diskus] 250-50 mcg/dose blister with device 1 puffs Inhalation BID Qty: 60 RF: 1 duloxetine 30 mg capsule,delayed release(DR/EC) 30 mg PO QAM RF: 0 cyanocobalamin (vitamin B-12) 1,000 mcg Tablet 3,000 mcg PO DAILY RF: 0 lisinopril 20 mg tablet 20 mg PO QAM RF: 0 hydrocodone-acetaminophen 5-325 mg tablet 1 tab PO UD PRN (Reason: Pain) RF: 0 isosorbide mononitrate 60 mg tablet extended release 24 hr 60 mg PO QAM RF: 0 ibuprofen [Motrin IB] 200 mg Tablet 600 mg PO Q6H PRN (Reason: Pain) RF: 0 ondansetron 4 mg Tablet,Disintegrating 4 mg PO Q8H PRN (Reason: Nausea) RF: 0 atorvastatin [Lipitor] 40 mg tablet 40 mg PO HS RF: 0 aspirin [Aspir-81] 81 mg Tablet,Delayed Release (Dr/Ec) 81 mg PO QAM RF: 0 albuterol sulfate [Ventolin HFA] 90 mcg/actuation Hfa Aerosol Inhaler 2 puff Inhalation Q4H PRN (Reason: shortness of breath) Qty: 1 RF: 0 omeprazole 40 mg capsule,delayed release(DR/EC) 40 mg PO DAILY PRN (Reason: dyspepsia) RF: 0 potassium citrate 10 mEq (1,080 mg) tablet extended release 10 meq PO QAM RF: 0 ciprofloxacin HCl 500 mg tablet 500 mg PO BID Qty: 14 RF: 0 Discharge Orders: Discharge Order (Routine); Ordered 01/08/20 Ordered By: Kirby Moore/Other Patient Handouts: A1C Admission Data Admit Date/Time: 01/07/20 19:02 Attending Provider: Kirby Saldivar Admit Provider: Umm Soto Primary Care Provider: Tita Barbosa Other Providers: Umm Soto ; Juan Antonio Chau Coding Diagnoses Hydronephrosis N13.30 Hydronephrosis type: unspecified History of removal of ureteral stent Z98.890 Intractable abdominal pain R10.9 Nephrolithiasis N20.0 Hepatic steatosis K76.0 HTN (hypertension) I10 SHAKEEL (obstructive sleep apnea) G47.33 Pulmonary hypertension I27.20 Asthma J45.909 Morbid obesity E66.01
[2020-01-09] MEDS ORDERED: ATENOLOL 25 MG TABLET PO SCH (09:00)
[2020-01-09] MEDS ORDERED: PANTOprazole 40 MG TAB PO SCH (09:00)
== END 2020-01-08 18:53 | disposition home or self-care (01) | DRG 699 ==
LOC: ED 12:50 → 2S 19:02 → SUATTDRO 19:02 → 2S 19:20

== ENCOUNTER 2020-07-16 10:37 | Observation (INO) ==
--- NOTE | 2020-06-25 16:17 | PAT Medication Instructions ---
Medication Instructions Date of Service June 25, 2020 Home Medications Medication Instructions Recorded albuterol sulfate [Ventolin HFA] 2 puff INHALATION Q4H PRN #1 btl 02/06/19 fluticasone 250 mcg-salmeterol 50 1 puffs INHALATION BID 90 Days #60 01/31/20 mcg/dose blistr powdr for ea inhalation atenolol 50 mg tablet 50 mg PO QAM #90 tab 02/04/20 atorvastatin 40 mg tablet 40 mg PO HS #90 tab 02/11/20 lisinopril 20 mg tablet 20 mg PO QAM #90 tab 02/19/20 isosorbide mononitrate 120 mg 120 mg PO QAM #90 tab 04/11/20 tablet,extended release 24 hr potassium citrate 10 mEq (1,080 10 meq PO BID 90 Days #180 tab 04/22/20 mg) tablet,extended release aspirin [Aspir-81] 81 mg PO QAM albuterol sulfate [Ventolin HFA] 2 puff INHALATION Q4H PRN nitroglycerin 0.4 mg sublingual tablet 0.4 mg SL Q5M PRN duloxetine 30 mg PO QAM ascorbic acid (vitamin C) 1,000 mg tablet 1 gm PO QAM cholecalciferol (vitamin D3) 125 mcg (5,000 unit) capsule 125 mcg PO QAM fluticasone 250 mcg-salmeterol 50 mcg/dose blistr powdr for inhalation 1 puffs INHALATION BID atenolol 50 mg tablet 50 mg PO QAM atorvastatin 40 mg tablet 40 mg PO HS lisinopril 20 mg tablet 20 mg PO QAM cyanocobalamin (vitamin B-12) 1,000 mcg tablet 1,000 mcg PO QAM isosorbide mononitrate 120 mg tablet,extended release 24 hr 120 mg PO QAM potassium citrate 10 mEq (1,080 mg) tablet,extended release 10 meq PO BID furosemide [Lasix] 40 mg PO PM omeprazole 40 mg PO QAM Continue as directed nitroglycerin 0.4 mg sublingual tablet 0.4 mg SL Q5M PRN (if needed) DO NOT take the morning of surgery ascorbic acid (vitamin C) 1,000 mg tablet 1 gm PO QAM cholecalciferol (vitamin D3) 125 mcg (5,000 unit) capsule 125 mcg PO QAM lisinopril 20 mg tablet 20 mg PO QAM cyanocobalamin (vitamin B-12) 1,000 mcg tablet 1,000 mcg PO QAM potassium citrate 10 mEq (1,080 mg) tablet,extended release 10 meq PO BID Take morning of surgery With a small sip of water, OTHERWISE NOTHING TO EAT OR DRINK AFTER MIDNIGHT: aspirin [Aspir-81] 81 mg PO QAM albuterol sulfate [Ventolin HFA] 2 puff INHALATION Q4H PRN (use if needed; please bring with you to hospital day of surgery if possible) duloxetine 30 mg PO QAM fluticasone 250 mcg-salmeterol 50 mcg/dose blistr powdr for inhalation 1 puffs INHALATION BID atenolol 50 mg tablet 50 mg PO QAM isosorbide mononitrate 120 mg tablet,extended release 24 hr 120 mg PO QAM omeprazole 40 mg PO QAM Take evening before surgery albuterol sulfate [Ventolin HFA] 2 puff INHALATION Q4H PRN (if needed) fluticasone 250 mcg-salmeterol 50 mcg/dose blistr powdr for inhalation 1 puffs INHALATION BID atorvastatin 40 mg tablet 40 mg PO HS potassium citrate 10 mEq (1,080 mg) tablet,extended release 10 meq PO BID furosemide [Lasix] 40 mg PO PM Other Notes If you have any questions please call us at [phone] or [phone] or [phone] or [phone]
--- NOTE | 2020-06-26 15:18 | Anesthesiology Consultation ---
Date of Service June 26, 2020 Assessment & Plan (1) Encounter for pre-operative examination: Chart Review Chart Review: Pending: Refer to Additional Notes / Consult section (pending surgeon ordered cardio clearance scheduled 07/02/preop Covid testing results ) and Patient seen in Pre Admission Testing -Seeing cardio 07/02 for surgeon ordered clearance Per PAT appt 06/26/20, patient denies any recent travel in the past two weeks. Pt's family member lives in assisted living center- visits every two weeks. Hx of Covid positive patients at assisted living center in May but no positive Covid patients >2 weeks. Pt's family member tested weekly- tested Covid negative each time. Did encouraged patient to avoid assisted living center x 2 weeks p rior to sx. Educated patient to follow up with surgeon's office regarding Covid testing. Educated on importance of self quarantining, social distancing and wearing mask in public both for the patient and household contacts. Telemedicine visit with heart failure clinic 05/28/2020 = patient seems to be stable. Symptoms are improving. Continue with Lasix 40 mg daily kidney function electrolytes are stable. Continue with daily weights. OSAcontinue with CPAP. Obesity/deconditioningcould be contributing factor to her dyspnea. Diet exercise recommended. Hypertensionlongstanding. Continue current medications. Cysto, gamal, stone extraction 12/24/19= Grade 1 view with Bazzi #3 under [facility]. ETT 7.5 Cysto, laser litho 11/26/19= Done under [facility] with Grade 1 view with MAC #3. ETT 7.0. Teaching & Discussion Pre-Anesthesia Teaching/Discussion Notes: Instructed NPO after midnight before surgery,except medications with 15 cc of water. Medication instructions provided according to the PAT guidelines. History Surgery Operation Date: 07/16/20 08:40 Proposed Procedures p Right Shoulder Arthroscopy with Distal Clavicle Excision, Subacromial Decompression, Debride Partial Rotator Cuff Tear, Needle Barbotage, Excision Calcific Deposit, Possible Repair Rotator Cuff with Regeneten Biological Implant - Mikie Prince MD Height/Weight Height: 4 ft 9 in Weight: 126.5 kg Allergies Allergy/AdvReac Type Severity Reaction Status Date / Time oxycodone AdvReac Unknown ANXIETY, Verified 06/24/20 13:40 INSOMNIA, NAUSEA Medications Home Medications Medication Instructions Recorded Confirmed Last Taken aspirin [Aspir-81] 81 mg PO QAM 02/04/19 06/24/20 04/28/20 0500 albuterol sulfate [Ventolin HFA] 2 puff INHALATION Q4H PRN #1 btl 02/06/19 06/24/20 12/24/19 06:00 nitroglycerin 0.4 mg sublingual 0.4 mg SL Q5M PRN #25 tab 07/19/19 06/24/20 Unknown tablet duloxetine 30 mg PO QAM 10/30/19 06/24/20 01/07/20 ascorbic acid (vitamin C) 1,000 mg 1 gm PO QAM tab 12/14/19 06/24/20 01/07/20 tablet cholecalciferol (vitamin D3) 125 125 mcg PO QAM 12/14/19 06/24/20 01/07/20 mcg (5,000 unit) capsule fluticasone 250 mcg-salmeterol 50 1 puffs INHALATION BID 90 Days #60 01/31/20 06/24/20 Unknown mcg/dose blistr powdr for ea inhalation atenolol 50 mg tablet 50 mg PO QAM #90 tab 02/04/20 06/24/20 Unknown atorvastatin 40 mg tablet 40 mg PO HS #90 tab 02/11/20 06/24/20 Unknown lisinopril 20 mg tablet 20 mg PO QAM #90 tab 02/19/20 06/24/20 Unknown cyanocobalamin (vitamin B-12) 1,000 mcg PO QAM tab 04/11/20 06/24/20 Unknown 1,000 mcg tablet isosorbide mononitrate 120 mg 120 mg PO QAM #90 tab 04/11/20 06/24/20 Unknown tablet,extended release 24 hr potassium citrate 10 mEq (1,080 10 meq PO BID 90 Days #180 tab 04/22/20 06/24/20 Unknown mg) tablet,extended release furosemide [Lasix] 40 mg PO PM 06/24/20 06/24/20 Unknown omeprazole 40 mg PO QAM 06/24/20 06/24/20 Unknown Past Medical History Medical History Acid reflux Well controlled and stable Asthma Mild to moderate restriction per PFTs 2016. Well controlled and stable at this time per patient Congestive heart failure currently on lasix Hepatic steatosis Noted on CT scan - incidental finding- no history of elevated LFTs Hypertension Irritable bowel disease Stable at this time Kidney stone currently has large stones on left side--to have ESWL in future Morbid obesity SHAKEEL (obstructive sleep apnea) cpap Pulmonary embolism 02/05/2019, treated at [facility]. Completed coumadin therapy 08/2019. Etiology of PE unknown. Has been off Coumadin since 08/2019- no issues Pulmonary hypertension Moderate pulm HTN- noted on recent cath- improved breathing since on diuretic Exercise / Class Metabolic Activity II 4-5 Yardwork/Stairs/Walk up hill (one flight of stairs - no chest pain or SOB) Past Family History Family History Grandmother Family hx of colon cancer Colorectal cancer Father Myocardial infarction Grandfather (Maternal) Coronary heart disease Mother Tobacco use Emphysema, unspecified Other Diabetes Heart disease Hypertension Past Surgical History Surgical History Family history of reaction to anesthesia BROTHER - "SLOW TO WAKE UP" History of 2 sections History of adenoidectomy History of bilateral tubal ligation History of cardiac cath No CAD noted on April 2020 cath History of colonoscopy History of cystoscopy History of esophagogastroduodenoscopy (EGD) History of herniorrhaphy ABDOMINAL X 2 History of knee replacement RIGHT AND LEFT History of lithotripsy x3 History of nasal septoplasty History of tonsillectomy S/P laparoscopic assisted vaginal hysterectomy (LAVH) HX OF Past Anesthesia History No Hx of Anesthesia Complications and No Family Hx of Anesthesia Complications (with exception to brother- groggy post op- no reintubation or ICU stay ) History of PONV No Hx of PONV and No Hx of Motion Sickness Social History Smoking Status: Never smoker Hx Alcohol Use: Yes Alcohol type: wine alcohol intake frequency: holidays/special occasions only Hx Substance Use: No substance use type: does not use Review of Systems Occ reflux- diet dependent- relieved with OTC tums Patient denies chest pain, shortness of breath, dyspnea on exertion, cough, wheezing, palpitations. No hx of seizures, stroke, VA. No hx of blood transfusions Physical Exam Vital Signs VITALS BP 114/71 (wrist BP) P 57 TEMP 98.0 SP02 97% RESP 16 Constitutional + morbidly obese; no acute distress ENMT Mouth: no TMJ clicking Thyromental Distance: < 3.5 Finger Breadths (3.0) Mallampati Class: IV Top right cracked tooth Neck + short neck, + thick neck and + limited neck extension (significant ) Respiratory normal respiratory effort; no respiratory distress Auscultation: lungs clear to auscultation bilaterally; no wheezes Cardiovascular Rate/Rhythm: regular rate and regular rhythm Heart Sounds: no murmur Vessels: no carotid bruit Heart sounds diminished throughout Musculoskeletal Spine: no pain with cervical ROM Neurologic moves all extremities Psychiatric Orientation: alert Testing Laboratory Results 06/26/20 15:58 06/26/20 15:58 PT 10.4 Seconds (9.0-12.0) 06/26/20 15:58 INR 1.0 (0.9-1.1) 06/26/20 15:58 APTT 24.9 Seconds (21.0-31.0) 06/26/20 15:58 Electrocardiogram Date: 04/11/20 Findings: + SB @ (59) Possible anterior myocardial infarction, of indeterminate age. Chest X-Ray Date: 03/03/20 Findings: + NAD Echocardiogram Date: 01/08/20 EF: 65-70% LV Function: normal RWMA: + none Valvular Disease: + no significant valvular disease Left atrium mildly dilated. Compared ECHO from 02/05/19, no significant change. Stress Test Date: 10/23/18 Type: exercise Mildly abnormal stress echo imaging for ischemia at 80% MPHR. Basal inferior wall segment appears akinetic post stress. Nondiagnostic exercise EKG for ischemia at target heart rate was not obtained. Appropriate blood pressure response to exercise. No arrhythmia. Study terminated due to dyspnea. No chest pain reported. Poor exercise tolerance. Technically difficult study, enhanced with IV Definity. Baseline echo: Normal LV size and systolic function with EF of 60 to 65%. No regional wall motion abnormalities. No left ventricular hypertrophy. Moderate left atrial dilation. No significant valvular abnormalities were visualized. Technically difficult study. Cardiac Catheterization Date: 04/28/20 Findings: + normal No CAD. No . Elevated left and right sided filling pressures. Moderate pulmonary HTN, likely due to left heart failure. Normal cardiac output. Plan: Diurese by adjusting outpatient diuretic regimen. Will give Lasix 40 mg IV x1 now. Low-sodium diet.
[2020-06-26 16:51] LABS: Basophils # (auto) 0.05 K/uL (0-0.2); Basophils % (auto) 0.6 %; Eosinophils # (auto) 0.26 K/uL (0-0.5); Hematocrit (blood only) 37.6 % (37-47); Hemoglobin 11.7 g/dL (12.0-16.0); Immature Granulocytes # (auto) 0.02 K/uL (0.00-0.02); Immature Granulocytes % (auto) 0.2 %; Lymphocytes # (auto) 2.25 K/uL (1.2-3.4); Lymphocytes % (auto) 25.9 %; Mean Corpuscular Hemoglobin 27.9 pg (25-34); Mean Corpuscular Hgb Conc 31.1 g/dL (32-36); Mean Corpuscular Volume 89.5 fL (80-100); Mean Platelet Volume 11.3 fL (7.4-10.4); Monocytes # (auto) 0.64 K/uL (0.11-0.59); Monocytes % (auto) 7.4 %; Neutrophils # (auto) 5.48 K/uL (1.4-6.5); Neutrophils % (auto) 62.9 %; Platelet Count 323 K/uL (130-400); RDW Coefficient of Variation 14.7 % (11.5-14.5); RDW Standard Deviation 48.3 fL (36.4-46.3)
[2020-06-26 16:56] LABS: BUN Creatinine Ratio 22.5 (10-20); Creatinine Clr Calc Pharmacy 110.1 ml/min; Est GFR (Non-African American) 98.3; Potassium 4.3 mmol/L (3.5-5.1)
[2020-06-26 17:04] LABS: Partial Thromboplastin Ratio 0.9; Partial Thromboplastin Time 24.9 Seconds (21.0-31.0); Prothrombin Time 10.4 Seconds (9.0-12.0)
--- NOTE | 2020-07-15 21:50 | History and Physical Report ---
DATE OF ADMISSION: 07/16/2020 CHIEF COMPLAINT: Chronic right shoulder pain. HISTORY OF PRESENT ILLNESS: This is a 49-year-old female patient of Dr. Prince'robinson complaining of chronic right shoulder pain for approximately 3 months now. She reports no trauma. She has failed conservative treatment. An MRI has confirmed acromioclavicular arthritis, impingement and partial rotator cuff tear with a calcium deposit. The patient wished to proceed with a right shoulder arthroscopic subacromial decompression, distal clavicle excision, debridement of rotator cuff versus repair with Regeneten graft with Regeneten implant and a needle barbotage versus excision of calcium deposit. PAST MEDICAL HISTORY: Angina, hypertension, asthma, pulmonary embolism, sleep apnea with use of CPAP, DVT, osteoarthritis, acid reflux, obesity, kidney stones. SOCIAL HISTORY: Nonsmoker and nondrinker. SURGICAL HISTORY: Bilateral knee replacements, hysterectomy, hernia x2, section x2, tubal ligation, tonsils and adenoids and deviated septum. FAMILY HISTORY: Noncontributory. REVIEW OF SYSTEMS: Chronic right shoulder pain and weakness. Otherwise, denies any shortness of breath, chest pain, nausea, vomiting or any other joint complaints. MEDICATIONS: 1. Lisinopril 20 mg daily. 2. Atenolol 50 mg daily. 3. Isosorbide mononitrate 60 mg daily. 4. Omeprazole 40 mg daily. 5. Potassium 10 mEq 2 times daily. 6. Vitamin D3 50 mcg daily. 7. Vitamin C 1000 mg daily. 8. Vitamin B complex 1000 mg daily. 9. Atorvastatin 20 mg daily. 10. Lasix 40 mg daily. 11. Aspirin 81 mg daily. 12. Duloxetine daily. ALLERGIES: OXYCODONE AND OXYCONTIN. PHYSICAL EXAMINATION: GENERAL: Well-developed, well-nourished 49-year-old female in no acute distress. She is alert and oriented x3 and pleasant. HEENT: Normocephalic, atraumatic. Extraocular motions are intact. Pupils are equal and reactive to light. HEART: Regular rate and rhythm, no murmurs. LUNGS: Clear. ABDOMEN: Soft, nontender, bowel sounds present. The patient is morbidly obese. Right upper extremity, positive AC joint tenderness. Full range of motion with catching and pain. Positive impingement maneuvering, 3-4/5 strength globally. Neurologically and neurovascularly, intact in her right upper extremity. DIAGNOSES: Right shoulder acromioclavicular arthritis, rotator cuff tear, calcium deposits and impingement. She also has a history of hypertension, asthma, pulmonary embolism, deep venous thrombosis, osteoarthritis, acid reflux, obesity and kidney stones. PLAN: The patient was advised of her diagnosis. Indications, risks, benefits, postop course have all been reviewed. The patient wished to proceed with a right shoulder arthroscopy, subacromial decompression, distal clavicle excision, needle barbotage for excision of calcium deposits and debridement versus repair of rotator cuff with a possible Regeneten biological implant. Necessary consent forms, preoperative testing and clearances will be obtained.
[~2020-07-16 10:37] MED LIST changes: -ACET-1256 PO; +CEFAZOLIN 3000MG 72.5 ML IV SCH; +DEXAMETHASONE SOD INJ 4 MG/ML VIAL ONE; +LIDOCAINE HCL 2% 2 ML VIAL/AMP(20MG/ML) INFIL ONE; +LR 15ML/HR IV SCH; -LSN20 PO; -MELO-84 PO; +MIDAZOLAM HCL 1 MG/ML 2ML VIAL ONE; -OMEP40CA41 PO; +ONDANSETRON INJ 2 MG/ML 2 ML VIAL ONE; -POTA1080 PO; +PROPOFOL IV EMULSION 10 MG/ML 20 ML VIAL IV ONE; +ROCURONIUM BROMIDE 10 MG/ML 5 ML VIAL IV ONE; +ROPIVACAINE 0.5% 5 MG/ML 30 ML VIAL ONE; -TNR50 PO; +fentaNYL citrate 100 MCG/2 ML VIAL ONE
[2020-07-16] MEDS ORDERED: CEFAZOLIN 3000MG 72.5 ML IV SCH (10:45)
--- NOTE | 2020-07-16 10:59 | History & Physical Bridge Note ---
Date of Service July 16, 2020 History & Physical Bridge Note I have examined the patient, reviewed the History & Physical and in the interval since the performance of the History & Physical I have noted the following changes of clinical significance: no changes noted
[2020-07-16] MEDS ORDERED: ONDANSETRON INJ 2 MG/ML 2 ML VIAL ONE (12:46)
[2020-07-16] MEDS ORDERED: EpINEphrine HCL INJ 1 MG/ML 1ML SYRINGE ONE (12:52)
[2020-07-16] MEDS ORDERED: EPINEPHrine HCL INJ 1 MG/ML 30ML ONE (13:08)
[2020-07-16] MEDS ORDERED: ePHEDrine sulfate 50 MG/ML AMP IV PRN (14:10)
[2020-07-16] MEDS ORDERED: ATROPINE SULFATE 0.1 MG/ML 10ML SYR IV PRN (14:10)
[2020-07-16] MEDS ORDERED: PROMETHAZINE HCL 12.5 MG in SODIUM CHLORIDE 0.9% 50 ML IV PRN (14:10)
[2020-07-16] MEDS ORDERED: HYDROmorphone INJ 2 MG/ML SYR/VIAL IV PRN (14:10)
[2020-07-16] MEDS ORDERED: ONDANSETRON INJ 2 MG/ML 2 ML VIAL IV PRN ×2 (14:10→17:53)
[2020-07-16] MEDS ORDERED: METOCLOPRAMIDE HCL INJ 5 MG/ML 2 ML VIAL IV PRN (14:10)
[2020-07-16] MEDS ORDERED: DEXAMETHASONE SOD INJ 4 MG/ML VIAL ONE (15:05)
[2020-07-16] MEDS ORDERED: NEOSTIGMINE METHYLSULFATE 5 MG/5 ML SYR ONE (16:10)
[2020-07-16] MEDS ORDERED: GLYCOPYRROLATE 0.2 MG/ML VIAL ONE ×2 (16:10→16:18)
--- NOTE | 2020-07-16 16:24 | Post Operative Brief Note ---
Immediate Post Op Note v1 Date of Surgery July 16, 2020 Pre & Post Diagnosis Operation Date: 07/16/20 12:50 Pre-Op Diagnosis: Right Shoulder Impingement, Acromioclavicular Joint Osteoarthritis, Partial Tear Rotator Cuff, Calcific Tendonitis, Morbid Obesity BMI 60 Post-Op Diagnosis: Right Shoulder Impingement, Acromioclavicular Joint Osteoarthritis, Partial Tear Rotator Cuff, Calcific Tendonitis, Morbid Obesity BMI 60 I identified the patient and participated in the time-out.: Yes Procedure Operation Date: 07/16/20 12:50 Actual Procedures p Right Shoulder Arthroscopy with Distal Clavicle Excision, Subacromial Decompression, Debride Partial Rotator Cuff Tear, Needle Barbotage, Excision Calcific Deposit, Repair Rotator Cuff (Right) - Mikie Prince MD Surgeon Mikie Prince MD Nail Professional Alvaro SERVIN Estimated Blood Loss 10 Findings Consistent with Post-Op Diagnosis Specimens None Anesthesia Type General Regional Complications none Disposition Accompanied Patient To Recovery: No Disposition: Recovery Room Overlapping Procedure I was immediately available: during the entire case.
--- NOTE | 2020-07-16 16:43 | Operative Report ---
Post Operative Report Pre & Post Diagnosis Operation Date: 07/16/20 12:50 Pre-Op Diagnosis: Right Shoulder subacromial impingement, Acromioclavicular Joint Osteoarthritis, Partial Tear Rotator Cuff supraspinatus, Calcific Tendinitis infraspinatus, subacromial bursitis, Morbid Obesity BMI 60 Post-Op Diagnosis: Same as preop including glenohumeral synovitis I identified the patient and participated in the time-out.: Yes Procedure Operation Date: 07/16/20 12:50 Actual Procedures Right shoulder arthroscopic rotator cuff repair high-grade partial tear supraspinatus, needle barbotage and excision calcific deposit infraspinatus, subacromial decompression distal clavicle excision, subacromial bursectomy, increased difficulty morbid obesity BMI 60.7- Mikie Prince MD Surgeon Mikie Prince MD Hospice/Home Health Aide Alvaro SERVIN Estimated Blood Loss 10 Findings Consistent with Post-Op Diagnosis Specimens None Drains None Anesthesia Type General Regional Complications none Disposition Accompanied Patient To Recovery: No Disposition: Recovery Room Indications 49-year-old female chronic right shoulder pain failed conservative management. X-rays demonstrate AC joint osteoarthritis with some hypertrophy of the joint contributing to subacromial impingement there is a type II-III acromion process with anterior acromial spurring contributing to impingement. Patient has a high-grade partial tear supraspinatus and there is a calcium deposit in the infraspinatus tendon consistent with calcific tendinitis and subacromial bursitis. Condition is complicated by morbid obesity BMI 60.7 Description of Procedure The patient was to the operating room anesthetized under regional block and general anesthesia. The patient was positioned on the operating table in the 70 beachchair position [facility]. Because of her significant obesity we could use the normal arm san we had to use a separate padded arm san to pad her left arm which was well padded with foam placed on the arm san.. All of the other extremities were well-padded. The right upper extremity was prepped and draped in the usual sterile fashion. Examination demonstrated significant morbid obesity with obesity of the arm itself as well as abdominal and chest and back obesity. There was increased time involved with positioning due to her size and obesity.. Arthroscopy of the shoulder was performed via anterior and posterior arthroscopy portals. Posterior portal was placed in the soft spot and the anterior portal was placed in the rotator interval. Subsequent portals included lateral subacromial and superior lateral incision for suture anchor placement. The following findings were noted: In the glenohumeral joint there was good articular surfaces. There was some diffuse synovitis throughout the joint. The labrum was intact circumferentially biceps tendon and anchor were intact. Subscapularis tendon was normal and intact. Supraspinatus tendon had a high- grade partial tear extending out to the peripheral attachment with about 80% of the supraspinatus being torn off and release 14 mm width of the tear. The infraspinatus tendon was still intact. There was subacromial bursitis. There was a type III acromion process with impingement with a large anterior spur and inferior AC joint spurs also contributing to impingement. There is grade 4 AC joint osteoarthritis. There was chronic thickened subacromial bursitis. There was a calcific deposit in the infraspinatus tendon which was small and had to be located with a spinal needle during needle barbotage. The bursal side of the rotator cuff was still intact.. Attention was first taken to removing some the inflamed synovium and rotator area and coagulating bleeders with the radiofrequency ablator as needed. I used a 3.5 curved shaver blade to access the partial tear to debride the footprint of the supraspinatus. Due to her morbid obesity I felt that it would be better to take down the the small amount of fibers that were still attached peripherally and do a double row repair than trying to do a pasta repair which would be difficult due to her body habitus. I placed a spinal needle through the supraspinatus tear and placed a PDS suture through that and remove the spinal needle and clamped the suture so we could locate the tear in the subacromial space. Attention was then taken to the subacromial space. A thorough bursectomy was performed removing all pathological bursa to fully visualize the rotator cuff. The suture was identified that was placed through the rotator cuff tear. Attention was taken to the calcium deposit which was identified with a spinal needle and the needle barbotage performed and a probe was used to work out the calcium in the subacromial space and and then it was excised with a suction shaver device. The bursa and periosteum on the undersurface of the acromion was ablated with the radiofrequency ablator and the CA ligament was released off the anterior acromion. The CA ligament was debrided back. A 5.5 bur was used to plane down the acromion to type I flat shape. A radio frequency ablator was used to ablate the undersurface of 1 cm of the distal clavicle ablating the inferior capsule. This exposed the spurs on the undersurface of the clavicle. A 5.5 bur was used to resect 1 cm distal clavicle using the eliezer through both the lateral and anterior portal. The superior and posterior capsule was preserved for stability. The peripheral fibers at the partial tear were taken down to expose the large undersurface partial tear. The remainder the footprint supraspinatus was abraded at the lateral greater tuberosity and over the edge of the tuberosity to stimulate healing response. The rotator cuff was then repaired with dual row fixation using a 5.5 Helicoil suture anchor loaded with ultra tape and ultra braid suture which was placed for medial row fixation. The ultra braid sutures were passed in horizontal mattress fashion and the tapes were placed just medial to that and the suture was tied with A Jasper sliding locking knot with 3 reversed half hitches and alternating posts. the sutures and tapes were placed to a 5.5 footprint anchor laterally. The repair was care with the arm to side with rotation was no impingement. The portal sites were closed with interrupted nylon sutures. Sterile dressings were applied and a sling immobilizer. The patient tolerated the procedure well. My physician assistant food service manager Alvaro SERVIN, assisted in arm positioning, instrument management, suture management when indicated, incision closure, sling application, and will participate in the postoperative care of the patient. There was increased difficulty due to patient morbid obesity BMI 60.7. At least 1 hour additional time during the procedure was utilized due to increased time positioning as well as performing the procedure and adding to the technical difficulties of the procedure. I attest to the content of the Intraoperative Record and any orders documented therein. Any exceptions are noted below.
[2020-07-16] MEDS: fentaNYL citrate 100 MCG/2 ML VIAL IV PRN ×2 (16:54→17:07)
--- NOTE | 2020-07-16 17:21 | Anesthesiology Progress Note ---
Date of Service July 16, 2020 Anesthesia Post Procedure Vital Signs Vital Signs: Temp Pulse Pulse Resp BP Pulse Ox 07/16/20 17:15 60 23 140/67 93 07/16/20 17:05 56 L 27 H 149/71 H 95 07/16/20 16:55 59 L 18 153/69 H 97 07/16/20 16:45 63 21 157/74 H 96 07/16/20 16:35 36.1 C L 71 27 H 170/85 H 96 07/16/20 11:26 36.8 C 52 L 16 136/60 95 Transfer of Care Handoff Completed per policy Notes Mental Status: alert / awake / arousable Patient Amnestic to Procedure: Yes Nausea / Vomiting: adequately controlled Pain: adequately controlled Airway Patency, RR, SpO2: stable & adequate BP & HR: stable & adequate Hydration State: stable & adequate Anesthetic Complications: no major complications apparent Notes: block working well in pacu
[2020-07-16] MEDS ORDERED: ALBUTEROL HFA 8 GM INHALER INH PRN (17:53)
[2020-07-16] MEDS ORDERED: HYDROmorphone INJ 0.5 MG/0.5 ML SYR IV PRN (17:53)
[2020-07-16] MEDS ORDERED: NALOXONE HCL 0.4 MG/1 ML VIAL/CARP IV PRN (17:53)
[2020-07-16] MEDS ORDERED: MAGNESIUM HYDROXIDE SUSP 30 ML UDC PO PRN (17:53)
[2020-07-16] MEDS ORDERED: NITROGLYCERIN SL 0.4 MG/TAB TAB SL PRN (17:53)
[2020-07-16] MEDS ORDERED: bisacodyL 10 MG SUPP PR PRN (17:53)
[2020-07-16] MEDS: SODIUM CHLORIDE 0.9% 1000ML 1,000 ML IV SCH (19:56)
[2020-07-16] MEDS: POTASSIUM CITRATE 10 MEQ TAB PO SCH (21:54)
[2020-07-16] MEDS: ATORVASTATIN 40 MG TAB PO SCH (21:54)
[2020-07-16] MEDS: DOCUSATE SODIUM 100 MG CAP PO SCH (21:55)
[2020-07-16] MEDS: CEFAZOLIN 2000MG 2,000 MG/15 ML SYR IV SCH (21:55)
[2020-07-16] MEDS: ASPIRIN 81 MG ECTAB PO SCH (21:55)
[2020-07-16] MEDS: HYDROCODONE/ACETAMOPHEN 5/325MG TAB PO PRN (23:31)
[2020-07-17] MEDS: HYDROCODONE/ACETAMOPHEN 5/325MG TAB PO PRN ×5 (03:46→23:23)
[2020-07-17] MEDS: CEFAZOLIN 2000MG 2,000 MG/15 ML SYR IV SCH (04:54)
[2020-07-17] MEDS: SODIUM CHLORIDE 0.9% 1000ML 1,000 ML IV SCH (05:06)
[2020-07-17 06:56] LABS: BUN Creatinine Ratio 20.5 (10-20); Calcium 8.5 mg/dl (8.5-10.1); Est GFR (Non-African American) 102.7; Potassium 4.1 mmol/L (3.5-5.1)
[2020-07-17] MEDS: FLUTICASONE/VILANTEROL 100/25MCG 14 PUFFS/INHALER INH SCH (08:02)
[2020-07-17] MEDS: POTASSIUM CITRATE 10 MEQ TAB PO SCH ×2 (08:04→20:46)
[2020-07-17] MEDS: ASPIRIN 81 MG ECTAB PO SCH ×2 (08:04→20:46)
[2020-07-17] MEDS: MULTIVITAMIN TAB PO SCH (08:04)
[2020-07-17] MEDS: DOCUSATE SODIUM 100 MG CAP PO SCH ×2 (08:04→20:46)
[2020-07-17] MEDS: ATENOLOL 50 MG TABLET PO SCH (08:04)
[2020-07-17] MEDS: ISOSORBIDE MONO EXTENDED REL 60 MG TABCR PO SCH (08:04)
[2020-07-17] MEDS: PANTOprazole 40 MG TAB PO SCH (08:04)
[2020-07-17] MEDS: lisinopriL 20 MG TAB PO SCH (08:04)
[2020-07-17] MEDS: DULOXETINE HCL 30 MG CAP PO SCH (08:04)
--- NOTE | 2020-07-17 08:16 | Anesthesiology Progress Note ---
Date of Service July 17, 2020 Anesthesia Post Procedure Vital Signs Vital Signs: Temp Pulse Pulse Resp BP Pulse Ox Pulse Ox 07/17/20 07:06 36.7 C 62 16 143/73 H 93 07/17/20 03:11 37.3 C 72 16 162/69 H 93 07/16/20 23:03 37.6 C H 54 L 18 159/77 H 93 07/16/20 21:28 36.7 C 57 L 16 153/75 H 95 07/16/20 20:27 36.5 C 56 L 16 149/71 H 93 07/16/20 19:03 36.5 C 64 16 142/68 H 93 07/16/20 18:28 36.5 C 59 L 16 142/65 H 93 07/16/20 17:56 36.6 C 55 L 20 164/78 H 94 07/16/20 17:50 93 07/16/20 17:25 36.7 C 52 L 23 153/70 H 94 07/16/20 17:15 60 23 140/67 93 07/16/20 17:05 56 L 27 H 149/71 H 95 07/16/20 16:55 59 L 18 153/69 H 97 07/16/20 16:45 63 21 157/74 H 96 07/16/20 16:35 36.1 C L 71 27 H 170/85 H 96 07/16/20 11:26 36.8 C 52 L 16 136/60 95 Pain Intensity Right Axilla: Pain Intensity: 7 Medial Head: Pain Intensity: 5 Notes Mental Status: alert / awake / arousable Nausea / Vomiting: adequately controlled Pain: adequately controlled Airway Patency, RR, SpO2: stable & adequate BP & HR: stable & adequate Hydration State: stable & adequate Anesthetic Complications: no major complications apparent
--- NOTE | 2020-07-17 10:09 | Orthopedic Progress Note ---
Date of Service July 17, 2020 Assessment & Plan (1) Incomplete rotator cuff tear or rupture of right shoulder, not specified as traumatic: POD #1, Right shoulder Rotator cuff repair high grade tear, DCE, SAD, bursectomy Pain control Limited self exercises as instructed. O2 sats in the 70's on RA, 93% with 2L per NC. Encourage spirometry, ambulation, monitor O2 sats. -per nursing protocol. Consult medicine, post op hypoxia, poss home O2 Admission and Anticipated Discharge Date Admission Date: July 16, 2020 Subjective POD #1, Patients shoulder doing well. Pain controlled well. Denies SOB, CP. N/V, Dizziness. O2 sats dropping into the 70's on RA, currently around 93% on 2L NC Physical Exam Physical Exam: A&Ox3 Patient ambulating well in room w 2L O2 NC. Right shoulder dressings c/d/i, no drainage. Fingers mobile. Sling in tact. Results & Data ([facility]) Vital Signs (Past 12 Hours) Vital Signs Temp Pulse Resp BP Pulse Ox 07/17/20 07:06 36.7 C 62 16 143/73 H 93 07/17/20 03:11 37.3 C 72 16 162/69 H 93 07/16/20 23:03 37.6 C H 54 L 18 159/77 H 93
--- NOTE | 2020-07-17 10:58 | Hospitalist Consultation ---
Date of Consultation July 17, 2020 Assessment & Plan (1) Incomplete rotator cuff tear or rupture of right shoulder, not specified as traumatic: - Pain management, bowel regimen per the primary team - encouraged to use pain medication for about 1 week and transition to tylenol only thereafter. - PT/OT consults, pt is planning on outpatient therapy - Follow am CBC to monitor for acute blood loss and BMP for kidney function (2) Hypoxia: - On Ra O2 sats = 70%, improved to 93% on RA - Will check CXR now - give IV lasix 40 mg now-- >2L fluids given prior to surgery. Resume pm oral lasix on 07/18 - Trend pulse ox - Ambulatory pulse ox completed and pt does not require home O2. (3) Chronic diastolic (congestive) heart failure: -Last echo completed in January 2020, normal left ventricular wall thickn ess, LVEF =65 to 70%, no WMA Next dose of Lasix p.o. scheduled for this evening at 5 PM, will give IV Lasix now for being net postive 1.5 L -Continue cardioprotective medications including ASA 81 mg, atenolol 50 mg, atorvastatin 40 mg HS, Imdur 120 mg daily, lisinopril 20 mg daily (4) Hypertension: - Cont antihypertensives as above, lasix as above (5) Pulmonary hypertension: - Hx of such (6) Morbid obesity: -BMI of 60.5, diet and exercise to be encouraged upon discharge (7) SHAKEEL (obstructive sleep apnea): -Wears CPAP at home, currently with increased O2 needs. Possibly secondary to large amount of fluid preoperatively with the patient already having diastolic heart failure and taking Lasix daily. Will give IV Lasix now -Ambulatory pulse ox to evaluate for home oxygen needs (8) Hepatic steatosis: -Noted on history of abdominal CT scan (9) Asthma: -History of such, continue Advair inhaler (10) Osteoarthritis: -Continue vitamin D supplementation (11) Vitamin D deficiency: -Continue supplementation (12) Elevated glucose: -A1c of 6.3 in January 2020, so she is pre-diabetic. Will recheck A1c with a.m. labs to determine. Glucose has been elevated on multiple checks here in the hospital. -PCP to follow up- diet and exercise to be encouraged (13) DVT prophylaxis: - teds, ambulatory CODE: FULL Dispo: From home, likely to remain in the hospital x 1 more day for hypoxia. Thank you for involving us in the care of Mrs. Wharton. Please do not hesitate to call with questions or concerns. At this time medicine service will follow along. Supervising Physician Co-Signing Physician Notes During my face to face encounter with the patient, I obtained a history and physical examination on the patient. I discussed plan of care with patient and Thea Andrew and answered patient's questions. I reviewed above note and agree with it. Patient had an episode of hypoxia and required oxygen. May have been caused by atelectasis. Will continue to monitor overnight. Recommend incentive spirometry. History of Present Illness Reason for Consultation: Post op hypoxia Requesting Physician: Dr. Prince Attending Physician: Mikie Prince MD History of Present Illness This is a 49 yo F with PMHx of chronic diastolic CHF, HTN, history of PE, pulmonary hypertension, hepatic steatosis, morbid obesity with BMI = 60.5, SHAKEEL on CPAP, irritable bowel disease, asthma and GERD. Patient underwent elective right rotator cuff repair by Dr. Abel on 07/16/2020. Patient did well through the procedure. Afterwards patient developed postoperative hypoxia with O2 sats =70% on room air. She was placed on 2 L and has saturations of 93%. Patient reports she does not wear oxygen at home. She has been receiving hydrocodone/acetaminophen every 4 hours as needed. Her last dose of this was 2 tablets at 8 AM this morning. Pt also takes lasix in the evening for fluid as sh e had a cardiac cath earlier this summer for concerns for ACS however was found to be without stenosis or other blockages per report. She denies any chest pain currently. Yesterday she was unable to walk from her bed to the bathroom without SOB. Her breathing has improved today compared to yesterday. Pt was seen up participating in ambulatory pulse ox study and she passed it without needs for home O2. Allergies Allergy/AdvReac Type Severity Reaction Status Date / Time oxycodone AdvReac Unknown ANXIETY, Verified 07/16/20 11:21 INSOMNIA, NAUSEA Home Medications Home Medications Medication Instructions Recorded Confirmed Type albuterol sulfate [Ventolin HFA] 2 puff INHALATION Q4H PRN #1 btl 02/06/19 07/16/20 Rx nitroglycerin 0.4 mg sublingual 0.4 mg SL Q5M PRN #25 tab 07/19/19 07/16/20 History tablet ascorbic acid (vitamin C) 1,000 mg 1 gm PO QAM tab 12/14/19 07/16/20 History tablet cholecalciferol (vitamin D3) 125 125 mcg PO QAM 12/14/19 07/16/20 History mcg (5,000 unit) capsule fluticasone 250 mcg-salmeterol 50 1 puffs INHALATION BID 90 Days #60 01/31/20 07/16/20 Rx mcg/dose blistr powdr for ea inhalation atenolol 50 mg tablet 50 mg PO QAM #90 tab 02/04/20 07/16/20 Rx atorvastatin 40 mg tablet 40 mg PO HS #90 tab 02/11/20 07/16/20 Rx lisinopril 20 mg tablet 20 mg PO QAM #90 tab 02/19/20 07/16/20 Rx cyanocobalamin (vitamin B-12) 1,000 mcg PO QAM tab 04/11/20 07/16/20 History 1,000 mcg tablet isosorbide mononitrate 120 mg 120 mg PO QAM #90 tab 04/11/20 07/16/20 Rx tablet,extended release 24 hr furosemide [Lasix] 40 mg PO PM 06/24/20 07/16/20 History omeprazole 40 mg PO QAM 06/24/20 07/16/20 History potassium citrate 10 mEq (1,080 10 meq PO BID 90 Days #180 tab 07/07/20 07/16/20 Rx mg) tablet,extended release duloxetine 30 mg capsule,delayed 30 mg PO QAM #90 cap 07/10/20 07/16/20 Rx release aspirin 81 mg PO BID 30 Days #60 tab 07/18/20 Rx oxycodone-acetaminophen [Percocet] 1 tab PO Q4H PRN #30 tab 07/18/20 Rx Patient History Medical History Acid reflux Well controlled and stable Asthma Mild to moderate restriction per PFTs 2016. Well controlled and stable at this time per patient Congestive heart failure currently on lasix Hepatic steatosis Noted on CT scan - incidental finding- no history of elevated LFTs Hypertension Irritable bowel disease Stable at this time Kidney stone currently has large stones on left side--to have ESWL in future Morbid obesity SHAKEEL (obstructive sleep apnea) cpap Pulmonary embolism 02/05/2019, treated at [facility]. Completed coumadin therapy 08/2019. Etiology of PE unknown. Has been off Coumadin since 08/2019- no issues Pulmonary hypertension Moderate pulm HTN- noted on recent cath- improved breathing since on diuretic Surgical History Family history of reaction to anesthesia BROTHER - "SLOW TO WAKE UP" History of 2 sections History of adenoidectomy History of bilateral tubal ligation History of cardiac cath No CAD noted on April 2020 cath History of colonoscopy History of cystoscopy History of esophagogastroduodenoscopy (EGD) History of herniorrhaphy ABDOMINAL X 2 History of knee replacement RIGHT AND LEFT History of lithotripsy x3 History of nasal septoplasty History of tonsillectomy S/P laparoscopic assisted vaginal hysterectomy (LAVH) HX OF Family History Grandmother Family hx of colon cancer Colorectal cancer Father Myocardial infarction Grandfather (Maternal) Coronary heart disease Mother Tobacco use Emphysema, unspecified Other Diabetes Heart disease Hypertension Social History Smoking Status: Never smoker Tobacco Type: Cigarettes Second Hand Exposure: Yes (as a child); Hx Alcohol Use: Yes Alcohol type: wine Hx Substance Use: No Preferred Language: Lao Communication Ability: Effective Pattern Worker Required: No Beliefs That Will Affect Care: None marital status: Current Living Situation: Spouse current occupational status: employed current occupation: [employer] Feels Safe at Home: Yes Review of Systems Review of Systems: Constitutional: No fever, sweats or chills Eyes: No diplopia, no worsening or blurred vision ENT: normal hearing, no trouble swallowing Respiratory: No cough, sputum, dyspnea at rest or on exertion, wearing O2 at 2L Cardiovascular: No chest pain, tightness or palpitations Abdomen: No pain, nausea, vomiting, diarrhea or constipation Musculoskeletal: No joint pain, calf pain, swelling Neurologic: No weakness, numbness/tingling, or balance problems Psychiatric: No anxiety or depression Skin: No rash or itch Physical Exam Physical Exam: General: awake, alert, no apparent distress, + morbidly obese Head: Normocephalic, atraumatic ENT: PERRL, EOMI, no pharyngeal exudate, mucous membranes moist Chest: Slightly diminished at left base, primarily clear without adventitious breath sounds, on 2L via NC. Cardiac: Regular rate and rhythm, no murmur, no JVD, normal peripheral pulses, good capillary refill Abdominal: NABS x 4 quadrants, soft, nondistended, nontender to palpation, no rebound or guarding Extremities: RUE in sling, bandage c/d/i. +edema BLE, nonpitting. Otherwise normal inspection, no peripheral erythema, calfs nontender to palpation Psych: Normal mood and affect Neuro: AAO x 3, strength intact bilaterally and rated 5/5, no motor deficits, speech is clear, no peripheral sensory deficits Results & Data Results & Data ([facility]) Vital Signs (Past 12 Hours) Vital Signs Temp Pulse Resp BP Pulse Ox 07/17/20 07:06 36.7 C 62 16 143/73 H 93 07/17/20 03:11 37.3 C 72 16 162/69 H 93 07/16/20 23:03 37.6 C H 54 L 18 159/77 H 93 PG Care Time/CCT Total # of Minutes Spent Total Time Spent with Patient: Total time spent is greater than 50% in coordination of care (as documented) at patient's floor/unit and/or counseling patient: Coding Level of Care Code 36079 Inpt Consult Level 5 Diagnoses Incomplete rotator cuff tear or rupture of right shoulder, not specified as traumatic M75.111 Hypoxia R09.02 Chronic diastolic (congestive) heart failure I50.32 Hypertension I10 Pulmonary hypertension I27.20 Morbid obesity E66.01 SHAKEEL (obstructive sleep apnea) G47.33 Hepatic steatosis K76.0 Asthma J45.909 Osteoarthritis M19.90 Vitamin D deficiency E55.9 Elevated glucose R73.09 DVT prophylaxis Z29.9
[2020-07-17] MEDS ORDERED: FUROSEMIDE 40 MG in SYRINGE 0 ML IV ONE (11:15)
--- NOTE | 2020-07-17 11:26 | XRay Report ---
XR chest 1V portable HISTORY: 49 years-old Female hypoxia acute hypoxia COMPARISON: Chest radiographs 03/03/2020 TECHNIQUE: Portable AP view of the chest FINDINGS: Cardiac silhouette is enlarged, unchanged. Linear subsegmental bibasilar densities suggest probable a telectasis. There is no pneumothorax, pleural effusion, overt pulmonary edema or airspace consolidati on typical for pneumonia. Degenerative changes of the shoulders and spine. Prior resection of the dis yunior right clavicle. Probable bilateral shoulder rotator cuff calcific tendinosis. IMPRESSION: Mild subsegmental bibasilar atelectasis without acute process. ACT 112: Negative or not required by law. The above report was generated using voice recognition software. It may contain grammatical, syntax o r spelling errors. Electronically signed by: Herminio Hernandez M.D. 07/17/2020 11:25 AM
[2020-07-17 12:06] LABS: Estimated Average Glucose 140 mg/dl; Hemoglobin A1C 6.5 % (4.5-5.6)
[2020-07-17] MEDS ORDERED: FUROSEMIDE 40 MG TAB PO SCH (17:00)
[2020-07-17] MEDS: ATORVASTATIN 40 MG TAB PO SCH (20:46)
[2020-07-18] MEDS: HYDROCODONE/ACETAMOPHEN 5/325MG TAB PO PRN (03:34)
[2020-07-18 06:19] LABS: Hematocrit (blood only) 34.5 % (37-47); Hemoglobin 10.8 g/dL (12.0-16.0); Mean Corpuscular Hemoglobin 27.6 pg (25-34); Mean Corpuscular Hgb Conc 31.3 g/dL (32-36); Mean Corpuscular Volume 88.2 fL (80-100); Mean Platelet Volume 10.4 fL (7.4-10.4); Platelet Count 256 K/uL (130-400); RDW Coefficient of Variation 15.5 % (11.5-14.5); Red Blood Count 3.91 M/uL (4.2-5.4); White Blood Count 10.48 K/uL (4.8-10.8)
[2020-07-18 06:53] LABS: BUN Creatinine Ratio 35.6 (10-20); Calcium 8.4 mg/dl (8.5-10.1); Creatinine Clr Calc Pharmacy 133.8 ml/min; Potassium 4.2 mmol/L (3.5-5.1)
[2020-07-18] MEDS ORDERED: OXYCODONE/ACETAMINOPHEN 5mg/325mg TAB PO PRN (08:04)
--- NOTE | 2020-07-18 08:04 | Orthopedic Progress Note ---
Date of Service July 18, 2020 Assessment & Plan (1) Incomplete rotator cuff tear or rupture of right shoulder, not specified as traumatic: POD #2, Right shoulder Rotator cuff repair high grade tear, DCE, SAD, bursectomy Pain control- will change to percocet. Limited self exercises as instructed. O2 sats stable in the high 90's on RA Encourage spirometry, ambulation, monitor O2 sats. -per nursing protocol. Admission and Anticipated Discharge Date Admission Date: July 16, 2020 Subjective POD #2, Patients shoulder doing well. Pain controlled well. Denies SOB, CP. N/V, Dizziness. O2 stable on RA Physical Exam Physical Exam: Right shoulder dressings c/d/i. Fingers mobile. Sling in tact. A&Ox3. Results & Data ([facility]) Vital Signs (Past 12 Hours) Vital Signs Temp Pulse Resp BP Pulse Ox 07/18/20 07:32 37.0 C 51 L 18 159/83 H 96 07/17/20 22:59 36.8 C 46 L 18 120/70 96
[2020-07-18] MEDS: FLUTICASONE/VILANTEROL 100/25MCG 14 PUFFS/INHALER INH SCH (08:15)
[2020-07-18] MEDS: DULOXETINE HCL 30 MG CAP PO SCH (08:16)
[2020-07-18] MEDS: lisinopriL 20 MG TAB PO SCH (08:16)
[2020-07-18] MEDS: PANTOprazole 40 MG TAB PO SCH (08:17)
[2020-07-18] MEDS: MULTIVITAMIN TAB PO SCH (08:17)
[2020-07-18] MEDS: ATENOLOL 50 MG TABLET PO SCH (08:17)
[2020-07-18] MEDS: POTASSIUM CITRATE 10 MEQ TAB PO SCH (08:17)
[2020-07-18] MEDS: ASPIRIN 81 MG ECTAB PO SCH (08:17)
[2020-07-18] MEDS: ISOSORBIDE MONO EXTENDED REL 60 MG TABCR PO SCH (08:17)
[2020-07-18] MEDS: DOCUSATE SODIUM 100 MG CAP PO SCH (08:17)
[2020-07-18] MEDS ORDERED: FUROSEMIDE 40 MG TAB PO SCH (17:00)
--- NOTE | 2020-07-22 09:21 | Discharge Summary (DS) ---
DISCHARGE DIAGNOSES: Right shoulder subacromial impingement with acromioclavicular joint osteoarthritis with partial tear of rotator cuff supraspinatus, calcific tendinitis infraspinatus, subacromial bursitis, glenohumeral synovitis and BMI of 60. SECONDARY DIAGNOSES: Chronic diastolic heart failure, hypertension, pulmonary hypertension, obstructive sleep apnea, hepatic steatosis, asthma, vitamin D deficiency, elevated glucose. CONSULTATIONS: Thea Morales PA-C. COMPLICATIONS: None. PROCEDURES: Right shoulder arthroscopic rotator cuff repair, high-grade partial tear supraspinatus, needle barbotage and excision of calcific deposit infraspinatus, subacromial decompression, distal clavicle excision, subacromial bursectomy. BRIEF HISTORY: As dictated in the history and physical. HOSPITAL SUMMARY: The patient was admitted on the above-noted date and had the above-noted surgery performed, which she tolerated well. Postoperatively with her medical history, it was felt that she should be kept overnight for observation. The following morning, on her first postoperative day, her shoulder was doing well and pain was controlled. She denied shortness of breath, chest pain, or nausea and vomiting, but her O2 sats were dropping in the 70s on room air. She was currently around 93% on 2 liters per nasal cannula. She was ambulating well in the room. Right shoulder dressings were intact. No drainage. Fingers were mobile. Sling was intact. She was afebrile and vital signs were showing pulse 62, respirations 16, BP 143/73. There was some difficulty in getting her off of her O2 and [facility]ist service was consulted for medical input. Chest x-ray was ordered. The patient was started on IV Lasix and resumed her on her p.m. oral Lasix that was to be started on 07/18/2020. It was felt that the patient should stay at least 1 more day to continue to follow her initial hypoxia and the possibility of needing home O2. By her second postoperative day, her shoulder was doing well, pain was controlled. She denied any shortness of breath, chest pain, or nausea, vomiting or dizziness. Her O2 was stable on room air at 96. Her dressings were intact. Fingers were mobile. Sling was intact. Limited self exercises had been instructed. Her O2 sats remained stable. She was encouraged to use spirometry, ambulation, and monitor her O2 sats. She was otherwise remaining stable and it was felt she could be discharged to home on 07/18/2020. For further review, please see chart. LABORATORY AND X-RAY DATA: As per chart. DISCHARGE INSTRUCTIONS: The patient will be discharged to home in satisfactory condition on 07/18/2020. DIET: Resume previous diet. ACTIVITY: Follow rotator cuff repair instructions as written and follow up with Dr. Prince in 10-14 days. DISCHARGE MEDICATIONS: Aspirin 81 mg p.o. b.i.d., Percocet 1 tab p.o. q. 4 hours p.r.n. Resume home meds as listed and stop taking previous aspirin dosage.
== END 2020-07-18 11:45 | disposition home or self-care (01) ==
LOC: ASU 10:37 → 3E 10:37

== ENCOUNTER 2021-11-25 19:51 | Observation (INO) ==
--- NOTE | 2021-11-25 20:16 | Emergency Department Note ---
History of Present Illness General Chief complaint: Kidney Stone Stated complaint: FLUID IN KIDNEY, STONE OBSTRUCTING KIDNEY FLOW Time Seen by Provider: 11/25/21 19:59 Source: patient Mode of arrival: ambulatory Limitations: no limitations History of Present Illness Provider complaint: Left flank pain, kidney stone Onset (ago): hour(s) Location: back and abdomen Radiation: back Maximum Pain Intensity: 7 Exacerbated By: + movement Associated symptoms: + fever/chills and + nausea/vomiting Treatments prior to arrival: none This is a 50-year-old female presents emergency department complaining of left flank pain. Patient states she had a small amount of discomfort last night and this morning but steadily worsened throughout the day. She states pain was constant. She tried to call her urologist however they do not have any appointments. She then went to urgent care and was sent for an outpatient CT. She states she just received a phone call 45 minutes ago that she not only had kidney stones but had swelling around her kidneys and needed to come the emergency room. Patient does have a long history of kidney stones and does follow with Dr. Conway of urology. Patient states she is also previously had UTIs that required hospitalization. Patient did use Azo today, and took a Percocet she had leftover from prior stones when she got home from work around 630. She states pain initially began in the left lower quadrant and radiated into the left back. She states she was nauseated and did vomit once today. She states she has had some chills although no fevers. Patient had noticed urinary frequency beginning last evening, this continued throughout the day. She also noticed that her urine yesterday seems slightly darker than usual. Pt seen during a time of high acuity and national emergency pandemic while wearing PPE. Home Medications Medication Instructions Recorded Confirmed Type nitroglycerin 0.4 mg sublingual 0.4 mg SL Q5M PRN #25 tab 07/19/19 11/25/21 History tablet ascorbic acid (vitamin C) 1,000 mg 1 gm PO QAM tab 12/14/19 11/25/21 History tablet cholecalciferol (vitamin D3) 125 125 mcg PO QAM 12/14/19 11/25/21 History mcg (5,000 unit) capsule multivitamin (Daily Multi-Vitamin) 1 tab PO QAM 12/30/20 11/25/21 History fluticasone 250 mcg-salmeterol 50 1 inh INHALATION BID #60 ea 01/26/21 11/25/21 Rx mcg/dose blistr powdr for inhalation (Advair Diskus) potassium citrate 10 mEq (1,080 10 meq PO BID 90 Days #180 tab 03/04/21 11/25/21 Rx mg) tablet,extended release furosemide 20 mg tablet (Lasix) 40 mg PO PM #180 tab 03/27/21 11/25/21 Rx atorvastatin 40 mg tablet (Lipitor) 40 mg PO HS #90 tab 04/22/21 11/25/21 Rx omeprazole 40 mg capsule,delayed 40 mg PO QAM #90 cap 05/11/21 11/25/21 Rx release albuterol sulfate 90 mcg/actuation 2 puff INHALATION Q4H PRN #1 btl 05/27/21 11/25/21 Rx aerosol inhaler (Ventolin HFA) duloxetine 30 mg capsule,delayed 30 mg PO QAM 08/01/21 11/25/21 History release hydralazine 50 mg tablet See Rx Instructions .ROUTE 09/01/21 11/25/21 Rx .COMPLEX #360 tab lisinopril 40 mg tablet 40 mg PO QAM #90 tab 09/07/21 11/25/21 Rx carvedilol 12.5 mg tablet 12.5 mg PO BID #180 tab 11/04/21 11/25/21 Rx nifedipine 30 mg tablet,extended 30 mg PO QDL 11/12/21 11/25/21 History release Allergies Allergy/AdvReac Type Severity Reaction Status Date / Time oxycodone [From OxyContin] AdvReac Mild insomina Verified 11/25/21 21:30 Past Med/Surg History Medical History (Updated 11/26/21 @ 00:06 by Hazel Carbajal DO) Acid reflux Asthma well controlled > rare res inh use Chronic diastolic (congestive) heart failure follows with Dr. Chau Eustachian tube dysfunction Hepatic steatosis Incidental noting on CT scan Hx of Clostridium difficile infection hx of > resolved Sep 2021 Hypertension Irritable bowel disease Kidney stone Morbid obesity SHAKEEL (obstructive sleep apnea) CPAP Pulmonary embolism 2018, unknown etiology, AC discontinued, no issues since Pulmonary hypertension Surgical History Family history of reaction to anesthesia Brother "slow to wake" History of 2 sections History of adenoidectomy History of bilateral tubal ligation History of cardiac cath No CAD noted on April 2020 cath > no stents History of colonoscopy History of cystoscopy History of esophagogastroduodenoscopy (EGD) History of herniorrhaphy Abdominal X 2 History of knee replacement R/L History of lithotripsy x3 History of nasal septoplasty History of tonsillectomy S/P right rotator cuff repair Right shoulder arthroscopy, RCR (07/16/20): MAC#3, ETT 7.0, atraumatic DL x1, + PNB at [facility] Status post laparoscopic hysterectomy TLH-BS, lysis of adhesions, cysto in 2017 Family History Father Myocardial infarction Grandfather (Maternal) Coronary heart disease Breast cancer Colorectal cancer Mother Tobacco use Emphysema, unspecified Aunt Breast cancer Maternal Sister Uterine cancer Other Diabetes Heart disease Hypertension Denies family history of Ovarian cancer Social History Smoking Status: Never smoker Tobacco Type: Cigarettes Second Hand Exposure: Yes (as a child); Hx Alcohol Use: No Hx Substance Use: No Preferred Language: German Communication Ability: Effective Visual Impairment: No 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 Beliefs That Will Affect Care: None marital status: Current Living Situation: Spouse current occupational status: employed current occupation: [employer] Feels Safe at Home: Yes Assistive Devices: None Review of Systems A total of 10 systems reviewed and were otherwise negative All systems reviewed & are unremarkable except as noted in HPI & below Physical Exam Vital Signs Vital Signs - 24 hr 11/25/21 19:55 11/25/21 21:30 11/25/21 22:00 Temperature 37.1 C Temperature Source Temporal Artery Scan Pulse Rate 71 69 64 Respiratory Rate 18 20 20 Respiratory Effort / Characteristics Non-Labored Spontaneous Respiratory Depth Normal Respiratory Pattern Regular Blood Pressure 143/69 H 121/57 L 128/63 Blood Pressure Mean 93 78 84 Pulse Oximetry 94 97 94 Oxygen Delivery Method Room Air Sepsis Recent Fever Within 48 Hours No Sepsis New/Unexplained Change in Mental Status No Sepsis Action Taken by Nursing No Action Required 11/25/21 22:30 11/25/21 23:00 Temperature Temperature Source Pulse Rate 67 62 Respiratory Rate 20 18 Respiratory Effort / Characteristics Respiratory Depth Respiratory Pattern Blood Pressure 133/66 134/68 Blood Pressure Mean 88 90 Pulse Oximetry 93 96 Oxygen Delivery Method Sepsis Recent Fever Within 48 Hours Sepsis New/Unexplained Change in Mental Status Sepsis Action Taken by Nursing GENERAL: alert, uncomfortable appearing, well nourished, no distress, non-toxic, BMI>54 EYE EXAM: normal conjunctiva, PERRL and EOM's grossly intact OROPHARYNX: no exudate, no erythema, lips, buccal mucosa, and tongue normal and mucous membranes are moist NECK: supple, no nuchal rigidity, no adenopathy, non-tender LUNGS: Clear to auscultation. Normal chest wall mechanics, no w/r/r HEART: no murmurs, S1 normal and S2 normal ABDOMEN: abdomen soft, tenderness in the left lower quadrant, normo-active bowel sounds, no masses, no rebound or guarding. BACK: Back is symmetrical on inspection and there is no deformity, no midline tenderness, no CVA tenderness. Pain with palpation in the left lower lumbar region. SKIN: no rashes and no bruising UPPER EXTREMITIES: upper extremities are grossly normal. FROM, nml pulses b/l. LOWER EXTREMITIES: No pitting edema. FROM, nml pulses b/l. NEURO EXAM: Normal sensorium, cranial nerves II-XII grossly intact, normal speech, no gross weakness of arms, no gross weakness of legs. Gross sensation intact. Course Course 2044: Pt still having pain. Discussed CT results. 2126: Patient states pain is improved although still present, nausea improved after Zofran. We did discuss all results. Due to concern for concurrent stones and evolving UTI, patient was given IV Rocephin and we did discuss potential inpatient management. Alfredo Og PA-C covering urology did come see the patient at bedside. They would prefer hospitalist to admit. Administered Medications Sodium Chloride (Nss 1000ml) 1,000 mls @ 100 mls/hr IV .Q10H PRABHA Stop: 11/26/21 21:59 Last Admin: 11/25/21 20:49 Dose: 250 mls/hr Documented by: [id number] Morphine Sulfate (Morphine Sulfate 2 Mg/Ml Carp) 2 mg IV Q30M PRN PRN Reason: Pain Stop: 12/09/21 20:37 Last Admin: 11/25/21 21:59 Dose: 2 mg Documented by: [id number] Discontinued Medications Ceftriaxone Sodium (Rocephin) 2,000 mg in 70 mls @ 140 mls/hr IV NOW STA Stop: 11/25/21 21:03 Last Infusion: 11/25/21 21:28 Dose: 0 mls/hr Documented by: [id number] Admin: 11/25/21 20:49 Dose: 140 mls/hr Documented by: [id number] Acetaminophen (Ofirmev) 1,000 mg in 100 mls @ 400 mls/hr IV NOW STA Stop: 11/25/21 20:52 Last Infusion: 11/25/21 21:28 Dose: 0 mls/hr Documented by: [id number] Admin: 11/25/21 20:49 Dose: 400 mls/hr Documented by: [id number] Ondansetron HCl (Ondansetron Inj 2 Mg/Ml 2 Ml Vial) 4 mg IV NOW STA Stop: 11/25/21 20:39 Last Admin: 11/25/21 20:49 Dose: 4 mg Documented by: [id number] Tamsulosin HCl (Tamsulosin Hcl 0.4 Mg Cap) 0.4 mg PO NOW ONE Stop: 11/25/21 21:44 Last Admin: 11/25/21 21:58 Dose: 0.4 mg Documented by: [id number] Medical Decision Making Differential Diagnosis Differential diagnosis: Etiologies such as shingles, pyelonephritis/UTI, renal colic, appendicitis, diverticulitis, mesenteric ischemia, torsion, aortic pathology, infections, inflammatory bowel disease, bowel obstruction, PUD, biliary pathology, as well as others were entertained. Medical Records Attestation: I reviewed the patient's medical records. Home Medications Current Medication List: was personally reviewed by me Laboratory Data Attestation: I reviewed the patient's lab results. Result diagrams: 11/25/21 20:16 11/25/21 20:16 Lab Results 11/25/21 11/25/21 11/25/21 Range/Units 20:06 20:16 20:16 WBC 12.90 H (4.8-10.8) K/uL RBC 4.33 (4.2-5.4) M/uL Hgb 12.2 (12.0-16.0) g/dL Hct 38.1 (37-47) % MCV 88.0 (80-100) fL MCH 28.2 (25-34) pg MCHC 32.0 (32-36) g/dL RDW Std Deviation 46.0 (36.4-46.3) fL RDW Coeff of Shay 14.2 (11.5-14.5) % Plt Count 319 (130-400) K/uL MPV 10.2 (7.4-10.4) fL Immature Gran % (Auto) 0.2 % Neut % (Auto) 75.7 % Lymph % (Auto) 14.4 % [place] % (Auto) 7.6 % Eos % (Auto) 1.7 % Baso % (Auto) 0.4 % Neut # (Auto) 9.76 H (1.4-6.5) K/uL Lymph # (Auto) 1.86 (1.2-3.4) K/uL [place] # (Auto) 0.98 H (0.11-0.59) K/uL Eos # (Auto) 0.22 (0-0.5) K/uL Baso # (Auto) 0.05 (0-0.2) K/uL Immature Gran # (Auto) 0.03 H (0.00-0.02) K/uL Sodium 139 (136-145) mmol/L Potassium 4.0 (3.5-5.1) mmol/L Chloride 105 (98-107) mmol/L Carbon Dioxide 26 (21-32) mmol/L Anion Gap 8 (3-11) BUN 26 H (6-23) mg/dl Creatinine 0.65 (0.6-1.2) mg/dl Est Cr Clr Drug Dosing 117.9 ml/min Est GFR ( Amer) 120.0 ml/min Est GFR (Non-Af Amer) 103.5 ml/min BUN/Creatinine Ratio 40.0 H (10-20) Glucose 139 H (70-99(Fasting)) mg/dl Calcium 9.3 (8.5-10.1) mg/dl Total Bilirubin 0.5 (0.2-1.0) mg/dl AST 19 (13-39) U/L ALT 29 (7-52) U/L Alkaline Phosphatase 96 (34-104) U/L Total Protein 7.6 (6.0-8.3) gm/dl Albumin 4.1 (3.4-5.0) gm/dl Globulin 3.5 (2.5-4.0) gm/dl Albumin/Globulin Ratio 1.2 (0.9-2) Urine Color Dark Yellow Urine Appearance Clear (Clear) Urine pH 6.0 (4.5-7.5) Ur Specific [place] 1.005 (1.000-1.030) Urine Protein Negative (Negative) Urine Glucose (UA) Negative (Negative) Urine Ketones Negative (Negative) Urine Blood Negative (Negative) Urine Nitrite Positive A (Negative) Urine Bilirubin Negative (Negative) Urine Urobilinogen Negative (Negative) Ur Leukocyte Esterase Trace H (Negative) Urine WBC (Auto) 1-5 (0-5) /hpf Urine RBC (Auto) 0-4 (0-4) /hpf U Hyaline Cast (Auto) 1-5 (0-5) /lpf U Epithel Cells (Auto) 10-20 H (0-5) /lpf Urine Bacteria (Auto) Negative (Negative) MDM Narrative THis is a 50-year-old female presents due to concern for abrupt onset flank pain and abnormal outpatient CT which did reveal stones, hydroureter, and hydronephrosis. I did review the CT results with the patient. Labs are drawn and sent and patient given medication for pain and nausea, started on gentle IV fluid rehydration. Patient was afebrile and hemodynamically stable here. She did improve with medication here although had persistent pain and required more than 1 dose of IV morphine. I do have concern for concurrent UTI and stone g iven atypical UA. This will be sent for culture. Patient was started on IV Rocephin as a precaution. Prior cultures were reviewed. Patient remained hemodynamically stable throughout, verbalized understanding all results, and was in agreement with plan for additional inpatient monitoring and urology evaluation. Case discussed with hospitalist and covering urology PA. An order was placed for continuous cardiac monitoring. The monitor shows a rate of _66_ with _normal sinus_ rhythm. Impression & Plan Acute left flank pain, Ureterolithiasis, UTI (urinary tract infection) Discharge Plan Visit Data Chief Complaint: Kidney Stone Stated Complaint: FLUID IN KIDNEY, STONE OBSTRUCTING KIDNEY FLOW ED Provider: Hazel Carbajal Discharge Problem: Acute left flank pain, Ureterolithiasis, UTI (urinary tract infection) Forms Stand Alone Forms: [facility]apulter [facility] Prescriptions Prescriptions: No Action fluticasone propion-salmeterol [Advair Diskus] 250-50 mcg/dose blister with device 1 inh Inhalation BID Qty: 60 RF: 3 furosemide [Lasix] 20 mg tablet 40 mg PO PM Qty: 180 RF: 3 atorvastatin [Lipitor] 40 mg tablet 40 mg PO HS Qty: 90 RF: 3 omeprazole 40 mg capsule,delayed release(DR/EC) 40 mg PO QAM Qty: 90 RF: 3 albuterol sulfate [Ventolin HFA] 90 mcg/actuation HFA aerosol inhaler 2 puff Inhalation Q4H PRN (Reason: shortness of breath) Qty: 1 RF: 5 lisinopril 40 mg tablet 40 mg PO QAM Qty: 90 RF: 3 carvedilol 12.5 mg tablet 12.5 mg PO BID Qty: 180 RF: 3 hydralazine 50 mg tablet See Rx Instructions .ROUTE .COMPLEX Qty: 360 RF: 3 multivitamin [Daily Multi-Vitamin] Tablet 1 tab PO QAM RF: 0 potassium citrate 10 mEq (1,080 mg) tablet extended release 10 meq PO BID 90 Days Qty: 180 RF: 3 nitroglycerin 0.4 mg tablet, sublingual 0.4 mg SL Q5M PRN (Reason: Chest Pain) Qty: 25 RF: 0 cholecalciferol (vitamin D3) 125 mcg (5,000 unit) capsule 125 mcg PO QAM RF: 0 ascorbic acid (vitamin C) 1,000 mg tablet 1 gm PO QAM RF: 0 duloxetine 30 mg capsule,delayed release(DR/EC) 30 mg PO QAM RF: 0 nifedipine 30 mg tablet extended release 30 mg PO QDL RF: 0 Referrals Referrals: PCP,NO [Physician] - Discharge Problem: UTI (urinary tract infection) Qualifiers: Urinary tract infection type: acute cystitis Hematuria presence: with hematuria Qualified Code(s): N30.01 - Acute cystitis with hematuria
[2021-11-25 20:18] LABS: Appearance Urine Clear (Clear); Bacteria Urine Automated Negative (Negative); Bilirubin Urine Negative (Negative); Blood Urine Negative (Negative); Color Urine Dark Yellow; Glucose Urine UA Negative (Negative); Ketones Urine Negative (Negative); Leukocyte Esterase Urine Trace (Negative); Nitrite Urine Positive (Negative); Protein Urine Negative (Negative); RBC Urine Automated 0-4 /hpf (0-4); Specific Gravity Urine 1.005 (1.000-1.030); Urobilinogen Urine Negative (Negative)
[2021-11-25 20:25] LABS: Basophils # (auto) 0.05 K/uL (0-0.2); Basophils % (auto) 0.4 %; Eosinophils # (auto) 0.22 K/uL (0-0.5); Eosinophils % (auto) 1.7 %; Hematocrit (blood only) 38.1 % (37-47); Hemoglobin 12.2 g/dL (12.0-16.0); Immature Granulocytes # (auto) 0.03 K/uL (0.00-0.02); Immature Granulocytes % (auto) 0.2 %; Lymphocytes # (auto) 1.86 K/uL (1.2-3.4); Lymphocytes % (auto) 14.4 %; Mean Corpuscular Hemoglobin 28.2 pg (25-34); Mean Platelet Volume 10.2 fL (7.4-10.4); Monocytes # (auto) 0.98 K/uL (0.11-0.59); Monocytes % (auto) 7.6 %; Neutrophils # (auto) 9.76 K/uL (1.4-6.5); Neutrophils % (auto) 75.7 %; Platelet Count 319 K/uL (130-400); RDW Coefficient of Variation 14.2 % (11.5-14.5); Red Blood Count 4.33 M/uL (4.2-5.4)
[2021-11-25] MEDS ORDERED: cefTRIAXone SODIUM 2,000 MG/70 ML BAG IV STA (20:34)
[2021-11-25] MEDS ORDERED: ACETAMINOPHEN 1,000 MG/100 ML VIAL IV STA (20:38)
[2021-11-25] MEDS ORDERED: MoRPHine SULFATE 2 MG/ML CARP IV PRN (20:38)
[2021-11-25] MEDS ORDERED: ONDANSETRON INJ 2 MG/ML 2 ML VIAL IV STA (20:38)
[2021-11-25 20:48] LABS: Albumin Globulin Ratio 1.2 (0.9-2); Albumin Level 4.1 gm/dl (3.4-5.0); Bilirubin,Total 0.5 mg/dl (0.2-1.0); Calcium 9.3 mg/dl (8.5-10.1); Creatinine Clr Calc Pharmacy 117.9 ml/min; Est GFR (Non-African American) 103.5 ml/min; Globulin 3.5 gm/dl (2.5-4.0); Total Protein 7.6 gm/dl (6.0-8.3)
[2021-11-25] MEDS: SODIUM CHLORIDE 0.9% 1000ML 1,000 ML IV SCH (20:49)
[2021-11-25] MEDS ORDERED: TAMSULOSIN HCL 0.4 MG CAP PO ONE (21:43)
--- NOTE | 2021-11-25 21:46 | Urology Consultation ---
Date of Consultation November 25, 2021 Assessment & Plan (1) Nephrolithiasis: Due to patient's history of nephrolithiasis and underlying hydronephrosis and noted kidney stones on today's CT scan the treating emergency room physician is having the patient admitted on the hospitalist service. We recommend proceeding as follows: Provide analgesics Provide antiemetics Provide IV fluids Initiate Flomax for expulsive therapy Strain urine and save any kidney stones for proper analysis Obtain a urine culture, tailoring antibiotics based on the results of this. There is no over the mention that the patient did receive Rocephin in the emergency department thus far We will allow the patient clear liquids at this time but make her n.p.o. after midnight in the event that cystoscopy is needed tomorrow Additional recommendation was made based on her clinical course as it unfolds History of Present Illness Reason for Consultation: Nephrolithiasis History of Present Illness This is a 50-year-old female who has an extensive history of nephrolithiasis requiring multiple procedures in the past. Patient notes that she was in her usual state of health yesterday however awoke this morning with left-sided flank pain that radiated to her left groin. Patient does admit to some urinary frequency over the past 24 hours but denies any dysuria. She did note some hematuria. With her symptoms she has had associated nausea vomiting. She denies any fevers, shakes, chills. Because of her history of nephrolithiasis she went to an urgent care center and was sent for an outpatient CT scan which will be noted below. Concerning the patient's past history of lithotripsy her records were reviewed and her most recent procedure was left-sided extracorporeal shockwave lithotripsy in April 2021 and was performed by Dr. Whipple.Prior to that procedure, the patient did have a procedure performed by Dr. Conway in December 2019. At this time the patient underwent a cystoscopy with a right ureteroscopy and laser lithotripsy as well as basket stone extraction of right- sided kidney stones. In the emergency department the patient had labs which I independently reviewed. CBC revealed white blood cell count was 12.9. Hemoglobin, hematocrit, and platelet count are all within normal range. Chemistry profile showed sodium, potassium, and creatinine were all within normal range. Her BUN had a slight elevation at 26. There is no significant elevation of LFTs. Urinalysis was positive for nitrites and trace positive for leukocyte Estrace. There were only 1-5 white blood cells per high-power field and no bacteria on this study. Patient also underwent a CT scan earlier today. This CT scan was of the abdomen and pelvis that showed mild to moderate left-sided hydronephrosis and hydroureter and also noted to renal calculi measuring 4 to 5 mm. There is no right-sided hydronephrosis. Patient does note that she has a history of congestive heart failure. She does note that this condition is stable and over the past several months she has not experienced any worsening shortness of breath or dyspnea exertion. She notes that she checks her weight daily and it has been stable without any noted increase. She also denies any worsening lower extremity edema or orthopnea. At the time of my interview the patient was resting in bed and she was in no distress. Allergies Allergy/AdvReac Type Severity Reaction Status Date / Time oxycodone [From OxyContin] AdvReac Mild insomina Verified 11/25/21 21:30 Home Medications Medication Instructions Recorded Confirmed Type nitroglycerin 0.4 mg sublingual 0.4 mg SL Q5M PRN #25 tab 07/19/19 11/25/21 History tablet ascorbic acid (vitamin C) 1,000 mg 1 gm PO QAM tab 12/14/19 11/25/21 History tablet cholecalciferol (vitamin D3) 125 125 mcg PO QAM 12/14/19 11/25/21 History mcg (5,000 unit) capsule multivitamin (Daily Multi-Vitamin) 1 tab PO QAM 12/30/20 11/25/21 History fluticasone 250 mcg-salmeterol 50 1 inh INHALATION BID #60 ea 01/26/21 11/25/21 Rx mcg/dose blistr powdr for inhalation (Advair Diskus) potassium citrate 10 mEq (1,080 10 meq PO BID 90 Days #180 tab 03/04/21 11/25/21 Rx mg) tablet,extended release furosemide 20 mg tablet (Lasix) 40 mg PO PM #180 tab 03/27/21 11/25/21 Rx atorvastatin 40 mg tablet (Lipitor) 40 mg PO HS #90 tab 04/22/21 11/25/21 Rx omeprazole 40 mg capsule,delayed 40 mg PO QAM #90 cap 05/11/21 11/25/21 Rx release albuterol sulfate 90 mcg/actuation 2 puff INHALATION Q4H PRN #1 btl 05/27/21 11/25/21 Rx aerosol inhaler (Ventolin HFA) duloxetine 30 mg capsule,delayed 30 mg PO QAM 08/01/21 11/25/21 History release hydralazine 50 mg tablet See Rx Instructions .ROUTE 09/01/21 11/25/21 Rx .COMPLEX #360 tab lisinopril 40 mg tablet 40 mg PO QAM #90 tab 09/07/21 11/25/21 Rx carvedilol 12.5 mg tablet 12.5 mg PO BID #180 tab 11/04/21 11/25/21 Rx nifedipine 30 mg tablet,extended 30 mg PO QDL 11/12/21 11/25/21 History release Patient History Medical History Acid reflux Asthma well controlled > rare res inh use Chronic diastolic (congestive) heart failure follows with Dr. Chau Eustachian tube dysfunction Hepatic steatosis Incidental noting on CT scan Hx of Clostridium difficile infection hx of > resolved Sep 2021 Hypertension Irritable bowel disease Kidney stone Morbid obesity SHAKEEL (obstructive sleep apnea) CPAP Pulmonary embolism 2018, unknown etiology, AC discontinued, no issues since Pulmonary hypertension Surgical History Family history of reaction to anesthesia Brother "slow to wake" History of 2 sections History of adenoidectomy History of bilateral tubal ligation History of cardiac cath No CAD noted on April 2020 cath > no stents History of colonoscopy History of cystoscopy History of esophagogastroduodenoscopy (EGD) History of herniorrhaphy Abdominal X 2 History of knee replacement R/L History of lithotripsy x3 History of nasal septoplasty History of tonsillectomy S/P right rotator cuff repair Right shoulder arthroscopy, RCR (07/16/20): MAC#3, ETT 7.0, atraumatic DL x1, + PNB at [facility] Status post laparoscopic hysterectomy TLH-BS, lysis of adhesions, cysto in 2017 Family History Father Myocardial infarction Grandfather (Maternal) Coronary heart disease Breast cancer Colorectal cancer Mother Tobacco use Emphysema, unspecified Aunt Breast cancer Maternal Sister Uterine cancer Other Diabetes Heart disease Hypertension Denies family history of Ovarian cancer Social History Smoking Status: Never smoker Tobacco Type: Cigarettes Second Hand Exposure: Yes (as a child); Hx Alcohol Use: No Hx Substance Use: No Preferred Language: Libyan Communication Ability: Effective Visual Impairment: No 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 Beliefs That Will Affect Care: None marital status: Current Living Situation: Spouse current occupational status: employed current occupation: [employer] Feels Safe at Home: Yes Assistive Devices: None Review of Systems Constitutional: no fever and no chills Eyes: no diplopia Ear, Nose, Mouth, Throat: no ear pain Respiratory: no cough, no dyspnea and no dyspnea on exertion Cardiovascular: no chest pain and no orthopnea Gastrointestinal: + abdominal pain (Radiating from left flank), + nausea and + vomiting Genitourinary: + urinary frequency, + hematuria and + flank pain (Left-sided); no dysuria Musculoskeletal: + back pain (Left flank pain) Integumentary: no rash Neurologic: no localized weakness Physical Exam Constitutional: WD/WN, vitals as above + obese Eyes: no conjunctival abnormality ENMT: Ears: no hearing impairment and no external ear abnormality Mouth: no oropharynx abnormality Neck: trachea midline Respiratory: normal respiratory effort, lungs clear to auscultation Cardiovascular: Rate/Rhythm: regular rate and regular rhythm Gastrointestinal (Abdomen): Abdomen is soft, nontender, nondistended. Slight pain with palpation on the left side of her abdomen. No rebound tenderness or guarding is noted. Musculoskeletal: No calf tenderness. Skin: no rashes Neurologic: moves all extremities Psychiatric: A+Ox3, euthymic affect Genitourinary: + CVA tenderness (Left-sided) Results & Data ([facility]) Vital Signs (Past 12 Hours) Vital Signs Temp Pulse Resp BP Pulse Ox 11/25/21 19:55 37.1 C 71 18 143/69 H 94 PG Care Time/CCT Total # of Minutes Spent Total Time Spent with Patient: Total time spent is greater than 50% in coordination of care (as documented) at patient's floor/unit and/or counseling patient: Coding Level of Care Code 73090 Inpt Consult Level 5 Diagnoses Nephrolithiasis N20.0
--- NOTE | 2021-11-25 22:11 | History & Physical Report ---
Date of Service November 25, 2021 Assessment & Plan (1) Nephrolithiasis: Plan: 50 y/o F w/ PMHx of HFpEF, HTN, PE not on anticoag, and recurrent nephrolithiasis who presents for stones at L UPJ obstructive stones w/ resultant hydronephrosis. Stable. Significant chronic reoccuring nephrolithiasis hx. Has had lithotripsy in past. Follows [facility] urology. Mild leukocytosis. Increased risk of infection w/ stasis. UA suggestive of UTI. Treat w/ Rocephin 1g daily. Hold home lisinopril Fluids at 100mL/hr Urology consulted. NPO. Flomax for hopeful passage of stones. Possible cystoscopy. Strain collection of urine ordered. (2) Chronic diastolic (congestive) heart failure: Plan: 01/08/20 echo w/ normal EF 65-70. 04/28/20 cardiac cath w/o PAD. IV fluid rate adjusted/decreased as above. Patient does not appear septic. (3) Hypertension: Plan: Continue home regimen, but hold lisinopril in setting of hydronephrosis. Monitor. (4) SHAKEEL (obstructive sleep apnea): Plan: CPAP 12mmHg qhs (5) Asthma: Plan: Duoneb PRN while inpatient. (6) Acid reflux: Plan: Continue home PPI. (7) Hx of pulmonary embolus: Plan: Not on anticoag as outpatient. History of Present Illness Chief Complaint: nephrolithiasis Primary Care Provider: Rachel Pierson MD 50 y/o F w/ PMHx of HFpEF, HTN, SHAKEEL, PE not on anticoag, asthma, recurrent neph rolithiasis who presents for stones at L UPJ noted on outpatient CT abd today. She has had frequency and urgency since 7PM yesterday, but no dysuria. 7AM today started having constant LLQ migrated to L flank, worsening, 10/10 at the worst. She saw urgent care today and when the CT abd resulted, was called and instructed to visit the ED. Current pain level 2/10 after 2mg IV morphine. + nausea and chills. Outpatient urologist: Dr. Conway. relevant home meds: chronically takes K citrate PO BID, has had hx of Ca stones ED course: Flomax, NSS 1L, morphine 2mg IV, Rocephin 2g. Outpatient CT abd showed mild to moderate left-sided hydronephrosis and hydroureter to the UPJ. There are 2 contiguous calculi at the UPJ each measuring 4 to 5 mm. Allergies Allergy/AdvReac Type Severity Reaction Status Date / Time oxycodone [From OxyContin] AdvReac Mild insomina Verified 11/25/21 21:30 Home Medications Medication Instructions Recorded Confirmed Type nitroglycerin 0.4 mg sublingual 0.4 mg SL Q5M PRN #25 tab 07/19/19 11/25/21 History tablet ascorbic acid (vitamin C) 1,000 mg 1 gm PO QAM tab 12/14/19 11/25/21 History tablet cholecalciferol (vitamin D3) 125 125 mcg PO QAM 12/14/19 11/25/21 History mcg (5,000 unit) capsule multivitamin (Daily Multi-Vitamin) 1 tab PO QAM 12/30/20 11/25/21 History fluticasone 250 mcg-salmeterol 50 1 inh INHALATION BID #60 ea 01/26/21 11/25/21 Rx mcg/dose blistr powdr for inhalation (Advair Diskus) potassium citrate 10 mEq (1,080 10 meq PO BID 90 Days #180 tab 03/04/21 11/25/21 Rx mg) tablet,extended release furosemide 20 mg tablet (Lasix) 40 mg PO PM #180 tab 03/27/21 11/25/21 Rx atorvastatin 40 mg tablet (Lipitor) 40 mg PO HS #90 tab 04/22/21 11/25/21 Rx omeprazole 40 mg capsule,delayed 40 mg PO QAM #90 cap 05/11/21 11/25/21 Rx release albuterol sulfate 90 mcg/actuation 2 puff INHALATION Q4H PRN #1 btl 05/27/21 11/25/21 Rx aerosol inhaler (Ventolin HFA) duloxetine 30 mg capsule,delayed 30 mg PO QAM 08/01/21 11/25/21 History release hydralazine 50 mg tablet See Rx Instructions .ROUTE 09/01/21 11/25/21 Rx .COMPLEX #360 tab lisinopril 40 mg tablet 40 mg PO QAM #90 tab 09/07/21 11/25/21 Rx carvedilol 12.5 mg tablet 12.5 mg PO BID #180 tab 11/04/21 11/25/21 Rx nifedipine 30 mg tablet,extended 30 mg PO QDL 11/12/21 11/25/21 History release ciprofloxacin HCl 500 mg tablet 500 mg PO BID #6 tab 11/26/21 Rx (Cipro) hydrocodone 5 mg-acetaminophen 325 1 tab PO Q6H PRN #15 tab 11/26/21 Rx mg tablet Past Med/Surg History Medical History Acid reflux Asthma well controlled > rare res inh use Chronic diastolic (congestive) heart failure follows with Dr. Chau Eustachian tube dysfunction Hepatic steatosis Incidental noting on CT scan Hx of Clostridium difficile infection hx of > resolved Sep 2021 Hypertension Irritable bowel disease Kidney stone Morbid obesity SHAKEEL (obstructive sleep apnea) CPAP Pulmonary embolism 2018, unknown etiology, AC discontinued, no issues since Pulmonary hypertension Surgical History Family history of reaction to anesthesia Brother "slow to wake" History of 2 sections History of adenoidectomy History of bilateral tubal ligation History of cardiac cath No CAD noted on April 2020 cath > no stents History of colonoscopy History of cystoscopy History of esophagogastroduodenoscopy (EGD) History of herniorrhaphy Abdominal X 2 History of knee replacement R/L History of lithotripsy x3 History of nasal septoplasty History of tonsillectomy S/P right rotator cuff repair Right shoulder arthroscopy, RCR (07/16/20): MAC#3, ETT 7.0, atraumatic DL x1, + PNB at [facility] Status post laparoscopic hysterectomy TLH-BS, lysis of adhesions, cysto in 2017 Family History Father Myocardial infarction Grandfather (Maternal) Coronary heart disease Breast cancer Colorectal cancer Mother Tobacco use Emphysema, unspecified Aunt Breast cancer Maternal Sister Uterine cancer Other Diabetes Heart disease Hypertension Denies family history of Ovarian cancer Social History Smoking Status: Former smoker Tobacco Type: Cigarettes Second Hand Exposure: Yes (as a child); Hx Alcohol Use: No Hx Substance Use: No Preferred Language: South African Communication Ability: Effective Visual Impairment: No Limitations Road Roller 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 Denies weight changes. Eyes: Denies blurry vision, vision changes ENT: Denies sore throat, sinus pain Cardiovascular: Denies chest pain, palpitations Respiratory: Denies shortness of breath, cough Gastrointestinal: Denies constipation, diarrhea. Emesis x1. Genitourinary: See HPI Musculoskeletal: Denies weakness, muscle aches/pain, joint aches/pain Neurological: Denies numbness, tingling, focal weakness. Mild frontal [place]. Physical Exam Physical Exam: General: Grossly A&O. NAD. Cooperative. HEENT: Atraumatic, normocephalic. EOMI. No obvious JVD. Pulm: CTAB. -wheezes, -rales, -rhonchi. No respiratory distress. Cardiac: RRR, -mrg. Radial pulses intact and symmetrical. DP pulses 2+. Puffy appearing ankles, but unable to appreciate pitting. Abdominal: Nondistended, soft. LLQ TTP. TTP near just above L CVA area. Msk: Moving all extremities. Integ: Warm, dry, intact. Neuro: CN II-XII intact. Normal strength and sensation of extremities. Results & Data Results & Data ([facility]) Vital Signs (Past 12 Hours) Vital Signs Temp Pulse Resp BP Pulse Ox 11/25/21 21:30 69 20 121/57 L 97 11/25/21 19:55 37.1 C 71 18 143/69 H 94 Laboratory Results wbc 12.9. Hb 12.2, baseline. cmp reviewed. Cr .65. BUN/Cr 40.0. UA w/ pos nitrite, trace leuk esterase, 10-20 epithelial cells. urine culture pending 11/25/21 20:16 11/25/21 20:16 Cardiac Enzymes 11/25/21 Range/Units 20:16 AST 19 (13-39) U/L CBC 11/25/21 Range/Units 20:16 WBC 12.90 H (4.8-10.8) K/uL RBC 4.33 (4.2-5.4) M/uL Hgb 12.2 (12.0-16.0) g/dL Hct 38.1 (37-47) % Plt Count 319 (130-400) K/uL Neut # (Auto) 9.76 H (1.4-6.5) K/uL Lymph # (Auto) 1.86 (1.2-3.4) K/uL [place] # (Auto) 0.98 H (0.11-0.59) K/uL Eos # (Auto) 0.22 (0-0.5) K/uL Baso # (Auto) 0.05 (0-0.2) K/uL Comprehensive Metabolic Panel 11/25/21 Range/Units 20:16 Sodium 139 (136-145) mmol/L Potassium 4.0 (3.5-5.1) mmol/L Chloride 105 (98-107) mmol/L Carbon Dioxide 26 (21-32) mmol/L BUN 26 H (6-23) mg/dl Creatinine 0.65 (0.6-1.2) mg/dl Glucose 139 H (70-99(Fasting)) mg/dl Calcium 9.3 (8.5-10.1) mg/dl AST 19 (13-39) U/L ALT 29 (7-52) U/L Alkaline Phosphatase 96 (34-104) U/L Total Protein 7.6 (6.0-8.3) gm/dl Albumin 4.1 (3.4-5.0) gm/dl Intake and Output 11/25/21 11/25/21 11/25/21 06:59 14:59 22:59 Intake Total 170 / 170 Balance 170 / 170 Intake: IV 170 / 170 Acetaminophen 1,000 mg In 100 100 / 100 ml @ 400 mls/hr IV NOW STA Rx#: [id number] cefTRIAXone SODIUM 2,000 mg In 70 / 70 70 ml @ 140 mls/hr IV NOW STA Rx#:[id number] Other: Weight 118.9 kg Patient Weight 11/26/21 06:59 Weight 118.9 kg Diagnostic Findings 11/25/[address] abd/pelv w/o contrast: IMPRESSION: 1. Compared to the previous study, there is now mild to moderate left-sided hydronephrosis and hydroureter to the UPJ. There are 2 contiguous calculi at the UPJ each measuring 4 to 5 mm. 2. Additional nonobstructing renal calculi are present bilaterally. There is no evidence for right-sided hydronephrosis. 3. There is again diverticulosis without evidence for diverticulitis. 4. No other evidence for acute intra-abdominal or pelvic abnormality on these limited noncontrast images. 5. Additional nonacute findings; see full report. ECG Additional Comments: no new ecg this admission Code Status & VTE Plan Code Status full VTE Prophylaxis Plan VTE Prophylaxis will be ordered: Yes Supervising Physician Co-Signing Physician Notes Attending addendum: I have physically seen this patient, have supervised the medical residents activities, and agree with the H&P unless as otherwise noted. Assessment and Plan: Nephrolithiasis/2 UPJ 4 to 5 mm stones/mild to moderate left hydroureteronephrosis- NPO Follow urine culture sensitivity Ceftriaxone 2 g IV daily Tamsulosin 0.4 mg daily at bedtime Consult urology Hypertension- Continue all home meds except lisinopril Obstructive sleep apnea- CPAP 12 mmHg at bedtime Remaining orders and notations as noted Resident Activity Tracking Resident Involvement: Resident Care Provided Care Provided: Adult [facility] Medicine
[2021-11-26] MEDS: SODIUM CHLORIDE 0.9% 1000ML 1,000 ML IV SCH ×3 (01:41→14:40)
[2021-11-26] MEDS ORDERED: NITROGLYCERIN SL 0.4 MG/TAB TAB SL PRN (02:19)
[2021-11-26] MEDS ORDERED: MoRPHine SULFATE 2 MG/ML CARP IV PRN (02:19)
[2021-11-26] MEDS ORDERED: ALBUT/IPRATROP 3MG/0.5MG NEB 3 ML VIAL NEB PRN (04:03)
[2021-11-26] MEDS: HEPARIN SOD 5,000 UNIT/0.5 ML VIAL SQ SCH ×2 (04:26→12:55)
[2021-11-26] MEDS: carvediloL 12.5 MG TAB PO SCH ×2 (08:27→16:22)
--- NOTE | 2021-11-26 08:36 | Urology Progress Note ---
Date of Service November 26, 2021 Assessment & Plan (1) Left ureteral calculus: (2) Hydronephrosis of left kidney: (3) Acute left flank pain: Plan: 50yo F with a hx of nephrolithiasis admitted with intractable left flank pain secondary to 2 obstructing calculi at the left UVJ measuring approximately 4 to 5 mm. - Still with left flank pain this morning, no stone passage noted overnight. - Afebrile, VSS, non-toxic appearing. - Labs reviewed - Wbc 8.57 today, Creatinine 0.57. - Urine culture pending -On IV Ceftriaxone, follow culture - Discussed option for acute stone management with cystoscopy, stent placement, possible stone treatment. Pt agreeable to proceeding. - Plan of care reviewed with Dr. Whipple. Given her left flank pain in the context of 2 obstructing calculi at the left UVJ, will proceed with OR for Cystoscopy, Left retrograde pyelogram and Left stent placement, possible ureteroscopy, laser lithotripsy/stone treatment depending on findings. - Risks and benefits to be reviewed with patient by Dr. Whipple. OR notified. Covid test negative. Pt is on IV Ceftriaxone. - Patient agreeable to plan, all questions were answered. - Keep NPO. Strain all urine. - Continue supportive care, pain management, and antibiotic therapy. - Will continue to follow. Admission and Anticipated Discharge Date Admission Date: November 25, 2021 Supervising Physician Co-Signing Physician Notes agree with above. plan for cysto, left URS/LL, left stent placement Subjective Pt examined at bedside this AM. Awake, sitting in bedside chair on arrival. No acute distress. No fevers overnight. Still with left flank pain, but improved with IV pain medication. She denies any stone passage overnight. No nausea or vomiting. Has been NPO. Voiding without issue. Review of Systems Constitutional: as per Subjective / HPI Gastrointestinal: as per Subjective / HPI Genitourinary: as per Subjective / HPI Physical Exam Constitutional: well developed and well nourished; no acute distress and not ill appearing Neck: normal visual inspection Respiratory: normal respiratory effort and able to speak in complete sentences; no labored breathing and no audible wheezes Gastrointestinal (Abdomen): Inspection/Auscultation: abdomen normal to inspection; abdomen not distended Musculoskeletal: Head/Neck/Chest: normocephalic Skin: No visible rashes or lesions to exposed skin areas Neurologic: moves all extremities and awake Psychiatric: Orientation: alert, oriented x 3 and cooperative Results & Data ([facility]) Vital Signs (Past 12 Hours) Vital Signs Temp Pulse Pulse Resp BP BP Pulse Ox 11/26/21 07:23 36.6 C 63 18 126/63 95 11/26/21 02:44 36.6 C 69 17 171/70 H 96 11/26/21 02:19 36.6 C 69 17 171/70 H 96 11/26/21 01:38 57 L 18 95 11/26/21 01:00 59 L 22 103/63 93 11/26/21 00:30 65 22 113/60 95 11/25/21 23:00 62 18 134/68 96 11/25/21 22:30 67 20 133/66 93 11/25/21 22:00 64 20 128/63 94 11/25/21 21:30 69 20 121/57 L 97 PG Care Time/CCT Total # of Minutes Spent Total Time Spent with Patient: Total time spent is greater than 50% in coordination of care (as documented) at patient's floor/unit and/or counseling patient: Coding Level of Care Code 74825 Subseq Hosp Care Lvl 2 Diagnoses Left ureteral calculus N20.1 Acute left flank pain R10.9 Hydronephrosis of left kidney N13.30
[2021-11-26 08:43] LABS: Basophils # (auto) 0.02 K/uL (0-0.2); Basophils % (auto) 0.2 %; Eosinophils # (auto) 0.19 K/uL (0-0.5); Eosinophils % (auto) 2.2 %; Hematocrit (blood only) 39.6 % (37-47); Hemoglobin 12.6 g/dL (12.0-16.0); Immature Granulocytes # (auto) 0.01 K/uL (0.00-0.02); Immature Granulocytes % (auto) 0.1 %; Lymphocytes # (auto) 2.21 K/uL (1.2-3.4); Lymphocytes % (auto) 25.8 %; Mean Corpuscular Hemoglobin 28.1 pg (25-34); Mean Corpuscular Hgb Conc 31.8 g/dL (32-36); Mean Corpuscular Volume 88.4 fL (80-100); Mean Platelet Volume 10.5 fL (7.4-10.4); Monocytes # (auto) 0.58 K/uL (0.11-0.59); Monocytes % (auto) 6.8 %; Neutrophils # (auto) 5.56 K/uL (1.4-6.5); Neutrophils % (auto) 64.9 %; Platelet Count 325 K/uL (130-400); RDW Coefficient of Variation 14.6 % (11.5-14.5); RDW Standard Deviation 47.2 fL (36.4-46.3); Red Blood Count 4.48 M/uL (4.2-5.4); White Blood Count 8.57 K/uL (4.8-10.8)
[2021-11-26] MEDS ORDERED: DULoxetine HCL 30 MG CAP PO SCH (09:00)
[2021-11-26] MEDS ORDERED: hydrALAZINE TAB 50 MG TAB PO SCH ×2 (09:00→11:30)
[2021-11-26] MEDS ORDERED: POTASSIUM CITRATE 10 MEQ TAB PO SCH (09:00)
[2021-11-26] MEDS ORDERED: PANTOprazole 40 MG TAB PO SCH (09:00)
--- NOTE | 2021-11-26 09:32 | Anesthesiology Consultation ---
Date of Service November 26, 2021 Assessment & Plan (1) Encounter for pre-operative examination: Chart Review Chart Review: Acceptable Risk for Surgery and Patient NOT seen in Pre Admission Testing Consults Requested none History Surgery Operation Date: 11/26/21 09:40 Proposed Procedures p Cystoscopy, Left Retrograde Pyelogram, Left Stent Placement, Ureteroscopy, Laser Lithotripsy Stone Treatment - Nic Whipple MD Height/Weight Height: 4 ft 10 in Weight: 117.9 kg Allergies Allergy/AdvReac Type Severity Reaction Status Date / Time oxycodone [From OxyContin] AdvReac Mild insomina Verified 11/25/21 21:30 Medications Home Medications Medication Instructions Recorded Confirmed Last Taken nitroglycerin 0.4 mg sublingual 0.4 mg SL Q5M PRN #25 tab 07/19/19 11/25/21 Unknown tablet ascorbic acid (vitamin C) 1,000 mg 1 gm PO QAM tab 12/14/19 11/25/21 11/19/21 tablet cholecalciferol (vitamin D3) 125 125 mcg PO QAM 12/14/19 11/25/21 11/19/21 mcg (5,000 unit) capsule multivitamin (Daily Multi-Vitamin) 1 tab PO QAM 12/30/20 11/25/21 11/19/21 fluticasone 250 mcg-salmeterol 50 1 inh INHALATION BID #60 ea 01/26/21 11/25/21 11/20/21 09:00 mcg/dose blistr powdr for inhalation (Advair Diskus) potassium citrate 10 mEq (1,080 10 meq PO BID 90 Days #180 tab 03/04/21 11/25/21 11/19/21 mg) tablet,extended release furosemide 20 mg tablet (Lasix) 40 mg PO PM #180 tab 03/27/21 11/25/21 11/18/21 atorvastatin 40 mg tablet (Lipitor) 40 mg PO HS #90 tab 04/22/21 11/25/21 11/19/21 omeprazole 40 mg capsule,delayed 40 mg PO QAM #90 cap 05/11/21 11/25/21 11/20/21 09:00 release albuterol sulfate 90 mcg/actuation 2 puff INHALATION Q4H PRN #1 btl 05/27/21 11/25/21 11/13/21 aerosol inhaler (Ventolin HFA) duloxetine 30 mg capsule,delayed 30 mg PO QAM 08/01/21 11/25/21 11/20/21 09:00 release hydralazine 50 mg tablet See Rx Instructions .ROUTE 09/01/21 11/25/21 11/19/21 .COMPLEX #360 tab lisinopril 40 mg tablet 40 mg PO QAM #90 tab 09/07/21 11/25/21 11/19/21 carvedilol 12.5 mg tablet 12.5 mg PO BID #180 tab 11/04/21 11/25/21 11/20/21 09:00 nifedipine 30 mg tablet,extended 30 mg PO QDL 11/12/21 11/25/21 11/19/21 release Active Medications Generic Name Dose Route Start Last Admin Trade Name Royceq PRN Reason Stop Dose Admin Carvedilol 12.5 mg 11/26/21 08:00 11/26/21 08:27 Carvedilol 12.5 Mg Tab PO 12/26/21 07:59 12.5 mg BIDM PRABHA Administration Duloxetine HCl 30 mg 11/26/21 09:00 11/26/21 08:28 Duloxetine Hcl 30 Mg Cap PO 12/26/21 08:59 30 mg QAM PRABHA Administration Heparin Sodium (Porcine) 5,000 units 11/26/21 04:00 11/26/21 04:26 Heparin Sod 5,000 Unit/0.5 Ml Vial SQ 12/26/21 03:59 5,000 units Q8 PRABHA Administration Hydralazine HCl 50 mg 11/26/21 09:00 11/26/21 08:28 Hydralazine Tab 50 Mg Tab PO 12/26/21 08:59 50 mg BID PRABHA Administration Sodium Chloride 1,000 mls @ 100 mls/hr 11/25/21 20:45 11/26/21 01:41 Nss 1000ml IV 11/26/21 21:59 100 mls/hr .Q10H PRABHA Administration Pantoprazole Sodium 40 mg 11/26/21 09:00 11/26/21 08:27 Pantoprazole 40 Mg Tab PO 12/26/21 08:59 40 mg QAM PRABHA Administration Protocol Potassium Citrate 10 meq 11/26/21 09:00 11/26/21 08:27 Potassium Citrate 10 Meq Tab PO 12/26/21 08:59 10 meq BID PRABHA Administration Past Medical History Medical History Acid reflux Asthma well controlled > rare res inh use Chronic diastolic (congestive) heart failure follows with Dr. Chau Eustachian tube dysfunction Hepatic steatosis Incidental noting on CT scan Hx of Clostridium difficile infection hx of > resolved Sep 2021 Hypertension Irritable bowel disease Kidney stone Morbid obesity SHAKEEL (obstructive sleep apnea) CPAP Pulmonary embolism 2018, unknown etiology, AC discontinued, no issues since Pulmonary hypertension Past Family History Family History Father Myocardial infarction Grandfather (Maternal) Coronary heart disease Breast cancer Colorectal cancer Mother Tobacco use Emphysema, unspecified Aunt Breast cancer Maternal Sister Uterine cancer Other Diabetes Heart disease Hypertension Denies family history of Ovarian cancer Past Surgical History Surgical History Family history of reaction to anesthesia Brother "slow to wake" History of 2 sections History of adenoidectomy History of bilateral tubal ligation History of cardiac cath No CAD noted on April 2020 cath > no stents History of colonoscopy History of cystoscopy History of esophagogastroduodenoscopy (EGD) History of herniorrhaphy Abdominal X 2 History of knee replacement R/L History of lithotripsy x3 History of nasal septoplasty History of tonsillectomy S/P right rotator cuff repair Right shoulder arthroscopy, RCR (07/16/20): MAC#3, ETT 7.0, atraumatic DL x1, + PNB at [facility] Status post laparoscopic hysterectomy TLH-BS, lysis of adhesions, cysto in 2017 Social History Smoking Status: Former smoker Hx Alcohol Use: No Alcohol type: wine alcohol intake frequency: holidays/special occasions only Hx Substance Use: No substance use type: does not use Physical Exam Vital Signs Last Vital Signs Temp 97.9 F 11/26/21 07:23 Pulse 63 11/26/21 07:23 Resp 18 11/26/21 07:23 BP 126/63 11/26/21 07:23 Pulse Ox 95 11/26/21 07:23 Testing Laboratory Results 11/26/21 08:09 Urine Color Dark Yellow 11/25/21 20:06 Urine Appearance Clear (Clear) 11/25/21 20:06 Urine pH 6.0 (4.5-7.5) 11/25/21 20:06 Ur Specific [place] 1.005 (1.000-1.030) 11/25/21 20:06 Urine Protein Negative (Negative) 11/25/21 20:06 Urine Glucose (UA) Negative (Negative) 11/25/21 20:06 Urine Ketones Negative (Negative) 11/25/21 20:06 Urine Nitrite Positive (Negative) A 11/25/21 20:06 Ur Leukocyte Esterase Trace (Negative) H 11/25/21 20:06 Urine WBC (Auto) 1-5 /hpf (0-5) 11/25/21 20:06 Urine RBC (Auto) 0-4 /hpf (0-4) 11/25/21 20:06 U Hyaline Cast (Auto) 1-5 /lpf (0-5) 11/25/21 20:06 U Epithel Cells (Auto) 10-20 /lpf (0-5) H 11/25/21 20:06 Urine Bacteria (Auto) Negative (Negative) 11/25/21 20:06 Electrocardiogram Date: 08/01/21 Findings: + NSR @ Echocardiogram Date: 01/08/20 EF: 60-65 LV Function: normal Valvular Disease: + no significant valvular disease
[2021-11-26 09:33] LABS: Albumin Globulin Ratio 1.2 (0.9-2); Albumin Level 4.1 gm/dl (3.4-5.0); BUN Creatinine Ratio 31.6 (10-20); Bilirubin,Total 0.6 mg/dl (0.2-1.0); Calcium 8.9 mg/dl (8.5-10.1); Creatinine Clr Calc Pharmacy 133.7 ml/min; Est GFR (African American) 125.3 ml/min; Est GFR (Non-African American) 108.1 ml/min; Globulin 3.4 gm/dl (2.5-4.0); Magnesium 2.1 mg/dl (1.7-2.4); Potassium 3.7 mmol/L (3.5-5.1); Total Protein 7.5 gm/dl (6.0-8.3)
[2021-11-26] MEDS ORDERED: fentaNYL citrate 100 MCG/2 ML VIAL IV PRN (10:30)
[2021-11-26] MEDS ORDERED: ATROPINE SULFATE 0.1 MG/ML 10ML SYR IV PRN (10:30)
[2021-11-26] MEDS ORDERED: ePHEDrine sulfate 50 MG/ML AMP IV PRN (10:30)
[2021-11-26] MEDS ORDERED: ONDANSETRON INJ 2 MG/ML 2 ML VIAL IV PRN (10:30)
[2021-11-26] MEDS ORDERED: fentaNYL citrate 100 MCG/2 ML VIAL ONE ×2 (10:41→11:15)
[2021-11-26] MEDS ORDERED: ONDANSETRON INJ 2 MG/ML 2 ML VIAL ONE (10:41)
[2021-11-26] MEDS ORDERED: LIDOCAINE 2% 2 ML VIAL/AMP(20MG/ML) INFIL ONE (10:41)
[2021-11-26] MEDS ORDERED: MIDAZOLAM HCL 1 MG/ML 2ML VIAL ONE (10:41)
[2021-11-26] MEDS ORDERED: SUCCINYLCHOLINE CHLORIDE 20 MG/ML 10 ML VIAL IV ONE (10:41)
[2021-11-26] MEDS ORDERED: DEXAMETHASONE SOD INJ 4 MG/ML VIAL ONE ×2 (10:41→11:30)
[2021-11-26] MEDS ORDERED: PROPOFOL IV EMULSION 10 MG/ML 20 ML VIAL IV ONE (11:30)
[2021-11-26] MEDS ORDERED: GLYCOPYRROLATE 0.2 MG/ML VIAL ONE (11:30)
[2021-11-26] MEDS ORDERED: LIDOCAINE 2% 20 MG/ML 5 ML SYR IV ONE (11:30)
[2021-11-26] MEDS ORDERED: NIFEdipine EXTENDED REL 30 MG TABCR PO SCH (11:30)
[2021-11-26] MEDS ORDERED: ePHEDrine sulfate 50 MG/ML AMP ONE (11:30)
--- NOTE | 2021-11-26 11:48 | Operative Report ---
PG Post Operative Report Pre & Post Diagnosis Operation Date: 11/26/21 09:40 Pre-Op Diagnosis: Left Hydronephrosis, Kidney Stones Post-Op Diagnosis: Left Hydronephrosis, Kidney Stones I identified the patient and participated in the time-out.: Yes Procedure Operation Date: 11/26/21 09:40 Actual Procedures p Cystoscopy, Left Stent Placement, Ureteroscopy, Laser Lithotripsy Stone Treatment(Left) - Nic Whipple MD Surgeon Logan Whipple MD Bobcat Operator none Estimated Blood Loss 0 Findings Consistent with Post-Op Diagnosis Specimens none Description of Procedure The patient was identified in the preoperative holding area, appropriate informed consents were reviewed and completed and the patient was transferred to the operative suite. Upon arrival, appropriate antibiotics and anesthesia were administered and the patient was placed in dorsal lithotomy position and prepped and draped in sterile fashion. To begin the case I passed a 22 Thai cystoscope with 30 degree lens. Inspection revealed a healthy-appearing bladder. Ureteral orifices were in orthotopic position and there was clear urine coming from both orifices. Of note, she appears to taken Pyridium prior to the case that she had does have an orange tint to her urine. Following my inspection I turned my attention to her left UO. I cannulated it with a 5 Thai open-ended catheter and a sensor wire. The wire advanced the kidney without difficulty. I then withdrew the 5 Thai open-ended catheter and reentered the bladder with a semirigid ureteroscope. After getting this into the distal ureter I encountered a series of small stones accumulating in the distal ureter. The small fragments were able to be irrigated into the bladder, however, the larger fragments required treatment with the laser. I utilized a 272 m laser fiber and fragmented the stones entirely. I was able to then irrigate all remaining stone debris out of the ureter. I advanced the scope maximally reaching the extreme proximal ureter and seeing no other stones. She does have stones within the kidney but I did not treat this today. I placed a 6 Thai by 24 cm double-J stent with a string attached to the distal end. There was a good curl in the kidney and the bladder. The case was concluded and she was reversed of anesthesia and taken to the recovery room in stable condition. There were no complications. I attest to the content of the Intraoperative Record and any orders documented therein. Any exceptions are noted below.
--- NOTE | 2021-11-26 12:16 | Fluoroscopy Report ---
FL KUB CLINICAL HISTORY: Left ureteral stent placement COMPARISON STUDY: None. FLUOROSCOPY TIME: 19 seconds. FINDINGS: 2 fluoroscopic spot images of the abdomen and pelvis demonstrate placement of a left ureter al stent which appears in good position. IMPRESSION: Fluoroscopic assistance provided for left ureteral stent placement which appears in good position. ACT 112: Negative or not required by law. Electronically signed by: Shayan Pineda M.D. 11/26/2021 12:14 PM
--- NOTE | 2021-11-26 12:36 | Anesthesiology Progress Note ---
Date of Service November 26, 2021 Anesthesia Post Procedure Vital Signs Vital Signs: Temp Pulse Pulse Pulse Resp BP BP 11/26/21 12:25 82 20 138/75 11/26/21 12:15 79 24 139/71 11/26/21 12:05 82 25 H 142/71 H 11/26/21 11:55 86 25 H 150/72 H 11/26/21 11:49 97.0 F L 90 12 153/66 H 11/26/21 10:30 98.1 F 60 18 11/26/21 07:23 97.9 F 63 18 11/26/21 02:44 97.9 F 69 17 11/26/21 02:19 97.9 F 69 17 11/26/21 01:38 57 L 18 11/26/21 01:00 59 L 22 103/63 11/26/21 00:30 65 22 113/60 11/25/21 23:00 62 18 134/68 11/25/21 22:30 67 20 133/66 11/25/21 22:00 64 20 128/63 11/25/21 21:30 69 20 121/57 L 11/25/21 19:55 98.8 F 71 18 143/69 H BP Pulse Ox 11/26/21 12:25 92 11/26/21 12:15 94 11/26/21 12:05 100 11/26/21 11:55 100 11/26/21 11:49 97 11/26/21 10:30 138/69 98 11/26/21 07:23 126/63 95 11/26/21 02:44 171/70 H 96 11/26/21 02:19 171/70 H 96 11/26/21 01:38 95 11/26/21 01:00 93 11/26/21 00:30 95 11/25/21 23:00 96 11/25/21 22:30 93 11/25/21 22:00 94 11/25/21 21:30 97 11/25/21 19:55 94 Pain Intensity Left Lower Back: Pain Intensity: 2 Transfer of Care Handoff Completed per policy Notes Mental Status: alert / awake / arousable and participated in evaluation Patient Amnestic to Procedure: Yes Nausea / Vomiting: adequately controlled Pain: adequately controlled Airway Patency, RR, SpO2: stable & adequate BP & HR: stable & adequate Hydration State: stable & adequate Anesthetic Complications: no major complications apparent and Pt Satisfied with anesthetic care
[2021-11-26] MEDS ORDERED: ACETAMINOPHEN 325 MG TAB PO PRN (13:32)
[2021-11-26] MEDS ORDERED: IBUPROFEN 200 MG TAB PO PRN (13:32)
[2021-11-26] MEDS ORDERED: HYDROCODONE/ACETAMOPHEN 5/325MG TAB PO PRN (13:32)
[2021-11-26] MEDS ORDERED: FUROSEMIDE 40 MG TAB PO SCH ×2 (16:30→21:00)
--- NOTE | 2021-11-26 17:44 | Discharge Summary ---
Date of Service November 26, 2021 Admission HPI Per Admitting Provider 50 y/o F w/ PMHx of HFpEF, HTN, SHAKEEL, PE not on anticoag, asthma, recurrent nephrolithiasis who presents for stones at L UPJ noted on outpatient CT abd today. She has had frequency and urgency since 7PM yesterday, but no dysuria. 7AM today started having constant LLQ migrated to L flank, worsening, 10/10 at the worst. She saw urgent care today and when the CT abd resulted, was called and instructed to visit the ED. Current pain level 2/10 after 2mg IV morphine. + nausea and chills. Outpatient urologist: Dr. Conway. relevant home meds: chronically takes K citrate PO BID, has had hx of Ca stones ED course: Flomax, NSS 1L, morphine 2mg IV, Rocephin 2g. Outpatient CT abd showed mild to moderate left-sided hydronephrosis and hydroureter to the UPJ. There are 2 contiguous calculi at the UPJ each measuring 4 to 5 mm. Admission Exam Per Admitting Provider General: Grossly A&O. NAD. Cooperative. HEENT: Atraumatic, normocephalic. EOMI. No obvious JVD. Pulm: CTAB. -wheezes, -rales, -rhonchi. No respiratory distress. Cardiac: RRR, -mrg. Radial pulses intact and symmetrical. DP pulses 2+. Puffy appearing ankles, but unable to appreciate pitting. Abdominal: Nondistended, soft. LLQ TTP. TTP near just above L CVA area. Msk: Moving all extremities. Integ: Warm, dry, intact. Neuro: CN II-XII intact. Normal strength and sensation of extremities. Principal Diagnosis Nephrolithiasis Discharge Exam Constitutional WD/WN, vitals as above Eyes PERRL, conjunctivae normal, anicteric sclerae Respiratory normal respiratory effort, lungs clear to auscultation Cardiovascular RRR, no murmur, no edema Gastrointestinal (Abdomen) normal bowel sounds, soft, nontender, no hepatosplenomegaly Discharge Data Allergies Allergy/AdvReac Type Severity Reaction Status Date / Time oxycodone [From OxyContin] AdvReac Mild insomina Verified 11/25/21 21:30 Consultations 11/26/21 02:19 Consult Urology Routine Procedures Performed Operation Date: 11/26/21 09:40 Actual Procedures p Cystoscopy, Left Stent Placement, Ureteroscopy, Laser Lithotripsy Stone Treatment(Left) - Nic Greenberg MD Ordered Studies 11/26/21 10:00 FL KUB Routine Hospital Course (1) Nephrolithiasis: 50 y/o F w/ PMHx of HFpEF, HTN, PE not on anticoag, and recurrent nephrolithiasis who presents for stones at L UPJ obstructive stones w/ resultant hydronephrosis. Stable. Significant chronic recurring nephrolithiasis hx. Has had lithotripsy in past. Follows [facility] urology. Mild leukocytosis. Increased risk of infection w/ stasis. UA suggestive of UTI. Treat w/ Rocephin 1g daily. Hold home lisinopril Fluids at 100mL/hr Urology consulted. Was made NPO. Flomax for hopeful passage of stones. Possible cystoscopy. Strain collection of urine ordered. (2) Chronic diastolic (congestive) heart failure: 01/08/20 echo w/ normal EF 65-70. 04/28/20 cardiac cath w/o PAD. IV fluid rate adjusted/decreased as above. Patient does not appear septic. (3) Hypertension: Continue home regimen, but hold lisinopril in setting of hydronephrosis. Monitor. (4) SHAKEEL (obstructive sleep apnea): CPAP 12mmHg qhs (5) Acid reflux: Continue home PPI. (6) Hx of pulmonary embolus: Not on anticoag as outpatient. Total Time Total Time Spent Total Time Spent (In Minutes): <30 Discharge Plan Discharge Items Patient Disposition: Home - Self-Care Reason For Visit: L HYDRONEPHROSIS,STONES AT URETEROPELVIC JUNCTION Discharge Diagnosis: Nephrolithiasis Activity: Per Instructions section Non-emergency contact: Primary Care Provider and Urologist Call non-emergency contact if: you have any medication questions, your symptoms worsen and your pain is worsening Follow-up/Referrals: Rachel Pierson MD [Primary Care Provider] - 12/03/21 11:20 am Diet: Regular Addtl Attending Provider Instructions: Please take all medications as prescribed and keep all follow-ups as scheduled. Please call our office at [phone] with any questions, concerns or need to reschedule appointments for any reason. We are happy to assist you. While you have a ureteral stent in place: Some discomfort is normal. Certain movements may trigger pain or a feeling that you need to urinate. You may also feel mild soreness or pressure before or during urination. These symptoms should go away a few days after the stent is removed. Your urine may be slightly pink or red. This is due to bleeding caused by minor irritation from the stent. This may happen on and off while you have the stent, it is not harmful and is to be expected. Medication to help minimize discomfort or bladder spasms, or to prevent infection may be prescribed. Take this as directed. Drink plenty of fluids to help flush out your urinary tract. If you go home with a catheter, wash with soapy water and a fresh washcloth twice daily. We recommend mild bar soap such as Dial or Dove. How long will you need a stent? An appointment should already be made for you for stent removal, unless directed otherwise. The stent is often taken out after the blockage in the ureter is treated or the ureter has healed. This may take 1-2 weeks, or longer. If a stent is needed for a longer period of time, it may need to be exchanged every few months. Likely prior to your followup appointment you will be asked to get an X-ray, please complete this the night before or morning of your appointment. When to call [facility] Urology at [phone]: Your urine contains heavy blood clots You are constantly leaking urine Fever of 101F or higher, chills, nausea, or vomiting Your pain is not relieved with medication The end of the stent comes out of your urethra PLEASE COME TO DR. GREENBERG'S OFFICE TOMORROW (TUESDAY) AT 1pm TO HAVE YOUR STENT REMOVED Pending Studies at Discharge: No Stand-Alone Forms: My [facility] [employer], Opioid Pain Management, Smoking Cessation Medications and DC Order Prescriptions: New hydrocodone-acetaminophen 5-325 mg tablet 1 tab PO Q6H PRN (Reason: pain) Qty: 15 RF: 0 ciprofloxacin HCl [Cipro] 500 mg tablet 500 mg PO BID Qty: 6 RF: 0 Continued fluticasone propion-salmeterol [Advair Diskus] 250-50 mcg/dose blister with device 1 inh Inhalation BID Qty: 60 RF: 3 furosemide [Lasix] 20 mg tablet 40 mg PO PM Qty: 180 RF: 3 atorvastatin [Lipitor] 40 mg tablet 40 mg PO HS Qty: 90 RF: 3 omeprazole 40 mg capsule,delayed release(DR/EC) 40 mg PO QAM Qty: 90 RF: 3 albuterol sulfate [Ventolin HFA] 90 mcg/actuation HFA aerosol inhaler 2 puff Inhalation Q4H PRN (Reason: shortness of breath) Qty: 1 RF: 5 lisinopril 40 mg tablet 40 mg PO QAM Qty: 90 RF: 3 carvedilol 12.5 mg tablet 12.5 mg PO BID Qty: 180 RF: 3 hydralazine 50 mg tablet See Rx Instructions .ROUTE .COMPLEX Qty: 360 RF: 3 multivitamin [Daily Multi-Vitamin] Tablet 1 tab PO QAM RF: 0 potassium citrate 10 mEq (1,080 mg) tablet extended release 10 meq PO BID 90 Days Qty: 180 RF: 3 nitroglycerin 0.4 mg tablet, sublingual 0.4 mg SL Q5M PRN (Reason: Chest Pain) Qty: 25 RF: 0 cholecalciferol (vitamin D3) 125 mcg (5,000 unit) capsule 125 mcg PO QAM RF: 0 ascorbic acid (vitamin C) 1,000 mg tablet 1 gm PO QAM RF: 0 duloxetine 30 mg capsule,delayed release(DR/EC) 30 mg PO QAM RF: 0 nifedipine 30 mg tablet extended release 30 mg PO QDL RF: 0 Discharge Orders: Discharge Order (Routine); Ordered 11/26/21 Ordered By: Brent Toscano Admission Data Admit Date/Time: 11/25/21 23:53 Attending Provider: Say Gilbert Admit Provider: Rivera Abreu Primary Care Provider: Rachel Pierson Other Providers: Caleb Hartman ; George Conway Other Interventions: Discharge Summary Assessment (RN) Last Done: 11/26/21 19:14 Supervising Physician Co-Signing Physician Notes I personally examined the patient and verified all mcmahon points of history and exam, discussed case, and agree with decision making with Dr Toscano seen immediately post cysto - pain controlled, stillwaking up. later informed that she was asking about going home. had d/w urology earlier - surgical standpoint OK to go home - meds already Rx'd vitals noted nad heent nc at mmm breathing unlabored no accessory muscles good effort skin no rashes no pallor or icterus neuro no focal deficits ureterolithiasis - now s/p cysto/laser lithotripsy/stenting - stable for home, as above Resident Activity Tracking Resident Involvement: Resident Care Provided Care Provided: Adult Hospital Medicine
--- NOTE | 2021-11-26 19:36 | Billing Data ---
Date of Service November 26, 2021 Coding Level of Care Code 65633 OBS Care - Discharge
[2021-11-26] MEDS ORDERED: cefTRIAXone SODIUM 2,000 MG in DEXTROSE 5% 50 ML IV SCH (20:00)
[2021-11-26] MEDS ORDERED: TAMSULOSIN HCL 0.4 MG CAP PO SCH (21:00)
[2021-11-26] MEDS ORDERED: ATORVASTATIN 40 MG TAB PO SCH (21:00)
--- NOTE | 2021-11-27 03:33 | Billing Data ---
Date of Service November 27, 2021 Coding Level of Care Code INT OBSERVATION CARE 70M LVL 3
== END 2021-11-26 20:01 | disposition home or self-care (01) ==
LOC: ED 19:51 → 3W 19:51 → SUATTDRO 23:53 → 3W 11-26 02:15

== ENCOUNTER 2023-01-01 18:33 | Inpatient (IN) ==
[2023-01-01] MEDS ORDERED: ACETAMINOPHEN 500 MG TAB PO STA (19:16)
[2023-01-01] MEDS ORDERED: dexAMETHasone**PF** 10 MG/ML VIAL IV ONE (19:26)
[2023-01-01] MEDS ORDERED: ALBUT/IPRATROP 3MG/0.5MG NEB 3 ML VIAL NEB STA (19:26)
--- NOTE | 2023-01-01 20:16 | Emergency Department Note ---
Impression & Plan Febrile illness, acute, Hypoxia, Acute dyspnea, Left lower lobe pneumonia ED Provider Note INFORMANT: Patient ED PROVIDER(S): Jon Guevara MD CHIEF COMPLAINT: Fever and shortness of breath PLAN: Disposition: Admitted Condition: Guarded but stable Outpatient prescription management: none Referral: None MEDICAL DECISION MAKING: Patient presented to emergency department because of fever and shortness of breath. She was requiring supplemental oxygen. She had coarse breath sounds. Blood work, blood cultures EKG, chest x-ray performed. Patient had an unremarkable CBC and chemistry panel. Viral testing was negative. Chest x-ray was concerning for a left lower lobe infiltrate. Patient had received a DuoNeb as well as Decadron due to the wheezing. She was feeling somewhat better with this. She was treated with IV cefepime and IV doxycycline. Patient was also treated with Tylenol. Further management in hospital will be necessary. Patient is ill and requiring supplemental oxygen. No signs of sepsis. Patient was gently hydrated. Consultation was made with Dr. Sotelo of the hospitalist service. Patient was evaluated in the ER and admitted for further management Discussed with fund accounting manager. After review of the information above and other included data, I feel the patient requires inpatient admission.. Triage Nursing notes reviewed and agree them. Vital Signs: reviewed and remarkable for mild hypoxia Prior /Outside records reviewed: none Differential diagnosis: Viral syndrome, otitis, pharyngitis, pneumonia, influenza, meningitis, urinary tract infection, sepsis, bacteremia, as well as other pathologies. Diagnostics, as interpreted by me: ECG: Twelve-lead ECG was normal sinus rhythm 81 bpm. Anterior Q waves. When compared to 24 September 2022 there is no significant change. Cardiac Monitoring: Cardiac monitoring ordered by me: The patient was placed on continuous cardiac monitoring and observed. It revealed a normal sinus rhythm at 87 beats per minute without ectopy or evidence of dysrhythmia. Medical decision rules: none Imaging studies: Chest x-ray is concerning for left lower lobe infiltrate. I refer you to the EMR for further details. HPI: The patient is a 52 year old female who presents to the Emergency Room with complaints of fever and shortness of breath. This started 3 days ago and is worsening. The patient also notes the following associated symptoms, cough, chest pressure, nausea, and wheezing. The patient has tried her inhalers and Tylenol for relieving factors. Current pain is rated as 0/10. Patient notes her daughter had a sinus infection recently but no other sick contacts. Pt denies LOC, headache, diaphoresis, visual changes, neck pain, vomiting, abdominal pain, back pain, melena, hematochezia, urinary symptoms, numbness, weakness, lymphadenopathy, rash, or other complaints. PAST MEDICAL HISTORY: See Below, asthma PAST SURGICAL HISTORY: See Below, SOCIAL HISTORY: See Below, non-smoker HOME MEDICATIONS: See Below ALLERGIES: See Below VITALS: See Below PHYSICAL EXAMINATION: GENERAL: Awake, alert, dyspneic and mildly ill-appearing, in mild distress HENT: Normocephalic, atraumatic. Oropharynx unremarkable. EYES: Normal conjunctiva. Sclera non-icteric. NECK: Inspection normal. Non-tender. Supple. No nuchal rigidity. FROM. No masses. RESPIRATORY: Scattered wheezes. No rales. Increased respiratory effort. CARDIAC: Borderline tachycardic rate. Normal rhythm. No murmurs. No rubs. Extremities warm and well perfused. Pulses equal. No JVD. GI: Soft, non-distended. No tenderness to palpation. No rebound or guarding. No masses. RECTAL: Deferred. MUSCULOSKELETAL: Atraumatic. Chest examination reveals no tenderness. The back is symmetrical on inspection without obvious abnormality. There is no CVA tend erness to palpation. No joint edema. LOWER EXTREMITIES: Calves are equal size bilaterally and non-tender. No edema. No discoloration. NEURO: Normal sensorium. No sensory or motor deficits noted. SKIN: No rash or jaundice noted. Past Med/Surg History Medical History (Updated 01/02/23 @ 18:07 by Jon Guevara MD) Acid reflux Asthma well controlled > rare res inh use Chronic diastolic (congestive) heart failure follows with Dr. Chau Difficult intubation 2013 D+C/hysteroscopy = "RSI, atraumatic intubation with Glidescope, clear oropharynx, BBS+" Hepatic steatosis Incidental noting on CT scan History of kidney stones Hx of Clostridium difficile infection hx of > resolved Sep 2021 Hx of pulmonary embolus Hydronephrosis of left kidney Hypertension Irritable bowel disease Left ureteral calculus Morbid obesity Nephrolithiasis SHAKEEL (obstructive sleep apnea) CPAP Pulmonary embolism 2018, unknown etiology, AC discontinued, no issues since Pulmonary hypertension Surgical History Family history of reaction to anesthesia Brother "slow to wake" History of 2 sections History of adenoidectomy History of bilateral tubal ligation History of cardiac cath No CAD noted on April 2020 cath > no stents History of colonoscopy History of cystoscopy History of esophagogastroduodenoscopy (EGD) History of herniorrhaphy Abdominal X 2 History of knee replacement R/L History of lithotripsy x3 History of nasal septoplasty History of tonsillectomy S/P right rotator cuff repair Right shoulder arthroscopy, RCR (07/16/20): MAC#3, ETT 7.0, atraumatic DL x1, + PNB at [facility] Status post laparoscopic hysterectomy TLH-BS, lysis of adhesions, cysto in 2017 Family History Father Myocardial infarction Grandfather (Maternal) Coronary heart disease Breast cancer Colorectal cancer Mother Tobacco use Emphysema, unspecified Aunt Breast cancer Maternal Sister Uterine cancer Other Diabetes Heart disease Hypertension Denies family history of Ovarian cancer Social History Smoking Status: Never smoker Tobacco Type: Cigarettes Second Hand Exposure: Yes (as a child); Hx Alcohol Use: No Hx Substance Use: No Preferred Language: Pashto Communication Ability: Effective Visual Impairment: No Limitations Barrel Lathe Operator Inside Required: No Beliefs That Will Affect Care: None marital status: Current Living Situation: Spouse and Family current occupational status: employed current occupation: [employer] Feels Safe at Home: Yes Safety Concerns: Feels Safe At This Time Assistive Devices: CPAP Allergies Allergies Allergy/AdvReac Type Severity Reaction Status Date / Time oxycodone [From OxyContin] AdvReac Mild insomina Verified 01/01/23 21:51 Home Meds Home Medications Medication Instructions Recorded Confirmed nitroglycerin 0.4 mg sublingual 0.4 mg sublingual Q5M PRN Chest 07/19/19 01/01/23 tablet Pain #25 tabs ascorbic acid (vitamin C) 1,000 mg 1 gm PO QAM 12/14/19 01/01/23 tablet cholecalciferol (vitamin D3) 125 125 mcg PO QAM 12/14/19 01/01/23 mcg (5,000 unit) capsule multivitamin (Daily Multi-Vitamin 1 tab PO QAM 12/30/20 01/01/23 tablet) furosemide 40 mg tablet 40 mg PO 1700 08/31/22 01/01/23 Previous Rx's Medication Instructions Recorded nifedipine 30 mg tablet,extended 30 mg PO QDL #90 tabs 12/29/21 release fluticasone 250 mcg-salmeterol 50 1 inh inhalation BID shortness of 03/08/22 mcg/dose blistr powdr for breath #60 ea inhalation (Advair Diskus) potassium citrate 10 mEq (1,080 10 meq PO BID 90 days #180 tabs 04/26/22 mg) tablet,extended release hydralazine 50 mg tablet See Rx Instructions .Route 05/01/22 .COMPLEX #360 tabs omeprazole 40 mg capsule,delayed 40 mg PO QAM #90 caps 05/03/22 release albuterol sulfate 90 mcg/actuation 2 puff inhalation Q4H PRN 05/07/22 aerosol inhaler (Ventolin HFA) shortness of breath #3 Inhalers lisinopril 40 mg tablet 40 mg PO QAM #90 tabs 09/02/22 duloxetine 30 mg capsule,delayed 30 mg PO QAM #90 caps 09/07/22 release famotidine 40 mg tablet 40 mg PO DAILY PRN breakthrough 09/20/22 acid reflux #30 tabs warfarin 5 mg tablet See Rx Instructions PO UD #150 tabs 11/01/22 carvedilol 12.5 mg tablet 12.5 mg PO BID #180 tabs 11/02/22 amoxicillin 875 mg-potassium 1 tab PO BID #14 tabs 12/31/22 clavulanate 125 mg tablet codeine 10 mg-guaifenesin 100 mg/5 5 ml PO Q6H cough #237 mL 12/31/22 mL oral liquid Results & Data (ED) Vital Signs Vital Signs - 24 hr 01/01/23 18:35 01/01/23 18:38 01/01/23 19:16 Temperature 38.6 C H Temperature Source Temporal Artery Scan Pulse Rate 94 H Pulse Rate [Right] Respiratory Rate 26 H 22 Respiratory Effort / Characteristics Non-Labored Respiratory Depth Normal Blood Pressure 161/81 H Blood Pressure [Left Arm] Blood Pressure Mean 107 Blood Pressure Mean [Left Arm] Pulse Oximetry 90 94 93 Oxygen Delivery Method Room Air Nasal Cannula Nasal Cannula Oxygen Flow Rate 2 2 Sepsis Recent Fever Within 48 Hours No Sepsis New/Unexplained Change in Mental Status No Sepsis Action Taken by Nursing No Action Required 01/01/23 21:39 Temperature Temperature Source Pulse Rate Pulse Rate [Right] 65 Respiratory Rate 20 Respiratory Effort / Characteristics Non-Labored Respiratory Depth Normal Blood Pressure Blood Pressure [Left Arm] 135/78 Blood Pressure Mean Blood Pressure Mean [Left Arm] 97 Pulse Oximetry 90 Oxygen Delivery Method Nasal Cannula Oxygen Flow Rate 2 Sepsis Recent Fever Within 48 Hours Sepsis New/Unexplained Change in Mental Status Sepsis Action Taken by Nursing Laboratory Data 01/02/23 05:24 01/02/23 05:24 Lab Results 01/01/23 01/01/23 Range/Units 20:30 20:30 WBC 8.85 (4.8-10.8) K/ul RBC 4.06 L (4.20-5.40) M/uL Hgb 11.5 L (12.0-16.0) g/dl Hct 36.1 L (37.0-47.0) % MCV 88.9 (80.0-100.0) fL MCH 28.3 (25.0-34.0) pg MCHC 31.9 L (32.0-36.0) g/dL RDW Std Deviation 48.1 H (36.4-46.3) fL RDW Coeff of Shay 14.6 H (11.5-14.5) % Plt Count 247 (130-400) K/uL MPV 10.9 (9.4-12.4) fL Immature Gran % (Auto) 0.5 % Neut % (Auto) 79.0 % Lymph % (Auto) 11.6 % [place] % (Auto) 5.1 % Eos % (Auto) 3.3 % Baso % (Auto) 0.5 % Neut # (Auto) 7.00 H (1.40-6.50) K/uL Lymph # (Auto) 1.03 L (1.2-3.4) K/uL [place] # (Auto) 0.45 (0.11-0.59) K/uL Eos # (Auto) 0.29 (0-0.50) K/uL Baso # (Auto) 0.04 (0-0.2) K/uL Immature Gran # (Auto) 0.04 (0.01-0.20) K/uL Sodium 136 (136-145) mmol/L Potassium 4.2 (3.5-5.1) mmol/L Chloride 104 (98-107) mmol/L Carbon Dioxide 28 (21-32) mmol/L Anion Gap 4 (3-11) BUN 17 (6-23) mg/dl Creatinine 0.57 L (0.6-1.2) mg/dl Est Cr Clr Drug Dosing 131.7 ml/min Est GFR ( Amer) 123.5 ml/min Est GFR (Non-Af Amer) 106.6 ml/min BUN/Creatinine Ratio 29.8 H (10-20) Glucose 116 H (70-99(Fasting)) mg/dl Calcium 8.4 L (8.5-10.1) mg/dl Total Bilirubin 0.5 (0.2-1.0) mg/dl AST 18 (13-39) U/L ALT 21 (7-52) U/L Alkaline Phosphatase 70 (34-104) U/L Troponin I High Sens 7.5 (0-14) pg/ml Total Protein 7.1 (6.0-8.3) gm/dl Albumin 3.7 (3.4-5.0) gm/dl Globulin 3.4 (2.5-4.0) gm/dl Albumin/Globulin Ratio 1.1 (0.9-2) Administered Medications Acetaminophen (Acetaminophen 500 Mg Tab) 500 mg PO Q4H PRN PRN Reason: Pain or Fever Stop: 01/31/23 23:41 Last Admin: 01/02/23 16:03 Dose: 500 mg Documented By: [id number] Admin: 01/02/23 09:52 Dose: 500 mg Documented By: [id number] Admin: 01/02/23 04:29 Dose: 500 mg Documented By: BCM Albuterol (Albut/Ipratrop 3mg/0.5mg Neb 3 Ml Vial) 3 ml NEB Q4R PRABHA; Protocol Stop: 01/31/23 23:41 Last Admin: 01/02/23 15:16 Dose: 3 ml Documented By: Admin: 01/02/23 10:42 Dose: 3 ml Documented By: Admin: 01/02/23 06:50 Dose: 3 ml Documented By: Admin: 01/02/23 03:23 Dose: Not Given Documented By: Admin: 01/02/23 00:15 Dose: 3 ml Documented By: [email or web address] Carvedilol (Carvedilol 12.5 Mg Tab) 12.5 mg PO BID [facility] Stop: 02/01/23 08:59 Last Admin: 01/02/23 07:36 Dose: 12.5 mg Documented By: [id number] Duloxetine HCl (Duloxetine Hcl 30 Mg Cap) 30 mg PO QAM [facility] Stop: 02/01/23 08:59 Last Admin: 01/02/23 07:36 Dose: 30 mg Documented By: [id number] Furosemide (Furosemide 40 Mg Tab) 40 mg PO DAILY@1700 [facility] Stop: 02/01/23 16:59 Last Admin: 01/02/23 16:04 Dose: 40 mg Documented By: [id number] Guaifenesin (Guaifenesin 600 Mg Tabcr) 1,200 mg PO Q12 [facility] Stop: 02/01/23 08:59 Last Admin: 01/02/23 07:35 Dose: 1,200 mg Documented By: [id number] Hydralazine HCl (Hydralazine Tab 50 Mg Tab) 50 mg PO BID [facility] Stop: 01/31/23 23:41 Last Admin: 01/02/23 07:35 Dose: 50 mg Documented By: [id number] Admin: 01/02/23 00:51 Dose: 50 mg Documented By: CHARLY Hydralazine HCl (Hydralazine Tab 50 Mg Tab) 100 mg PO DAILY@1400 [facility] Stop: 02/01/23 13:59 Last Admin: 01/02/23 14:07 Dose: 100 mg Documented By: [id number] Doxycycline Hyclate 100 mg/ (Dextrose) 110 mls @ 50 mls/hr IV Q12H [facility] Stop: 01/09/23 11:59 Last Infusion: 01/02/23 14:40 Dose: 0 mls/hr Documented By: [id number] Admin: 01/02/23 12:14 Dose: 50 mls/hr Documented By: [id number] Lisinopril (Lisinopril 40 Mg Tab) 40 mg PO QAM [facility] Stop: 02/01/23 08:59 Last Admin: 01/02/23 07:35 Dose: 40 mg Documented By: [id number] Nifedipine (Nifedipine Extended Rel 30 Mg Tabcr) 30 mg PO QDL PRABHA Stop: 02/01/23 11:29 Last Admin: 01/02/23 12:13 Dose: 30 mg Documented By: [id number] Pantoprazole Sodium (Pantoprazole 40 Mg Tab) 40 mg PO DAILY PRABHA Stop: 02/01/23 08:59 Last Admin: 01/02/23 07:36 Dose: 40 mg Documented By: [id number] Prednisone (Prednisone 20 Mg Tab) 60 mg PO DAILY PRABHA Stop: 02/01/23 08:59 Last Admin: 01/02/23 07:36 Dose: 60 mg Documented By: [id number] Warfarin Sodium (Warfarin Sod 7.5 Mg Tab) 7.5 mg PO [id number]@1600 PR[facility] Stop: 02/01/23 15:59 Last Admin: 01/02/23 16:04 Dose: 7.5 mg Documented By: [id number] Discontinued Medications Acetaminophen (Acetaminophen 500 Mg Tab) 1,000 mg PO NOW STA Stop: 01/01/23 19:17 Last Admin: 01/01/23 19:37 Dose: 1,000 mg Documented By: Albuterol (Albut/Ipratrop 3mg/0.5mg Neb 3 Ml Vial) 3 ml NEB NOW STA; Protocol Stop: 01/01/23 19:27 Last Admin: 01/01/23 19:36 Dose: 3 ml Documented By: Dexamethasone Sodium Phosphate (DexamethasonePf 10 Mg/Ml Vial) 10 mg IV NOW ONE Stop: 01/01/23 19:27 Last Admin: 01/01/23 20:34 Dose: 10 mg Documented By: TERRY Sodium Chloride (Nss 1000ml) 500 mls @ 999 mls/hr IV .Q31M ONE Stop: 01/01/23 21:16 Last Infusion: 01/01/23 22:08 Dose: 0 mls/hr Documented By: Admin: 01/01/23 21:36 Dose: 999 mls/hr Documented By: Sodium Chloride (Nss 1000ml) 1,000 mls @ 125 mls/hr IV .Q8H PRABHA Stop: 01/31/23 20:59 Last Admin: 01/02/23 01:12 Dose: Not Given Documented By: CHARLY Cefepime HCl (Maxipime) 2,000 mg in 20 mls @ 5 mls/min IV NOW STA; Protocol Stop: 01/01/23 20:49 Last Admin: 01/01/23 21:33 Dose: 5 mls/min Documented By: Doxycycline Hyclate 100 mg/ (Dextrose) 110 mls @ 50 mls/hr IV NOW STA Stop: 01/01/23 22:57 Last Infusion: 01/02/23 01:13 Dose: 0 mls/hr Documented By: Admin: 01/01/23 22:45 Dose: 50 mls/hr Documented By: CHARLY Imaging Data Radiologist's Impression: Chest X-Ray 01/01/23 19:16 XR chest 1V portable HISTORY: Dyspnea COMPARISON: Chest 09/24/2022. FINDINGS: No pneumothorax. No pleural effusions. The cardiac silhouette is enlarged. There is a left lower lobe airspace opacity which is new from the prior study. This favors a pneumonia. There is mild central pulmonary vascular congestion without overt edema. IMPRESSION: There is new left lower lobe airspace opacity consistent with a pneumonia. Recommend follow-up to ensure resolution. ACT 112: Negative or not required by law. Electronically signed by: Shayan Pineda M.D. 01/02/2023 8:50 AM Discharge Plan Visit Data Chief Complaint: Illness Stated Complaint: SOB, CHEST PAIN ED Provider: Jon Guevara Discharge Problem: Febrile illness, acute, Hypoxia, Acute dyspnea, Left lower lobe pneumonia Patient Disposition: Admitted As Inpatient Discharge Instructions Interventions: ED Discharge Assessment Last Done: 01/01/23 23:37
[2023-01-01] MEDS ORDERED: SODIUM CHLORIDE 0.9% 1000ML 500 ML IV ONE (20:46)
[2023-01-01] MEDS ORDERED: DOXYCYCLINE HYCLATE 100 MG in DEXTROSE 5% 100 ML IV STA (20:46)
[2023-01-01] MEDS ORDERED: CEFEPIME 2,000 MG/20 ML VIAL IV STA (20:46)
[2023-01-01 20:59] LABS: Influenza A virus by PCR Negative (Neg); Influenza B virus by PCR Negative (Neg); RSV by PCR Negative (Neg); SARS CoV2 RNA(COVID-19) Ceph NEGATIVE (Negative)
[2023-01-01] MEDS ORDERED: SODIUM CHLORIDE 0.9% 1000ML 1,000 ML IV SCH (21:00)
[2023-01-01 21:16] LABS: Albumin Globulin Ratio 1.1 (0.9-2); Albumin Level 3.7 gm/dl (3.4-5.0); BUN Creatinine Ratio 29.8 (10-20); Bilirubin,Total 0.5 mg/dl (0.2-1.0); Calcium 8.4 mg/dl (8.5-10.1); Creatinine Clr Calc Pharmacy 131.7 ml/min; Est GFR (African American) 123.5 ml/min; Est GFR (Non-African American) 106.6 ml/min; Globulin 3.4 gm/dl (2.5-4.0); Potassium 4.2 mmol/L (3.5-5.1); Total Protein 7.1 gm/dl (6.0-8.3)
[2023-01-01 21:23] LABS: Troponin I High Sensitivity 7.5 pg/ml (0-14)
--- NOTE | 2023-01-01 21:44 | History & Physical Report ---
Date of Service January 01, 2023 Assessment & Plan (1) Pneumonia: Plan: 52-year-old female with history of asthma, hypertension, hyperlipidemia, heart failure preserved EF presenting with several days of fever, chills, body aches as well as cough/congestion and progressive shortness of breath. Patient febrile, tachycardic, tachypneic and hypoxic on arrival requiring placement of supplemental oxygen by nasal cannula. Presently on 4 L of O2, saturating well. Patient does not use home oxygen. Coarse breath sounds with diffuse end expiratory wheezing appreciated on exam. Labs as above significant for normal WBC count, differential with elevation of neutrophils and lymphocytes. Normal BUN. No anion gap. Troponin normal at 7.5 Testing for COVID-19, influenza A/B and RSV are negative Chest x-ray with diffuse bilateral airspace disease left more than right Suspect pneumonia as cause of patient's underlying symptoms and acute hypoxic respiratory failure. Viral versus bacterial. Patient with normal WBC count Admit to medical telemetry Follow cultures Check BNP and procalcitonin Continue supplemental oxygen as needed, goal saturation of 94% Continue antibiotics with ceftriaxone 2 g IV daily and doxycycline 100 mg IV twice daily Mucinex twice daily Tylenol as needed for pain or fever Flutter valve (2) Asthma: Plan: Diffuse end expiratory wheezing in bilateral lung clarke. Suspect exacerbation of asthma secondary to pneumonia. Patient has been given dexamethasone 10 mg IV in the ER as well as albuterol neb with improvement in symptoms and relief of chest pain. DuoNeb every 4 hours while awake Albuterol every 2 hours as needed for shortness of breath or wheeze Prednisone 60 mg p.o. daily for now (3) Chest pain: Plan: Patient presented with substernal chest pain with radiation between her shoulder blades. She reports that this pain was 10/10 in severity and had been going on all day. No history of prior ACS. Pain was relieved by IV steroids and albuterol. Suspect chest pain secondary to underlying pulmonary issue rather than cardiac etiology. Initial troponin is within normal limits at 7.5. EKG with no acute ischemic changes. Patient remains chest pain-free. Telemetry monitoring Trend troponin (4) Pulmonary embolism: Plan: Patient with history of pulmonary embolism in September 2022. She had a previous unprovoked episode of VTE in 2019 as well. Per report, no hypercoagulable pathology was found. She is presently on Coumadin anticoagulation indefinitely. Check INR now Continue Coumadin at home dose Monitor INR (5) Acid reflux: Plan: Chronic. Stable. Protonix 40 mg p.o. daily while inpatient (6) Chronic diastolic (congestive) heart failure: Plan: Patient with chronic diastolic heart failure. She has seen cardiology as well as heart failure clinic for this issue. She appears euvolemic today however, exam is limited secondary to body habitus. Continue carvedilol 12.5 mg p.o. twice daily Continue Lasix 40 mg p.o. daily Continue lisinopril 40 mg p.o. daily Monitor intake and output Monitor daily weights (7) Hypertension: Plan: Blood pressure initially elevated upon arrival. Now improved. Continue carvedilol 12.5 mg p.o. twice daily Continue lisinopril 40 mg p.o. every morning Continue nifedipine 30 mg p.o. daily Continue hydralazine Monitor blood pressure (8) SHAKEEL (obstructive sleep apnea): Plan: Patient with moderate SHAKEEL with significant nocturnal hypoxemia. Patient reports compliance with home CPAP Continue CPAP 12 cmH2O nightly FENHep-Lock, monitor electrolytes and replete as needed, heart healthy diet as tolerated Prophylaxiscontinue Coumadin Codefull Dispositionadmit to medical telemetry History of Present Illness Chief Complaint: Shortness of breath, chest pain Primary Care Provider: SABRINA Colunga Carol Wharton is a 52-year-old female with history of hypertension, hyperlipidemia, asthma, heart failure with preserved EF and SHAKEEL on CPAP presenting with chest pain and shortness of breath. Patient has had 3 to 4 days of cough, congestion, sore throat, fever and body aches as well as shortness of breath. She was seen by her PCP yesterday 12/31/2022 with these complaints. She was noted to have a negative COVID test as well as negative influenza test. She was given a prescription for Augmentin and Robitussin. She was instructed to take the Augmentin if her symptoms worsen. When patient woke up this morning, her symptoms were worse. She did take 1 dose of Augmentin this morning. She had ongoing fever, body aches, cough and nausea as well as shortness of breath and wheeze. She developed upper chest pain as well as pain in her back between her shoulders. The pain was 10/10 in severity which prompted her to come to the ER. Chest pain was relieved with albuterol and steroid treatment. Patient presently without chest pain. No additional complaints at this time. Patient specifically denies palpitations, abdominal pain, vomiting, diarrhea, dysuria. Denies edema, orthopnea, weight gain. No recent travel. + Sick contacts, family members recently with sinusitis In the ER patient is febrile at 38.6, elevated heart rate = 94, elevated blood pressure = 161/89, tachypneic at 22 breaths/min and initially saturating 90% on room air. She was placed on 2 L nasal cannula and has been saturating between 91 and 94%. ER course: Normal saline x500 mL Cefepime 2 g IV Dexamethasone 10 mg IV Tylenol 1 g p.o. Albuterol 3 mL neb Allergies Allergy/AdvReac Type Severity Reaction Status Date / Time oxycodone [From OxyContin] AdvReac Mild insomina Verified 01/01/23 21:51 Home Medications Medication Instructions Recorded Confirmed Type nitroglycerin 0.4 mg sublingual 0.4 mg sublingual Q5M PRN Chest 07/19/19 01/01/23 History tablet Pain #25 tabs ascorbic acid (vitamin C) 1,000 mg 1 gm PO QAM 12/14/19 01/01/23 History tablet cholecalciferol (vitamin D3) 125 125 mcg PO QAM 12/14/19 01/01/23 History mcg (5,000 unit) capsule multivitamin (Daily Multi-Vitamin 1 tab PO QAM 12/30/20 01/01/23 History tablet) nifedipine 30 mg tablet,extended 30 mg PO QDL #90 tabs 12/29/21 01/01/23 Rx release fluticasone 250 mcg-salmeterol 50 1 inh inhalation BID shortness of 03/08/22 01/01/23 Rx mcg/dose blistr powdr for breath #60 ea inhalation (Advair Diskus) potassium citrate 10 mEq (1,080 10 meq PO BID 90 days #180 tabs 04/26/22 01/01/23 Rx mg) tablet,extended release hydralazine 50 mg tablet See Rx Instructions .Route 05/01/22 01/01/23 Rx .COMPLEX #360 tabs omeprazole 40 mg capsule,delayed 40 mg PO QAM #90 caps 05/03/22 01/01/23 Rx release albuterol sulfate 90 mcg/actuation 2 puff inhalation Q4H PRN 05/07/22 01/01/23 Rx aerosol inhaler (Ventolin HFA) shortness of breath #3 Inhalers furosemide 40 mg tablet 40 mg PO 1700 08/31/22 01/01/23 History lisinopril 40 mg tablet 40 mg PO QAM #90 tabs 09/02/22 01/01/23 Rx duloxetine 30 mg capsule,delayed 30 mg PO QAM #90 caps 09/07/22 01/01/23 Rx release famotidine 40 mg tablet 40 mg PO DAILY PRN breakthrough 09/20/22 01/01/23 Rx acid reflux #30 tabs warfarin 5 mg tablet See Rx Instructions PO UD #150 tabs 11/01/22 01/01/23 Rx carvedilol 12.5 mg tablet 12.5 mg PO BID #180 tabs 11/02/22 01/01/23 Rx amoxicillin 875 mg-potassium 1 tab PO BID #14 tabs 12/31/22 01/01/23 Rx clavulanate 125 mg tablet codeine 10 mg-guaifenesin 100 mg/5 5 ml PO Q6H cough #237 mL 12/31/22 01/01/23 Rx mL oral liquid Past Med/Surg History Medical History (Updated 01/01/23 @ 22:18 by Joanne Sotelo DO) Acid reflux Asthma well controlled > rare res inh use Chronic diastolic (congestive) heart failure follows with Dr. Chau Difficult intubation 2013 D+C/hysteroscopy = "RSI, atraumatic intubation with Glidescope, clear oropharynx, BBS+" Hepatic steatosis Incidental noting on CT scan History of kidney stones Hx of Clostridium difficile infection hx of > resolved Sep 2021 Hx of pulmonary embolus Hydronephrosis of left kidney Hypertension Irritable bowel disease Left ureteral calculus Morbid obesity Nephrolithiasis SHAKEEL (obstructive sleep apnea) CPAP Pulmonary embolism 2018, unknown etiology, AC discontinued, no issues since Pulmonary hypertension Surgical History Family history of reaction to anesthesia Brother "slow to wake" History of 2 sections History of adenoidectomy History of bilateral tubal ligation History of cardiac cath No CAD noted on April 2020 cath > no stents History of colonoscopy History of cystoscopy History of esophagogastroduodenoscopy (EGD) History of herniorrhaphy Abdominal X 2 History of knee replacement R/L History of lithotripsy x3 History of nasal septoplasty History of tonsillectomy S/P right rotator cuff repair Right shoulder arthroscopy, RCR (07/16/20): MAC#3, ETT 7.0, atraumatic DL x1, + PNB at [facility] Status post laparoscopic hysterectomy TLH-BS, lysis of adhesions, cysto in 2017 Family History Father Myocardial infarction Grandfather (Maternal) Coronary heart disease Breast cancer Colorectal cancer Mother Tobacco use Emphysema, unspecified Aunt Breast cancer Maternal Sister Uterine cancer Other Diabetes Heart disease Hypertension Denies family history of Ovarian cancer Social History Smoking Status: Never smoker Tobacco Type: Cigarettes Second Hand Exposure: Yes (as a child); Hx Alcohol Use: No Hx Substance Use: No Preferred Language: Uzbek Communication Ability: Effective Visual Impairment: No Limitations Drafter Electrical Required: No Beliefs That Will Affect Care: None marital status: Current Living Situation: Spouse current occupational status: employed current occupation: [employer] Feels Safe at Home: Yes Assistive Devices: CPAP and Glasses Review of Systems Review of Systems: All systems reviewed & are unremarkable except as noted in HPI & below Physical Exam Physical Exam: General: patient ill in appearance but in no acute distress, AA&O x 4 Skin: warm, dry, intact, no rashes or lesions HEENT: NC/AT, PERRL, EOMI, anicteric sclera, conjunctiva without injection, external ear normal to inspection and nontender, nares patent, moist mucus membranes, dentition intact, no oropharyngeal lesions, neck supple, trachea midline, no LAD, no thyromegaly, no JVD, nasal cannula in place Heart: +S1/S2, regular, no m/r/g Lungs: equal air entry bilaterally, coarse breath sounds in bilateral lungs left more than right diffuse end expiratory wheezing. No accessory muscle use or paradoxical respirations. Patient is speaking in complete sentences. Abd: Obese, +BS, soft, NT/ND, no masses/organomegaly/ascites Ext: warm, 2+ pulses in UE/LE bilaterally, no clubbing/cyanosis or edema Neuro: nonfocal, patient AA&O x 4, speech intact, no facial droop, moving all extremities on command with equal strength 5/5 Results & Data Results & Data ([facility]) Vital Signs (Past 12 Hours) Vital Signs Temp Pulse Pulse Resp BP BP Pulse Ox 01/01/23 21:39 65 20 135/78 90 01/01/23 19:16 22 93 01/01/23 18:38 94 01/01/23 18:35 38.6 C H 94 H 26 H 161/81 H 90 O2 Del Method O2 Flow Rate 01/01/23 21:39 Nasal Cannula 2 01/01/23 19:16 Nasal Cannula 2 01/01/23 18:38 Nasal Cannula 2 01/01/23 18:35 Room Air Laboratory Results Laboratory Results WBC 8.85 K/ul (4.8-10.8) 01/01/23 20:30 RBC 4.06 M/uL (4.20-5.40) L 01/01/23 20:30 Hgb 11.5 g/dl (12.0-16.0) L 01/01/23 20:30 Hct 36.1 % (37.0-47.0) L 01/01/23 20:30 MCV 88.9 fL (80.0-100.0) 01/01/23 20:30 MCH 28.3 pg (25.0-34.0) 01/01/23 20:30 MCHC 31.9 g/dL (32.0-36.0) L 01/01/23 20:30 RDW Std Deviation 48.1 fL (36.4-46.3) H 01/01/23 20:30 RDW Coeff of Shay 14.6 % (11.5-14.5) H 01/01/23 20:30 Plt Count 247 K/uL (130-400) 01/01/23 20:30 MPV 10.9 fL (9.4-12.4) 01/01/23 20:30 Immature Gran % (Auto) 0.5 % 01/01/23 20:30 Neut % (Auto) 79.0 % 01/01/23 20:30 Lymph % (Auto) 11.6 % 01/01/23 20:30 [place] % (Auto) 5.1 % 01/01/23 20:30 Eos % (Auto) 3.3 % 01/01/23 20:30 Baso % (Auto) 0.5 % 01/01/23 20:30 Neut # (Auto) 7.00 K/uL (1.40-6.50) H 01/01/23 20:30 Lymph # (Auto) 1.03 K/uL (1.2-3.4) L 01/01/23 20:30 [place] # (Auto) 0.45 K/uL (0.11-0.59) 01/01/23 20:30 Eos # (Auto) 0.29 K/uL (0-0.50) 01/01/23 20:30 Baso # (Auto) 0.04 K/uL (0-0.2) 01/01/23 20:30 Immature Gran # (Auto) 0.04 K/uL (0.01-0.20) 01/01/23 20:30 Sodium 136 mmol/L (136-145) 01/01/23 20:30 Potassium 4.2 mmol/L (3.5-5.1) 01/01/23 20:30 Chloride 104 mmol/L (98-107) 01/01/23 20:30 Carbon Dioxide 28 mmol/L (21-32) 01/01/23 20:30 Anion Gap 4 (3-11) 01/01/23 20:30 BUN 17 mg/dl (6-23) 01/01/23 20:30 Creatinine 0.57 mg/dl (0.6-1.2) L 01/01/23 20:30 Est Cr Clr Drug Dosing 131.7 ml/min 01/01/23 20:30 Est GFR ( Amer) 123.5 ml/min 01/01/23 20:30 Est GFR (Non-Af Amer) 106.6 ml/min 01/01/23 20:30 BUN/Creatinine Ratio 29.8 (10-20) H 01/01/23 20:30 Glucose 116 mg/dl (70-99(Fasting)) H 01/01/23 20:30 Calcium 8.4 mg/dl (8.5-10.1) L 01/01/23 20:30 Total Bilirubin 0.5 mg/dl (0.2-1.0) 01/01/23 20:30 AST 18 U/L (13-39) 01/01/23 20:30 ALT 21 U/L (7-52) 01/01/23 20:30 Alkaline Phosphatase 70 U/L (34-104) 01/01/23 20:30 Troponin I High Sens 7.5 pg/ml (0-14) 01/01/23 20:30 Total Protein 7.1 gm/dl (6.0-8.3) 01/01/23 20:30 Albumin 3.7 gm/dl (3.4-5.0) 01/01/23 20:30 Globulin 3.4 gm/dl (2.5-4.0) 01/01/23 20:30 Albumin/Globulin Ratio 1.1 (0.9-2) 01/01/23 20:30 SARS-CoV-2 (PCR) NEGATIVE (Negative) 01/01/23 Unknown Influenza Type A (PCR) Negative (Neg) 01/01/23 Unknown Influenza Type B (PCR) Negative (Neg) 01/01/23 Unknown RSV (RT-PCR) Negative (Neg) 01/01/23 Unknown Diagnostic Findings Chest x-rayby my interpretation, study with bilateral airspace opacities left greater than right, no pneumothorax ECG Additional Comments: EKG with normal sinus rhythm at 81 bpm, normal axis, NE = 156, QRS = 82, QTc = 418, no acute ischemic changes. No change when compared with prior study from September 2022 Code Status & VTE Plan VTE Prophylaxis Plan VTE Prophylaxis will be ordered: Yes PG Care Time/CCT Total # of Minutes Spent Total Time Spent with Patient: Total time spent is greater than 50% in coordination of care (as documented) at patient's floor/unit and/or counseling patient: Coding Level of Care Code 28842 INT INP/OBS CARE 3/75MIN Diagnoses Pneumonia J18.9 Asthma J45.909 Chest pain R07.9 Pulmonary embolism I26.99 Acid reflux K21.9 Chronic diastolic (congestive) heart failure I50.32 Hypertension I10 SHAKEEL (obstructive sleep apnea) G47.33
[2023-01-01 21:54] LABS: Basophils # (auto) 0.04 K/uL (0-0.2); Basophils % (auto) 0.5 %; Eosinophils # (auto) 0.29 K/uL (0-0.50); Eosinophils % (auto) 3.3 %; Hematocrit (blood only) 36.1 % (37.0-47.0); Hemoglobin 11.5 g/dl (12.0-16.0); Immature Granulocytes # (auto) 0.04 K/uL (0.01-0.20); Immature Granulocytes % (auto) 0.5 %; Lymphocytes # (auto) 1.03 K/uL (1.2-3.4); Lymphocytes % (auto) 11.6 %; Mean Corpuscular Hemoglobin 28.3 pg (25.0-34.0); Mean Corpuscular Hgb Conc 31.9 g/dL (32.0-36.0); Mean Corpuscular Volume 88.9 fL (80.0-100.0); Mean Platelet Volume 10.9 fL (9.4-12.4); Monocytes # (auto) 0.45 K/uL (0.11-0.59); Monocytes % (auto) 5.1 %; Platelet Count 247 K/uL (130-400); RDW Coefficient of Variation 14.6 % (11.5-14.5); RDW Standard Deviation 48.1 fL (36.4-46.3); Red Blood Count 4.06 M/uL (4.20-5.40); White Blood Count 8.85 K/ul (4.8-10.8)
[2023-01-01 23:04] LABS: Appearance Urine Clear (Clear); Bacteria Urine Automated Negative (Negative); Bilirubin Urine Negative (Negative); Blood Urine Negative (Negative); Cast Urine Automated 0 /lpf (0-5); Color Urine Yellow; Epithelial Cell Urine Auto >30 /lpf (0-5); Glucose Urine UA Negative (Negative); Ketones Urine Trace (Negative); Leukocyte Esterase Urine 1+ (Negative); Nitrite Urine Negative (Negative); Protein Urine 1+ (Negative); RBC Urine Automated 0-4 /hpf (0-4); Specific Gravity Urine 1.024 (1.000-1.030); Urobilinogen Urine Negative (Negative)
[2023-01-01] MEDS ORDERED: WARFARIN SOD 5 MG TAB PO SCH (23:42)
[2023-01-01] MEDS ORDERED: ONDANSETRON INJ 2 MG/ML 2 ML VIAL IV PRN (23:42)
[2023-01-02] MEDS ORDERED: ENOXAPARIN INJ 40 MG/0.4 ML SYR SQ SCH
[2023-01-02] MEDS ORDERED: DOXYCYCLINE HYCLATE 100 MG in DEXTROSE 5% 100 ML IV SCH
[2023-01-02] MEDS: ALBUT/IPRATROP 3MG/0.5MG NEB 3 ML VIAL NEB SCH ×6 (00:15→19:17)
[2023-01-02] MEDS: hydrALAZINE TAB 50 MG TAB PO SCH ×4 (00:51→20:40)
[2023-01-02 01:17] LABS: Phosphorus 2.4 mg/dl (2.5-4.9)
[2023-01-02 01:24] LABS: Troponin I High Sensitivity 6.7 pg/ml (0-14)
[2023-01-02 01:26] LABS: INR 2.3 (0.9-1.1); Prothrombin Time 23.7 Seconds (9.0-12.0)
[2023-01-02] MEDS: ACETAMINOPHEN 500 MG TAB PO PRN ×4 (04:29→20:38)
[2023-01-02 05:44] LABS: Hematocrit (blood only) 34.7 % (37.0-47.0); Hemoglobin 11.2 g/dl (12.0-16.0); Mean Corpuscular Hemoglobin 28.1 pg (25.0-34.0); Mean Corpuscular Hgb Conc 32.3 g/dL (32.0-36.0); Mean Platelet Volume 10.5 fL (9.4-12.4); Platelet Count 256 K/uL (130-400); RDW Coefficient of Variation 14.5 % (11.5-14.5); RDW Standard Deviation 46.5 fL (36.4-46.3); Red Blood Count 3.99 M/uL (4.20-5.40); White Blood Count 7.48 K/ul (4.8-10.8)
[2023-01-02 05:53] LABS: INR 2.3 (0.9-1.1); Prothrombin Time 23.2 Seconds (9.0-12.0)
[2023-01-02 05:58] LABS: Calcium 8.6 mg/dl (8.5-10.1)
[2023-01-02 06:04] LABS: Creatinine Clr Calc Pharmacy 150.5 ml/min; Est GFR (Non-African American) 111.3 ml/min
[2023-01-02] MEDS: guaiFENesin 600 MG TABCR PO SCH ×2 (07:35→20:40)
[2023-01-02] MEDS: lisinopril 40 MG TAB PO SCH (07:35)
[2023-01-02] MEDS: predniSONE 20 MG TAB PO SCH (07:36)
[2023-01-02] MEDS: DULoxetine HCL 30 MG CAP PO SCH (07:36)
[2023-01-02] MEDS: carvediloL 12.5 MG TAB PO SCH ×2 (07:36→20:39)
[2023-01-02] MEDS: PANTOprazole 40 MG TAB PO SCH (07:36)
--- NOTE | 2023-01-02 08:52 | XRay Report ---
XR chest 1V portable HISTORY: Dyspnea COMPARISON: Chest 09/24/2022. FINDINGS: No pneumothorax. No pleural effusions. The cardiac silhouette is enlarged. There is a left lower lobe airspace opacity which is new from the prior study. This favors a pneumonia. There is mild central pulmonary vascular congestion without overt edema. IMPRESSION: There is new left lower lobe airspace opacity consistent with a pneumonia. Recommend follow-up to ens ure resolution. ACT 112: Negative or not required by law. Electronically signed by: Shayan Pineda M.D. 01/02/2023 8:50 AM
--- NOTE | 2023-01-02 10:48 | Electrocardiogram Report ---
Test Reason : Blood Pressure : / mmHG Vent. Rate : 081 BPM Atrial Rate : 081 BPM P-R Int : 156 ms QRS Dur : 082 ms QT Int : 360 ms P-R-T Axes : 039 047 051 degrees QTc Int : 418 ms Poor data quality, interpretation may be adversely affected Normal sinus rhythm Cannot rule out Anterior infarct (cited on or before 25-MAR-2022) Abnormal ECG When compared with ECG of 24-SEP-2022 13:45, No significant change was found Confirmed by Zachery Garcia ([id number]) on 01/02/2023 10:47:42 AM Referred By: REFERRED SELF Confirmed By:Zachery Garcia
[2023-01-02] MEDS: NIFEdipine EXTENDED REL 30 MG TABCR PO SCH (12:13)
[2023-01-02] MEDS: DOXYCYCLINE HYCLATE 100 MG in DEXTROSE 5% 100 ML IV SCH (12:14)
[2023-01-02] MEDS: FUROSEMIDE 40 MG TAB PO SCH (16:04)
[2023-01-02] MEDS: WARFARIN SOD 7.5 MG TAB PO SCH (16:04)
[2023-01-02] MEDS ORDERED: traMADol HCL 50 MG TABLET PO PRN (17:55)
--- NOTE | 2023-01-02 18:20 | Hospitalist Progress Note ---
Date of Service January 02, 2023 Assessment & Plan (1) Pneumonia: Plan: 52-year-old female with history of asthma, hypertension, hyperlipidemia, heart failure preserved EF presenting with several days of fever, chills, body aches as well as cough/congestion and progressive shortness of breath. Patient febrile, tachycardic, tachypneic and hypoxic on arrival requiring placement of supplemental oxygen by nasal cannula. Presently on 4 L of O2, saturating well. Patient does not use home oxygen. Coarse breath sounds with diffuse end expiratory wheezing appreciated on exam. Labs as above significant for normal WBC count, differential with elevation of neutrophils and lymphocytes. Normal BUN. No anion gap. Troponin normal at 7.5 Testing for COVID-19, influenza A/B and RSV are negative Chest x-ray with diffuse bilateral airspace disease left more than right Suspect pneumonia as cause of patient's underlying symptoms and acute hypoxic respiratory failure. Viral versus bacterial. Patient with normal WBC count Admit to medical telemetry Follow cultures Check BNP and procalcitonin Continue supplemental oxygen as needed, goal saturation of 94% Continue antibiotics with ceftriaxone 2 g IV daily and doxycycline 100 mg IV twice daily Mucinex twice daily Tylenol as needed for pain or fever Flutter valve 01/02-patient reports feeling better with IV antibiotics Chest x-ray upon admission had shown left lower lobe pneumonia Presently on IV antibiotics with ceftriaxone and doxycycline Continue flutter valve and Mucinex to promote expectoration Viral panel has been negative Patient has been on anticoagulation with Coumadin as she had PE few months ago- check daily PT/INR (2) Asthma: Plan: Diffuse end expiratory wheezing in bilateral lung clarke. Suspect exacerbation of asthma secondary to pneumonia. Patient has been given dexamethasone 10 mg IV in the ER as well as albuterol neb with improvement in symptoms and relief of chest pain. DuoNeb every 4 hours while awake Albuterol every 2 hours as needed for shortness of breath or wheeze Prednisone 60 mg p.o. daily for now (3) Chest pain: Plan: Patient presented with substernal chest pain with radiation between her shoulder blades. She reports that this pain was 10/10 in severity and had been going on all day. No history of prior ACS. Pain was relieved by IV steroids and albuterol. Suspect chest pain secondary to underlying pulmonary issue rather than cardiac etiology. Initial troponin is within normal limits at 7.5. EKG with no acute ischemic changes. Patient remains chest pain-free. Telemetry monitoring Trend troponin (4) Pulmonary embolism: Plan: Patient with history of pulmonary embolism in September 2022. She had a previous unprovoked episode of VTE in 2019 as well. Per report, no hypercoagulable pathology was found. She is presently on Coumadin anticoagulation indefinitely. Check INR now Continue Coumadin at home dose Monitor INR (5) Acid reflux: Plan: Chronic. Stable. Protonix 40 mg p.o. daily while inpatient (6) Chronic diastolic (congestive) heart failure: Plan: Patient with chronic diastolic heart failure. She has seen cardiology as well as heart failure clinic for this issue. She appears euvolemic today however, exam is limited secondary to body habitus. Continue carvedilol 12.5 mg p.o. twice daily Continue Lasix 40 mg p.o. daily Continue lisinopril 40 mg p.o. daily Monitor intake and output Monitor daily weights (7) Hypertension: Plan: Blood pressure initially elevated upon arrival. Now improved. Continue carvedilol 12.5 mg p.o. twice daily Continue lisinopril 40 mg p.o. every morning Continue nifedipine 30 mg p.o. daily Continue hydralazine Monitor blood pressure (8) SHAKEEL (obstructive sleep apnea): Plan: Patient with moderate SHAKEEL with significant nocturnal hypoxemia. Patient reports compliance with home CPAP Continue CPAP 12 cmH2O nightly Admission and Anticipated Discharge Date Admission Date: January 01, 2023 Subjective Patient reports that her shortness of breath is improved since admission Occasional cough still present patient reports she is able to expectorate some mucoid sputum No fevers reported no chest pain Energy level slightly improved Physical Exam Physical Exam: Head and ENT no thyroid enlargement trachea midline Cardiovascular S1-S2 are normal no S3 Lungs bilateral air entry improved at bases with few scattered rhonchi no wheezing Abdomen soft nondistended positive bowel sounds no rebound tenderness Extremity shows trace edema Neurologically no focal deficits Skin shows no rash Results & Data Results & Data ([facility]) Vital Signs (Past 12 Hours) Vital Signs Temp Pulse Pulse Resp BP Pulse Ox O2 Del Method 01/02/23 15:05 36.9 C 64 16 138/85 94 Nasal Cannula 01/02/23 15:17 66 17 94 Nasal Cannula 01/02/23 15:08 87 01/02/23 12:00 36.8 C 82 16 122/53 L 94 Nasal Cannula 01/02/23 10:43 66 18 94 Nasal Cannula 01/02/23 10:08 Nasal Cannula 01/02/23 08:00 36.7 C 66 18 114/63 92 Nasal Cannula 01/02/23 07:12 64 01/02/23 06:53 60 26 H 97 CPAP 01/02/23 06:51 60 26 H O2 Flow Rate 01/02/23 15:05 2 01/02/23 15:17 2 01/02/23 15:08 01/02/23 12:00 2 01/02/23 10:43 2 01/02/23 10:08 2 01/02/23 08:00 2 01/02/23 07:12 01/02/23 06:53 4 01/02/23 06:51 4 Laboratory Results Short CBC 01/02/23 Range/Units 05:24 WBC 7.48 (4.8-10.8) K/ul Hgb 11.2 L (12.0-16.0) g/dl Hct 34.7 L (37.0-47.0) % Plt Count 256 (130-400) K/uL BMP 01/02/23 05:24 Sodium 136 Potassium 4.0 Chloride 105 Carbon Dioxide 26 BUN 17 Creatinine 0.50 L Glucose 146 H Calcium 8.6 Diagnostic Findings Chest X-Ray 01/01/23 19:16 XR chest 1V portable HISTORY: Dyspnea COMPARISON: Chest 09/24/2022. FINDINGS: No pneumothorax. No pleural effusions. The cardiac silhouette is enlarged. There is a left lower lobe airspace opacity which is new from the prior study. This favors a pneumonia. There is mild central pulmonary vascular congestion without overt edema. IMPRESSION: There is new left lower lobe airspace opacity consistent with a pneumonia. Recommend follow-up to ensure resolution. ACT 112: Negative or not required by law. Electronically signed by: Shayan Pineda M.D. 01/02/2023 8:50 AM PG Care Time/CCT Total # of Minutes Spent Total Time Spent with Patient: Total time spent is greater than 50% in coordination of care (as documented) at patient's floor/unit and/or counseling patient: Coding Level of Care Code 81029 SUB INP/OBS CARE 2/35MIN Diagnoses Pneumonia J18.9 Asthma J45.909 Chest pain R07.9 Pulmonary embolism I26.99 Acid reflux K21.9 Chronic diastolic (congestive) heart failure I50.32 Hypertension I10 SHAKEEL (obstructive sleep apnea) G47.33
[2023-01-02] MEDS: cefTRIAXone SODIUM 2,000 MG in DEXTROSE 5% 50 ML IV SCH (20:43)
[2023-01-03] MEDS: DOXYCYCLINE HYCLATE 100 MG in DEXTROSE 5% 100 ML IV SCH (00:49)
[2023-01-03] MEDS: ACETAMINOPHEN 500 MG TAB PO PRN ×3 (03:24→21:16)
[2023-01-03] MEDS: BENZONATATE 100 MG CAPSULE PO PRN ×2 (03:24→10:49)
[2023-01-03] MEDS: ALBUT/IPRATROP 3MG/0.5MG NEB 3 ML VIAL NEB SCH ×5 (07:14→22:39)
[2023-01-03] MEDS: guaiFENesin 600 MG TABCR PO SCH ×2 (08:58→21:09)
[2023-01-03] MEDS: lisinopril 40 MG TAB PO SCH (08:59)
[2023-01-03] MEDS: PANTOprazole 40 MG TAB PO SCH (08:59)
[2023-01-03] MEDS: hydrALAZINE TAB 50 MG TAB PO SCH ×2 (08:59→14:32)
[2023-01-03] MEDS: DULoxetine HCL 30 MG CAP PO SCH (08:59)
[2023-01-03] MEDS: carvediloL 12.5 MG TAB PO SCH ×2 (08:59→21:09)
[2023-01-03] MEDS: predniSONE 20 MG TAB PO SCH (08:59)
[2023-01-03 09:17] LABS: Hematocrit (blood only) 35.4 % (37.0-47.0); Hemoglobin 11.4 g/dl (12.0-16.0); Mean Corpuscular Hemoglobin 27.9 pg (25.0-34.0); Mean Corpuscular Hgb Conc 32.2 g/dL (32.0-36.0); Mean Corpuscular Volume 86.6 fL (80.0-100.0); Mean Platelet Volume 10.8 fL (9.4-12.4); Platelet Count 300 K/uL (130-400); RDW Coefficient of Variation 14.8 % (11.5-14.5); Red Blood Count 4.09 M/uL (4.20-5.40); White Blood Count 8.69 K/ul (4.8-10.8)
[2023-01-03 09:34] LABS: BUN Creatinine Ratio 30.8 (10-20); Calcium 8.6 mg/dl (8.5-10.1); Creatinine Clr Calc Pharmacy 115.3 ml/min; Est GFR (African American) 118.3 ml/min; Est GFR (Non-African American) 102.1 ml/min; Potassium 3.8 mmol/L (3.5-5.1)
[2023-01-03 09:51] LABS: INR 2.7 (0.9-1.1); Prothrombin Time 27.5 Seconds (9.0-12.0)
[2023-01-03] MEDS ORDERED: AZITHROMYCIN 500 MG in DEXTROSE 5% 250 ML IV ONE (09:59)
[2023-01-03] MEDS: NIFEdipine EXTENDED REL 30 MG TABCR PO SCH (11:44)
--- NOTE | 2023-01-03 13:06 | Hospitalist Progress Note ---
Date of Service January 03, 2023 Assessment & Plan (1) Pneumonia: Plan: 52-year-old female with history of asthma, hypertension, hyperlipidemia, heart failure preserved EF, PE on coumadin, SHAKEEL on CPAP, presenting with several days of fever, chills, body aches as well as cough/congestion and progressive shortness of breath. Patient febrile, tachycardic, tachypneic and hypoxic on arrival requiring placement of supplemental oxygen by nasal cannula. Remains on 4 L of O2, saturating well. Patient does not use home oxygen. Coarse breath sounds with diffuse end expiratory wheezing appreciated on exam initially. On admission, labs significant for normal WBC count, differential with elevation of neutrophils and lymphocytes. Normal BUN. No anion gap. Troponin normal x 2, BNP normal Procal negative Testing for COVID-19, influenza A/B and RSV are negative Chest x-ray with diffuse bilateral airspace disease left more than right, LLL PNA Suspect pneumonia as cause of patient's underlying symptoms and acute hypoxic respiratory failure. Viral versus bacterial. Patient with normal WBC count Slightly improved but still requiring O2, not looking great, fevers coming down -SPutum culture collected and pending-will follow Follow blood cultures Continue supplemental oxygen as needed, goal saturation of 94% Continue antibiotics with ceftriaxone 2 g IV daily and change doxycycline to azithro today -check VRP BioFire to look for other viral causes and will stop abx if positive given negative procal Mucinex twice daily Tylenol as needed for pain or fever Flutter valve, ICS (2) Asthma: Plan: Diffuse end expiratory wheezing in bilateral lung clarke. Suspect exacerbation of asthma secondary to pneumonia. Patient has been given dexamethasone 10 mg IV in the ER as well as albuterol neb with improvement in symptoms and relief of chest pain. Still with some wheezing although improving continue DuoNeb every 4 hours while awake Albuterol every 2 hours as needed for shortness of breath or wheeze continue Prednisone 60 mg p.o. daily -add home ICS/LABA back on-Advair (3) Chest pain: Plan: Patient presented with substernal chest pain with radiation between her shoulder blades. She reports that this pain was 10/10 in severity and had been going on all day. No history of prior ACS. Pain was relieved by IV steroids and albuterol. Suspect chest pain secondary to underlying pulmonary issue rather than cardiac etiology. Serial troponin negative and EKG with no acute ischemic changes. Patient remains chest pain-free. Likely pleuritic from PNA INR has been therapeutic so PE not likely Telemetry monitoring -acetaminophen prn (4) Pulmonary embolism: Plan: Patient with history of pulmonary embolism in September 2022. She had a previous unprovoked episode of VTE in 2019 as well. Per report, no hypercoagulable pathology was found. She is presently on Coumadin anticoagulation indefinitely. INR therapeutic Continue Coumadin at home dose Monitor INR (5) Acid reflux: Plan: Chronic. Stable. Protonix 40 mg p.o. daily while inpatient (6) Chronic diastolic (congestive) heart failure: Plan: Patient with chronic diastolic heart failure. She has seen cardiology as well as heart failure clinic for this issue. She appears euvolemic today however, exam is limited secondary to body habitus. Continue carvedilol 12.5 mg p.o. twice daily Continue Lasix 40 mg p.o. daily Continue lisinopril 40 mg p.o. daily Monitor intake and output Monitor daily weights (7) Hypertension: Plan: Blood pressure initially elevated upon arrival. Now improved. Continue carvedilol 12.5 mg p.o. twice daily Continue lisinopril 40 mg p.o. every morning Continue nifedipine 30 mg p.o. daily Continue hydralazine Monitor blood pressure (8) SHAKEEL (obstructive sleep apnea): Plan: Patient with moderate SHAKEEL with significant nocturnal hypoxemia. Patient reports compliance with home CPAP Continue CPAP 12 cmH2O nightly Plan Dispo-continued stay on med tele Admission and Anticipated Discharge Date Admission Date: January 01, 2023 Subjective [place] terrible this AM with a low grade fever, cough, nausea. Now feeling a bit better with tessalon perle,neb treatment, increased O2, tylenol and Zofran. Feels a little lightheaded now after taking tessalon Denies further nausea, no abd pain. 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 Had some mid back pain this AM that is now resolved. Using her ICS and flutter valve. Tele with NSR, rates 60s Physical Exam Constitutional: WD/WN, vitals as above + morbidly obese Respiratory: normal respiratory effort and + cough Auscultation: + crackles (bibasilar) and + wheezes (end expiratory); no rhonchi Cardiovascular: RRR, no murmur, no edema Gastrointestinal (Abdomen): normal bowel sounds, soft, nontender, no hepatosplenomegaly Skin: no rashes, warm and dry (except mild rash left forearm from tape) Psychiatric: A+Ox3, euthymic affect Results & Data Results & Data ([facility]) Vital Signs (Past 12 Hours) Vital Signs Temp Pulse Pulse Resp BP BP Pulse Ox 01/03/23 11:17 85 22 90 01/03/23 10:57 37.5 C 69 20 119/66 90 01/03/23 09:02 37.5 C 85 32 H 137/66 90 01/03/23 08:04 37.2 C 112 H 20 108/76 96 01/03/23 07:14 72 22 92 01/03/23 03:41 36.9 C 72 18 126/68 90 01/03/23 03:06 56 L 30 H 94 O2 Del Method O2 Flow Rate 01/03/23 11:17 Nasal Cannula 4 01/03/23 10:57 Nasal Cannula 4 01/03/23 09:02 Nasal Cannula 4 01/03/23 08:04 Nasal Cannula 2 01/03/23 07:14 Nasal Cannula 3 01/03/23 03:41 Nasal Cannula 2 01/03/23 03:06 4 Laboratory Results INR, CBC, BMP reviewed PG Care Time/CCT Total # of Minutes Spent Total Time Spent with Patient: Total time spent is greater than 50% in coordination of care (as documented) at patient's floor/unit and/or counseling patient: Coding Level of Care Code 59194 SUB INP/OBS CARE 2/35MIN Diagnoses Pneumonia J18.9 Asthma J45.909 Chest pain R07.9 Pulmonary embolism I26.99 Acid reflux K21.9 Chronic diastolic (congestive) heart failure I50.32 Hypertension I10 SHAKEEL (obstructive sleep apnea) G47.33
[2023-01-03] MEDS: FLUTICASONE/VILANTEROL 200/25MCG 14 PUFFS/INHALER INH SCH (14:33)
[2023-01-03] MEDS: ASPIRIN 81 MG ECTAB PO SCH (14:33)
[2023-01-03] MEDS ORDERED: WARFARIN SOD 10 MG TAB PO SCH (16:00)
[2023-01-03 16:10] LABS: Adenovirus PCR Not Detected (NotDetected); Bordetella parapertussis PCR Not Detected (NotDetected); Bordetella pertussis PCR Not Detected (NotDetected); Chlamydia pneumoniae PCR Not Detected (NotDetected); Coronavirus 229E PCR Not Detected (NotDetected); Coronavirus CoV-2 (COVID19)PCR Not Detected (NotDetected); Coronavirus HKU1 PCR Not Detected (NotDetected); Coronavirus NL63 PCR Not Detected (NotDetected); Coronavirus OC43PCR Not Detected (NotDetected); Influenza A PCR Not Detected (NotDetected); Influenza B PCR Not Detected (NotDetected); Mycoplasma pneumoniae PCR Not Detected (NotDetected); Parainfluenza Virus 1 PCR Not Detected (NotDetected); Parainfluenza Virus 2 PCR Not Detected (NotDetected); Parainfluenza Virus 3 PCR Not Detected (NotDetected); Parainfluenza Virus 4 PCR Not Detected (NotDetected); Respiratory Syncytial VirusPCR Not Detected (NotDetected); Rhinovirus/Enterovirus PCR Not Detected (NotDetected)
[2023-01-03 16:11] LABS: Human Metapneumovirus PCR DETECTED (NotDetected)
[2023-01-03] MEDS ORDERED: GLUCAGON FOR INJ 1 MG VIAL SQ PRN (16:53)
[2023-01-03] MEDS ORDERED: GLUCOSE 40% GEL 15 GM TUBE PO PRN (16:53)
[2023-01-03] MEDS ORDERED: GLUCOSE 10 TAB/TUBE PO PRN (16:53)
[2023-01-03] MEDS ORDERED: CARBOHYDRATES FOR HYPOGLYCEMIA PO PRN (16:53)
[2023-01-03] MEDS ORDERED: DEXTROSE 50% 50 ML SYRINGE IV PRN (16:53)
[2023-01-03 17:35] LABS: Hematocrit (blood only) 36.2 % (37.0-47.0); Hemoglobin 11.6 g/dl (12.0-16.0); Mean Corpuscular Hemoglobin 28.2 pg (25.0-34.0); Mean Corpuscular Volume 87.9 fL (80.0-100.0); Mean Platelet Volume 10.4 fL (9.4-12.4); Platelet Count 291 K/uL (130-400); RDW Coefficient of Variation 14.8 % (11.5-14.5); Red Blood Count 4.12 M/uL (4.20-5.40); White Blood Count 9.41 K/ul (4.8-10.8)
[2023-01-03] MEDS ORDERED: OPTIRAY 320 500ml IV ONE (18:48)
--- NOTE | 2023-01-03 19:36 | CT Scan Report ---
CT angio chest PE protocol CT DOSE: 802.55 mGy.cm HISTORY: 52 years-old Female with PE. Acute cough with shortness of breath TECHNIQUE: Multiple CTA images of the chest were obtained after the intravenous administration of 110 ml Optiray. Coronal and sagittal MIPS were obtained from the axial data set and were submitted for review. All measurements were obtained according to NASCET criteria. A dose lowering technique was u tilized adhering to the principles of ALARA. COMPARISON: CTA chest 09/24/2022, chest radiograph 01/01/2023 FINDINGS: CTA: Moderate cardiomegaly with trace pericardial effusion. Unremarkable thoracic aorta. Dilation of the m ain pulmonary artery redemonstrated. Suboptimal evaluation of the pulmonary tree all tree secondary t o contrast bolus timing and respiratory motion artifact. No central pulmonary emboli identified. CT CHEST: No thyroid nodule. 1.9 x 1.2 cm right paratracheal lymph node on image 183 is new from prior. Complai nt 1 cm left hilar lymph node on image 136. Borderline enlarged subcarinal lymph node. Trace pleural effusions. No pneumothorax. Dense airspace consolidation with intermixed groundglass op acities within the lower lobes and lingula with additional scattered subsegmental upper and right mid dle lobe opacities, mildly progressed from prior. Hepatosplenomegaly. Unremarkable soft tissues. No acute fracture. IMPRESSION: 1. Suboptimal evaluation of the pulmonary arterial tree secondary to contrast bolus timing and respir atory motion artifact. No central pulmonary emboli are identified. 2. Segmental airspace opacities are most pronounced within the lower lobes and lingula suggestive of multifocal pneumonia. 3. Mild nonspecific mediastinal and hilar lymphadenopathy, likely reactive. Attention at follow-up re commended. 4. Cardiomegaly with suggested pulmonary arterial hypertension. ACT 112: Negative or not required by law. The above report was generated using voice recognition software. It may contain grammatical, syntax o r spelling errors. Electronically signed by: Carrington Hernandez M.D. 01/03/2023 7:33 PM
[2023-01-03] MEDS: INSULIN ASPART PER UNIT SC SCH (21:09)
[2023-01-03] MEDS: cefTRIAXone SODIUM 2,000 MG in DEXTROSE 5% 50 ML IV SCH (21:10)
[2023-01-04] MEDS: ALBUT/IPRATROP 3MG/0.5MG NEB 3 ML VIAL NEB SCH ×6 (02:36→22:05)
[2023-01-04 06:51] LABS: Basophils # (auto) 0.03 K/uL (0-0.2); Basophils % (auto) 0.4 %; Eosinophils # (auto) 0.03 K/uL (0-0.50); Eosinophils % (auto) 0.4 %; Hematocrit (blood only) 35.8 % (37.0-47.0); Hemoglobin 11.3 g/dl (12.0-16.0); Immature Granulocytes # (auto) 0.06 K/uL (0.01-0.20); Immature Granulocytes % (auto) 0.7 %; Lymphocytes # (auto) 2.69 K/uL (1.2-3.4); Lymphocytes % (auto) 33.5 %; Mean Corpuscular Hemoglobin 27.9 pg (25.0-34.0); Mean Corpuscular Hgb Conc 31.6 g/dL (32.0-36.0); Mean Corpuscular Volume 88.4 fL (80.0-100.0); Mean Platelet Volume 10.4 fL (9.4-12.4); Monocytes # (auto) 0.84 K/uL (0.11-0.59); Monocytes % (auto) 10.5 %; Neutrophils # (auto) 4.38 K/uL (1.40-6.50); Neutrophils % (auto) 54.5 %; Platelet Count 329 K/uL (130-400); RDW Coefficient of Variation 14.7 % (11.5-14.5); RDW Standard Deviation 47.8 fL (36.4-46.3); Red Blood Count 4.05 M/uL (4.20-5.40); White Blood Count 8.03 K/ul (4.8-10.8)
[2023-01-04 07:00] LABS: INR 2.6 (0.9-1.1); Prothrombin Time 26.1 Seconds (9.0-12.0)
[2023-01-04 07:14] LABS: Albumin Globulin Ratio 0.9 (0.9-2); Albumin Level 3.6 gm/dl (3.4-5.0); BUN Creatinine Ratio 36.7 (10-20); Bilirubin,Total 0.3 mg/dl (0.2-1.0); C Reactive Protein 10.53 mg/dl (0-0.5); Creatinine Clr Calc Pharmacy 125.1 ml/min; Est GFR (African American) 121.5 ml/min; Est GFR (Non-African American) 104.8 ml/min; Globulin 3.8 gm/dl (2.5-4.0); Magnesium 2.2 mg/dl (1.7-2.4); Potassium 3.9 mmol/L (3.5-5.1); Total Protein 7.4 gm/dl (6.0-8.3)
[2023-01-04 08:17] LABS: Estimated Average Glucose 117 mg/dl; Hemoglobin A1C 5.7 % (4.5-5.6)
[2023-01-04] MEDS: INSULIN ASPART PER UNIT SC SCH ×4 (09:00→21:47)
[2023-01-04] MEDS ORDERED: FLUTICASONE/VILANTEROL 200/25MCG 14 PUFFS/INHALER INH SCH (09:00)
[2023-01-04] MEDS: guaiFENesin 600 MG TABCR PO SCH ×2 (09:01→21:49)
[2023-01-04] MEDS: PANTOprazole 40 MG TAB PO SCH (09:01)
[2023-01-04] MEDS: predniSONE 20 MG TAB PO SCH (09:02)
[2023-01-04] MEDS: carvediloL 12.5 MG TAB PO SCH ×3 (09:02→21:47)
[2023-01-04] MEDS: lisinopril 40 MG TAB PO SCH (09:03)
[2023-01-04] MEDS: DULoxetine HCL 30 MG CAP PO SCH (09:03)
[2023-01-04] MEDS: CHOLECALCIFEROL 5,000 UNITS 125 MCG TAB PO SCH (09:03)
[2023-01-04] MEDS: ASPIRIN 81 MG ECTAB PO SCH (09:03)
[2023-01-04] MEDS: FLUTICASONE/VILANTEROL 200/25MCG 14 PUFFS/INHALER INH SCH (09:05)
[2023-01-04] MEDS: guaiFENesin/DEXTROM SYRUP 200MG/20MG 10ML UDC PO PRN (09:08)
[2023-01-04] MEDS: AZITHROMYCIN 250 MG in DEXTROSE 5% 250 ML IV SCH (09:13)
--- NOTE | 2023-01-04 10:59 | Hospitalist Progress Note ---
Date of Service January 04, 2023 Assessment & Plan (1) Human metapneumovirus (hMPV) pneumonia: Plan: 52-year-old female with history of asthma, hypertension, hyperlipidemia, heart failure preserved EF, PE on coumadin, SHAKEEL on CPAP, presenting with several days of fever, chills, body aches as well as cough/congestion and progressive shortness of breath. Patient febrile, tachycardic, tachypneic and hypoxic on arrival requiring placement of supplemental oxygen by nasal cannula. Patient does not use home oxygen. Coarse breath sounds with diffuse end expiratory wheezing appreciated on exam initially. On admission, labs significant for normal WBC count, differential with elevation of neutrophils and lymphocytes. Normal BUN. No anion gap. Troponin normal x 2, BNP normal Procal negative Testing for COVID-19, influenza A/B and RSV are negative Chest x-ray with diffuse bilateral airspace disease left more than right, LLL PNA On 01/03, was requiring 5-6LNC, appeared ill, was tachypneic, febrile, lightheaded with relatively low-normal BPs, nauseated. CTA CHest obtained which was w/ poor contrast bolus timing but no central PE and with diffuse PNA c/w viral PNA Biofire VRP also checked and + for Human metapneumovirus Definitely improved on 01/04, looks better, no more fevers, symptoms improving Procal repeated and remains negative--> secondary bacterial PNA not likely but has improved with abx as well-continue x 1 more day ceftriaxone and azithro -SPutum culture collected and pending-will follow Follow blood cultures-NGTD Continue supplemental oxygen as needed, goal saturation of 94% Mucinex twice daily, continue robitussin DM prn Tylenol as needed for pain or fever continue Flutter valve, ICS -continue prednisone burst for asthma and continue scheduled Duonebs (2) Acute respiratory failure with hypoxia: Plan: as above, 2/2 pneumonia, asthma exacerbation (3) Asthma: Plan: Diffuse end expiratory wheezing in bilateral lung clarke on admission, now improving. Suspect exacerbation of asthma secondary to pneumonia. Was given dexamethasone 10 mg IV in the ER as well as albuterol neb with impr ovement in symptoms and relief of chest pain. Still with some wheezing although much improved continue DuoNeb scheduled Albuterol every 2 hours as needed for shortness of breath or wheeze continue Prednisone taper-down to 40 mg p.o. daily on 01/04 -continue home ICS/LABA (4) Chest pain: Plan: Patient presented with substernal chest pain with radiation between her shoulder blades. She reports that this pain was 10/10 in severity and had been going on all day. No history of prior ACS. Pain was relieved by IV steroids and albuterol. Suspect chest pain secondary to PNA rather than cardiac etiology. Serial troponin negative and EKG with no acute ischemic changes. CTA Chest no central PE INR has been therapeutic so smaller PE not likely Telemetry monitoring -acetaminophen prn (5) Pulmonary embolism: Plan: Patient with history of pulmonary embolism in September 2022. She had a previous unprovoked episode of VTE in 2019 as well. Per report, no hypercoagulable pathology was found. She is presently on Coumadin anticoagulation indefinitely. INR remains therapeutic Continue Coumadin at home dose Monitor INR especially in setting of abx and steroid use (6) Chronic diastolic (congestive) heart failure: Plan: Patient with chronic diastolic heart failure. She has seen cardiology as well as heart failure clinic for this issue. She appears euvolemic today however, exam is limited secondary to body habitus. Continue carvedilol 12.5 mg p.o. twice daily holding home Lasix until taking po better and for lower BPs Continue lisinopril 40 mg p.o. daily -holding hydralazine and will also hold nifedipine Monitor intake and output Monitor daily weights (7) Hypertension: Plan: Blood pressure initially elevated upon arrival. Now low normal and had some lightheadedness on 01/03 when BPs in 90s systolic Continue carvedilol 12.5 mg p.o. twice daily w/ hold parameters Continue lisinopril 40 mg p.o. every morning hold nifedipine 30 mg p.o. daily and hydralazine tid while BPs a bit low Monitor blood pressure (8) SHAKEEL (obstructive sleep apnea): Plan: Patient with moderate SHAKEEL with significant nocturnal hypoxemia. Patient reports compliance with home CPAP Continue CPAP 12 cmH2O nightly (9) Hepatosplenomegaly: Plan: seen on CTA Chest likely due to fatty liver needs weight loss follow as outpt platelets normal (10) Morbid obesity: Plan: BMI 58.5 desperately needs weight loss f/u with PCP as outpt (11) Pulmonary hypertension: Plan: noted on CTA CHest due to SHAKEEL, h/o PEs continue CPAP and O2 therapy (12) Type 2 diabetes mellitus without complication: Plan: HgbA1C 5.7% in prediabetes range on no meds at home started SSI Novolog yesterday while on steroids here (13) Acid reflux: Plan: Chronic. Stable. Protonix 40 mg p.o. daily while inpatient Plan Dispo-continued stay on med tele, slowly improving Admission and Anticipated Discharge Date Admission Date: January 01, 2023 Subjective Pt feeling much better today. No fevers, less SOB, cough improved. Took robitussin DM without side effects. No further lightheadedness. No CP. No further nausea, no abd pains. Tele with NSR and normal rates Physical Exam Constitutional: WD/WN, vitals as above + morbidly obese Respiratory: normal respiratory effort and + cough Auscultation: + crackles (bilat lower lung clarke), + rhonchi (right mid lung field), + wheezes (end expiratory) and + bronchial breath sounds (right lower and mid lung clarke) Cardiovascular: RRR, no murmur, no edema Gastrointestinal (Abdomen): normal bowel sounds, soft, nontender, no hepatosplenomegaly Skin: no rashes, warm and dry (except mild rash left forearm from tape) Psychiatric: A+Ox3, euthymic affect Results & Data Results & Data ([facility]) Vital Signs (Past 12 Hours) Vital Signs Temp Pulse Pulse Resp BP Pulse Ox O2 Del Method 01/04/23 09:21 Nasal Cannula 01/04/23 07:46 36.9 C 70 18 95/60 L 92 Nasal Cannula 01/04/23 07:28 52 L 01/04/23 07:10 60 20 95 Nasal Cannula 01/04/23 03:13 51 L 20 109/60 96 CPAP 01/04/23 02:39 56 L 24 94 CPAP 01/04/23 02:39 56 L 24 94 01/03/23 23:15 36.7 C 71 20 110/60 92 Nasal Cannula O2 Flow Rate 01/04/23 09:21 5 01/04/23 07:46 2 01/04/23 07:28 01/04/23 07:10 6 01/04/23 03:13 6 01/04/23 02:39 6 01/04/23 02:39 6 01/03/23 23:15 5 Laboratory Results CBC, INR, CMP, Magnesium, HgbA1C reviewed Sputum cx and blood cx reviewed PG Care Time/CCT Total # of Minutes Spent Total Time Spent with Patient: Total time spent is greater than 50% in coordination of care (as documented) at patient's floor/unit and/or counseling patient: Coding Level of Care Code 99179 SUB INP/OBS CARE 3/50MIN Diagnoses Human metapneumovirus (hMPV) pneumonia J12.3 Acute respiratory failure with hypoxia J96.01 Asthma J45.909 Chest pain R07.9 Pulmonary embolism I26.99 Chronic diastolic (congestive) heart failure I50.32 Hypertension I10 SHAKEEL (obstructive sleep apnea) G47.33 Hepatosplenomegaly R16.2 Morbid obesity E66.01 Pulmonary hypertension I27.20 Type 2 diabetes mellitus without complication E11.9 Acid reflux K21.9
--- NOTE | 2023-01-04 12:17 | XCELERA ---
[id number]
[2023-01-04] MEDS: ACETAMINOPHEN 500 MG TAB PO PRN (14:13)
[2023-01-04] MEDS: WARFARIN SOD 7.5 MG TAB PO SCH (19:10)
[2023-01-04] MEDS: cefTRIAXone SODIUM 2,000 MG in DEXTROSE 5% 50 ML IV SCH (21:46)
[2023-01-05] MEDS: ALBUT/IPRATROP 3MG/0.5MG NEB 3 ML VIAL NEB SCH ×5 (02:11→19:16)
[2023-01-05 06:50] LABS: Hematocrit (blood only) 30.7 % (37.0-47.0); Hemoglobin 9.9 g/dl (12.0-16.0); Mean Corpuscular Hgb Conc 32.2 g/dL (32.0-36.0); Mean Platelet Volume 10.1 fL (9.4-12.4); Platelet Count 284 K/uL (130-400); RDW Coefficient of Variation 14.5 % (11.5-14.5); RDW Standard Deviation 46.2 fL (36.4-46.3); Red Blood Count 3.53 M/uL (4.20-5.40); White Blood Count 6.43 K/ul (4.8-10.8)
[2023-01-05 07:16] LABS: BUN Creatinine Ratio 36.8 (10-20); C Reactive Protein 4.02 mg/dl (0-0.5); Calcium 8.5 mg/dl (8.5-10.1); Creatinine Clr Calc Pharmacy 131.7 ml/min; Est GFR (African American) 123.5 ml/min; Est GFR (Non-African American) 106.6 ml/min; Magnesium 2.2 mg/dl (1.7-2.4)
[2023-01-05 07:18] LABS: Basophils # (auto) 0.04 K/uL (0-0.2); Basophils % (auto) 0.6 %; Eosinophils # (auto) 0.07 K/uL (0-0.50); Eosinophils % (auto) 1.1 %; Immature Granulocytes # (auto) 0.08 K/uL (0.01-0.20); Immature Granulocytes % (auto) 1.2 %; Lymphocytes # (auto) 2.71 K/uL (1.2-3.4); Lymphocytes % (auto) 42.1 %; Monocytes # (auto) 0.61 K/uL (0.11-0.59); Monocytes % (auto) 9.5 %; Neutrophils # (auto) 2.92 K/uL (1.40-6.50); Neutrophils % (auto) 45.5 %
[2023-01-05 07:28] LABS: INR 2.7 (0.9-1.1)
[2023-01-05] MEDS: predniSONE 20 MG TAB PO SCH (08:16)
[2023-01-05] MEDS: AZITHROMYCIN 250 MG in DEXTROSE 5% 250 ML IV SCH (08:26)
[2023-01-05] MEDS: ACETAMINOPHEN 500 MG TAB PO PRN ×3 (08:30→21:32)
[2023-01-05] MEDS: INSULIN ASPART PER UNIT SC SCH ×4 (08:31→20:40)
[2023-01-05] MEDS: guaiFENesin 600 MG TABCR PO SCH ×2 (08:59→20:40)
[2023-01-05] MEDS: DULoxetine HCL 30 MG CAP PO SCH (08:59)
[2023-01-05] MEDS: carvediloL 12.5 MG TAB PO SCH ×2 (09:00→20:33)
[2023-01-05] MEDS: FLUTICASONE/VILANTEROL 200/25MCG 14 PUFFS/INHALER INH SCH (09:00)
[2023-01-05] MEDS: lisinopril 40 MG TAB PO SCH (09:01)
[2023-01-05] MEDS: CHOLECALCIFEROL 5,000 UNITS 125 MCG TAB PO SCH (10:40)
[2023-01-05] MEDS: ASPIRIN 81 MG ECTAB PO SCH (10:40)
[2023-01-05] MEDS: PANTOprazole 40 MG TAB PO SCH (10:40)
--- NOTE | 2023-01-05 14:17 | Hospitalist Progress Note ---
Date of Service January 05, 2023 Assessment & Plan (1) Human metapneumovirus (hMPV) pneumonia: Plan: 52-year-old female with history of asthma, hypertension, hyperlipidemia, heart failure preserved EF, PE on coumadin, SHAKEEL on CPAP, presenting with several days of fever, chills, body aches as well as cough/congestion and progressive shortness of breath. Patient febrile, tachycardic, tachypneic and hypoxic on arrival requiring placement of supplemental oxygen by nasal cannula. Patient does not use home oxygen. Coarse breath sounds with diffuse end expiratory wheezing appreciated on exam initially. On admission, labs significant for normal WBC count, differential with elevation of neutrophils and lymphocytes. Normal BUN. No anion gap. Troponin normal x 2, BNP normal Procal negative Testing for COVID-19, influenza A/B and RSV are negative Chest x-ray with diffuse bilateral airspace disease left more than right, LLL PNA On 01/03, was requiring 5-6LNC, appeared ill, was tachypneic, febrile, lightheaded with relatively low-normal BPs, nauseated. CTA CHest obtained which was w/ poor contrast bolus timing but no central PE and with diffuse PNA c/w viral PNA Biofire VRP also checked and + for Human metapneumovirus Overall now significantly improved--> no more fevers, cough improved, weaning off O2 Procal remains negative x 2, CRP trending downward, SPutum cx negative--> secondary bacterial PNA not likely -dc ceftriaxone and azithro Follow blood cultures-NGTD Continue supplemental oxygen as needed and corona down, goal saturation of 94% Mucinex twice daily, continue robitussin DM prn Tylenol as needed for pain or fever continue Flutter valve, ICS -continue prednisone burst for asthma-wean down to 30mg for tomorrow -continue scheduled Duonebs (2) Acute respiratory failure with hypoxia: Plan: as above, 2/2 pneumonia, asthma exacerbation (3) Asthma: Plan: Diffuse end expiratory wheezing in bilateral lung clarke on admission, now improving. Suspect exacerbation of asthma secondary to pneumonia. Was given dexamethasone 10 mg IV in the ER as well as albuterol neb with improvement in symptoms and relief of chest pain. wheezing now resolved continue DuoNeb scheduled Albuterol every 2 hours as needed for shortness of breath or wheeze continue Prednisone taper-go down to 30 mg p.o. daily on 01/06 -continue home ICS/LABA (4) Chest pain: Plan: Patient presented with substernal chest pain with radiation between her shoulder blades. She reports that this pain was 10/10 in severity and had been going on all day. No history of prior ACS. Pain was relieved by IV steroids and albuterol. Suspect chest pain secondary to PNA rather than cardiac etiology. Serial troponin negative and EKG with no acute ischemic changes. CTA Chest no central PE INR has been therapeutic so smaller PE not likely Telemetry monitoring -acetaminophen prn (5) Pulmonary embolism: Plan: Patient with history of pulmonary embolism in September 2022. She had a previous unprovoked episode of VTE in 2018 as well. Per report, no hypercoagulable pathology was found. She is presently on Coumadin anticoagulation indefinitely. INR remains therapeutic Continue Coumadin at home dose Monitor INR especially in setting of abx and steroid use (6) Chronic diastolic (congestive) heart failure: Plan: Patient with chronic diastolic heart failure. She has seen cardiology as well as heart failure clinic for this issue. She appears euvolemic today however, exam is limited secondary to body habitus. Continue carvedilol 12.5 mg p.o. twice daily ok to restart home Lasix now that BPs coming up and taking po better Continue lisinopril 40 mg p.o. daily -holding hydralazine and nifedipine Monitor intake and output Monitor daily weights (7) Hypertension: Plan: Blood pressure initially elevated upon arrival. Then BP low normal and had some lightheadedness on 01/03 when BPs in 90s systolic BPs now starting to become high again after holdinng hydralazine, nifedipine, and lasix Continue carvedilol 12.5 mg p.o. twice daily w/ hold parameters Continue lisinopril 40 mg p.o. every morning continue to hold nifedipine 30 mg p.o. daily and hydralazine tid -restart lasix Monitor blood pressure (8) SHAKEEL (obstructive sleep apnea): Plan: Patient with moderate SHAKEEL with significant nocturnal hypoxemia. Patient reports compliance with home CPAP Continue CPAP 12 cmH2O nightly (9) Hepatosplenomegaly: Plan: seen on CTA Chest likely due to fatty liver needs weight loss follow as outpt platelets normal (10) Morbid obesity: Plan: BMI 58.5 desperately needs weight loss f/u with PCP as outpt (11) Pulmonary hypertension: Plan: noted on CTA CHest due to SHAKEEL, h/o PEs continue CPAP and O2 therapy (12) Type 2 diabetes mellitus without complication: Plan: HgbA1C 5.7% in prediabetes range on no meds at home started SSI Novolog while on steroids here (13) Acid reflux: Plan: Chronic. Stable. Protonix 40 mg p.o. daily while inpatient Plan Dispo-continued stay on med tele, slowly improving, may need home O2. Dc to home likely in 1-2 days Admission and Anticipated Discharge Date Admission Date: January 01, 2023 Subjective feeling much better, weaned down to 2LNC O2. Has cough but improved, no further sputum production. moved bowels today. Was OOB and walking around room, hhad some mid back pain that went away with tylenol Tele with NSR, normal rates Physical Exam Constitutional: WD/WN, vitals as above + morbidly obese Respiratory: normal respiratory effort and + cough Auscultation: + crackles (bilat lower lung clarke) and + bronchial breath sounds (right lower and mid lung clarke); no diminished lung sounds (improved BS throughout) Cardiovascular: RRR, no murmur, no edema Gastrointestinal (Abdomen): normal bowel sounds, soft, nontender, no hepatosplenomegaly Psychiatric: A+Ox3, euthymic affect Results & Data Results & Data ([facility]) Vital Signs (Past 12 Hours) Vital Signs Temp Pulse Pulse Resp BP Pulse Ox O2 Del Method 01/05/23 11:47 36.5 C 60 18 142/75 H 96 Nasal Cannula 01/05/23 11:33 56 L 18 96 Nasal Cannula 01/05/23 09:45 Nasal Cannula 01/05/23 07:50 36.5 C 55 L 18 129/73 94 Nasal Cannula 01/05/23 07:50 58 L 20 94 Nasal Cannula 01/05/23 07:41 55 L 01/05/23 02:44 36.4 C L 62 18 122/69 94 CPAP O2 Flow Rate 01/05/23 11:47 2 01/05/23 11:33 2 01/05/23 09:45 4 01/05/23 07:50 4 01/05/23 07:50 5 01/05/23 07:41 01/05/23 02:44 Laboratory Results CBC, BMP, CRP reviewed sputum cx heavy normal july PG Care Time/CCT Total # of Minutes Spent Total Time Spent with Patient: Total time spent is greater than 50% in coordination of care (as documented) at patient's floor/unit and/or counseling patient: Coding Level of Care Code 06732 SUB INP/OBS CARE 3/50MIN Diagnoses Human metapneumovirus (hMPV) pneumonia J12.3 Acute respiratory failure with hypoxia J96.01 Asthma J45.909 Chest pain R07.9 Pulmonary embolism I26.99 Chronic diastolic (congestive) heart failure I50.32 Hypertension I10 SHAKEEL (obstructive sleep apnea) G47.33 Hepatosplenomegaly R16.2 Morbid obesity E66.01 Pulmonary hypertension I27.20 Type 2 diabetes mellitus without complication E11.9 Acid reflux K21.9
[2023-01-05] MEDS: FUROSEMIDE 40 MG TAB PO SCH (17:35)
[2023-01-05] MEDS: WARFARIN SOD 7.5 MG TAB PO SCH (20:31)
[2023-01-05] MEDS: ALBUTEROL 0.083% NEBU SOLN 3 ML VIAL NEB PRN (22:31)
[2023-01-06] MEDS: ALBUT/IPRATROP 3MG/0.5MG NEB 3 ML VIAL NEB SCH ×5 (02:49→20:33)
[2023-01-06 07:16] LABS: Hemoglobin 10.4 g/dl (12.0-16.0); Mean Corpuscular Hemoglobin 27.7 pg (25.0-34.0); Mean Corpuscular Hgb Conc 32.5 g/dL (32.0-36.0); Mean Corpuscular Volume 85.3 fL (80.0-100.0); Mean Platelet Volume 10.1 fL (9.4-12.4); Platelet Count 327 K/uL (130-400); RDW Coefficient of Variation 14.1 % (11.5-14.5); RDW Standard Deviation 44.4 fL (36.4-46.3); Red Blood Count 3.75 M/uL (4.20-5.40); White Blood Count 8.26 K/ul (4.8-10.8)
[2023-01-06 07:36] LABS: BUN Creatinine Ratio 33.3 (10-20); Calcium 8.6 mg/dl (8.5-10.1); Creatinine Clr Calc Pharmacy 139.4 ml/min; Est GFR (African American) 125.7 ml/min; Est GFR (Non-African American) 108.5 ml/min; INR 2.4 (0.9-1.1); Potassium 3.6 mmol/L (3.5-5.1); Prothrombin Time 24.4 Seconds (9.0-12.0)
[2023-01-06 07:43] LABS: Basophils # (auto) 0.04 K/uL (0-0.2); Basophils % (auto) 0.5 %; Eosinophils # (auto) 0.08 K/uL (0-0.50); Immature Granulocytes # (auto) 0.18 K/uL (0.01-0.20); Immature Granulocytes % (auto) 2.2 %; Lymphocytes # (auto) 3.12 K/uL (1.2-3.4); Lymphocytes % (auto) 37.8 %; Monocytes # (auto) 0.56 K/uL (0.11-0.59); Monocytes % (auto) 6.8 %; Neutrophils # (auto) 4.28 K/uL (1.40-6.50); Neutrophils % (auto) 51.7 %
[2023-01-06 07:53] LABS: Vitamin B12 317 pg/ml (180-914)
[2023-01-06 07:56] LABS: Ferritin 79.3 ng/ml (8-388)
[2023-01-06] MEDS: INSULIN ASPART PER UNIT SC SCH ×4 (08:43→20:15)
[2023-01-06] MEDS: ACETAMINOPHEN 500 MG TAB PO PRN ×3 (08:47→20:13)
[2023-01-06] MEDS: carvediloL 12.5 MG TAB PO SCH ×2 (08:48→20:14)
[2023-01-06] MEDS: ASPIRIN 81 MG ECTAB PO SCH (08:49)
[2023-01-06] MEDS: CHOLECALCIFEROL 5,000 UNITS 125 MCG TAB PO SCH (08:50)
[2023-01-06] MEDS: PANTOprazole 40 MG TAB PO SCH (08:51)
[2023-01-06] MEDS: predniSONE 10 MG TABLET PO SCH (08:51)
[2023-01-06] MEDS: FLUTICASONE/VILANTEROL 200/25MCG 14 PUFFS/INHALER INH SCH (08:51)
[2023-01-06] MEDS: DULoxetine HCL 30 MG CAP PO SCH (08:51)
[2023-01-06] MEDS: guaiFENesin 600 MG TABCR PO SCH ×2 (08:51→20:14)
[2023-01-06] MEDS: lisinopril 40 MG TAB PO SCH (08:51)
[2023-01-06] MEDS ORDERED: FLUCONAZOLE 50 MG TAB PO ONE (13:39)
--- NOTE | 2023-01-06 13:44 | Hospitalist Progress Note ---
Date of Service January 06, 2023 Assessment & Plan (1) Human metapneumovirus (hMPV) pneumonia: Plan: 52-year-old female with history of asthma, hypertension, hyperlipidemia, heart failure preserved EF, PE on coumadin, SHAKEEL on CPAP, presenting with several days of fever, chills, body aches as well as cough/congestion and progressive shortness of breath. Patient febrile, tachycardic, tachypneic and hypoxic on arrival requiring placement of supplemental oxygen by nasal cannula. Patient does not use home oxygen. Coarse breath sounds with diffuse end expiratory wheezing appreciated on exam initially. On admission, labs significant for normal WBC count, differential with elevation of neutrophils and lymphocytes. Normal BUN. No anion gap. Troponin normal x 2, BNP normal Procal negative Testing for COVID-19, influenza A/B and RSV are negative Chest x-ray with diffuse bilateral airspace disease left more than right, LLL PNA On 01/03, was requiring 5-6LNC, appeared ill, was tachypneic, febrile, lightheaded with relatively low-normal BPs, nauseated. CTA CHest obtained which was w/ poor contrast bolus timing but no central PE and with diffuse PNA c/w viral PNA Biofire VRP also checked and + for Human metapneumovirus Overall now significantly improved--> no more fevers, cough improved, weaned completely off supplemental O2 Having back pain from cough--> order heating pad and will give cough syrup Procal remains negative x 2, CRP trending downward, SPutum cx negative--> secondary bacterial PNA not likely -dcd ceftriaxone and azithro after 3-4 doses Follow blood cultures-NGTD will check 2 step walk test prior to discharge Mucinex twice daily, continue robitussin DM prn Tylenol as needed for pain or fever continue Flutter valve, ICS -continue prednisone burst for asthma-continue 30mg for tomorrow and then 20mg after that -continue scheduled Duonebs -give diflucan 150mg po x 1 for symptoms of vag candidiasis (2) Acute respiratory failure with hypoxia: Plan: as above, 2/2 pneumonia, asthma exacerbation 2 step walk test prior to discharge likely tomorrow (3) Asthma: Plan: Diffuse end expiratory wheezing in bilateral lung clarke on admission, now improving. Suspect exacerbation of asthma secondary to pneumonia. Was given dexamethasone 10 mg IV in the ER as well as albuterol neb with improve ment in symptoms and relief of chest pain. wheezing now resolved continue DuoNeb scheduled Albuterol every 2 hours as needed for shortness of breath or wheeze continue Prednisone taper-go down to 30 mg p.o. daily on 01/06 -continue home ICS/LABA (4) Chest pain: Plan: Patient presented with substernal chest pain with radiation between her shoulder blades. She reports that this pain was 10/10 in severity and had been going on all day. No history of prior ACS. Pain was relieved by IV steroids and albuterol. Suspect chest pain secondary to PNA rather than cardiac etiology. Serial troponin negative and EKG with no acute ischemic changes. CTA Chest no central PE INR has been therapeutic so smaller PE not likely Telemetry monitoring -acetaminophen prn (5) Pulmonary embolism: Plan: Patient with history of pulmonary embolism in September 2022. She had a previous unprovoked episode of VTE in 2018 as well. Per report, no hypercoagulable pathology was found. She is presently on Coumadin anticoagulation indefinitely. INR remains therapeutic Continue Coumadin at home dose Monitor INR especially in setting of abx and steroid use (6) Chronic diastolic (congestive) heart failure: Plan: Patient with chronic diastolic heart failure. She has seen cardiology as well as heart failure clinic for this issue. She appears euvolemic today however, exam is limited secondary to body habitus. Continue carvedilol 12.5 mg p.o. twice daily ok to restart home Lasix now that BPs coming up and taking po better Continue lisinopril 40 mg p.o. daily -holding hydralazine and nifedipine Monitor intake and output Monitor daily weights (7) Hypertension: Plan: Blood pressure initially elevated upon arrival. Then BP low normal and had some lightheadedness on 01/03 when BPs in 90s systolic BPs now starting to become high again after holding hydralazine, nifedipine, and lasix Continue carvedilol 12.5 mg p.o. twice daily w/ hold parameters Continue lisinopril 40 mg p.o. every morning restart home nifedipine 30 mg p.o. daily and hydralazine tid -cont lasix Monitor blood pressure (8) SHAKEEL (obstructive sleep apnea): Plan: Patient with moderate SHAKEEL with significant nocturnal hypoxemia. Patient reports compliance with home CPAP Continue CPAP 12 cmH2O nightly (9) Hepatosplenomegaly: Plan: seen on CTA Chest likely due to fatty liver needs weight loss follow as outpt platelets normal (10) Morbid obesity: Plan: BMI 58.5 needs weight loss f/u with PCP as outpt (11) Pulmonary hypertension: Plan: noted on CTA CHest due to SHAKEEL, h/o PEs continue CPAP and O2 therapy (12) Type 2 diabetes mellitus without complication: Plan: HgbA1C 5.7% in prediabetes range on no meds at home started SSI Novolog while on steroids here (13) Acid reflux: Plan: Chronic. Stable. Protonix 40 mg p.o. daily while inpatient Plan Dispo-continued stay on med tele, slowly improving, may need home O2. Dc to home likely tomorrow Admission and Anticipated Discharge Date Admission Date: January 01, 2023 Subjective Pt feeling better. I turned off her O2 and she stayed at POx 90-91% while speaking in complete sentences for at least 5 min. Is having a lot of upper mid back pain from coughing, improves with massage. Feels like she is getting a vaginal yeast infection as she has more urge to urinate. No vag burning or itching but reports she gets a yeast infection every tie she takes abx. No diarrhea. Tele with NSR, rates 50-60s Physical Exam Constitutional: WD/WN, vitals as above + morbidly obese Respiratory: normal respiratory effort and + cough Auscultation: + crackles (bilat lower lung clarke, improving) and + bronchial breath sounds (right lower and mid lung clarke); no diminished lung sounds and no wheezes Cardiovascular: RRR, no murmur, no edema Gastrointestinal (Abdomen): normal bowel sounds, soft, nontender, no hepatosplenomegaly Skin: no rashes, warm and dry Psychiatric: A+Ox3, euthymic affect Results & Data Results & Data ([facility]) Vital Signs (Past 12 Hours) Vital Signs Temp Pulse Pulse Resp BP Pulse Ox O2 Del Method 01/06/23 12:08 36.6 C 59 L 16 167/84 H 95 Nasal Cannula 01/06/23 11:25 68 20 91 Nasal Cannula 01/06/23 08:00 Nasal Cannula 01/06/23 08:00 61 01/06/23 08:03 36.4 C 56 L 20 151/81 H 93 Nasal Cannula 01/06/23 06:54 60 18 97 CPAP 01/06/23 04:01 36.7 C 62 24 149/74 H 95 CPAP 01/06/23 02:50 23 93 01/06/23 02:49 23 93 CPAP O2 Flow Rate 01/06/23 12:08 2 01/06/23 11:25 2 01/06/23 08:00 2 01/06/23 08:00 01/06/23 08:03 2 01/06/23 06:54 2 01/06/23 04:01 01/06/23 02:50 2 01/06/23 02:49 2 Laboratory Results CBC, BMP, INR reviewed PG Care Time/CCT Total # of Minutes Spent Total Time Spent with Patient: Total time spent is greater than 50% in coordination of care (as documented) at patient's floor/unit and/or counseling patient: Coding Level of Care Code 45803 SUB INP/OBS CARE 3/50MIN Diagnoses Human metapneumovirus (hMPV) pneumonia J12.3 Acute respiratory failure with hypoxia J96.01 Asthma J45.909 Chest pain R07.9 Pulmonary embolism I26.99 Chronic diastolic (congestive) heart failure I50.32 Hypertension I10 SHAKEEL (obstructive sleep apnea) G47.33 Hepatosplenomegaly R16.2 Morbid obesity E66.01 Pulmonary hypertension I27.20 Type 2 diabetes mellitus without complication E11.9 Acid reflux K21.9
[2023-01-06] MEDS: guaiFENesin/DEXTROM SYRUP 200MG/20MG 10ML UDC PO PRN ×2 (13:48→20:13)
[2023-01-06] MEDS: WARFARIN SOD 7.5 MG TAB PO SCH (15:54)
[2023-01-06] MEDS: hydrALAZINE TAB 50 MG TAB PO SCH ×2 (15:54→20:15)
[2023-01-06] MEDS: FUROSEMIDE 40 MG TAB PO SCH (17:05)
[2023-01-07] MEDS: ALBUTEROL 0.083% NEBU SOLN 3 ML VIAL NEB PRN (02:20)
[2023-01-07] MEDS: ALBUT/IPRATROP 3MG/0.5MG NEB 3 ML VIAL NEB SCH ×2 (07:00→10:58)
[2023-01-07 07:19] LABS: INR 2.5 (0.9-1.1); Prothrombin Time 25.6 Seconds (9.0-12.0)
[2023-01-07] MEDS: INSULIN ASPART PER UNIT SC SCH ×2 (08:22→11:08)
[2023-01-07] MEDS: carvediloL 12.5 MG TAB PO SCH (08:22)
[2023-01-07] MEDS: DULoxetine HCL 30 MG CAP PO SCH (08:23)
[2023-01-07] MEDS: CHOLECALCIFEROL 5,000 UNITS 125 MCG TAB PO SCH (08:23)
[2023-01-07] MEDS: hydrALAZINE TAB 50 MG TAB PO SCH ×2 (08:23→13:56)
[2023-01-07] MEDS: FLUTICASONE/VILANTEROL 200/25MCG 14 PUFFS/INHALER INH SCH (08:23)
[2023-01-07] MEDS: PANTOprazole 40 MG TAB PO SCH (08:23)
[2023-01-07] MEDS: lisinopril 40 MG TAB PO SCH (08:23)
[2023-01-07] MEDS: ASPIRIN 81 MG ECTAB PO SCH (08:23)
[2023-01-07] MEDS: predniSONE 10 MG TABLET PO SCH (08:24)
[2023-01-07] MEDS: guaiFENesin 600 MG TABCR PO SCH (08:25)
--- NOTE | 2023-01-07 10:18 | XRay Report ---
XR chest 2V PA/lateral CLINICAL HISTORY: f/u pneumonia TECHNIQUE: 2 views of the chest were obtained. Comparison: Comparison is made to chest radiograph 01/01/2023 FINDINGS: No lines and tubes are seen. Cardiomegaly is noted. Prominence and cephalization of the vasculature i s seen. Previously noted airspace opacities have almost completely resolved. No evidence of pleural e ffusion or pneumothorax. IMPRESSION: 1. Previously noted airspace opacities have almost completely resolved, compatible with significant improvement in pneumonia. 2. Cardiomegaly and mild pulmonary edema. ACT 112: Negative or not required by law. Electronically signed by: Billy Mcmahan M.D. 01/07/2023 10:16 AM
[2023-01-07] MEDS: NIFEdipine EXTENDED REL 30 MG TABCR PO SCH (12:32)
--- NOTE | 2023-01-07 14:33 | Discharge Summary ---
Date of Service January 07, 2023 Admission HPI Per Admitting Provider Carol Wharton is a 52-year-old female with history of hypertension, hyperlipidemia, asthma, heart failure with preserved EF and SHAKEEL on CPAP presenting with chest pain and shortness of breath. Patient has had 3 to 4 days of cough, congestion, sore throat, fever and body aches as well as shortness of breath. She was seen by her PCP yesterday 12/31/2022 with these complaints. She was noted to have a negative COVID test as well as negative influenza test. She was given a prescription for Augmentin and Robitussin. She was instructed to take the Augmentin if her symptoms worsen. When patient woke up this morning, her symptoms were worse. She did take 1 dose of Augmentin this morning. She had ongoing fever, body aches, cough and nausea as well as shortness of breath and wheeze. She developed upper chest pain as well as pain in her back between her shoulders. The pain was 10/10 in severity which prompted her to come to the ER. Chest pain was relieved with albuterol and steroid treatment. Patient presently without chest pain. No additional complaints at this time. Patient specifically denies palpitations, abdominal pain, vomiting, diarrhea, dysuria. Denies edema, orthopnea, weight gain. No recent travel. + Sick contacts, family members recently with sinusitis In the ER patient is febrile at 38.6, elevated heart rate = 94, elevated blood pressure = 161/89, tachypneic at 22 breaths/min and initially saturating 90% on room air. She was placed on 2 L nasal cannula and has been saturating between 91 and 94%. ER course: Normal saline x500 mL Cefepime 2 g IV Dexamethasone 10 mg IV Tylenol 1 g p.o. Albuterol 3 mL neb Principal Diagnosis Human Metapneumovirus pneumonia, Acute respiratory failure with hypoxia Discharge Exam Constitutional WD/WN, vitals as above + morbidly obese Respiratory normal respiratory effort and + cough Auscultation: + crackles (bilat lower lung clarke, much improved) and + wheezes (faint, mild); no diminished lung sounds and no bronchial breath sounds Cardiovascular RRR, no murmur, no edema Gastrointestinal (Abdomen) normal bowel sounds, soft, nontender, no hepatosplenomegaly Skin no rashes, warm and dry Psychiatric A+Ox3, euthymic affect Discharge Data Allergies Allergy/AdvReac Type Severity Reaction Status Date / Time oxycodone [From OxyContin] AdvReac Mild insomina Verified 01/01/23 21:51 Consultations 01/01/23 22:17 ED Decision to Admit Stat Ordered Studies 01/03/23 16:59 CT angio chest PE protocol Stat ECHO Hospital Course (1) Human metapneumovirus (hMPV) pneumonia: 52-year-old female with history of asthma, hypertension, hyperlipidemia, heart failure preserved EF, PE on coumadin, SHAKEEL on CPAP, presenting with several days of fever, chills, body aches as well as cough/congestion and progressive shortness of breath. Patient febrile, tachycardic, tachypneic and hypoxic on arrival requiring placement of supplemental oxygen by nasal cannula. Patient does not use home oxygen. Coarse breath sounds with diffuse end expiratory wheezing appreciated on exam initially. On admission, labs significant for normal WBC count, differential with elevation of neutrophils and lymphocytes. Normal BUN. No anion gap. Troponin normal x 2, BNP normal Procal negative Testing for COVID-19, influenza A/B and RSV are negative Chest x-ray with diffuse bilateral airspace disease left more than right, LLL PNA On 01/03, was requiring 5-6LNC, appeared ill, was tachypneic, febrile, lightheaded with relatively low-normal BPs, nauseated. CTA CHest obtained which was w/ poor contrast bolus timing but no central PE and with diffuse PNA c/w viral PNA Biofire VRP also checked and + for Human metapneumovirus Overall now significantly improved--> no more fevers, cough improved, weaned completely off supplemental O2 at rest and with exertion Having back pain from cough--> order heating pad and will give cough syrup- improved Repeat CXR 01/07 with significant improvement Procal remains negative x 2, CRP trending downward, Sputum cx negative--> secondary bacterial PNA not likely -dcd ceftriaxone and azithro after 3-4 doses Follow blood cultures-NGTD passed 2 step walk test prior to discharge-no O2 needed Mucinex twice daily, robitussin DM prn Tylenol as needed for pain or fever used Flutter valve, ICS -continue prednisone burst for asthma-continue 20mg daily x 2 more days then 10mg daily x 2 days then STOP -continue albuterol HFA and maintenance inhalers after discharge -gave diflucan 150mg po x 1 for symptoms of vag candidiasis (2) Acute respiratory failure with hypoxia: as above, 2/2 pneumonia, asthma exacerbation resolved (3) Asthma: Diffuse end expiratory wheezing in bilateral lung clarke on admission, now much improved. With exacerbation of asthma secondary to pneumonia. Was given dexamethasone 10 mg IV in the ER as well as albuterol neb with improvement in symptoms and relief of chest pain. received DuoNebs scheduled Albuterol every 2 hours as needed for shortness of breath or wheeze continue Prednisone taper-as above -continue home ICS/LABA (4) Chest pain: Patient presented with substernal chest pain with radiation between her shoulder blades. She reports that this pain was 10/10 in severity and had been going on all day. No history of prior ACS. Pain was relieved by IV steroids and albuterol. Suspect chest pain secondary to PNA rather than cardiac etiology. Serial troponin negative and EKG with no acute ischemic changes. CTA Chest no central PE INR has been therapeutic so smaller PE not likely -acetaminophen prn Much improved on day of discharge (5) Pulmonary embolism: Patient with history of pulmonary embolism in September 2022. She had a previous unprovoked episode of VTE in 2018 as well. Per report, no hypercoagulable pathology was found. She is presently on Coumadin anticoagulation indefinitely. INR remains therapeutic Continue Coumadin at home dose Monitor INR especially in setting of abx and steroid use-check INR on Tuesday as outpt-d/w patient (6) Chronic diastolic (congestive) heart failure: Patient with chronic diastolic heart failure. She has seen cardiology as well as heart failure clinic for this issue. She appears euvolemic today however, exam is limited secondary to body habitus. Continue carvedilol 12.5 mg p.o. twice daily continue home Lasix Continue lisinopril 40 mg p.o. daily, hydralazine and nifedipine (7) Hypertension: Blood pressure initially elevated upon arrival. Then BP low normal and had some lightheadedness on 01/03 when BPs in 90s systolic BPs meds held and had improvement restarted all home meds (8) SHAKEEL (obstructive sleep apnea): Patient with moderate SHAKEEL with significant nocturnal hypoxemia. Patient reports compliance with home CPAP Continue CPAP 12 cmH2O nightly (9) Hepatosplenomegaly: seen on CTA Chest likely due to fatty liver needs weight loss follow as outpt platelets normal (10) Morbid obesity: BMI 58.5 needs weight loss f/u with PCP as outpt (11) Pulmonary hypertension: noted on CTA CHest due to SHAKEEL, h/o PEs continue CPAP and O2 therapy (12) Type 2 diabetes mellitus without complication: HgbA1C 5.7% in prediabetes range on no meds at home started SSI Novolog while on steroids here but none needed on discharge (13) Acid reflux: Chronic. Stable. Protonix 40 mg p.o. daily while inpatient Plan Dispo-dc to home today, much improved Total Time Total Time Spent Total Time Spent (In Minutes): 35 min Discharge Plan Discharge Items Patient Disposition: Home - Self-Care Reason For Visit: PNEMONIA,HYPOXIA Discharge Diagnosis: Human metapneumovirus pneumonia, Acute respiratory failure with hypoxia Activity: As commented below Lifting: Gradually increase as tolerated Bathing: No limitations Exercise/Sports: Gradually increase as tolerated Non-emergency contact: Primary Care Provider Call non-emergency contact if: you have any medication questions, your symptoms worsen and you have a fever Follow-up/Referrals: Tita Cornelius CRNP [Primary Care Provider] - 01/13/23 2:00 pm Diet: Carb Consistent or DM2 and Heart Healthy Addtl Attending Provider Instructions: Please finish out 4 more days of the prednisone at 20mg once daily x 2 days, then 10mg once daily x 2 days, then STOP. You are no longer requiring supplemental oxygen at the time of discharge and your chest xray was much improved. Please continue to use your home inhalers. Because prednisone and fluconazole can affect your INR/Coumadin level, please have your INR checked again on Tuesday. You should have a repeat chest xray in 4 weeks to ensure the pneumonia is completely resolved. It is highly recommended that you work with your primary care doctor on a plan for weight loss as this will help you get and stay healthier in the future. Pending Studies at Discharge: No Stand-Alone Forms: [employer], Smoking Cessation Medications and DC Order Prescriptions: New prednisone 10 mg Tablet 20 mg PO DAILY Qty: 6 0RF Rx Instructions: x 2 days then 10mg daily x 2 days then STOP Continued warfarin 5 mg tablet See Rx Instructions PO UD Qty: 150 1RF Rx Instructions: 10mg q M/, 7.5mg x 5 days per [facility] orally use as directed; nifedipine 30 mg tablet extended release 30 mg PO QDL Qty: 90 3RF fluticasone propion-salmeterol [Advair Diskus] 250-50 mcg/dose blister with device 1 inh Inhalation BID Qty: 60 3RF potassium citrate 10 mEq (1,080 mg) tablet extended release 10 meq PO BID 90 Days Qty: 180 3RF hydralazine 50 mg tablet See Rx Instructions .ROUTE .COMPLEX Qty: 360 3RF Rx Instructions: Take 1 tablet by mouth every morning, 2 tablets at lunchtime, and 1 tablet every evening. omeprazole 40 mg capsule,delayed release(DR/EC) 40 mg PO QAM Qty: 90 3RF albuterol sulfate [Ventolin HFA] 90 mcg/actuation HFA aerosol inhaler 2 puff Inhalation Q4H PRN (Reason: shortness of breath) Qty: 3 5RF lisinopril 40 mg tablet 40 mg PO QAM Qty: 90 3RF duloxetine 30 mg capsule,delayed release(DR/EC) 30 mg PO QAM Qty: 90 3RF carvedilol 12.5 mg tablet 12.5 mg PO BID Qty: 180 3RF Rx Instructions: must administer with a meal/food codeine-guaifenesin 10-100 mg/5 mL liquid 5 ml PO Q6H Qty: 237 0RF multivitamin [Daily Multi-Vitamin] Tablet 1 tab PO QAM famotidine 40 mg tablet 40 mg PO DAILY PRN (Reason: breakthrough acid reflux) Qty: 30 2RF nitroglycerin 0.4 mg tablet, sublingual 0.4 mg SL Q5M PRN (Reason: Chest Pain) Qty: 25 Patient Comments: NEVER HAD TO USE cholecalciferol (vitamin D3) 125 mcg (5,000 unit) capsule 125 mcg PO QAM ascorbic acid (vitamin C) 1,000 mg tablet 1 gm PO QAM furosemide 40 mg tablet 40 mg PO 1700 Rx Instructions: TAKE WITH EVENING MEAL aspirin 81 mg Tablet 81 mg PO DAILY cyanocobalamin (vitamin B-12) 3,000 mcg Capsule 3,000 mcg PO DAILY Discontinued amoxicillin-pot clavulanate 875-125 mg tablet 1 tab PO BID Qty: 14 0RF Discharge Orders: Discharge Order (Routine); Ordered 01/07/23 Ordered By: Marii Burton Admission Data Admit Date/Time: 01/01/23 21:43 Attending Provider: Marii Burton Admit Provider: Joanne Sotelo Primary Care Provider: Tita Cornelius Other Providers: oJanne Sotelo Coding Level of Care Code 56831 INP/OBS DISCH >30 MIN Diagnoses Human metapneumovirus (hMPV) pneumonia J12.3 Acute respiratory failure with hypoxia J96.01 Asthma J45.909 Chest pain R07.9 Pulmonary embolism I26.99 Chronic diastolic (congestive) heart failure I50.32 Hypertension I10 SHAKEEL (obstructive sleep apnea) G47.33 Hepatosplenomegaly R16.2 Morbid obesity E66.01 Pulmonary hypertension I27.20 Type 2 diabetes mellitus without complication E11.9 Acid reflux K21.9
== END 2023-01-07 14:47 | disposition home or self-care (01) | DRG 193 ==
LOC: ED 18:33 → 2W 21:43 → SUATTDRO 21:43 → 2W 23:37